=== PATIENT | male | born 1965 | race Caucasian/White ===

== ENCOUNTER 2017-08-09 20:06 | Inpatient (IN) | payer MEDICAID, OTHER ==
[~2017-08-09] VITALS: Ht 182.9 cm; Wt 69.3 kg
[2017-08-09 21:00] VITALS: Ht 182.9 cm; Wt 69.3 kg
[2017-08-09] MEDS ORDERED: DIPHTH/TET/ACEL PERTUSS (ADULT) 0.5 ML VIAL IM* ONE (22:30)
--- NOTE | 2017-08-09 22:31 | ERD ---
ER Documentation Chief Complaint Date/Time DATE: 08/09/17 TIME: 22:15 Chief Complaint BIB RA FROM CAR FOR ETOH, HPI 52-year-old male presents to the ED via ambulance for evaluation after he was found sleeping in his car. Patient admitted to 1 week EtOH binge and states he fell in his house yesterday but does not remember what happened after that. Patient reports mild right elbow pain and requesting analgesics. Initially denied medical history but subsequently admitted to diabetes and chronic pain for which he takes methadone. Mild headache but no neck or back pain. Denies chest pain, shortness of breath or palpitations. No abdominal pain, nausea, vomiting, diarrhea or constipation. No hematemesis, hematochezia or melanotic stools. No fevers or chills. ROS All systems reviewed and are negative except as per history of present illness. Medications Home Meds Active Scripts Aspirin (Aspirin) 81 Mg Chew, 81 MG PO DAILY for 30 Days, #30 TAB Prov:MOHIT CASTELLANOS MD 08/13/17 NPH, Human Insulin Isophane (Humulin N Kwikpen) 100 Unit/1 Ml Insuln.pen, 20 UNIT SQ QPM for 30 Days, #1 EA Prov:MOHIT CASTELLANOS MD 08/13/17 NPH, Human Insulin Isophane (Humulin N Kwikpen) 100 Unit/1 Ml Insuln.pen, 25 UNIT SQ QAM for 30 Days, #1 EA 2 Refills Prov:MOHIT CASTELLANOS MD 08/13/17 Reported Medications Trazodone Hcl* (Trazodone Hcl*) 50 Mg Tablet, 50 MG PO QHS, #30 TAB 08/10/17 Methadone Hcl* (Methadone*) 5 Mg Tab, 5 MG PO, TAB 08/10/17 Allergies Allergies: Coded Allergies: No Known Allergy (Unverified , 08/09/17) PMhx/Soc Reviewed in chart. As per HPI. History of Surgery: Yes (Cholecystectomy.) Anesthesia Reaction: No Hx Neurological Disorder: No Hx Respiratory Disorders: No Hx Cardiac Disorders: No Hx Psychiatric Problems: Yes (Depression) Hx Miscellaneous Medical Probl: Yes (Diabetes mellitus type 2. Chronic pain on methadone. Possible pancreatitis.) Hx Alcohol Use: Yes Hx Substance Use: Yes Hx Tobacco Use: No FmHx Denies family history of stroke, cancer sudden cardiac . Physical Exam Vitals Time: 21:00 Temp: 98.5 Pulse: 76 R:18 BP: 153/81. Pulse ox: 100% on room air Physical Exam Const: Sleepy but easily arousable. No acute distress Head: Atraumatic Eyes: Normal Conjunctiva. Pupils equal reactive to light. Extraocular movements are intact. No nystagmus. No periorbital ecchymosis or subconjunctival hemorrhage. ENT: Normal External Ears, Nose and Mouth. No hemotympanum or givens sign. Neck: Full range of motion. No midline bony tenderness or paraspinal muscle spasm. Resp: Breath sounds are equal and clear to auscultation bilaterally Cardio: Regular rate and rhythm, no murmurs Abd: Soft, non tender, non distended. Normal bowel sounds Skin: No petechiae or rashes Back: No midline or flank tenderness Ext: No cyanosis, or edema. Right upper extremity: Elbow: Multiple superficial abrasions and mild generalized tenderness. No ecchymosis or deformity. Normal range of motion including supination and pronation. No shoulder or wrist swelling or tenderness. Full range of motion. Distal neurovascular intact. Neur: Sleepy but easily arousable. GCS 15. Cranial nerves II through XII are grossly intact. Motor and sensory are equal bilaterally. No focal deficit observed. Psych: Cooperative. Mildly anxious but not depressed. Denies SI/HI. No hallucinations. Result Diagram: 08/13/17 1020 Results 24 hrs Laboratory Tests Test 08/09/17 20:40 08/10/17 00:22 08/10/17 01:15 08/10/17 02:00 White Blood Count 13.910^3/ul Red Blood Count 5.5710^6/ul Hemoglobin 17.7g/dl Hematocrit 50.8% Mean Corpuscular Volume 91.2fl Mean Corpuscular Hemoglobin 31.8pg Mean Corpuscular Hemoglobin Concent 34.8g/dl Red Cell Distribution Width 13.2% Platelet Count 66307^3/UL Mean Platelet Volume 11.2fl Neutrophils % 72.1% Lymphocytes % 20.6% Monocytes % 6.1% Eosinophils % 0.1% Basophils % 0.6% Nucleated Red Blood Cells % 0.0/100WBC Neutrophils # 10.010^3/ul Lymphocytes # 2.910^3/ul Monocytes # 0.910^3/ul Eosinophils # 0.010^3/ul Basophils # 0.110^3/ul Nucleated Red Blood Cells # 0.010^3/ul Sodium Level 143mmol/L Potassium Level 4.3mmol/L Chloride Level 102mmol/L Carbon Dioxide Level 17mmol/L Anion Gap 28 Blood Urea Nitrogen 22mg/dl Creatinine 1.07mg/dl Glucose Level 359mg/dl Calcium Level 8.4mg/dl Bedside Glucose 292mg/dL Blood Gas Specimen Source Blood venous Arterial Blood Date Drawn 08/10/2017 3:33:47 AM Arterial Blood Gas Puncture Site VENOUS LINE Jason Test N/A Venous Blood pH 7.363 Venous Blood pCO2 (Temp Corrected) 32.4mmHG Venous Blood pO2 (Temp Corrected) 45.7mmHG Venous Blood HCO3 18.0mmol/L Venous Blood Oxygen Saturation 81.0mmHG Venous Blood Base Excess -6.2mmol/L Venous Blood Total Hemoglobin 15.7g/dl Venous Blood Oxyhemoglobin 78.1% Venous Blood Methemoglobin 0.3% Carboxyhemoglobin 3.3% Blood Gas Temperature 37.0C Blood Gas Actual Respiration Rate 18 Blood Gas Modality ROOM AIR FiO2 21.0% Blood Gas Notified Whom [facility] Blood Gas Notified Time 08/10/2017 3:44:38 AM Urine Color YELLOW Urine Clarity CLEAR Urine pH 5.0 Urine Specific [place] 1.026 Urine Ketones 1+mg/dL Urine Nitrite NEGATIVEmg/dL Urine Bilirubin NEGATIVEmg/dL Urine Urobilinogen NEGATIVEmg/dL Urine Leukocyte Esterase NEGATIVELeu/ul Urine Microscopic RBC 28/HPF Urine Microscopic WBC 1/HPF Urine Hemoglobin 2+mg/dL Urine Random Creatinine 83mg/dL Urine Microalbumin 16.2mg/dL Urine Microalbumin/Creatinine Ratio 195 Urine Glucose 3+mg/dL Urine Total Protein 1+mg/dl Urine Opiates Screen Negative Urine Barbiturates Negative Urine Amphetamines Screen Negative Urine Benzodiazepines Screen Negative Urine Cocaine Screen Negative Urine Cannabinoids Negative Current Medications Medications (Trade) Dose Ordered Sig/Miguel Route PRN Reason Start Time Stop Time Status Last Admin Dose Admin Diphtheria/ Tetanus/Acell Pertussis (Adacel) 0.5 ml ONCE ONCE IM* 08/09/17 22:30 08/09/17 22:31 DC 08/09/17 23:09 Acetaminophen (Tylenol Tab) 650 mg ONCE ONCE PO 08/09/17 23:30 08/09/17 23:48 DC 08/09/17 23:49 Aspirin (Aspirin) 325 mg STK-MED ONCE .ROUTE 08/09/17 23:14 08/09/17 23:15 DC Acetaminophen 325 mg 325 mg STK-MED ONCE .ROUTE 08/09/17 23:22 08/09/17 23:23 DC Sodium Chloride 2,000 ml @ 1,000 mls/hr Q2H STAT IV 08/10/17 01:39 08/10/17 03:38 DC 08/10/17 02:04 Sodium Chloride 1,000 ml @ 200 mls/hr Q5H IV 08/10/17 02:51 08/10/17 09:47 DC 08/10/17 08:38 Sodium Chloride (NS) 1,000 ml @ 1,000 mls/hr Q1H IV 08/10/17 02:51 08/10/17 03:50 DC Ordering MD: JOSE A TIRADO MD Location: E/R Room/Bed: PROCEDURE: Noncontrast CT Head. CLINICAL INDICATION: Headache TECHNIQUE: Noncontrast CT of the head was obtained. The administered radiation dose was CTDI vol = 44.11 mGy, DLP = 720.23 mGy-cm. One or more of the following dose reduction techniques were used: Automated exposure control, Adjustment of the mA and/or kV according to patient size, or Use of iterative reconstruction technique. COMPARISON: There are no similar studies submitted for comparison. FINDINGS: There is no acute intracranial hemorrhage, midline shift, or mass effect. No extra-axial collection is seen. There is mild diffuse cerebral volume loss with compensatory mild diffuse cerebral sulcal and ventricular enlargement. A few rounded low attenuation lesions in the left frontal parietal centrum semiovale, measuring up to 1.1 cm, and arranged in a somewhat linear AP distribution are of uncertain etiology. Differential considerations include: chronic ischemic change/lacunar infarcts in a watershed distribution, inflammatory, infectious, or neoplastic etiologies. The cerebral attenuation is otherwise within normal limits. There is mild diffuse cerebellar volume loss. The basal cisterns are preserved. The there is intracranial calcific atherosclerotic disease involving the internal carotid arteries bilaterally. The partially imaged orbits are grossly unremarkable. The visualized paranasal sinuses and mastoid air cells are clear. No acute fracture or suspicious osseous lesion is identified. IMPRESSION: 1. No acute intracranial hemorrhage, midline shift, mass effect, or evidence of large vascular territory acute infarct. 2. A few small rounded low attenuation lesions in the left frontal parietal centrum semiovale a somewhat linear AP distribution, suggestive of possible chronic lacunar infarcts of watershed etiology. However, other etiologies including inflammatory, infectious, or even neoplastic conditions cannot be completely excluded. Recommend MRI brain with contrast for further evaluation. Given the unilaterality and watershed distribution of these lesions, consider MRA head/neck as well. 3. Intracranial calcific atherosclerotic disease. Call report was made to Dr. Tirado at 23:30 on 08/09/2017. RPTAT: HRC Physician Eddie Date Time Electronically viewed and signed by Physician Eddie on 08/09/2017 23: 34 RC/ Procedures/MDM DOCUMENTS REVIEWED: ED nurse, EMS. No prior records [employer]ISION [employer]KIN-year-old male, history of diabetes mellitus and chronic pain on methadone, presents to the ED via ambulance for evaluation after he was found sleeping in his car. Labs reveals hyperglycemia and a anion gap metabolic acidosis with hyperglycemia and pH is 7.36 on VBG with 1+ urine ketones consistent with mild diabetic ketoacidosis although an element of alcoholic ketoacidosis is also considered. Due to possible head injury CT scan of the brain was performed to rule out mass, bleed or infarct and revealed several low-attenuation lesions in the left frontal area. Etiology of the lesion is uncertain but differential includes infectious, ischemic, inflammatory or neoplastic process. Further evaluation with MRI will be necessary. No tremulousness, hallucinations or signs of alcohol withdrawal or delirium tremens. IV hydration with normal saline is instituted, patient placed on a insulin drip will be admitted to the intensive care unit for further evaluation and management. CRITICAL CARE TIME: Due to the high probability of sudden clinically significant hemodynamic, cardiovascular, neurologic and endocrine deterioration , this patient with diabetic ketoacidosis and an abnormal CT of the brain required multiple, frequent reevaluations of vital signs and response to therapy. Additional critical care time was spent in obtaining supplemental history from EMS and arranging for ongoing care and admission to the ICU with Dr. Thorne. TOTAL CRITICAL CARE TIME: 35 minutes not including other separately reportable procedures. Counseled patient regarding diagnosis, diagnostic results and plan for admission. CALLS/CONSULTS: Time 01:00, Dr. Thorne, Recommends admission to the ICU on insulin drip.. PATIENT CARE TRANSITIONED: Time: 01:00, Dr. Thorne. Departure Diagnosis: Primary Impression: Diabetic ketoacidosis Diabetes mellitus type: other specified (including KRISTOPHER) Diabetes mellitus complication detail: without coma Qualified Code: E13.10 - Diabetic ketoacidosis without coma associated with other specified diabetes mellitus Additional Impressions: Abnormal CT of brain Chronic pain disorder Methadone maintenance therapy patient Alcohol consumption binge drinking Condition: Critical (Admit to ICU.) JOSE A TIRADO MD Aug 09, 2017 22:31
[2017-08-09 22:51] LABS: BASOPHIL # 0.1 10^3/ul (0.0-0.1); BASOPHILS % 0.6 % (0.0-2.0); EOSINOPHILS % 0.1 % (0.0-7.0); HEMATOCRIT 50.8 % (42.0-52.0); HEMOGLOBIN 17.7 g/dl (14.0-18.0); LYMPHOCYTES # 2.9 10^3/ul (0.8-2.9); LYMPHOCYTES % 20.6 % (15.0-51.0); MEAN CORPUSCULAR HEMOGLOBIN 31.8 pg (29.0-33.0); MEAN CORPUSCULAR HGB CONC 34.8 g/dl (32.0-37.0); MEAN CORPUSCULAR VOLUME 91.2 fl (82.0-101.0); MEAN PLATELET VOLUME 11.2 fl (7.4-10.4); MONOCYTE # 0.9 10^3/ul (0.3-0.9); MONOCYTES % 6.1 % (0.0-11.0); NEUTROPHILS % 72.1 % (39.0-77.0); PLATELET COUNT 264 10^3/UL (140-415); RED BLOOD COUNT 5.57 10^6/ul (4.70-6.10); RED CELL DISTRIBUTION WIDTH 13.2 % (11.5-14.5); WHITE BLOOD COUNT 13.9 10^3/ul (4.8-10.8)
[2017-08-09 22:57] LABS: CALCIUM 8.4 mg/dl (8.4-10.2); CREATININE 1.07 mg/dl (0.61-1.24); POTASSIUM 4.3 mmol/L (3.5-5.1)
[2017-08-09] MEDS ORDERED: ASPIRIN 325 MG TAB ONE (23:14)
[2017-08-09] MEDS ORDERED: ACETAMINOPHEN 325 MG TAB ONE (23:22)
[2017-08-09] MEDS ORDERED: ACETAMINOPHEN 325 MG TAB PO ONE (23:30)
--- NOTE | 2017-08-09 23:34 | RADRPT ---
PROCEDURE: Noncontrast CT Head. CLINICAL INDICATION: Headache TECHNIQUE: Noncontrast CT of the head was obtained. The administered radiation dose was CTDI vol = 44.11 mGy, DLP = 720.23 mGy-cm. One or more of the following dose reduction techniques were used: Au tomated exposure control, Adjustment of the mA and/or kV according to patient size, or Use of iterat francis reconstruction technique. COMPARISON: There are no similar studies submitted for comparison. FINDINGS: There is no acute intracranial hemorrhage, midline shift, or mass effect. No extra-axial collection is seen. There is mild diffuse cerebral volume loss with compensatory mild diffuse cerebral sulcal a nd ventricular enlargement. A few rounded low attenuation lesions in the left frontal parietal centr um semiovale, measuring up to 1.1 cm, and arranged in a somewhat linear AP distribution are of uncer tain etiology. Differential considerations include: chronic ischemic change/lacunar infarcts in a wa tershed distribution, inflammatory, infectious, or neoplastic etiologies. The cerebral attenuation i s otherwise within normal limits. There is mild diffuse cerebellar volume loss. The basal cisterns a re preserved. The there is intracranial calcific atherosclerotic disease involving the internal jones tid arteries bilaterally. The partially imaged orbits are grossly unremarkable. The visualized paran benito sinuses and mastoid air cells are clear. No acute fracture or suspicious osseous lesion is identified. IMPRESSION: 1. No acute intracranial hemorrhage, midline shift, mass effect, or evidence of large vascular osmani tory acute infarct. 2. A few small rounded low attenuation lesions in the left frontal parietal centrum semiovale a some what linear AP distribution, suggestive of possible chronic lacunar infarcts of watershed etiology. However, other etiologies including inflammatory, infectious, or even neoplastic conditions cannot b e completely excluded. Recommend MRI brain with contrast for further evaluation. Given the unilatera lity and watershed distribution of these lesions, consider MRA head/neck as well. 3. Intracranial calcific atherosclerotic disease. Call report was made to Dr. Washburn at 23:30 on 08/09/2017. RPTAT: HRC Physician Eddie Date Time Electronically viewed and signed by Dane Swan Physician on 08/09/2017 23:34 RC/
[2017-08-10] MEDS ORDERED: SOD CHLORIDE 0.9% 2,000 ML IV STA (01:39)
[2017-08-10] MEDS ORDERED: TRAZ50TA18 PO (02:19)
[2017-08-10] MEDS ORDERED: METH-417 PO (02:19)
[2017-08-10 02:33] LABS: ADD UMIC YES; UR ASCORBIC ACID NEGATIVE (NEGATIVE); UR BILIRUBIN (Dip) NEGATIVE (NEGATIVE); UR BLOOD (Dip) 2+ mg/dL (NEGATIVE); UR CLARITY CLEAR (CLEAR); UR COLOR YELLOW (YELLOW); UR GLUCOSE (Dip) 3+ mg/dL (NEGATIVE); UR KETONES (Dip) 1+ mg/dL (NEGATIVE); UR LEUKOCYTE ESTERASE (Dip) NEGATIVE Leu/ul (NEGATIVE); UR NITRITE (Dip) NEGATIVE (NEGATIVE); UR RBC 28 /HPF (0-5); UR SPECIFIC GRAVITY (Dip) 1.026 (1.003-1.030); UR TOTAL PROTEIN (Dip) 1+ mg/dl (NEGATIVE); UR UROBILINOGEN (Dip) NEGATIVE (NEGATIVE)
[2017-08-10] MEDS ORDERED: SOD CHLORIDE 0.9% 1,000 ML IV SCH (02:51)
[2017-08-10] MEDS ORDERED: INSULIN HUMAN REGULAR 100 UNIT in SOD CHLORIDE 0.9% 99 ML IV SCH (03:00)
[2017-08-10] MEDS ORDERED: DEXTROSE 50% 50 ML SYRINGE IV PRN ×4 (03:00→10:30)
[2017-08-10] MEDS ORDERED: ONDANSETRON 4 MG INJ IV PRN (03:00)
[2017-08-10 03:18] LABS: BARBITURATES Negative (NEGATIVE); BENZODIAZEPINES Negative (NEGATIVE); CANNABINOIDS Negative (NEGATIVE); COCAINE Negative (NEGATIVE); OPIATES Negative (NEGATIVE)
[2017-08-10 03:44] LABS: MODE ROOM AIR; MetHgb Venous 0.3 %; Sample Type Blood venous; Venous COHb 3.3 %; Venous Fraction OxyHgb 78.1 %; Venous Total Hemglobin 15.7 g/dl
[2017-08-10] MEDS: ACCU-CHEK XX SCH ×9 (03:45→11:00)
[2017-08-10 03:50] LABS: CALCIUM 7.9 mg/dl (8.4-10.2); CREATININE 0.84 mg/dl (0.61-1.24); POTASSIUM 4.3 mmol/L (3.5-5.1)
[2017-08-10] MEDS ORDERED: LACTATED RINGER'S 1,000 ML IV SCH (03:51)
[2017-08-10 04:31] VITALS: TEMP 98.7
[2017-08-10] MEDS: SOD CHLORIDE 0.9% 1,000 ML IV SCH ×2 (05:50→08:38)
[2017-08-10] MEDS ORDERED: ONDANSETRON 4 MG INJ IV STA (05:55)
[2017-08-10] MEDS ORDERED: morphine 4 MG/ML VIAL IV STA (05:55)
[2017-08-10] MEDS: DEXTROSE 5%-0.45% NACL 1,000 ML IV SCH ×2 (05:59→13:34)
[2017-08-10] MEDS ORDERED: PANTOPRAZOLE 40 MG INJ IV SCH (06:00)
[2017-08-10 06:05] LABS: CALCIUM 7.9 mg/dl (8.4-10.2); CREATININE 0.77 mg/dl (0.61-1.24); POTASSIUM 3.5 mmol/L (3.5-5.1)
[2017-08-10 06:06] LABS: PHOSPHORUS 3.1 mg/dl (2.5-4.9)
[2017-08-10 08:58] LABS: CALCIUM 7.8 mg/dl (8.4-10.2); CREATININE 0.64 mg/dl (0.61-1.24); POTASSIUM 3.9 mmol/L (3.5-5.1)
[2017-08-10 09:00] VITALS: PULSE 57
--- NOTE | 2017-08-10 09:00 | HP ---
Date/Time of Note Date/Time of Note DATE: 08/10/17 TIME: 08:47 Assessment/Plan VTE Prophylaxis VTE Prophylaxis Intervention: SCD's Assessment/Plan Chief Complaint/Hosp Course This is a 52-year-old male being admitted to the ICU floor for: #1 DKA: Blood sugars above 250 and anion gap greater than 20. At the time we will treat the patient in the ICU with insulin drip protocol. Will check CMP every 3 hours. Will provide fluid hydration with normal saline and switch over to D5 and half once a sugars are below 200. Check a hemoglobin A1c level. Patient does not report taking any diabetes medications at home and there are none on his med rec. Consider endocrine consultation. #2 EtOH intoxication: We will provide fluid hydration. Will check ethanol level. Provide Ativan as needed. Consider Librium however the patient states he only drank yesterday after a long time. #3 fall: Patient does report hitting his head after getting drunk. He denies any loss of consciousness. CAT scan of the head showed:A few small rounded low attenuation lesions in the left frontal parietal centrum semiovale a somewhat linear AP distribution, suggestive of possible chronic lacunar infarcts of watershed etiology. However, other etiologies including inflammatory, infectious , or even neoplastic conditions cannot be completely excluded. MRI of the brain with and without contrast ordered along with MRA of the head and neck. Will consult neurology if indicated. #4 Leukocytosis: This likely is reactive in stress related. Will continue to follow this. There are no fevers at this time or signs of infection. #5 chronic back pain: Patient is currently on methadone. We will continue patient's home dose of methadone but will need to confirm his clinic and his dosage as well. #6 DVT GI prophylaxis: SCDs, acid beatriz Further treatment strategy will be implemented as per the clinical course` Problems: HPI/ROS Admit Date/Time Admit Date/Time Hx of Present Illness Chief complaint: Fall This is a 52-year-old male who presents to the ED status post fall. Patient states that he was drinking a lot last night and he fell and hit his head. He denies any loss of consciousness. He states that usually does not drink daily and as much as he did. He states that this is the first time he passed out. Patient has not been to [facility] for. He also states that he is on methadone for chronic pain for his back. Allergies: NKDA Medications: See JAN ROS Const: As per HPI Eyes : No pain discharge or redness or change in visual acuity ENT: No pain, sore throat, congestion, congestion, dysphagia or discharge Respiratory: No shortness of breath, cough, sputum, wheezing, or pleuritic pain Cardiovascular: No chest pain, palpitation, PND, or edema GI : no change in appetite, abdominal pain, nausea, vomiting, diarrhea, constipation, or change in the color his stool Genitourinary: No dysuria, hematuria, flank pain , discharge or CVA tenderness Musculoskeletal: As per HPI Skin: Bruising of the face, and right arm Neuro: No headache, dizziness, syncope, seizure, focal weakness Endocrine: Reports polyuria, polydipsia Psych: No hallucination, depression, anxiety or suicidal ideation PMH/Family/Social Past Medical History Diabetes mellitus, chronic back pain, pancreatitis? Past Surgical History This is a 52-year-old male cholecystectomy, abdominal hernia repair, pancreatic surgery Family History Significant Family History: no pertinent family hx Social History Alcohol Use: occasionally Smoking Status: Never smoker Drug Use: none Exam/Review of Systems Vital Signs Vitals Vital Signs Date Time Temp Pulse Resp B/P Pulse Ox O2 Delivery O2 Flow Rate FiO2 08/10/17 08:00 65 18 127/79 96 Room Air 08/10/17 04:31 98.7 Exam Exam General: Patient is well-developed male lying in bed in mild distress from pain , he is requesting his methadone HEENT: Atraumatic, normocephalic. The pupils are equal, round and reactive. Extraocular motor are intact Neck: Supple with full range of motion. No rigidity or meningismus Chest: Nontender Lungs: Clear to auscultation bilaterally no crackles rales or wheezing Heart: Normal S1-S2, Regular rhythm and rate. Abdomen: Soft , nontender, nondistended , bowel sounds are present. Surgical scar present of the abdomen Extremities: Normal to inspection, no edema no cyanosis Neurologic: Normal mental status, speech normal, cranial nerves II through XII are intact, motor and sensory are intact, no focal weakness skin: Surgical scar present of the abdomen, abrasions of the face and right elbow Additional Comments PROCEDURE: Noncontrast CT Head. CLINICAL INDICATION: Headache TECHNIQUE: Noncontrast CT of the head was obtained. The administered radiation dose was CTDI vol = 44.11 mGy, DLP = 720.23 mGy-cm. One or more of the following dose reduction techniques were used: Automated exposure control, Adjustment of the mA and/or kV according to patient size, or Use of iterative reconstruction technique. COMPARISON: There are no similar studies submitted for comparison. FINDINGS: There is no acute intracranial hemorrhage, midline shift, or mass effect. No extra-axial collection is seen. There is mild diffuse cerebral volume loss with compensatory mild diffuse cerebral sulcal and ventricular enlargement. A few rounded low attenuation lesions in the left frontal parietal centrum semiovale, measuring up to 1.1 cm, and arranged in a somewhat linear AP distribution are of uncertain etiology. Differential considerations include: chronic ischemic change/lacunar infarcts in a watershed distribution, inflammatory, infectious, or neoplastic etiologies. The cerebral attenuation is otherwise within normal limits. There is mild diffuse cerebellar volume loss. The basal cisterns are preserved. The there is intracranial calcific atherosclerotic disease involving the internal carotid arteries bilaterally. The partially imaged orbits are grossly unremarkable. The visualized paranasal sinuses and mastoid air cells are clear. No acute fracture or suspicious osseous lesion is identified. IMPRESSION: 1. No acute intracranial hemorrhage, midline shift, mass effect, or evidence of large vascular territory acute infarct. 2. A few small rounded low attenuation lesions in the left frontal parietal centrum semiovale a somewhat linear AP distribution, suggestive of possible chronic lacunar infarcts of watershed etiology. However, other etiologies including inflammatory, infectious, or even neoplastic conditions cannot be completely excluded. Recommend MRI brain with contrast for further evaluation. Given the unilaterality and watershed distribution of these lesions, consider MRA head/neck as well. 3. Intracranial calcific atherosclerotic disease. Call report was made to Dr. Tirado at 23:30 on 08/09/2017. RPTAT: HRC Physician Eddie Date Time Electronically viewed and signed by Physician Eddie on 08/09/2017 23: 34 RC/ CC: JOSE A TIRADO MD Labs Result Diagram: 08/09/17203908/10/17520 Medications Medications Current Medications Sodium Chloride (NS) 1,000 ml @ 200 mls/hr Q5H IV Last administered on 08:38; Admin Dose 200 MLS/HR; Start 08/10/17 at 02:51 Ondansetron HCl (Zofran Inj) 4 mg Q6H PRN IV NAUSEA AND/OR VOMITING; Start 08/10/17 at 03:00 Acetaminophen (Tylenol Tab) 650 mg Q6H PRN PO PAIN LEVEL 1-3 OR FEVER; Start 08/10/17 at 03:00 Pantoprazole (Protonix Iv) 40 mg DAILY@06 IV Last administered on 08/10/17 05: 59; Admin Dose 40 MG; Start 08/10/17 at 06:00 Dextrose (D50w Syringe) 50 ml Q15M PRN IV For BS 50 or less; Start 08/10/17 at 03:00 Dextrose (D50w Syringe) 25 ml Q15M PRN IV BS between 50-70 Last administered on 08/10/17 08:22; Admin Dose 25 ML; Start 08/10/17 at 03:00 Diagnostic Test (Pha) (Accu-Chek) 1 ea Q1H XX Last administered on 08/10/17 08 :03; Admin Dose 1 EA; Start 08/10/17 at 03:00 Lorazepam (Ativan) 1 mg Q4H PRN IV AGITATION/ANXIETY; Start 08/10/17 at 03:00 Methadone HCl (Methadone) 5 mg TID PO ; Start 08/10/17 at 09:00; Status UNV Trazodone HCl 50 mg 50 mg QHS PO ; Start 08/10/17 at 21:00; Status UNV Dextrose/Sodium Chloride (D5-1/2ns) 1,000 ml @ 150 mls/hr Q6H40M IV Last administered on 08/10/17 05:59; Admin Dose 100 MLS/HR; Start 08/10/17 at 06:00 MAX SCHAEFFER Aug 10, 2017 08:58
[2017-08-10] MEDS ORDERED: INSULIN GLARGINE [LANtus] 3 ML PEN SC STA (09:30)
[2017-08-10] MEDS: METHADONE 5 MG TAB PO SCH ×3 (09:32→20:40)
[2017-08-10] MEDS: LORAZEPAM 2 MG INJ IV PRN ×2 (09:35→16:41)
[2017-08-10] MEDS ORDERED: GLUCAGON 1 MG INJ IM PRN (10:30)
[2017-08-10] MEDS ORDERED: GLUCOSE GEL 15 GRAM TUBE BUCCAL PRN (10:30)
[2017-08-10] MEDS ORDERED: GLUCOSE GEL 15 GRAM TUBE PO PRN ×2 (10:30)
[2017-08-10 11:27] VITALS: BP 129/65; RESP 18
[2017-08-10] MEDS: INSULIN ASPART [NOVOLOG] 3 ML PEN SC SCH ×5 (12:05→20:44)
[2017-08-10 12:39] LABS: ALBUMIN 3.4 g/dl (3.3-4.9); ALBUMIN/GLOBULIN RATIO 1.13; BILIRUBIN,INDIRECT 0.6 mg/dl (0-1.1); BILIRUBIN,TOTAL 0.6 mg/dl (0.2-1.3); CALCIUM 7.9 mg/dl (8.4-10.2); CREATININE 0.83 mg/dl (0.61-1.24); POTASSIUM 4.4 mmol/L (3.5-5.1); TOTAL PROTEIN 6.4 g/dl (6.1-8.1)
--- NOTE | 2017-08-10 14:00 | PN ---
Date/Time of Note Date/Time of Note DATE: 08/10/17 TIME: 13:59 Assessment/Plan VTE Prophylaxis VTE Prophylaxis Intervention: LMWH Assessment/Plan Chief Complaint/Hosp Course 52 yo male with h/o DMII on insulin who presented with DKA DKA: - Resolved DMII; - Basal/bolus insulin Back pain: - Continue methadone 5 TID Discharge likely tomorrow Problems: Subjective 24 Hr Interval Summary Free Text/Dictation DKA resolved Admits to etoh use for past 1 week only No current w/d symptoms Only compliant is of chronic back pain for which he takes methadone 5 TID Exam/Review of Systems Vital Signs Vitals Vital Signs Date Time Temp Pulse Resp B/P Pulse Ox O2 Delivery O2 Flow Rate FiO2 08/10/17 11:27 98.5 54 18 129/65 98 08/10/17 09:00 Room Air Exam Constitutional: alert, oriented, well developed Psych: nl mood/affect, no complaints Head: atraumatic, normocephalic Eyes: EOMI, PERRL, nl conjunctiva, nl lids, nl sclera ENMT: nl external ears & nose, nl lips & teeth, nl nasal mucosa & septum Neck: non-tender, supple Respiratory: clear to auscultation, normal air movement Cardiovascular: nl pulses, regular rate and rhythm Gastrointestinal: nl liver, spleen, non-tender, soft Musculoskeletal: nl extremities to inspection, nl gait and stance Extremities: normal pulses Neurological: VENTILATION MECHANIC II-XII intact, nl mental status, nl speech, nl strength Skin: nl turgor, No rash or lesions Lymph: nl lymph nodes Results Result Diagram: 08/09/17203908/10/17 1202 Results 24 hrs Laboratory Tests Test 08/09/17 20:40 08/10/17 00:22 08/10/17 01:15 08/10/17 02:00 White Blood Count 13.9 H Red Blood Count 5.57 Hemoglobin 17.7 Hematocrit 50.8 Mean Corpuscular Volume 91.2 Mean Corpuscular Hemoglobin 31.8 Mean Corpuscular Hemoglobin Concent 34.8 Red Cell Distribution Width 13.2 Platelet Count 264 Mean Platelet Volume 11.2 H Neutrophils % 72.1 Lymphocytes % 20.6 Monocytes % 6.1 Eosinophils % 0.1 Basophils % 0.6 Nucleated Red Blood Cells % 0.0 Neutrophils # 10.0 H Lymphocytes # 2.9 Monocytes # 0.9 Eosinophils # 0.0 Basophils # 0.1 Nucleated Red Blood Cells # 0.0 Sodium Level 143 Potassium Level 4.3 Chloride Level 102 Carbon Dioxide Level 17 L Anion Gap 28 H Blood Urea Nitrogen 22 H Creatinine 1.07 Glucose Level 359 H Calcium Level 8.4 Bedside Glucose 292 H Blood Gas Specimen Source Blood venous Arterial Blood Date Drawn 08/10/2017 3:33:47 AM Arterial Blood Gas Puncture Site VENOUS LINE Jason Test N/A Venous Blood pH 7.363 Venous Blood pCO2 (Temp Corrected) 32.4 L Venous Blood pO2 (Temp Corrected) 45.7 H Venous Blood HCO3 18.0 L Venous Blood Oxygen Saturation 81.0 H Venous Blood Base Excess -6.2 L Venous Blood Total Hemoglobin 15.7 Venous Blood Oxyhemoglobin 78.1 Venous Blood Methemoglobin 0.3 Carboxyhemoglobin 3.3 Blood Gas Temperature 37.0 Blood Gas Actual Respiration Rate 18 Blood Gas Modality ROOM AIR FiO2 21.0 Blood Gas Notified Miranda MAYNARD RCP Blood Gas Notified Time 08/10/2017 3:44:38 AM Urine Color YELLOW Urine Clarity CLEAR Urine pH 5.0 Urine Specific [place] 1.026 Urine Ketones 1+ H Urine Nitrite NEGATIVE Urine Bilirubin NEGATIVE Urine Urobilinogen NEGATIVE Urine Leukocyte Esterase NEGATIVE Urine Microscopic RBC 28 H Urine Microscopic WBC 1 Urine Hemoglobin 2+ H Urine Glucose 3+ H Urine Total Protein 1+ H Urine Opiates Screen Negative Urine Barbiturates Negative Urine Amphetamines Screen Negative Urine Benzodiazepines Screen Negative Urine Cocaine Screen Negative Urine Cannabinoids Negative Test 08/10/17 03:00 08/10/17 03:42 08/10/17 05:21 08/10/17 05:22 Sodium Level 140 141 Potassium Level 4.3 3.5 Chloride Level 104 107 Carbon Dioxide Level 18 L 18 L Anion Gap 22 H 20 H Blood Urea Nitrogen 20 20 Creatinine 0.84 0.77 Glucose Level 274 H 169 # Calcium Level 7.9 L 7.9 L Bedside Glucose 257 H 175 Fasting Glucose 169 H Hemoglobin A1c 10.1 H Phosphorus Level 3.1 Test 08/10/17 06:03 08/10/17 06:59 08/10/17 07:58 08/10/17 08:17 Bedside Glucose 136 115 80 69 L Test 08/10/17 08:24 08/10/17 08:33 08/10/17 08:48 08/10/17 09:59 Sodium Level 136 Potassium Level 3.9 Chloride Level 106 Carbon Dioxide Level 24 Anion Gap 10 # Blood Urea Nitrogen 22 H Creatinine 0.64 Glucose Level 115 # Calcium Level 7.8 L Bedside Glucose 120 127 113 Test 08/10/17 12:00 08/10/17 12:02 Bedside Glucose 232 H Sodium Level 138 Potassium Level 4.4 Chloride Level 105 Carbon Dioxide Level 27 Anion Gap 10 Blood Urea Nitrogen 22 H Creatinine 0.83 Glucose Level 243 #H Calcium Level 7.9 L Total Bilirubin 0.6 Direct Bilirubin 0.00 Indirect Bilirubin 0.6 Aspartate Amino Transf (AST/SGOT) 31 Alanine Aminotransferase (ALT/SGPT) 49 Alkaline Phosphatase 104 Total Protein 6.4 Albumin 3.4 Globulin 3.00 Albumin/Globulin Ratio 1.13 Ethyl Alcohol Level < 10.0 Medications Medications Current Medications Ondansetron HCl (Zofran Inj) 4 mg Q6H PRN IV NAUSEA AND/OR VOMITING; Start 08/10/17 at 03:00 Acetaminophen (Tylenol Tab) 650 mg Q6H PRN PO PAIN LEVEL 1-3 OR FEVER; Start 08/10/17 at 03:00 Pantoprazole (Protonix Iv) 40 mg DAILY@06 IV Last administered on 08/10/17 05: 59; Admin Dose 40 MG; Start 08/10/17 at 06:00 Dextrose (D50w Syringe) 50 ml Q15M PRN IV For BS 50 or less; Start 08/10/17 at 03:00 Dextrose (D50w Syringe) 25 ml Q15M PRN IV BS between 50-70 Last administered on 08/10/17 08:22; Admin Dose 25 ML; Start 08/10/17 at 03:00 Diagnostic Test (Pha) (Accu-Chek) 1 ea Q1H XX Last administered on 08/10/17 10 :30; Admin Dose 1 EA; Start 08/10/17 at 03:00 Lorazepam (Ativan) 1 mg Q4H PRN IV AGITATION/ANXIETY Last administered on 09:35; Admin Dose 1 MG; Start 08/10/17 at 03:00 Methadone HCl (Methadone) 5 mg TID PO Last administered on 08/10/17 12:36; Admin Dose 5 MG; Start 08/10/17 at 09:00 Trazodone HCl (Desyrel) 50 mg QHS PO ; Start 08/10/17 at 21:00 Miscellaneous Information 1 ea NOTE XX ; Start 08/10/17 at 10:30 Glucose (Glutose) 15 gm Q15M PRN PO DECREASED GLUCOSE; Start 08/10/17 at 10:30 Glucose (Glutose) 22.5 gm Q15M PRN PO DECREASED GLUCOSE; Start 08/10/17 at 10: 30 Dextrose (D50w Syringe) 25 ml Q15M PRN IV DECREASED GLUCOSE; Start 08/10/17 at 10:30 Dextrose (D50w Syringe) 50 ml Q15M PRN IV DECREASED GLUCOSE; Start 08/10/17 at 10:30 Glucagon (Glucagen) 1 mg Q15M PRN IM DECREASED GLUCOSE; Start 08/10/17 at 10:30 Glucose (Glutose) 15 gm Q15M PRN BUCCAL DECREASED GLUCOSE; Start 08/10/17 at 10 :30 MOHIT CASTELLANOS MD Aug 10, 2017 14:00
[2017-08-10 14:39] VITALS: BP 132/72; RESP 18
[2017-08-10 16:36] LABS: ALBUMIN 3.3 g/dl (3.3-4.9); ALBUMIN/GLOBULIN RATIO 1.1; BILIRUBIN,INDIRECT 0.6 mg/dl (0-1.1); BILIRUBIN,TOTAL 0.6 mg/dl (0.2-1.3); CREATININE 0.7 mg/dl (0.61-1.24); TOTAL PROTEIN 6.3 g/dl (6.1-8.1)
--- NOTE | 2017-08-10 18:06 | RADRPT ---
AMENDMENT: 08/10/2017 6:22:46 PM John Harrell MD Examination is an MRI brain with and without contrast. Postcontrast axial, coronal, and sagittal images were obtained after administration of intravenous g adolinium. No abnormal enhancement is identified on postcontrast images. PROCEDURE: MR Brain without contrast. CLINICAL INDICATION: Fall, possible stroke TECHNIQUE: An MRI of the brain was performed utilizing the following sequences: Axial T1, axial T 2, axial FLAIR, coronal gradient echo, sagittal T1 FLAIR, diffusion weighted imaging, and ADC map. COMPARISON: CT and 08/09/2017 FINDINGS: The ventricles are symmetric and normal in size. There are several T2 / FLAIR hyperintense lesions in the bilateral cerebral hemisphere periventricul ar subcortical white matter, more prominent on the left side. There is a para annular configuration of several lesions. At least 6 lesions are seen in the left cerebral hemisphere. At least 3 lesions are seen in the right cerebral hemisphere. There is T1 hypointensity involving left-sided lesions. T here appears to be involvement in the left posterior limb internal capsule. No definite diffusion re stricting lesions are identified. There is no mass, mass effect, or midline shift. There is no abnormal intra-axial or extra-axial f luid collection. There is no intracranial hemorrhage. There is no evidence of acute infarct. The sella and suprasellar cistern appear within normal limits. The brainstem and posterior fossa ar e normal in configuration. The orbital soft tissue contents are unremarkable. There are retention cysts or polyps in the right maxillary sinus. IMPRESSION: 1. Several T2 / FLAIR hyperintense foci are seen in the bilateral cerebral hemispheres, left greater than right. There is a possible perivenular configuration of lesions, raising the possibility of mu ltiple sclerosis. Other inflammatory or demyelinating process including vasculitis or acute dissemin ated encephalomyelitis may be considered. Mild to moderate small vessel ischemic change. Contrast-en hanced sequences and sagittal T2 FLAIR sequence could be performed for additional evaluation. 2. No abnormal mass, acute infarct, or intracranial bleed. 3. Chronic sinus disease change. RPTAT: HBST .John Harrell MD, MD Date Time Electronically viewed and signed by .John Harrell MD, on 08/10/2017 18:22 .T/
--- NOTE | 2017-08-10 18:15 | RADRPT ---
PROCEDURE: MR Angiogram of the brain. CLINICAL INDICATION: Fall, abnormal CT, possible stroke TECHNIQUE: 3D [id number] MR angiogram was performed without contrast. Multiplanar and 3-D rec onstructions were performed. COMPARISON: No prior studies are available for comparison. FINDINGS: The right petrous internal carotid artery is normally patent. The right cavernous, and supraclinoid internal carotid artery segments demonstrate minimal appearing calcification.. The right anterior and middle cerebral arteries appear normal. The left petrous internal carotid artery is normally patent. The left cavernous, and supraclinoid i nternal carotid artery segments demonstrate mild appearing calcification with minimal vessel narrowi ng.. The left anterior and middle cerebral arteries appear normal. The anterior communicating artery is normally patent. Bilateral posterior communicating arteries ar e visualized and unremarkable. There are no anterior circulation aneurysms or vascular malformation s. The vertebral arteries appear normally patent. The left vertebral artery is dominant. There is a sma ll fenestration involving the proximal basilar artery. There is no basilar stenosis.. . The posteri or cerebral arteries appear normally patent. 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 The superior cerebellar arter ies are unremarkable. There are no posterior circulation aneurysms or vascular malformations. IMPRESSION: 1. Minimal appearing narrowing of the left cavernous internal carotid artery. Otherwise normal appea ring patency of the intracranial arterial vasculature. 2. Predominately origin of the right posterior cerebral artery, anatomic variant. RPTAT: HBST .John Harrell MD, Date Time Electronically viewed and signed by .John Harrell MD, MD on 08/10/2017 18:15 .T/
--- NOTE | 2017-08-10 18:21 | RADRPT ---
PROCEDURE: MRA of the neck without contrast CLINICAL INDICATION: Syncope. TECHNIQUE: 2-D and 3-D [id number] MRA of the neck was performed on a 3.0 Sarah MRI scanner. 3- D MIP reconstructions were generated. COMPARISON: None. FINDINGS: There is no hemodynamically significant stenosis along the cervical carotid and vertebral arteries. No aneurysmal dilatation of these vessels is seen. The left artery is dominant. IMPRESSION: 1. No hemodynamically significant stenosis along the cervical carotid and vertebral arteries. RPTAT: HTAR .Tariq Martin MD, MD Date Time Electronically viewed and signed by .Tariq Martin MD, on 08/10/2017 18:21 .R/
[2017-08-10 20:09] VITALS: BP 127/73; RESP 18
[2017-08-10] MEDS: traZODone 50 MG TAB PO SCH (20:40)
[2017-08-11 02:00] VITALS: BP 129/75; RESP 18
[2017-08-11] MEDS: ACETAMINOPHEN 325 MG TAB PO PRN ×2 (05:23→20:10)
[2017-08-11] MEDS: INSULIN GLARGINE [LANtus] 3 ML PEN SC SCH (07:56)
[2017-08-11] MEDS: LORAZEPAM 2 MG INJ IV PRN ×3 (07:57→20:08)
[2017-08-11 08:07] VITALS: BP 140/76; RESP 14
[2017-08-11] MEDS: INSULIN ASPART [NOVOLOG] 3 ML PEN SC SCH ×8 (08:20→20:15)
[2017-08-11 08:54] LABS: ALBUMIN/GLOBULIN RATIO 1.07; BILIRUBIN,INDIRECT 0.6 mg/dl (0-1.1); BILIRUBIN,TOTAL 0.6 mg/dl (0.2-1.3); CALCIUM 8.3 mg/dl (8.4-10.2); CREATININE 0.7 mg/dl (0.61-1.24); POTASSIUM 3.9 mmol/L (3.5-5.1); TOTAL PROTEIN 5.8 g/dl (6.1-8.1)
[2017-08-11] MEDS ORDERED: FAMOTIDINE 20 MG INJ IV SCH (09:00)
[2017-08-11] MEDS: METHADONE 5 MG TAB PO SCH ×3 (09:17→20:10)
--- NOTE | 2017-08-11 11:20 | CONS ---
Date/Time of Note Date/Time of Note DATE: 08/11/17 TIME: 11:11 Assessment/Plan Assessment/Plan Chief Complaint/Hosp Course 52 yo male with IDDM non-compliant w meds HBA1C> 10% admitted with ETOH intoxication and DKA reported weakness in extremities and chest pain. CTH shows hypoattention throughout bilateral cerebral hemispheres L>R , MRI also shows circular lesions on the FLAIR, no enhancement no restricted diffusion with chronic small vessel disease and periventricular changes. 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 WBC slightly elevated continue to trend, infectious work up. Being treated for DKA and may require Librium for ETOH withdrawal optimize risk factors for stroke HBA1C goal is less than 7%, initiate statin if LDL >100 mg, ASA 81 mg baseline ECHO PT/OT evaluation may reconsult as needed Problems: Consultation Date/Type/Reason Admit Date/Time 08/11/17 Date of Consultation: Aug 11, 2017 Type of Consultation: Neurology Reason for Consultation abnormal MRI Referring Provider: MOHIT CASTELLANOS MD Hx of Present Illness 52 yo male with history of IDDM admitted with DKA glucose 200, ETOH intoxication , reportedly admitted after hitting his head after getting drunk. CTH showed attenutation lesions in left frontal parietal centrum semiovale. Patient reports he has a hx of spine infection treated at [facility] he takes methadone for this. He also reports a hx of LLE weakness from a prior stroke. MRI Brain: several T2/FLAIR hyperintense lesions bilateral cerebral hemisphere periventricular WM more prominent on left several lesions left hemisphere, no restricted diffusion no enhancement with contrast no ICH appears to be chronic infarcts weakness LLE Psychological: nl mood/affect, no complaints Social History Alcohol Use: occasionally Smoking Status: Current every day smoker Drug Use: none Exam/Review of Systems Vital Signs Vitals Vital Signs Date Time Temp Pulse Resp B/P Pulse Ox O2 Delivery O2 Flow Rate FiO2 08/11/17 08:07 98.6 51 14 140/76 96 08/10/17 09:00 Room Air Intake and Output 08/10/17 08/10/17 08/11/17 15:00 23:00 07:00 Intake Total 1670 ml 840 ml Output Total 100 ml Balance 1670 ml 740 ml Exam awake and alert oriented to self hospital not to date says August 2017 no aphasia follows all commands tremulous in extremities CN: II-XII intact Motor: 5/5 UE and LE Tone wnl Coordination tremulous on FTN Reflexes 2+ throughout toes down Results Result Diagram: 08/09/17203908/11/17 0550 Results 24 hrs Laboratory Tests Test 08/10/17 12:00 08/10/17 12:02 08/10/17 16:00 08/10/17 18:04 Bedside Glucose 232 H 48 *L Sodium Level 138 136 Potassium Level 4.4 4.0 Chloride Level 105 104 Carbon Dioxide Level 27 27 Anion Gap 10 9 Blood Urea Nitrogen 22 H 22 H Creatinine 0.83 0.70 Glucose Level 243 #H 90 # Calcium Level 7.9 L 8.0 L Total Bilirubin 0.6 0.6 Direct Bilirubin 0.00 0.00 Indirect Bilirubin 0.6 0.6 Aspartate Amino Transf (AST/SGOT) 31 28 Alanine Aminotransferase (ALT/SGPT) 49 47 Alkaline Phosphatase 104 102 Total Protein 6.4 6.3 Albumin 3.4 3.3 Globulin 3.00 3.00 Albumin/Globulin Ratio 1.13 1.10 Vitamin B12 Level 518 Folate > 20.0 H Ethyl Alcohol Level < 10.0 Test 08/10/17 18:27 08/10/17 18:55 08/10/17 20:41 08/10/17 23:39 Bedside Glucose 118 194 192 227 H Test 08/11/17 05:37 08/11/17 05:50 08/11/17 07:39 Phosphorus Level 3.4 Sodium Level 135 Potassium Level 3.9 Chloride Level 104 Carbon Dioxide Level 26 Anion Gap 9 Blood Urea Nitrogen 17 Creatinine 0.70 Glucose Level 187 Calcium Level 8.3 L Total Bilirubin 0.6 Direct Bilirubin 0.00 Indirect Bilirubin 0.6 Aspartate Amino Transf (AST/SGOT) 30 Alanine Aminotransferase (ALT/SGPT) 46 Alkaline Phosphatase 99 Total Protein 5.8 L Albumin 3.0 L Globulin 2.80 Albumin/Globulin Ratio 1.07 Bedside Glucose 172 Medications Medications Current Medications Ondansetron HCl (Zofran Inj) 4 mg Q6H PRN IV NAUSEA AND/OR VOMITING; Start 08/10/17 at 03:00 Acetaminophen (Tylenol Tab) 650 mg Q6H PRN PO PAIN LEVEL 1-3 OR FEVER Last administered on 08/11/17t 05:23; Admin Dose 650 MG; Start 08/10/17 at 03:00 Lorazepam (Ativan) 1 mg Q4H PRN IV AGITATION/ANXIETY Last administered on 07:57; Admin Dose 1 MG; Start 08/10/17 at 03:00 Methadone HCl (Methadone) 5 mg TID PO Last administered on 08/11/17 09:17; Admin Dose 5 MG; Start 08/10/17 at 09:00 Trazodone HCl (Desyrel) 50 mg QHS PO Last administered on 08/10/17 20:40; Admin Dose 50 MG; Start 08/10/17 at 21:00 Miscellaneous Information 1 ea NOTE XX ; Start 08/10/17 at 10:30 Glucose (Glutose) 15 gm Q15M PRN PO DECREASED GLUCOSE; Start 08/10/17 at 10:30 Glucose (Glutose) 22.5 gm Q15M PRN PO DECREASED GLUCOSE; Start 08/10/17 at 10: 30 Dextrose (D50w Syringe) 25 ml Q15M PRN IV DECREASED GLUCOSE; Start 08/10/17 at 10:30 Dextrose (D50w Syringe) 50 ml Q15M PRN IV DECREASED GLUCOSE; Start 08/10/17 at 10:30 Glucagon (Glucagen) 1 mg Q15M PRN IM DECREASED GLUCOSE; Start 08/10/17 at 10:30 Glucose (Glutose) 15 gm Q15M PRN BUCCAL DECREASED GLUCOSE; Start 08/10/17 at 10 :30 Insulin Glargine (Lantus) 25 unit DAILY@08 SC Last administered on 08/11/17 07 :56; Admin Dose 25 UNIT; Start 08/11/17 at 08:00 Famotidine (Pepcid Iv) 20 mg Q12 IV Last administered on 08/11/17 09:23; Admin Dose 20 MG; Start 08/11/17 at 09:00 KEVON QUARLES MD Aug 11, 2017 11:20
[2017-08-11 14:00] VITALS: BP 133/74; RESP 16
[2017-08-11 14:03] LABS: MICROALBUMIN 16.2 mg/dL
--- NOTE | 2017-08-11 14:48 | PN ---
Date/Time of Note Date/Time of Note DATE: 08/11/17 TIME: 14:47 Assessment/Plan VTE Prophylaxis VTE Prophylaxis Intervention: LMWH Lines/Catheters IV [facility] [place] [facility] Urinary Cath still in place: No Assessment/Plan Chief Complaint/Hosp Course 52 yo male with h/o DMII on insulin who presented with DKA DKA: - Resolved DMII; - Basal/bolus insulin Back pain: - Continue methadone 5 TID H/o strokes on MRI: - TTE PT/OT Discharge likely tomorrow Problems: Subjective 24 Hr Interval Summary Free Text/Dictation Improvinng Unsteady on his feet Exam/Review of Systems Vital Signs Vitals Vital Signs Date Time Temp Pulse Resp B/P Pulse Ox O2 Delivery O2 Flow Rate FiO2 08/11/17 08:07 98.6 51 14 140/76 96 08/10/17 09:00 Room Air Intake and Output 08/10/17 08/10/17 08/11/17 15:00 23:00 07:00 Intake Total 1670 ml 840 ml Output Total 100 ml Balance 1670 ml 740 ml Exam Constitutional: alert, oriented, well developed Psych: nl mood/affect, no complaints Head: atraumatic, normocephalic Eyes: EOMI, PERRL, nl conjunctiva, nl lids, nl sclera ENMT: nl external ears & nose, nl lips & teeth, nl nasal mucosa & septum Neck: non-tender, supple Respiratory: clear to auscultation, normal air movement Cardiovascular: nl pulses, regular rate and rhythm Gastrointestinal: nl liver, spleen, non-tender, soft Musculoskeletal: nl extremities to inspection, nl gait and stance Extremities: normal pulses 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, nl mental status, nl speech, nl strength Skin: nl turgor, No rash or lesions Lymph: nl lymph nodes Results Result Diagram: 08/09/17203908/11/17 0550 Results 24 hrs Laboratory Tests Test 08/10/17 16:00 08/10/17 18:04 08/10/17 18:27 08/10/17 18:55 Sodium Level 136 Potassium Level 4.0 Chloride Level 104 Carbon Dioxide Level 27 Anion Gap 9 Blood Urea Nitrogen 22 H Creatinine 0.70 Glucose Level 90 # Calcium Level 8.0 L Total Bilirubin 0.6 Direct Bilirubin 0.00 Indirect Bilirubin 0.6 Aspartate Amino Transf (AST/SGOT) 28 Alanine Aminotransferase (ALT/SGPT) 47 Alkaline Phosphatase 102 Total Protein 6.3 Albumin 3.3 Globulin 3.00 Albumin/Globulin Ratio 1.10 Bedside Glucose 48 *L 118 194 Test 08/10/17 20:41 08/10/17 23:39 08/11/17 05:37 08/11/17 05:50 Bedside Glucose 192 227 H Phosphorus Level 3.4 Sodium Level 135 Potassium Level 3.9 Chloride Level 104 Carbon Dioxide Level 26 Anion Gap 9 Blood Urea Nitrogen 17 Creatinine 0.70 Glucose Level 187 Calcium Level 8.3 L Total Bilirubin 0.6 Direct Bilirubin 0.00 Indirect Bilirubin 0.6 Aspartate Amino Transf (AST/SGOT) 30 Alanine Aminotransferase (ALT/SGPT) 46 Alkaline Phosphatase 99 Total Protein 5.8 L Albumin 3.0 L Globulin 2.80 Albumin/Globulin Ratio 1.07 Test 08/11/17 07:39 08/11/17 11:56 Bedside Glucose 172 94 Medications Medications Current Medications Ondansetron HCl (Zofran Inj) 4 mg Q6H PRN IV NAUSEA AND/OR VOMITING; Start 08/10/17 at 03:00 Acetaminophen (Tylenol Tab) 650 mg Q6H PRN PO PAIN LEVEL 1-3 OR FEVER Last administered on 08/11/17 05:23; Admin Dose 650 MG; Start 08/10/17 at 03:00 Lorazepam (Ativan) 1 mg Q4H PRN IV AGITATION/ANXIETY Last administered on 07:57; Admin Dose 1 MG; Start 08/10/17 at 03:00 Methadone HCl (Methadone) 5 mg TID PO Last administered on 08/11/17 12:01; Admin Dose 5 MG; Start 08/10/17 at 09:00 Trazodone HCl (Desyrel) 50 mg QHS PO Last administered on 08/10/17 20:40; Admin Dose 50 MG; Start 08/10/17 at 21:00 Miscellaneous Information 1 ea NOTE XX ; Start 08/10/17 at 10:30 Glucose (Glutose) 15 gm Q15M PRN PO DECREASED GLUCOSE; Start 08/10/17 at 10:30 Glucose (Glutose) 22.5 gm Q15M PRN PO DECREASED GLUCOSE; Start 08/10/17 at 10: 30 Dextrose (D50w Syringe) 25 ml Q15M PRN IV DECREASED GLUCOSE; Start 08/10/17 at 10:30 Dextrose (D50w Syringe) 50 ml Q15M PRN IV DECREASED GLUCOSE; Start 08/10/17 at 10:30 Glucagon (Glucagen) 1 mg Q15M PRN IM DECREASED GLUCOSE; Start 08/10/17 at 10:30 Glucose (Glutose) 15 gm Q15M PRN BUCCAL DECREASED GLUCOSE; Start 08/10/17 at 10 :30 Insulin Glargine (Lantus) 25 unit DAILY@08 SC Last administered on 08/11/17 07 :56; Admin Dose 25 UNIT; Start 08/11/17 at 08:00 Famotidine (Pepcid Iv) 20 mg Q12 IV Last administered on 08/11/17 09:23; Admin Dose 20 MG; Start 08/11/17 at 09:00 MOHIT CASTELLANOS MD Aug 11, 2017 14:48
--- NOTE | 2017-08-11 16:47 | RADRPT ---
Echocardiogram Report Patient Name: ALBERTO RAJAN Gender: Male Date: 1965 Study Date: 11-Aug-2017 Superintendent Circus: [facility] Renee [facility] Location: 629 Ref. Physician: MOHIT CASTELLANOS Quality: Adequate Procedures: Transthoracic echocardiogram with complete 2D, M-Mode, and doppler examination. Indications: Stroke. 2D/M Mode Doppler Measurement Value Normal Ranges Measurement Value Normal Ranges LVIDd 2D 4.7 3.5 - 5.6 cm AV Peak Omar 1.5 m/sec LVIDs 2D 2.3 2.1 - 4.1 cm AV Peak PG 9.0 mmHg FS 2D 50.3 % LVOT Peak Omar 1.1 m/sec LVPWd 2D 1.0 0.6 - 1.1 cm LVOT Peak PG 5.0 mmHg IVSd 2D 1.0 0.6 - 1.1 cm MV E Peak Omar 0.8 m/sec IVS/LVPW 2D 1.1 MV A Peak Omar 1.2 m/sec AoR Diam 2D 3.1 2.0 - 3.7 cm MV E/A 0.7 LA/Ao 2D 1 0 - 1 MV Decel Time 282 msec EDV 2D 101.0 cm3 MV E/A 0.7 ESV 2D 12.3 cm3 LA Dimen 2D 3.3 2.3 - 4.0 cm Findings Left Ventricle: Normal left ventricular systolic function. Normal left ventricular cavity size. Normal left ventricular wall thickness. Ejection fraction is visually estimated at 60 %. Tissue Doppler/Mitral Doppler indices are within normal limits. Right Ventricle: Normal right ventricular size. Normal right ventricular systolic function. Left Atrium: The left atrium is normal in size. Right Atrium: The right atrium is normal in size. Mitral Valve: Normal appearance and function of the mitral valve with trace physiologic regurgitation. Trace mitral regurgitation. Aortic Valve: Normal appearance of the aortic valve. No significant aortic stenosis or insufficiency. Tricuspid Valve: Normal appearance of the tricuspid valve. Unable to obtain RVSP due to minimal presence of tricuspid regurgitation. Pulmonic Valve: Normal pulmonic valve appearance. Pericardium: Normal pericardium with no significant pericardial effusion. Aorta: Normal aortic root. IVC: Normal size and normal respiratory collapse consistent with normal right atrial pressure. Conclusions Normal left ventricular systolic function. Normal left ventricular cavity size. Normal left ventricular wall thickness. Ejection fraction is visually estimated at 60 %. Tissue Doppler/Mitral Doppler indices are within normal limits. No significant valvular stenosis or regurgitation seen. Unable to obtain RVSP due to minimal presence of tricuspid regurgitation. RA pressure estimated to be 3 mmHg. Electronically Signed By: Tyler Griffith 11-Aug-2017 16:47:23 -0700 Patient Name: ALBERTO RAJAN Study Date: 11-Aug-2017 [id number]
[2017-08-11] MEDS: CREON (12k-38k-60k) 1 CAP PO SCH (18:51)
[2017-08-11 19:54] VITALS: BP 129/72; RESP 18
[2017-08-11] MEDS: FAMOTIDINE 20 MG TAB PO SCH (20:09)
[2017-08-11] MEDS: traZODone 50 MG TAB PO SCH (20:09)
[2017-08-12 01:47] VITALS: BP 147/71; RESP 19
[2017-08-12] MEDS: ZOLPIDEM 5 MG TAB PO PRN ×2 (02:01→22:45)
[2017-08-12] MEDS: ACETAMINOPHEN 325 MG TAB PO PRN (02:01)
[2017-08-12] MEDS: LORAZEPAM 2 MG INJ IV PRN ×3 (05:26→20:01)
[2017-08-12 07:59] VITALS: BP 128/81; RESP 16
[2017-08-12] MEDS: CREON (12k-38k-60k) 1 CAP PO SCH ×3 (08:14→17:35)
[2017-08-12] MEDS: METHADONE 5 MG TAB PO SCH ×3 (08:14→20:18)
[2017-08-12] MEDS: FAMOTIDINE 20 MG TAB PO SCH ×2 (08:14→20:03)
[2017-08-12] MEDS: INSULIN ASPART [NOVOLOG] 3 ML PEN SC SCH ×7 (08:28→20:17)
[2017-08-12] MEDS: INSULIN GLARGINE [LANtus] 3 ML PEN SC SCH (08:29)
[2017-08-12 12:11] LABS: ALBUMIN/GLOBULIN RATIO 0.93; BILIRUBIN,INDIRECT 0.3 mg/dl (0-1.1); BILIRUBIN,TOTAL 0.3 mg/dl (0.2-1.3); CALCIUM 8.4 mg/dl (8.4-10.2); CREATININE 0.83 mg/dl (0.61-1.24); POTASSIUM 4.3 mmol/L (3.5-5.1); TOTAL PROTEIN 6.2 g/dl (6.1-8.1)
--- NOTE | 2017-08-12 13:08 | PN ---
Date/Time of Note Date/Time of Note DATE: 08/12/17 TIME: 13:07 Assessment/Plan VTE Prophylaxis VTE Prophylaxis Intervention: heparin Lines/Catheters IV Catheter Type (from Nrs): Saline Lock Urinary Cath still in place: No Assessment/Plan Chief Complaint/Hosp Course 52 yo male with h/o DMII on insulin who presented with DKA DKA: - Resolved DMII; - Basal/bolus insulin - Encouraged to maintain adherence as an outpatient Back pain: - Continue methadone 5 TID H/o strokes on MRI: - TTE wnl - No evidence of arrythmia - Aspirin daily PT/OT Discharge tomorrow Problems: Subjective 24 Hr Interval Summary Free Text/Dictation TTE wnl DKA resolved Discussed insulin at length. He pays out of pocket for NPH but often misses it Plans to continue with his PMD, doesn't want to change insulin regimen Offered discharge today, prefers to leave tomorrow Exam/Review of Systems Vital Signs Vitals Vital Signs Date Time Temp Pulse Resp B/P Pulse Ox O2 Delivery O2 Flow Rate FiO2 08/12/17 07:59 97.8 53 16 128/81 96 08/10/17 09:00 Room Air Intake and Output 08/11/17 08/11/17 08/12/17 15:00 23:00 07:00 Intake Total 3380 ml 820 ml Output Total 200 ml Balance 3180 ml 820 ml Exam Constitutional: alert, oriented, well developed Psych: nl mood/affect, no complaints Head: atraumatic, normocephalic Eyes: EOMI, PERRL, nl conjunctiva, nl lids, nl sclera ENMT: nl external ears & nose, nl lips & teeth, nl nasal mucosa & septum Neck: non-tender, supple Respiratory: clear to auscultation, normal air movement Cardiovascular: nl pulses, regular rate and rhythm Gastrointestinal: nl liver, spleen, non-tender, soft Musculoskeletal: nl extremities to inspection, nl gait and stance Extremities: normal pulses Neurological: LINE WALKER II-XII intact, nl mental status, nl speech, nl strength Skin: nl turgor, No rash or lesions Lymph: nl lymph nodes Results Result Diagram: 08/09/17203908/12/17 1118 Results 24 hrs Laboratory Tests Test 08/11/17 17:09 08/11/17 17:40 08/11/17 18:44 08/11/17 20:12 Bedside Glucose 49 *L 127 275 H 320 H Test 08/12/17 01:58 08/12/17 08:17 08/12/17 11:18 08/12/17 12:24 Bedside Glucose 87 147 262 H Sodium Level 133 L Potassium Level 4.3 Chloride Level 101 Carbon Dioxide Level 28 Anion Gap 8 Blood Urea Nitrogen 14 Creatinine 0.83 Glucose Level 268 H Calcium Level 8.4 Total Bilirubin 0.3 Direct Bilirubin 0.00 Indirect Bilirubin 0.3 Aspartate Amino Transf (AST/SGOT) 69 #H Alanine Aminotransferase (ALT/SGPT) 72 H Alkaline Phosphatase 88 Total Protein 6.2 Albumin 3.0 L Globulin 3.20 Albumin/Globulin Ratio 0.93 Medications Medications Current Medications Ondansetron HCl (Zofran Inj) 4 mg Q6H PRN IV NAUSEA AND/OR VOMITING; Start 08/10/17 at 03:00 Acetaminophen (Tylenol Tab) 650 mg Q6H PRN PO PAIN LEVEL 1-3 OR FEVER Last administered on 08/12/17 02:01; Admin Dose 650 MG; Start 08/10/17 at 03:00 Lorazepam (Ativan) 1 mg Q4H PRN IV AGITATION/ANXIETY Last administered on 11:13; Admin Dose 1 MG; Start 08/10/17 at 03:00 Methadone HCl (Methadone) 5 mg TID PO Last administered on 08/12/17 12:25; Admin Dose 5 MG; Start 08/10/17 at 09:00 Trazodone HCl (Desyrel) 50 mg QHS PO Last administered on 08/11/17 20:09; Admin Dose 50 MG; Start 08/10/17 at 21:00 Miscellaneous Information 1 ea NOTE XX ; Start 08/10/17 at 10:30 Glucose (Glutose) 15 gm Q15M PRN PO DECREASED GLUCOSE; Start 08/10/17 at 10:30 Glucose (Glutose) 22.5 gm Q15M PRN PO DECREASED GLUCOSE Last administered on 17:15; Admin Dose 22.5 GM; Start 08/10/17 at 10:30 Dextrose (D50w Syringe) 25 ml Q15M PRN IV DECREASED GLUCOSE; Start 08/10/17 at 10:30 Dextrose (D50w Syringe) 50 ml Q15M PRN IV DECREASED GLUCOSE; Start 08/10/17 at 10:30 Glucagon (Glucagen) 1 mg Q15M PRN IM DECREASED GLUCOSE; Start 08/10/17 at 10:30 Glucose (Glutose) 15 gm Q15M PRN BUCCAL DECREASED GLUCOSE; Start 08/10/17 at 10 :30 Insulin Glargine (Lantus) 25 unit DAILY@08 SC Last administered on 08/12/17 08 :29; Admin Dose 25 UNIT; Start 08/11/17 at 08:00 Famotidine (Pepcid) 20 mg BID PO Last administered on 08/12/17 08:14; Admin Dose 20 MG; Start 08/11/17 at 21:00 Zolpidem Tartrate (Ambien) 5 mg HS PRN PO INSOMNIA Last administered on 02:01; Admin Dose 5 MG; Start 08/11/17 at 20:00 MOHIT CASTELLANOS MD Aug 12, 2017 13:08
[2017-08-12 14:01] VITALS: BP 124/74; RESP 18
[2017-08-12 19:15] VITALS: BP 130/74; RESP 19
[2017-08-12] MEDS: traZODone 50 MG TAB PO SCH (20:03)
[2017-08-13 02:00] VITALS: BP 116/71; RESP 19
[2017-08-13] MEDS: LORAZEPAM 2 MG INJ IV PRN ×2 (04:27→12:09)
[2017-08-13] MEDS: ACETAMINOPHEN 325 MG TAB PO PRN (04:28)
[2017-08-13 07:29] VITALS: BP 126/71; RESP 18
[2017-08-13] MEDS: CREON (12k-38k-60k) 1 CAP PO SCH ×2 (08:16→12:08)
[2017-08-13] MEDS: FAMOTIDINE 20 MG TAB PO SCH (08:17)
[2017-08-13] MEDS: INSULIN GLARGINE [LANtus] 3 ML PEN SC SCH (08:18)
[2017-08-13] MEDS: INSULIN ASPART [NOVOLOG] 3 ML PEN SC SCH ×4 (08:19→12:16)
[2017-08-13] MEDS: METHADONE 5 MG TAB PO SCH ×2 (08:21→12:09)
[2017-08-13] MEDS ORDERED: ASPIRIN 81 MG TAB PO SCH (09:00)
[2017-08-13] MEDS ORDERED: NPH,100I5 SQ ×2 (09:48→09:49)
[2017-08-13] MEDS ORDERED: ASPI81TA3 PO (09:50)
--- NOTE | 2017-08-13 09:52 | PDOCDIS ---
Discharge Instructions DIAGNOSIS Discharge Diagnosis DKA CONDITION Patient Condition: Fair HOME CARE INSTRUCTIONS: Diet Instructions: Reduced CalorieSpecial Diet: Carbohydrate Controlled FOLLOW UP/APPOINTMENTS Follow-up Plan It is extremely important that you continue to take insulin every single day for the rest of your life. This is a lifelong condition that requires daily medication Go to [facility] immediately to get insulin. We are not adjusting your insulin dosage from what you were prescribed previously by your doctor, but you should see your doctor in the next week or two to discuss your dosing You have been found to have evidence of old strokes on your MRI of your brain. To prevent strokes, you should take a baby aspirin 81 mg everyday. You should also talk to your doctor about taking a medication called a statin to prevent strokes and heart attacks Return to the hospital if you have any concerning symptoms MOHIT CASTELLANOS MD Aug 13, 2017 09:52
[2017-08-13 11:08] LABS: ALBUMIN 2.8 g/dl (3.3-4.9); ALBUMIN/GLOBULIN RATIO 0.87; BILIRUBIN,INDIRECT 0.3 mg/dl (0-1.1); BILIRUBIN,TOTAL 0.3 mg/dl (0.2-1.3); CALCIUM 8.5 mg/dl (8.4-10.2); CREATININE 0.8 mg/dl (0.61-1.24); POTASSIUM 3.8 mmol/L (3.5-5.1)
--- NOTE | 2017-08-13 15:26 | DS ---
Date/Time of Note Date/Time of Note DATE: 08/13/17 TIME: 15:24 Discharge Summary Admission/Discharge Info Admit Date/Time Aug 10, 2017 at 02:58 Discharge Date/Time Discharge Diagnosis DKA Patient Condition: Fair Hx of Present Illness Chief complaint: Fall This is a 52-year-old male who presents to the ED status post fall. Patient states that he was drinking a lot last night and he fell and hit his head. He denies any loss of consciousness. He states that usually does not drink daily and as much as he did. He states that this is the first time he passed out. Patient has not been to [facility] for. He also states that he is on methadone for chronic pain for his back. Allergies: NKDA Medications: See JAN Hospital Course 52 yo male with h/o DMII on insulin who presented with DKA He was treated with an insulin drip and DKA quickly resolved He underwent head CT and MRI which were suggestive of remote infarcts, but nothign acute. TTE was normal. There was no evidence of arryhtmia His DKA was a result of medication nonadherence, as he had not been taking insulin as prescribed prior to admission. He was encouraged to continue takign his insulin as prescribe.d I offered to prescribed him lantus/humolog, however he declined this as he has to pay out of pocket. He preferred to continue with NPH insulin as prescribed by his PMD. He was also encouraged to take a daily baby aspirin and discuss a statin with his primary care doctor Home Meds Active Scripts Aspirin (Aspirin) 81 Mg Chew, 81 MG PO DAILY for 30 Days, #30 TAB Prov:MOHIT CASTELLANOS MD 08/13/17 NPH, Human Insulin Isophane (Humulin N Kwikpen) 100 Unit/1 Ml Insuln.pen, 20 UNIT SQ QPM for 30 Days, #1 EA Prov:MOHIT CASTELLANOS MD 08/13/17 NPH, Human Insulin Isophane (Humulin N Kwikpen) 100 Unit/1 Ml Insuln.pen, 25 UNIT SQ QAM for 30 Days, #1 EA 2 Refills Prov:MOHIT CASTELLANOS MD 08/13/17 Reported Medications Trazodone Hcl* (Trazodone Hcl*) 50 Mg Tablet, 50 MG PO QHS, #30 TAB 08/10/17 Methadone Hcl* (Methadone*) 5 Mg Tab, 5 MG PO, TAB 08/10/17 Follow-up Plan It is extremely important that you continue to take insulin every single day for the rest of your life. This is a lifelong condition that requires daily medication Go to [facility] immediately to get insulin. We are not adjusting your insulin dosage from what you were prescribed previously by your doctor, but you should see your doctor in the next week or two to discuss your dosing You have been found to have evidence of old strokes on your MRI of your brain. To prevent strokes, you should take a baby aspirin 81 mg everyday. You should also talk to your doctor about taking a medication called a statin to prevent strokes and heart attacks Return to the hospital if you have any concerning symptoms Primary Care Provider Care Physician No Primary Pending Labs Laboratory Tests Test 08/12/17 17:33 08/12/17 18:31 08/12/17 20:12 08/13/17 07:58 Bedside Glucose 52mg/dL (70-220) 142mg/dL (70-220) 109mg/dL (70-220) 201mg/dL (70-220) Test 08/13/17 10:20 08/13/17 12:00 Sodium Level 135mmol/L (135-144) Potassium Level 3.8mmol/L (3.5-5.1) Chloride Level 103mmol/L (97-110) Carbon Dioxide Level 29mmol/L (21-31) Anion Gap 7 (8-16) Blood Urea Nitrogen 14mg/dl (7-20) Creatinine 0.80mg/dl (0.61-1.24) Glucose Level 155mg/dl (70-220) Calcium Level 8.5mg/dl (8.4-10.2) Total Bilirubin 0.3mg/dl (0.2-1.3) Direct Bilirubin 0.00mg/dl (0.00-0.20) Indirect Bilirubin 0.3mg/dl (0-1.1) Aspartate Amino Transf (AST/SGOT) 70IU/L (15-46) Alanine Aminotransferase (ALT/SGPT) 85IU/L (13-69) Alkaline Phosphatase 75IU/L (42-121) Total Protein 6.0g/dl (6.1-8.1) Albumin 2.8g/dl (3.3-4.9) Globulin 3.20g/dl (1.3-3.2) Albumin/Globulin Ratio 0.87 Bedside Glucose 115mg/dL (70-220) MOHIT CASTELLANOS MD Aug 13, 2017 15:26
== END 2017-08-13 15:07 | disposition home or self-care (01) | DRG 639 ==
LOC: E/R 20:06 → MS2 08-10 02:58
PROVIDERS: ADMIT Family Medicine; ATTEND Family Medicine
DX: E11.10 Type 2 diabetes mellitus with ketoacidosis without coma (principal); S09.90XA Unspecified injury of head, initial encounter; F10.129 Alcohol abuse with intoxication, unspecified; G89.29 Other chronic pain; Y90.0 Blood alcohol level of less than 20 mg/100 ml; M54.9 Dorsalgia, unspecified; Z86.73 Personal history of transient ischemic attack (TIA), and cerebral infarction without residual deficits; Z79.82 Long term (current) use of aspirin; W18.30XA Fall on same level, unspecified, initial encounter; Y92.009 Unspecified place in unspecified non-institutional (private) residence as the place of occurrence of the external cause; Z79.4 Long term (current) use of insulin
CPT/HCPCS: 36415; 70450; 70544; 70549; 70553; 80048; 80053; 80306; 80307; 81001; 82043; 82607; 82746; 82803; 82947; 82962; 83036; 84100; 84425; 85025; 90471; 90715; 93306; 96365; 96366; 96372; 96375; 97163; C9113; J1815; J2060; J2270; J2405; J7030; J7042; J7120

== ENCOUNTER 2017-08-15 15:07 | Inpatient (IN) | payer OTHER ==
[~2017-08-15] VITALS: Ht 182.9 cm; Wt 72.0 kg
[~2017-08-15 15:07] MED LIST: ASPI81TA3 PO; METH-417 PO; NPH,100I5 SQ; TRAZ50TA18 PO
--- NOTE | 2017-08-15 15:50 | ERA ---
ER Documentation Chief Complaint Date/Time DATE: 08/15/17 TIME: 15:50 Chief Complaint Altered level consciousness HPI . The patient is a 52-year-old male, presenting to the ER because of altered level consciousness. He was found with a bottle of vodka inside the car He is very somnolent but arousable. The history is limited due to his clinical condition. The history is obtained from the double corner cutter in medical record Past medical history: Diabetes mellitus, chronic pain syndrome Past surgical history/social history/review of system: Unable to obtain due to his condition ROS All systems reviewed and are negative except as per history of present illness. Medications Home Meds Active Scripts Aspirin (Aspirin) 81 Mg Chew, 81 MG PO DAILY for 30 Days, #30 TAB Prov:MOIHT CASTELLANOS MD 08/13/17 NPH, Human Insulin Isophane (Humulin N Kwikpen) 100 Unit/1 Ml Insuln.pen, 20 UNIT SQ QPM for 30 Days, #1 EA Prov:MOHIT CASTELLANOS MD 08/13/17 NPH, Human Insulin Isophane (Humulin N Kwikpen) 100 Unit/1 Ml Insuln.pen, 25 UNIT SQ QAM for 30 Days, #1 EA 2 Refills Prov:MOHIT CASTELLANOS MD 08/13/17 Reported Medications Trazodone Hcl* (Trazodone Hcl*) 50 Mg Tablet, 50 MG PO QHS, #30 TAB 08/10/17 Methadone Hcl* (Methadone*) 5 Mg Tab, 5 MG PO, TAB 08/10/17 Allergies Allergies: Coded Allergies: No Known Allergy (Unverified , 08/15/17) PMhx/Soc History of Surgery: Yes (Cholecystectomy.) Anesthesia Reaction: No Hx Neurological Disorder: No Hx Respiratory Disorders: No Hx Cardiac Disorders: No Hx Psychiatric Problems: Yes (Depression) Hx Miscellaneous Medical Probl: Yes Hx Alcohol Use: Yes Hx Substance Use: Yes Hx Tobacco Use: No Physical Exam Vitals Vital Signs Date Time Temp Pulse Resp B/P Pulse Ox O2 Delivery O2 Flow Rate FiO2 08/15/17 15:45 98.1 67 18 125/67 100 Physical Exam Const: No acute distress. Head: Atraumatic. Eyes: Normal Conjunctiva. ENT: Normal External Ears, Nose and Mouth. Neck: Full range of motion. No meningismus. Resp: Clear to auscultation bilaterally. Cardio: Regular rate and rhythm. Abd: Soft, non distended, normal bowel sounds, non tender. Skin: No petechiae or rashes. Back: No midline or flank tenderness. Ext: No cyanosis, or edema. Neur: Limited due to his condition Psych: Unable to perform due to his condition Result Diagram: 08/15/17 1610 08/15/17 1610 Results 24 hrs Laboratory Tests Test 08/15/17 16:07 08/15/17 16:08 08/15/17 16:10 08/15/17 17:17 Blood Gas Specimen Source Blood arterial Arterial Blood Date Drawn 08/15/2017 4:18:50 PM Arterial Blood pH (Temp corrected) 7.310 Arterial Blood pCO2 (Temp correct) 42.5mmhg Arterial Blood pO2 (Temp corrected) 76.0mmHG Arterial Blood HCO3 20.9mmol/L Arterial Blood Base Excess -5.1mmol/L Arterial Blood Oxygen Saturation 92.8mmHG Jason Test ACCEPTAB Arterial Blood Gas Puncture Site Right Radial Arterial Blood Carboxyhemoglobin 3.9% Arterial Blood Methemoglobin 0.3% Blood Gas A-a O2 Differential 22.8mmHg Oxyhemoglobin Percent 88.9% Total Hemoglobin 14.7g/dl Blood Gas Temperature 37.0C Blood Gas Modality ROOM AIR FiO2 21.0% Blood Gas Notified Whom MDA Blood Gas Notified Time 08/15/2017 4:22:12 PM Bedside Glucose 329mg/dL White Blood Count 5.910^3/ul Red Blood Count 4.5610^6/ul Hemoglobin 14.1g/dl Hematocrit 42.4% Mean Corpuscular Volume 93.0fl Mean Corpuscular Hemoglobin 30.9pg Mean Corpuscular Hemoglobin Concent 33.3g/dl Red Cell Distribution Width 13.2% Platelet Count 22228^3/UL Mean Platelet Volume 10.5fl Neutrophils % 47.4% Lymphocytes % 44.3% Monocytes % 4.2% Eosinophils % 1.7% Basophils % 1.7% Nucleated Red Blood Cells % 0.0/100WBC Neutrophils # 2.810^3/ul Lymphocytes # 2.610^3/ul Monocytes # 0.310^3/ul Eosinophils # 0.110^3/ul Basophils # 0.110^3/ul Nucleated Red Blood Cells # 0.010^3/ul Prothrombin Time 13.5Sec Prothrombin Time Ratio 1.1 INR International Normalized Ratio 1.03 Activated Partial Thromboplast Time 25.9Sec Sodium Level 146mmol/L Potassium Level 3.9mmol/L Chloride Level 107mmol/L Carbon Dioxide Level 20mmol/L Anion Gap 23 Blood Urea Nitrogen 14mg/dl Creatinine 0.87mg/dl Glucose Level 307mg/dl Lactic Acid Level 3.6mmol/L Calcium Level 8.3mg/dl Total Bilirubin 0.1mg/dl Direct Bilirubin 0.00mg/dl Indirect Bilirubin 0.1mg/dl Aspartate Amino Transf (AST/SGOT) 50IU/L Alanine Aminotransferase (ALT/SGPT) 84IU/L Alkaline Phosphatase 143IU/L Ammonia 27umol/l Troponin I < 0.012ng/ml Total Protein 7.8g/dl Albumin 4.2g/dl Globulin 3.60g/dl Albumin/Globulin Ratio 1.16 Thyroid Stimulating Hormone (TSH) 0.373MIU/L Salicylates Level < 1.0mg/dl Acetaminophen Level < 10.0ug/ml Ethyl Alcohol Level mg/dl Urine Color YELLOW Urine Clarity CLEAR Urine pH 6.0 Urine Specific [place] 1.015 Urine Ketones 1+mg/dL Urine Nitrite NEGATIVEmg/dL Urine Bilirubin NEGATIVEmg/dL Urine Urobilinogen NEGATIVEmg/dL Urine Leukocyte Esterase NEGATIVELeu/ul Urine Microscopic RBC 0/HPF Urine Microscopic WBC 1/HPF Urine Hemoglobin 1+mg/dL Urine Glucose 3+mg/dL Urine Total Protein NEGATIVEmg/dl Urine Opiates Screen Negative Urine Barbiturates Negative Urine Amphetamines Screen Negative Urine Benzodiazepines Screen Negative Urine Cocaine Screen Negative Urine Cannabinoids Negative Current Medications Medications (Trade) Dose Ordered Sig/Miguel Route PRN Reason Start Time Stop Time Status Last Admin Dose Admin Sodium Chloride 1,690 ml @ 1,690 mls/hr BOLUS X1 ONCE IV 08/15/17 16:30 08/15/17 17:29 DC 08/15/17 17:01 Vancomycin HCl 250 ml @ 125 mls/hr ONCE IVPB 08/15/17 17:30 08/15/17 19:29 Piperacillin Sod/ Tazobactam Sod (Zosyn 3.375gm/ 100 ml (Pmx)) 100 ml @ 200 mls/hr ONCE ONCE IVPB 08/15/17 17:30 08/15/17 17:59 DC 08/15/17 17:49 Aspirin (Aspirin) 81 mg DAILY PO 08/16/17 09:00 Methadone HCl (Methadone) 5 mg TID PRN PO pain 08/15/17 18:30 08/15/17 18:53 DC Trazodone HCl 50 mg 50 mg QHS PO 08/15/17 21:00 Multivitamins 10 ml/Thiamine HCl 100 mg/Folic Acid 1 mg/Sodium Chloride 1,011.2 ml @ 125 mls/ hr DAILY@09 IVPB 08/16/17 09:00 Sodium Chloride (NS) 1,000 ml @ 125 mls/hr Q8H IV 08/15/17 18:30 Miscellaneous Information (* Miscellaneous Pharmacy Order) Discontinue current oral sulfonylur... ONCE ONCE XX 08/15/17 19:00 08/15/17 19:17 DC Diagnostic Test (Pha) (Accu-Chek) 1 ea 02 XX 08/16/17 02:00 Insulin Glargine (Lantus) 25 unit QHS SC 08/15/17 21:00 Miscellaneous Information (* Miscellaneous Pharmacy Order) HYPOGLYCEMIA PROTOCOL w... ONCE ONCE XX 08/15/17 19:00 08/15/17 19:17 DC Insulin Aspart (Novolog Insulin Pen) NOVOLOG *MODERATE* ALGORITHM Q6 SC 08/15/17 19:00 Miscellaneous Information (* Miscellaneous Pharmacy Order) Discontinue all previ... ONCE ONCE XX 08/15/17 19:00 08/15/17 19:17 DC Lorazepam (Ativan) 1 mg Q4 PRN IV agitation/anxiety 08/15/17 19:00 Diazepam (Valium) 5 mg TID PO 08/15/17 21:00 IV Flush (NS 3 ml) 3 ml PER PROTOCOL IV 08/15/17 19:00 Ondansetron HCl (Zofran Inj) 4 mg Q6H PRN IV NAUSEA AND/OR VOMITING 08/15/17 19:00 Bisacodyl (Dulcolax) 5 mg DAILY PRN PO CONSTIPATION 08/15/17 19:00 Heparin Sodium (Porcine) (Heparin (5000 Units/0.5 ml)) 5,000 unit Q8 SC 08/15/17 22:00 Nicotine 1 patch 1 patch DAILY TRANSDERM 08/16/17 09:00 Sodium Chloride (NS) 1,000 ml @ 1,000 mls/hr Q1H ONCE IV 08/15/17 19:00 08/15/17 19:59 Oxycodone HCl (Roxicodone) 5 mg Q8H PRN PO PAIN 08/15/17 19:00 Miscellaneous Information 1 ea NOTE XX 08/15/17 19:30 Glucose (Glutose) 15 gm Q15M PRN PO DECREASED GLUCOSE 08/15/17 19:30 Glucose (Glutose) 22.5 gm Q15M PRN PO DECREASED GLUCOSE 08/15/17 19:30 Dextrose (D50w Syringe) 25 ml Q15M PRN IV DECREASED GLUCOSE 08/15/17 19:30 Dextrose (D50w Syringe) 50 ml Q15M PRN IV DECREASED GLUCOSE 08/15/17 19:30 Glucagon (Glucagen) 1 mg Q15M PRN IM DECREASED GLUCOSE 08/15/17 19:30 Glucose (Glutose) 15 gm Q15M PRN BUCCAL DECREASED GLUCOSE 08/15/17 19:30 Procedures/[place] [id number] Radiology Main Line: [phone] DIAGNOSTIC IMAGING REPORT Patient: ALBERTO RAJAN : 1965 Age: 52 Sex: M MR #: [id number] DOS: 08/15/17 1607 Ordering MD: CARLOS LEWIS MD Location: E/R Room/Bed: PROCEDURE: XR Chest. CLINICAL INDICATION: chest pain TECHNIQUE: Single frontal view of the chest was obtained COMPARISON: None FINDINGS: The heart is normal in size. There is a slightly ectatic and possibly dilated thoracic aorta. There is a right paratracheal density which may represent a mass or be vascular in nature. There is no focal consolidation. There is an old moderately displaced left clavicular fracture. There is a healed right distal clavicular fracture appear There is no pleural effusion or pneumothorax. RPTAT: AA IMPRESSION: Ectatic and possibly dilated thoracic aorta. Right paratracheal density may be secondary to vascular structures, however a mass is not excluded and further evaluation with CT chest with contrast is recommended. .Gilberto Camp MD, MD Date Time Electronically viewed and signed by .Gilberto Camp MD, MD on 08/15/2017 17: 23 .S/ CC: CARLOS LEWIS MD [place] [id number] Radiology Main Line: [phone] DIAGNOSTIC IMAGING REPORT Patient: ALBERTO RAJAN : 1965 Age: 52 Sex: M MR #: [id number] DOS: 08/15/17 1610 Ordering MD: CARLOS LEWIS MD Location: E/R Room/Bed: PROCEDURE: Noncontrast CT Head. CLINICAL INDICATION: Altered level of consciousness. TECHNIQUE: Noncontrast CT of the head was obtained. The administered radiation dose was CTDI vol = 44.77 mGy, DLP = 720.23 mGy-cm. One or more of the following dose reduction techniques were used: Automated exposure control, Adjustment of the mA and/or kV according to patient size, or Use of iterative reconstruction technique. COMPARISON: Noncontrast CT of the head from August 09, 2017 and noncontrast MRI of the brain from August 10, 2017. FINDINGS: There is minimal generalized cerebral volume loss. There are a few nonspecific left greater than right ovoid subcortical hypodensities which are unchanged. There is no loss of edge-white differentiation to suggest acute territorial infarction. There is no acute intracranial hemorrhage. There is no mass effect. No midline shift is identified. The orbits are within normal limits. The paranasal sinuses are well aerated. No destructive osseous lesion is identified. IMPRESSION: No significant change. 1. No acute intracranial hemorrhage. 2. Minimal cerebral volume loss. 3. Nonspecific left greater than right subcortical hypodensities as noted on the prior MRI of the brain. Further findings as detailed above. RPTAT: PP .Ellis Loyola MD, MD Date Time Electronically viewed and signed by .Ellis Loyola MD, MD on 08/15/2017 17:43 .F/ CC: CARLOS LEWIS MD EKG: Read by emergency physician Rate/Rhythm: Normal Sinus Rhythm 73 beats/min QRS, ST, T-waves: No ST elevation, no T inversion, Inferior Q waves Impression: Abnormal MEDICAL MAKING DECISION: The patient is a 52-year-old male, presenting with acute mild DKA, acute severe sepsis, acute ankle intoxication, acute new onset hyperthyroidism. He was treated with normosaline 30 mL/kg IV, vancomycin IV, Zosyn IV. The differential diagnoses considered include but are not limited to UTI, pneumonia, pyelonephritis, electrolyte imbalance Admit MDM: Patient's infectious symptoms have not stabilized and the patient is at risk of rapid decompensation. The patient will be admitted for careful hydration, antibiotic therapy, and infectious source control. Severe Sepsis criteria: Infectious source: Unknown End organ damage indicated by: Lactate > 2.0 mmol/L Sepsis Management: Time of recognition of severe sepsis/septic shock:5 pm Within 3 hours of recognition: Blood cultures x 2 before broad-spectrum antibiotics: Yes 30 ml/kg NS bolus completed Initial lactate 3.6 Repeat lactate pending Critical Care: Critical care time 35 minutes excluding billable procedure Emergent fluid management while maintaining close respiratory support. Provision of immediate and broad-spectrum antibiotic therapy. Simultaneous assessment for possible sources in order to direct targeted therapy. Consideration for invasive and chemical support to prevent cardiopulmonary collapse. Septic Shock Assessment: Any lactic acid > 4.0 no Persistent hypotension (SBP < 90 or 40 mmHg drop, MAP < 65) despite 30 mL/kg IV fluid bolusno Departure Diagnosis: Primary Impression: DKA (diabetic ketoacidoses) Additional Impressions: Severe sepsis Alcohol abuse Hyperthyroidism LFTs abnormal Condition: Stable Comments I discussed the findings with the patient. I discussed the patient with the on- call hospitalist Dr. Nam at [address] P. who was made aware of the lab, the treatment , the patient condition. The patient is admitted to telemetry CARLOS LEWIS MD Aug 15, 2017 15:50
[2017-08-15 16:22] LABS: AADO2 Arterial 22.8 mmHg (7.0-24.0); Allen Test ACCEPTAB; Arterial Base Excess -5.1 mmol/L (-3.0-3); Arterial COHb 3.9 % (0.0-3.0); Arterial Fraction of Oxyhgb 88.9 % (93.0-99.0); Arterial HCO3 20.9 mmol/L (22.0-26.0); Arterial MetHb 0.3 % (0.0-1.5); Arterial Total Hemglobin 14.7 g/dl (12.0-18.0); MODE ROOM AIR
[2017-08-15] MEDS ORDERED: SOD CHLORIDE 0.9% 1,690 ML IV ONE (16:30)
[2017-08-15 16:45] LABS: BASOPHIL # 0.1 10^3/ul (0.0-0.1); BASOPHILS % 1.7 % (0.0-2.0); EOSINOPHILS # 0.1 10^3/ul (0.0-0.5); EOSINOPHILS % 1.7 % (0.0-7.0); HEMATOCRIT 42.4 % (42.0-52.0); HEMOGLOBIN 14.1 g/dl (14.0-18.0); LYMPHOCYTES # 2.6 10^3/ul (0.8-2.9); LYMPHOCYTES % 44.3 % (15.0-51.0); MEAN CORPUSCULAR HEMOGLOBIN 30.9 pg (29.0-33.0); MEAN CORPUSCULAR HGB CONC 33.3 g/dl (32.0-37.0); MEAN PLATELET VOLUME 10.5 fl (7.4-10.4); MONOCYTE # 0.3 10^3/ul (0.3-0.9); MONOCYTES % 4.2 % (0.0-11.0); NEUTROPHIL # 2.8 10^3/ul (1.6-7.5); NEUTROPHILS % 47.4 % (39.0-77.0); PLATELET COUNT 243 10^3/UL (140-415); RED BLOOD COUNT 4.56 10^6/ul (4.70-6.10); RED CELL DISTRIBUTION WIDTH 13.2 % (11.5-14.5); WHITE BLOOD COUNT 5.9 10^3/ul (4.8-10.8)
[2017-08-15 17:02] LABS: INR 1.03; PROTIME 13.5 Sec (12.2-14.2); PT RATIO 1.1
[2017-08-15 17:03] LABS: PARTIAL THROMBOPLASTIN TIME 25.9 Sec (25.0-35.0)
[2017-08-15 17:06] LABS: ACETAMINOPHEN < 10.0 ug/ml (10.0-30.0); ALANINE AMINOTRANSFERASE 84 IU/L (13-69); ALBUMIN 4.2 g/dl (3.3-4.9); ALBUMIN/GLOBULIN RATIO 1.16; ALKALINE PHOSPHATASE 143 IU/L (42-121); ANION GAP 23 (8-16); ASPARTATE AMINO TRANSFERASE 50 IU/L (15-46); BILIRUBIN,INDIRECT 0.1 mg/dl (0-1.1); BILIRUBIN,TOTAL 0.1 mg/dl (0.2-1.3); BLOOD UREA NITROGEN 14 mg/dl (7-20); CALCIUM 8.3 mg/dl (8.4-10.2); CARBON DIOXIDE 20 mmol/L (21-31); CHLORIDE 107 mmol/L (97-110); CREATININE 0.87 mg/dl (0.61-1.24); GLUCOSE 307 mg/dl (70-220); LACTIC ACID 3.6 mmol/L (0.5-2.0); POTASSIUM 3.9 mmol/L (3.5-5.1); SALICYLATE < 1.0 mg/dl (5.0-30.0); SODIUM 146 mmol/L (135-144); TOTAL PROTEIN 7.8 g/dl (6.1-8.1)
[2017-08-15 17:19] LABS: TROPONIN-I < 0.012 ng/ml (0.00-0.12)
--- NOTE | 2017-08-15 17:23 | RADRPT ---
PROCEDURE: XR Chest. CLINICAL INDICATION: chest pain TECHNIQUE: Single frontal view of the chest was obtained COMPARISON: None FINDINGS: The heart is normal in size. There is a slightly ectatic and possibly dilated thoracic aorta. There is a right paratracheal density which may represent a mass or be vascular in nature. There is no focal consolidation. There is an old moderately displaced left clavicular fracture. There is a healed right distal clavicular fracture appear There is no pleural effusion or pneumothorax. RPTAT: AA IMPRESSION: Ectatic and possibly dilated thoracic aorta. Right paratracheal density may be secondary to vascular structures, however a mass is not excluded a nd further evaluation with CT chest with contrast is recommended. .Gilberto Camp MD, MD Date Time Electronically viewed and signed by .Gilberto Camp MD, MD on 08/15/2017 17:23 .S/
[2017-08-15] MEDS ORDERED: PIPER-TAZO 3.375 GM IV (PMX) 100 ML IVPB ONE (17:30)
[2017-08-15] MEDS ORDERED: VANCOMYCIN 1 GM (PMX) 250 ML IVPB SCH (17:30)
--- NOTE | 2017-08-15 17:44 | RADRPT ---
PROCEDURE: Noncontrast CT Head. CLINICAL INDICATION: Altered level of consciousness. TECHNIQUE: Noncontrast CT of the head was obtained. The administered radiation dose was CTDI vol = 44.77 mGy, DLP = 720.23 mGy-cm. One or more of the following dose reduction techniques were used: Au tomated exposure control, Adjustment of the mA and/or kV according to patient size, or Use of iterat francis reconstruction technique. COMPARISON: Noncontrast CT of the head from August 09, 2017 and noncontrast MRI of the brain from 2016. FINDINGS: There is minimal generalized cerebral volume loss. There are a few nonspecific left greater than right ovoid subcortical hypodensities which are unchan ged. There is no loss of edge-white differentiation to suggest acute territorial infarction. There is no acute intracranial hemorrhage. There is no mass effect. No midline shift is identified. The orbits are within normal limits. The paranasal sinuses are well aerated. No destructive osseous lesion is identified. IMPRESSION: No significant change. 1. No acute intracranial hemorrhage. 2. Minimal cerebral volume loss. 3. Nonspecific left greater than right subcortical hypodensities as noted on the prior MRI of the br ain. Further findings as detailed above. RPTAT: PP .Ellis Loyola MD, Date Time Electronically viewed and signed by .Ellis Loyola MD, on 08/15/2017 17:43 .F/
[2017-08-15 17:45] LABS: ADD UMIC YES; UR ASCORBIC ACID NEGATIVE (NEGATIVE); UR BILIRUBIN (Dip) NEGATIVE (NEGATIVE); UR BLOOD (Dip) 1+ mg/dL (NEGATIVE); UR CLARITY CLEAR (CLEAR); UR COLOR YELLOW (YELLOW); UR GLUCOSE (Dip) 3+ mg/dL (NEGATIVE); UR KETONES (Dip) 1+ mg/dL (NEGATIVE); UR LEUKOCYTE ESTERASE (Dip) NEGATIVE Leu/ul (NEGATIVE); UR NITRITE (Dip) NEGATIVE (NEGATIVE); UR RBC 0 /HPF (0-5); UR SPECIFIC GRAVITY (Dip) 1.015 (1.003-1.030); UR TOTAL PROTEIN (Dip) NEGATIVE (NEGATIVE); UR UROBILINOGEN (Dip) NEGATIVE (NEGATIVE)
[2017-08-15 17:55] LABS: THYROID STIMULATING HORMONE 0.373 MIU/L (0.465-4.680)
[2017-08-15 18:07] LABS: BARBITURATES Negative (NEGATIVE); BENZODIAZEPINES Negative (NEGATIVE); CANNABINOIDS Negative (NEGATIVE); COCAINE Negative (NEGATIVE)
[2017-08-15 18:08] LABS: OPIATES Negative (NEGATIVE)
[2017-08-15] MEDS ORDERED: METHADONE 5 MG TAB PO PRN (18:30)
[2017-08-15] MEDS ORDERED: BISACODYL (EC) 5 MG TAB PO PRN (19:00)
[2017-08-15] MEDS ORDERED: SOD CHLORIDE 0.9% 1,000 ML IV ONE (19:00)
[2017-08-15] MEDS ORDERED: ONDANSETRON 4 MG INJ IV PRN (19:00)
--- NOTE | 2017-08-15 19:06 | HP ---
Date/Time of Note Date/Time of Note DATE: 08/15/17 TIME: 18:59 Assessment/Plan VTE Prophylaxis VTE Prophylaxis Intervention: SCD's Assessment/Plan Chief Complaint/Hosp Course Patient is a 52-year-old alcoholic and medically noncompliant diabetic who presents to [facility] and is admitted for hyperglycemia and elevated lactic acid Assessment and plan Altered mental status, likely secondary to alcohol as it was found upon pickup from EMS with a half bottle of vodka Anion gap metabolic acidosis, moderate, not full DKA, secondary to medical noncompliance Lactic acidosis Hypernatremia, likely secondary to volume depletion given alcohol extent Hyperglycemia Elevated AST and ALT Low TSH, no T4 reading yet -Patient is noncompliant diabetic and alcoholic, will start Lantus and insulin sliding scale, regular diet, bicarb still above 18, pH borderline, anion gap present -2 L bolus then IV fluids after -Pain control as needed -Seizure precautions as patient drinks every day, as needed Ativan, scheduled Valium -repeat labs tomorrow a.m., suspect most labs will return to baseline given likely cause of alcoholic ketoacidosis and near diabetic ketoacidosis -Although it is reported patient takes methadone, patient is opiate negative on arrival, given patient's likely noncompliant nature, very unlikely patient received methadone in the outpatient setting currently, will use as needed oxycodone for now Problems: HPI/ROS Admit Date/Time Admit Date/Time Hx of Present Illness Patient is a 52-year-old male with a past medical history significant for excessive alcoholism with repeated admissions for DKA and hyperglycemia who presents to [facility] after being found drunk and passed out by bystanders, in the ED patient is lethargic and sleepy but easily arousable and oriented. Patient appears intoxicated at this time but is able to answer simple questions. Patient states that he did not follow-up with a primary care provider after he was discharged 2 days ago. Patient acknowledges medical noncompliance. Patient states that he has no new pain from baseline and goes right back to sleep. Patient was admitted for hyperglycemia and elevated lactic acid likely secondary to uncontrolled diabetes and alcoholism PMH: Medical noncompliance, diabetes mellitus, alcoholism, chronic back pain PSH: Cholecystectomy Social: Everyday drinker, smoker, unknown drugs Meds: NPH insulin, aspirin, pain medication although opiate level is negative on admission PMH/Family/Social Social History Smoking Status: Current every day smoker Exam/Review of Systems Vital Signs Vitals Vital Signs Date Time Temp Pulse Resp B/P Pulse Ox O2 Delivery O2 Flow Rate FiO2 08/15/17 15:45 98.1 67 18 125/67 100 Exam Exam Physical exam General: Patient is laying in bed and answers questions appropriately but sleeping, Mentation: Patient is alert and oriented 4, but goes to sleep immediately Head: Normocephalic atraumatic Eyes: EOMI, pupils reactive to light Neck: Supple, nontender, midline Respiratory: Clear to auscultation bilaterally Cardiovascular: regular rate, no obvious murmurs Gastrointestinal: non-tender to palpation, bowel sounds heard. Neurological: Moves all extremities spontaneously Skin: No new skin lesions Labs Result Diagram: 08/15/17 1610 08/15/17 1610 Medications Medications Current Medications Vancomycin HCl (Vancocin) 250 ml @ 125 mls/hr ONCE IVPB ; Start 08/15/17 at 17 :30; Stop 08/15/17 at 19:29 Aspirin (Aspirin) 81 mg DAILY PO ; Start 08/16/17 at 09:00; Status UNV Trazodone HCl 50 mg 50 mg QHS PO ; Start 08/15/17 at 21:00; Status UNV Multivitamins 10 ml/Thiamine HCl 100 mg/Folic Acid 1 mg/Sodium Chloride 1,011.2 ml @ 125 mls/ hr DAILY@09 IVPB ; Start 08/16/17 at 09:00; Status UNV Sodium Chloride (NS) 1,000 ml @ 125 mls/hr Q8H IV ; Start 08/15/17 at 18:30; Status UNV Miscellaneous Information (* Miscellaneous Pharmacy Order) Discontinue current oral sulfonylur... ONCE ONCE XX ; Start 08/15/17 at 19:00; Stop 08/15/17 at 19:01; Status UNV Diagnostic Test (Pha) (Accu-Chek) 1 XX ; Start 08/16/17 at 02:00; Status UNV Insulin Glargine (Lantus) 25 unit QHS SC ; Start 08/15/17 at 21:00; Status UNV Miscellaneous Information (* Miscellaneous Pharmacy Order) HYPOGLYCEMIA PROTOCOL w... ONCE ONCE XX ; Start 08/15/17 at 19:00; Stop 08/15/17 at 19:01 ; Status UNV Insulin Aspart (Novolog Insulin Pen) NOVOLOG *MODERATE* ALGORITHM Q6 SC ; Start 08/15/17 at 19:00; Status UNV Miscellaneous Information (* Miscellaneous Pharmacy Order) Discontinue all previ... ONCE ONCE XX ; Start 08/15/17 at 19:00; Stop 08/15/17 at 19:01; Status UNV Lorazepam (Ativan) 1 mg Q4 PRN IV agitation/anxiety; Start 08/15/17 at 19:00; Status UNV Diazepam (Valium) 5 mg TID PO ; Start 08/15/17 at 21:00; Status UNV Ondansetron HCl (Zofran Inj) 4 mg Q6H PRN IV NAUSEA AND/OR VOMITING; Start 08/22 at 19:00; Status UNV Bisacodyl (Dulcolax) 5 mg DAILY PRN PO CONSTIPATION; Start 08/15/17 at 19:00; Status UNV Heparin Sodium (Porcine) (Heparin (5000 Units/0.5 ml)) 5,000 unit Q8 SC ; Start 08/15/17 at 22:00; Status UNV Nicotine 1 patch 1 patch DAILY TRANSDERM ; Start 08/16/17 at 09:00; Status UNV Sodium Chloride (NS) 1,000 ml @ 1,000 mls/hr Q1H ONCE IV ; Start 08/15/17 at 19:00; Stop 08/15/17 at 19:59; Status UNV Oxycodone HCl (Roxicodone) 5 mg Q8 PRN PO PAIN; Start 08/15/17 at 19:00; Status UNV SELINA HDZ Aug 15, 2017 19:06
[2017-08-15] MEDS ORDERED: GLUCOSE GEL 15 GRAM TUBE PO PRN ×2 (19:30)
[2017-08-15] MEDS ORDERED: GLUCOSE GEL 15 GRAM TUBE BUCCAL PRN (19:30)
[2017-08-15] MEDS ORDERED: DEXTROSE 50% 50 ML SYRINGE IV PRN ×2 (19:30)
[2017-08-15] MEDS ORDERED: GLUCAGON 1 MG INJ IM PRN (19:30)
[2017-08-15] MEDS: INSULIN ASPART [NOVOLOG] 3 ML PEN SC SCH ×2 (19:53→22:12)
[2017-08-15] MEDS: LORAZEPAM 2 MG INJ IV PRN (20:13)
[2017-08-15] MEDS: SOD CHLORIDE 0.9% 1,000 ML IV SCH (20:49)
[2017-08-15] MEDS: traZODone 50 MG TAB PO SCH (21:57)
[2017-08-15] MEDS: DIAZEPAM 5 MG TAB PO SCH (21:57)
[2017-08-15] MEDS: INSULIN GLARGINE [LANtus] 3 ML PEN SC SCH (22:00)
[2017-08-15] MEDS: HEPARIN 5,000 UNIT/0.5 ML VIAL SC SCH (22:50)
[2017-08-16] VITALS (8 sets, daily range): BP systolic 126–135; BP diastolic 63–79; PULSE 52–64; RESP 16–19; TEMP 99; Ht 182.9 cm; Wt 72.0 kg
[2017-08-16] MEDS: ACCU-CHEK XX SCH (03:10)
[2017-08-16] MEDS: morphine 4 MG/ML VIAL IV PRN ×5 (05:33→23:31)
[2017-08-16 05:59] LABS: BASOPHIL # 0.1 10^3/ul (0.0-0.1); BASOPHILS % 0.5 % (0.0-2.0); EOSINOPHILS # 0.2 10^3/ul (0.0-0.5); EOSINOPHILS % 2.4 % (0.0-7.0); HEMATOCRIT 34.9 % (42.0-52.0); HEMOGLOBIN 12.1 g/dl (14.0-18.0); LYMPHOCYTES # 2.6 10^3/ul (0.8-2.9); LYMPHOCYTES % 28.6 % (15.0-51.0); MEAN CORPUSCULAR HEMOGLOBIN 31.7 pg (29.0-33.0); MEAN CORPUSCULAR HGB CONC 34.7 g/dl (32.0-37.0); MEAN CORPUSCULAR VOLUME 91.4 fl (82.0-101.0); MEAN PLATELET VOLUME 10.6 fl (7.4-10.4); MONOCYTES % 10.6 % (0.0-11.0); NEUTROPHIL # 5.3 10^3/ul (1.6-7.5); NEUTROPHILS % 57.5 % (39.0-77.0); PLATELET COUNT 210 10^3/UL (140-415); RED BLOOD COUNT 3.82 10^6/ul (4.70-6.10); RED CELL DISTRIBUTION WIDTH 12.8 % (11.5-14.5); WHITE BLOOD COUNT 9.2 10^3/ul (4.8-10.8)
[2017-08-16 06:24] LABS: ALBUMIN 2.9 g/dl (3.3-4.9); ALBUMIN/GLOBULIN RATIO 0.9; BILIRUBIN,INDIRECT 0.2 mg/dl (0-1.1); BILIRUBIN,TOTAL 0.2 mg/dl (0.2-1.3); CREATININE 0.88 mg/dl (0.61-1.24); TOTAL PROTEIN 6.1 g/dl (6.1-8.1)
[2017-08-16] MEDS: HEPARIN 5,000 UNIT/0.5 ML VIAL SC SCH ×3 (07:02→21:09)
[2017-08-16] MEDS: INSULIN ASPART [NOVOLOG] 3 ML PEN SC SCH ×4 (07:04→21:10)
[2017-08-16] MEDS: SOD CHLORIDE 0.9% 1,000 ML IV SCH ×2 (07:05→10:30)
[2017-08-16] MEDS: ASPIRIN 81 MG TAB PO SCH (09:06)
[2017-08-16] MEDS: DIAZEPAM 5 MG TAB PO SCH ×3 (09:06→21:12)
[2017-08-16] MEDS: oxyCODONE 5 MG TAB PO PRN (09:07)
[2017-08-16] MEDS: MULTIVITAMINS 10 ML, THIAMINE 100 MG, FOLIC ACID 1 MG in SOD CHLORIDE 0.9% 1,000 ML IVPB SCH (09:36)
[2017-08-16] MEDS: NICOTINE (14 MG/24 HR) PATCH TRANSDERM SCH (13:42)
--- NOTE | 2017-08-16 14:18 | PSY ---
Date/Time of Note Date/Time of Note DATE: 08/16/17 TIME: 13:47 Psychiatric Subjective Eval Subjective Evaluation Chief Complaint: BIB RA PATIENT FOUND IN CAR PASSED OUT WITH HALF LITER OF VODKA BOTTLE Reason for consult: Recurrent presentsations of alcohol abuse and DKA, and suicidal ideation. History of present illness Patient is a 52-year-old male with a past medical history significant for excessive alcoholism with repeated admissions for DKA and hyperglycemia who presents to [facility] after being found drunk and passed out by bystanders, in the ED patient is lethargic and sleepy but easily arousable and oriented. Patient appears intoxicated at this time but is able to answer simple questions. Patient states that he did not follow-up with a primary care provider after he was discharged 2 days ago. Patient acknowledges medical noncompliance. Patient was admitted for hyperglycemia and elevated lactic acid likely secondary to uncontrolled diabetes and alcoholism. A psychiatric consult was requested in light of his statement that he is homeless and does not wish to live any more and his recent use of alcohol and lack of diabetic care. During the interview, the patient was guarded. He admitted that he harbored thoughts that life is not worth living, and did not see the need to be adherent to his diabetic care. He also recently relapsed and has been consuming a large amount of liquor. He said that he has not been able to work, and consequently has become homeless. He is single, and has no family or friends to provide support. Past psychiatric history He denied any prior psychiatric care. He did admit having a prior history of alcohol dependence. Family History His father from alcohol dependence. Medical history Problems Medical Problems: (1) Alcohol abuse Status: Acute (2) Alcoholic intoxication Status: Acute (3) DKA (diabetic ketoacidoses) Status: Acute (4) Hyperthyroidism Status: Acute (5) LFTs abnormal Status: Acute (6) Severe sepsis Status: Acute Allergies: Coded Allergies: No Known Allergy (Unverified , 08/15/17) Substance Abuse Substance abuse history: Yes Prior substance abuse treatmen: No Social History Marital status: single DPA/Conservatorship: No Psychiatric Objective Eval Review of Systems: Review of Systems: Applicable Constitutional: Abnormal Eyes: Normal ENT: Normal Neck: Normal Respiratory: Normal Chest/Breast: Normal Physical Examination: Physical Examination: Applicable Sleep: Insomnia Appetite: Adequate, Weight Loss Energy: Decreased Interest: Decreased Mental Status Examination: Appearance: Poor Hygiene Eye Contact: Poor Psychomotor Activity: Normal Behavior: Guarded Speech: Clear AFFECT: Depressed Mood: Depressed Though Process: Linear Thought Content: Normal Suicidal: Yes Homicidal: No Orientation: x4 Cognition: Alert Insight: Intact Laboratory Results Laboratory Tests Test 08/15/17 16:07 08/15/17 16:08 08/15/17 16:10 08/15/17 17:17 Blood Gas Specimen Source Blood arterial Arterial Blood Date Drawn 08/15/2017 4:18:50 PM Arterial Blood pH (Temp corrected) 7.310 Arterial Blood pCO2 (Temp correct) 42.5mmhg Arterial Blood pO2 (Temp corrected) 76.0mmHG Arterial Blood HCO3 20.9mmol/L Arterial Blood Base Excess -5.1mmol/L Arterial Blood Oxygen Saturation 92.8mmHG Jason Test ACCEPTAB Arterial Blood Gas Puncture Site Right Radial Arterial Blood Carboxyhemoglobin 3.9% Arterial Blood Methemoglobin 0.3% Blood Gas A-a O2 Differential 22.8mmHg Oxyhemoglobin Percent 88.9% Total Hemoglobin 14.7g/dl Blood Gas Temperature 37.0C Blood Gas Modality ROOM AIR FiO2 21.0% Blood Gas Notified Whom MDA Blood Gas Notified Time 08/15/2017 4:22:12 PM Bedside Glucose 329mg/dL White Blood Count 5.910^3/ul Red Blood Count 4.5610^6/ul Hemoglobin 14.1g/dl Hematocrit 42.4% Mean Corpuscular Volume 93.0fl Mean Corpuscular Hemoglobin 30.9pg Mean Corpuscular Hemoglobin Concent 33.3g/dl Red Cell Distribution Width 13.2% Platelet Count 49763^3/UL Mean Platelet Volume 10.5fl Neutrophils % 47.4% Lymphocytes % 44.3% Monocytes % 4.2% Eosinophils % 1.7% Basophils % 1.7% Nucleated Red Blood Cells % 0.0/100WBC Neutrophils # 2.810^3/ul Lymphocytes # 2.610^3/ul Monocytes # 0.310^3/ul Eosinophils # 0.110^3/ul Basophils # 0.110^3/ul Nucleated Red Blood Cells # 0.010^3/ul Prothrombin Time 13.5Sec Prothrombin Time Ratio 1.1 INR International Normalized Ratio 1.03 Activated Partial Thromboplast Time 25.9Sec Sodium Level 146mmol/L Potassium Level 3.9mmol/L Chloride Level 107mmol/L Carbon Dioxide Level 20mmol/L Anion Gap 23 Blood Urea Nitrogen 14mg/dl Creatinine 0.87mg/dl Glucose Level 307mg/dl Lactic Acid Level 3.6mmol/L Calcium Level 8.3mg/dl Total Bilirubin 0.1mg/dl Direct Bilirubin 0.00mg/dl Indirect Bilirubin 0.1mg/dl Aspartate Amino Transf (AST/SGOT) 50IU/L Alanine Aminotransferase (ALT/SGPT) 84IU/L Alkaline Phosphatase 143IU/L Ammonia 27umol/l Troponin I < 0.012ng/ml Total Protein 7.8g/dl Albumin 4.2g/dl Globulin 3.60g/dl Albumin/Globulin Ratio 1.16 Thyroid Stimulating Hormone (TSH) 0.373MIU/L Salicylates Level < 1.0mg/dl Acetaminophen Level < 10.0ug/ml Ethyl Alcohol Level mg/dl Urine Color YELLOW Urine Clarity CLEAR Urine pH 6.0 Urine Specific [place] 1.015 Urine Ketones 1+mg/dL Urine Nitrite NEGATIVEmg/dL Urine Bilirubin NEGATIVEmg/dL Urine Urobilinogen NEGATIVEmg/dL Urine Leukocyte Esterase NEGATIVELeu/ul Urine Microscopic RBC 0/HPF Urine Microscopic WBC 1/HPF Urine Hemoglobin 1+mg/dL Urine Glucose 3+mg/dL Urine Total Protein NEGATIVEmg/dl Urine Opiates Screen Negative Urine Barbiturates Negative Urine Amphetamines Screen Negative Urine Benzodiazepines Screen Negative Urine Cocaine Screen Negative Urine Cannabinoids Negative Test 08/15/17 19:50 08/15/17 19:51 08/15/17 21:33 08/15/17 21:56 Lactic Acid Level 3.0mmol/L 4.1mmol/L Bedside Glucose 249mg/dL 309mg/dL Test 08/15/17 23:03 08/16/17 00:18 08/16/17 03:09 08/16/17 05:30 Bedside Glucose 324mg/dL 345mg/dL 248mg/dL White Blood Count 9.210^3/ul Red Blood Count 3.8210^6/ul Hemoglobin 12.1g/dl Hematocrit 34.9% Mean Corpuscular Volume 91.4fl Mean Corpuscular Hemoglobin 31.7pg Mean Corpuscular Hemoglobin Concent 34.7g/dl Red Cell Distribution Width 12.8% Platelet Count 94676^3/UL Mean Platelet Volume 10.6fl Neutrophils % 57.5% Lymphocytes % 28.6% Monocytes % 10.6% Eosinophils % 2.4% Basophils % 0.5% Nucleated Red Blood Cells % 0.0/100WBC Neutrophils # 5.310^3/ul Lymphocytes # 2.610^3/ul Monocytes # 1.010^3/ul Eosinophils # 0.210^3/ul Basophils # 0.110^3/ul Nucleated Red Blood Cells # 0.010^3/ul Sodium Level 135mmol/L Potassium Level 4.0mmol/L Chloride Level 105mmol/L Carbon Dioxide Level 27mmol/L Anion Gap 7 Blood Urea Nitrogen 16mg/dl Creatinine 0.88mg/dl Glucose Level 327mg/dl Calcium Level 8.0mg/dl Total Bilirubin 0.2mg/dl Direct Bilirubin 0.00mg/dl Indirect Bilirubin 0.2mg/dl Aspartate Amino Transf (AST/SGOT) 29IU/L Alanine Aminotransferase (ALT/SGPT) 64IU/L Alkaline Phosphatase 94IU/L Total Protein 6.1g/dl Albumin 2.9g/dl Globulin 3.20g/dl Albumin/Globulin Ratio 0.90 Test 08/16/17 06:59 08/16/17 08:41 08/16/17 10:27 08/16/17 12:09 Bedside Glucose 271mg/dL 151mg/dL 159mg/dL Lactic Acid Level 1.8mmol/L Assessment and Plan Assessment/Diagnosis [place] I: F39 Mood disorder NOS F10.20 Alcohol Use disorder. [place] II: no diagnosis on [place] II [place] III: Problems Medical Problems: (1) Alcohol abuse Status: Acute (2) Alcoholic intoxication Status: Acute (3) DKA (diabetic ketoacidoses) Status: Acute (4) Hyperthyroidism Status: Acute (5) LFTs abnormal Status: Acute (6) Severe sepsis Status: Acute [place] IV: Problems with housing, problems with income, problems with social support. [place] V: 40 Recommendation/Plan Medication Management I do not recommend any medications at this time, as many of the presenting symptoms of depression, helplessness and hopelessness are situational. He would benefit from social service referral, as well as short term convalescent care. He currently meets criteria for grave disability as well as danger to himself. I do not believe that the patient is medically cleared at this time. Suggest social service referral to provide information of what social insurance specialist may be available. Since the patient has been cooperative, I do not see the need for a sitter if medically admitted. If admitted medically the issue of 5150 is not necessary as he is receiving medical care, and the issue of grave disability is being addressed. The issue of danger to self is that the situation of access to alcohol is limited, and hence risk is reduced. 5150 Recommendation: If medically cleared then the patient should be on a hold as a danger to self and others. If not, then the hold is not necessary. ERICK LUCERO MD Aug 16, 2017 14:02
--- NOTE | 2017-08-16 14:38 | PN ---
Date/Time of Note Date/Time of Note DATE: 08/16/17 TIME: 14:34 Assessment/Plan VTE Prophylaxis VTE Prophylaxis Intervention: heparin Lines/Catheters IV [facility]from [facility] Peripheral IV Urinary Cath still in place: No Assessment/Plan Chief Complaint/Hosp Course Patient is a 52-year-old alcoholic and medically noncompliant diabetic who presents to [facility] and is admitted for hyperglycemia and elevated lactic acid Assessment and plan Altered mental status, likely secondary to alcohol as it was found upon pickup from EMS with a half bottle of vodka Anion gap metabolic acidosis, moderate, not full DKA, secondary to medical noncompliance suicidal ideation Lactic acidosis Hypernatremia, likely secondary to volume depletion given alcohol extent Hyperglycemia Elevated AST and ALT Low TSH, no T4 reading yet -Continue Lantus and insulin sliding scale, anion gap metabolic acidosis has resolved -Stop fluids, lactic acid has resolved, patient tolerating p.o. intake -She is precautions with scheduled Valium and as needed Ativan -psych consult done, spoke with psychiatrist, recommends 5150 after medically clear given current status of not wanting to take insulin -will attempt to get CM to find placement for psych if possible. Problems: Subjective 24 Hr Interval Summary Free Text/Dictation states doesn't care about taking insulin Exam/Review of Systems Vital Signs Vitals Vital Signs Date Time Temp Pulse Resp B/P Pulse Ox O2 Delivery O2 Flow Rate FiO2 08/16/17 12:35 52 08/16/17 11:24 98.1 19 131/77 97 08/16/17 08:45 Room Air Intake and Output 08/15/17 08/15/17 08/16/17 15:00 23:00 07:00 Intake Total 1790 ml Output Total 675 ml Balance 1115 ml Exam Physical exam General: Patient is laying in bed and answers questions appropriately Mentation: Patient is alert and oriented 4, states feels depressed and suicidal Head: Normocephalic atraumatic Eyes: EOMI, pupils reactive to light Neck: Supple, nontender, midline Respiratory: Clear to auscultation bilaterally Cardiovascular: regular rate, no obvious murmurs Gastrointestinal: non-tender to palpation, bowel sounds heard. Neurological: Moves all extremities spontaneously Skin: No new skin lesions Results Result Diagram: 08/16/1730 08/16/17 0530 Results 24 hrs Laboratory Tests Test 08/15/17 16:07 08/15/17 16:08 08/15/17 16:10 08/15/17 17:17 Blood Gas Specimen Source Blood arterial Arterial Blood Date Drawn 08/15/2017 4:18:50 PM Arterial Blood pH (Temp corrected) 7.310 L Arterial Blood pCO2 (Temp correct) 42.5 Arterial Blood pO2 (Temp corrected) 76.0 L Arterial Blood HCO3 20.9 L Arterial Blood Base Excess -5.1 L Arterial Blood Oxygen Saturation 92.8 L Jason Test ACCEPTAB Arterial Blood Gas Puncture Site Right Radial Arterial Blood Carboxyhemoglobin 3.9 H Arterial Blood Methemoglobin 0.3 Blood Gas A-a O2 Differential 22.8 Oxyhemoglobin Percent 88.9 L Total Hemoglobin 14.7 Blood Gas Temperature 37.0 Blood Gas Modality ROOM AIR FiO2 21.0 Blood Gas Notified Whom MDA Blood Gas Notified Time 08/15/2017 4:22:12 PM Bedside Glucose 329 H White Blood Count 5.9 # Red Blood Count 4.56 L Hemoglobin 14.1 # Hematocrit 42.4 Mean Corpuscular Volume 93.0 Mean Corpuscular Hemoglobin 30.9 Mean Corpuscular Hemoglobin Concent 33.3 Red Cell Distribution Width 13.2 Platelet Count 243 Mean Platelet Volume 10.5 H Neutrophils % 47.4 Lymphocytes % 44.3 Monocytes % 4.2 Eosinophils % 1.7 Basophils % 1.7 Nucleated Red Blood Cells % 0.0 Neutrophils # 2.8 Lymphocytes # 2.6 Monocytes # 0.3 Eosinophils # 0.1 Basophils # 0.1 Nucleated Red Blood Cells # 0.0 Prothrombin Time 13.5 Prothrombin Time Ratio 1.1 INR International Normalized Ratio 1.03 Activated Partial Thromboplast Time 25.9 Sodium Level 146 H Potassium Level 3.9 Chloride Level 107 Carbon Dioxide Level 20 L Anion Gap 23 H Blood Urea Nitrogen 14 Creatinine 0.87 Glucose Level 307 H Lactic Acid Level 3.6 *H Calcium Level 8.3 L Total Bilirubin 0.1 L Direct Bilirubin 0.00 Indirect Bilirubin 0.1 Aspartate Amino Transf (AST/SGOT) 50 H Alanine Aminotransferase (ALT/SGPT) 84 H Alkaline Phosphatase 143 H Ammonia 27 Troponin I < 0.012 Total Protein 7.8 Albumin 4.2 Globulin 3.60 H Albumin/Globulin Ratio 1.16 Thyroid Stimulating Hormone (TSH) 0.373 L Salicylates Level < 1.0 L Acetaminophen Level < 10.0 L Ethyl Alcohol Level Urine Color YELLOW Urine Clarity CLEAR Urine pH 6.0 Urine Specific [place] 1.015 Urine Ketones 1+ H Urine Nitrite NEGATIVE Urine Bilirubin NEGATIVE Urine Urobilinogen NEGATIVE Urine Leukocyte Esterase NEGATIVE Urine Microscopic RBC 0 Urine Microscopic WBC 1 Urine Hemoglobin 1+ H Urine Glucose 3+ H Urine Total Protein NEGATIVE Urine Opiates Screen Negative Urine Barbiturates Negative Urine Amphetamines Screen Negative Urine Benzodiazepines Screen Negative Urine Cocaine Screen Negative Urine Cannabinoids Negative Test 08/15/17 19:50 08/15/17 19:51 08/15/17 21:33 08/15/17 21:56 Lactic Acid Level 3.0 *H 4.1 *H Bedside Glucose 249 H 309 H Test 08/15/17 23:03 08/16/17 00:18 08/16/17 03:09 08/16/17 05:30 Bedside Glucose 324 H 345 H 248 H White Blood Count 9.2 # Red Blood Count 3.82 L Hemoglobin 12.1 L Hematocrit 34.9 L Mean Corpuscular Volume 91.4 Mean Corpuscular Hemoglobin 31.7 Mean Corpuscular Hemoglobin Concent 34.7 Red Cell Distribution Width 12.8 Platelet Count 210 Mean Platelet Volume 10.6 H Neutrophils % 57.5 Lymphocytes % 28.6 Monocytes % 10.6 Eosinophils % 2.4 Basophils % 0.5 Nucleated Red Blood Cells % 0.0 Neutrophils # 5.3 Lymphocytes # 2.6 Monocytes # 1.0 H Eosinophils # 0.2 Basophils # 0.1 Nucleated Red Blood Cells # 0.0 Sodium Level 135 Potassium Level 4.0 Chloride Level 105 Carbon Dioxide Level 27 Anion Gap 7 #L Blood Urea Nitrogen 16 Creatinine 0.88 Glucose Level 327 H Calcium Level 8.0 L Total Bilirubin 0.2 Direct Bilirubin 0.00 Indirect Bilirubin 0.2 Aspartate Amino Transf (AST/SGOT) 29 Alanine Aminotransferase (ALT/SGPT) 64 Alkaline Phosphatase 94 Total Protein 6.1 # Albumin 2.9 #L Globulin 3.20 Albumin/Globulin Ratio 0.90 Test 08/16/17 06:59 08/16/17 08:41 08/16/17 10:27 08/16/17 12:09 Bedside Glucose 271 H 151 159 Lactic Acid Level 1.8 Medications Medications Current Medications Aspirin (Aspirin) 81 mg DAILY PO Last administered on 08/16/17 09:06; Admin Dose 81 MG; Start 08/16/17 at 09:00 Trazodone HCl 50 mg 50 mg QHS PO Last administered on 08/15/17 21:57; Admin Dose 50 MG; Start 08/15/17 at 21:00 Multivitamins 10 ml/Thiamine HCl 100 mg/Folic Acid 1 mg/Sodium Chloride 1,011.2 ml @ 125 mls/ hr DAILY@09 IVPB Last administered on 08/16/17 09:36; Admin Dose 125 MLS/HR; Start 08/16/17 at 09:00 Sodium Chloride (NS) 1,000 ml @ 125 mls/hr Q8H IV Last administered on 07:05; Admin Dose 125 MLS/HR; Start 08/15/17 at 18:30 Diagnostic Test (Pha) (Accu-Chek) 1 ea 02 XX Last administered on 08/16/17 03 :10; Admin Dose 1 EA; Start 08/16/17 at 02:00 Insulin Glargine (Lantus) 25 unit QHS SC Last administered on 08/15/17 22:00 ; Admin Dose 25 UNIT; Start 08/15/17 at 21:00 Lorazepam (Ativan) 1 mg Q4 PRN IV agitation/anxiety Last administered on 20:13; Admin Dose 1 MG; Start 08/15/17 at 19:00 Diazepam (Valium) 5 mg TID PO Last administered on 08/16/17 13:43; Admin Dose 5 MG; Start 08/15/17 at 21:00 Ondansetron HCl (Zofran Inj) 4 mg Q6H PRN IV NAUSEA AND/OR VOMITING; Start 08/22 at 19:00 Bisacodyl (Dulcolax) 5 mg DAILY PRN PO CONSTIPATION; Start 08/15/17 at 19:00 Heparin Sodium (Porcine) (Heparin (5000 Units/0.5 ml)) 5,000 unit Q8 SC Last administered on 08/16/17 14:25; Admin Dose 5,000 UNIT; Start 08/15/17 at 22: 00 Nicotine (Nicoderm 14 Mg/ 24hr) 1 patch DAILY TRANSDERM Last administered on 13:42; Admin Dose 1 PATCH; Start 08/16/17 at 09:00 Oxycodone HCl (Roxicodone) 5 mg Q8H PRN PO PAIN Last administered on 09:07; Admin Dose 5 MG; Start 08/15/17 at 19:00 Miscellaneous Information 1 ea NOTE XX ; Start 08/15/17 at 19:30 Glucose (Glutose) 15 gm Q15M PRN PO DECREASED GLUCOSE; Start 08/15/17 at 19:30 Glucose (Glutose) 22.5 gm Q15M PRN PO DECREASED GLUCOSE; Start 08/15/17 at 19: 30 Dextrose (D50w Syringe) 25 ml Q15M PRN IV DECREASED GLUCOSE; Start 08/15/17 at 19:30 Dextrose (D50w Syringe) 50 ml Q15M PRN IV DECREASED GLUCOSE; Start 08/15/17 at 19:30 Glucagon (Glucagen) 1 mg Q15M PRN IM DECREASED GLUCOSE; Start 08/15/17 at 19: 30 Glucose (Glutose) 15 gm Q15M PRN BUCCAL DECREASED GLUCOSE; Start 08/15/17 at 19:30 Morphine Sulfate (morphine) 3 mg Q4H PRN IV pain Last administered on 11:08; Admin Dose 3 MG; Start 08/16/17 at 05:30 SELINA HDZ Aug 16, 2017 14:38
[2017-08-16] MEDS: LORAZEPAM 2 MG INJ IV PRN (18:01)
[2017-08-16] MEDS: traZODone 50 MG TAB PO SCH (21:06)
[2017-08-16] MEDS: INSULIN GLARGINE [LANtus] 3 ML PEN SC SCH (21:08)
[2017-08-17] VITALS (12 sets, daily range): BP systolic 123–140; BP diastolic 67–84; PULSE 47–55; RESP 16–19
[2017-08-17] MEDS: ACCU-CHEK XX SCH (02:38)
[2017-08-17] MEDS: LORAZEPAM 2 MG INJ IV PRN (02:39)
[2017-08-17] MEDS: morphine 4 MG/ML VIAL IV PRN ×5 (05:21→22:08)
[2017-08-17] MEDS: HEPARIN 5,000 UNIT/0.5 ML VIAL SC SCH ×3 (05:23→22:06)
[2017-08-17 08:11] LABS: BASOPHIL # 0.1 10^3/ul (0.0-0.1); BASOPHILS % 0.9 % (0.0-2.0); EOSINOPHILS # 0.2 10^3/ul (0.0-0.5); EOSINOPHILS % 4.5 % (0.0-7.0); HEMATOCRIT 35.8 % (42.0-52.0); LYMPHOCYTES % 56.5 % (15.0-51.0); MEAN CORPUSCULAR HEMOGLOBIN 30.9 pg (29.0-33.0); MEAN CORPUSCULAR HGB CONC 33.5 g/dl (32.0-37.0); MEAN CORPUSCULAR VOLUME 92.3 fl (82.0-101.0); MONOCYTE # 0.5 10^3/ul (0.3-0.9); MONOCYTES % 8.5 % (0.0-11.0); NEUTROPHIL # 1.6 10^3/ul (1.6-7.5); NEUTROPHILS % 29.4 % (39.0-77.0); PLATELET COUNT 176 10^3/UL (140-415); RED BLOOD COUNT 3.88 10^6/ul (4.70-6.10); RED CELL DISTRIBUTION WIDTH 12.8 % (11.5-14.5); WHITE BLOOD COUNT 5.3 10^3/ul (4.8-10.8)
[2017-08-17] MEDS: DIAZEPAM 5 MG TAB PO SCH ×3 (08:20→21:00)
[2017-08-17] MEDS: ASPIRIN 81 MG TAB PO SCH (08:20)
[2017-08-17] MEDS: NICOTINE (14 MG/24 HR) PATCH TRANSDERM SCH (08:21)
[2017-08-17] MEDS: INSULIN ASPART [NOVOLOG] 3 ML PEN SC SCH ×4 (08:29→22:04)
[2017-08-17 08:46] LABS: CALCIUM 8.3 mg/dl (8.4-10.2); CREATININE 0.7 mg/dl (0.61-1.24); MAGNESIUM 1.7 mg/dl (1.7-2.5); PHOSPHORUS 3.6 mg/dl (2.5-4.9); POTASSIUM 3.3 mmol/L (3.5-5.1)
[2017-08-17] MEDS: MULTIVITAMINS 10 ML, THIAMINE 100 MG, FOLIC ACID 1 MG in SOD CHLORIDE 0.9% 1,000 ML IVPB SCH (10:23)
[2017-08-17] MEDS ORDERED: POTASSIUM CHLORIDE 20 MEQ POWDER FOR ORAL SOLN PO ONE (10:30)
[2017-08-17] MEDS: oxyCODONE 5 MG TAB PO PRN ×2 (12:07→14:21)
--- NOTE | 2017-08-17 14:52 | PN ---
Date/Time of Note Date/Time of Note DATE: 08/17/17 TIME: 14:49 Assessment/Plan VTE Prophylaxis VTE Prophylaxis Intervention: ambulation Lines/Catheters IV Catheter Type (from Nrs): Peripheral IV Urinary Cath still in place: No Assessment/Plan Chief Complaint/Hosp Course Patient is a 52-year-old alcoholic and medically noncompliant diabetic who presents to [facility] and is admitted for hyperglycemia and elevated lactic acid Assessment and plan Altered mental status, likely secondary to alcohol as it was found upon pickup from EMS with a half bottle of vodka Anion gap metabolic acidosis, moderate, not full DKA, secondary to medical noncompliance suicidal ideation Lactic acidosis Hypernatremia, likely secondary to volume depletion given alcohol extent Hyperglycemia Elevated AST and ALT Low TSH, no T4 reading yet -Continue Lantus and insulin sliding scale, anion gap metabolic acidosis has resolved -Stop fluids, lactic acid has resolved, patient tolerating p.o. intake -Seizure precautions with scheduled Valium and as needed Ativan -psych consult done, spoke with psychiatrist, recommends 5150 after medically clear given current status of not wanting to take insulin -will attempt to get CM to find placement for psych if possible. Problems: Subjective 24 Hr Interval Summary Free Text/Dictation no new complaints, still depressed Exam/Review of Systems Vital Signs Vitals Vital Signs Date Time Temp Pulse Resp B/P Pulse Ox O2 Delivery O2 Flow Rate FiO2 08/17/17 12:00 55 08/17/17 11:51 97.5 16 123/78 97 08/16/17 08:45 Room Air Intake and Output 08/16/17 08/16/17 08/17/17 15:00 23:00 07:00 Intake Total 1400 ml 500 ml Output Total 800 ml Balance 1400 ml -300 ml Exam Physical exam General: Patient is laying in bed and answers questions appropriately Mentation: Patient is alert and oriented 4, states feels depressed and suicidal Head: Normocephalic atraumatic Eyes: EOMI, pupils reactive to light Neck: Supple, nontender, midline Respiratory: Clear to auscultation bilaterally Cardiovascular: regular rate, no obvious murmurs Gastrointestinal: non-tender to palpation, bowel sounds heard. Neurological: Moves all extremities spontaneously Skin: No new skin lesions Results Result Diagram: 08/17/1748 08/17/17 0648 Results 24 hrs Laboratory Tests Test 08/16/17 17:16 08/16/17 20:43 08/17/17 02:26 08/17/17 06:48 Bedside Glucose 237 H 337 H 219 White Blood Count 5.3 # Red Blood Count 3.88 L Hemoglobin 12.0 L Hematocrit 35.8 L Mean Corpuscular Volume 92.3 Mean Corpuscular Hemoglobin 30.9 Mean Corpuscular Hemoglobin Concent 33.5 Red Cell Distribution Width 12.8 Platelet Count 176 Mean Platelet Volume 11.0 H Neutrophils % 29.4 L Lymphocytes % 56.5 H Monocytes % 8.5 Eosinophils % 4.5 Basophils % 0.9 Nucleated Red Blood Cells % 0.0 Neutrophils # 1.6 Lymphocytes # 3.0 H Monocytes # 0.5 Eosinophils # 0.2 Basophils # 0.1 Nucleated Red Blood Cells # 0.0 Sodium Level 133 L Potassium Level 3.3 L Chloride Level 105 Carbon Dioxide Level 27 Anion Gap 4 L Blood Urea Nitrogen 19 Creatinine 0.70 Glucose Level 131 # Calcium Level 8.3 L Phosphorus Level 3.6 Magnesium Level 1.7 Test 08/17/17 08:27 08/17/17 12:10 08/17/17 12:23 08/17/17 12:38 Bedside Glucose 92 48 *L 90 126 Medications Medications Current Medications Aspirin (Aspirin) 81 mg DAILY PO Last administered on 08/17/17 08:20; Admin Dose 81 MG; Start 08/16/17 at 09:00 Trazodone HCl 50 mg 50 mg QHS PO Last administered on 08/16/17 21:06; Admin Dose 50 MG; Start 08/15/17 at 21:00 Multivitamins/ Thiamine HCl/ Folic Acid/Sodium Chloride (Mvi Adult/ Vitamin B1/ Folic Acid/NS) 1,011.2 ml @ 125 mls/ hr DAILY@09 IVPB Last administered on 10:23; Admin Dose 125 MLS/HR; Start 08/16/17 at 09:00 Diagnostic Test (Pha) (Accu-Chek) 1 ea 02 XX Last administered on 08/17/17 02 :38; Admin Dose 1 EA; Start 08/16/17 at 02:00 Insulin Glargine (Lantus) 25 unit QHS SC Last administered on 08/16/17 21:08 ; Admin Dose 25 UNIT; Start 08/15/17 at 21:00 Lorazepam (Ativan) 1 mg Q4 PRN IV agitation/anxiety Last administered on 02:39; Admin Dose 1 MG; Start 08/15/17 at 19:00 Diazepam (Valium) 5 mg TID PO Last administered on 08/17/17 08:20; Admin Dose 5 MG; Start 08/15/17 at 21:00 Ondansetron HCl (Zofran Inj) 4 mg Q6H PRN IV NAUSEA AND/OR VOMITING; Start 08/22 at 19:00 Bisacodyl (Dulcolax) 5 mg DAILY PRN PO CONSTIPATION; Start 08/15/17 at 19:00 Heparin Sodium (Porcine) (Heparin (5000 Units/0.5 ml)) 5,000 unit Q8 SC Last administered on 08/17/17 05:23; Admin Dose 5,000 UNIT; Start 08/15/17 at 22: 00 Nicotine (Nicoderm 14 Mg/ 24hr) 1 patch DAILY TRANSDERM Last administered on 08:21; Admin Dose 1 PATCH; Start 08/16/17 at 09:00 Oxycodone HCl (Roxicodone) 5 mg Q8H PRN PO PAIN Last administered on 12:07; Admin Dose 5 MG; Start 08/15/17 at 19:00 Miscellaneous Information 1 ea NOTE XX ; Start 08/15/17 at 19:30 Glucose (Glutose) 15 gm Q15M PRN PO DECREASED GLUCOSE; Start 08/15/17 at 19:30 Glucose (Glutose) 22.5 gm Q15M PRN PO DECREASED GLUCOSE; Start 08/15/17 at 19: 30 Dextrose (D50w Syringe) 25 ml Q15M PRN IV DECREASED GLUCOSE; Start 08/15/17 at 19:30 Dextrose (D50w Syringe) 50 ml Q15M PRN IV DECREASED GLUCOSE; Start 08/15/17 at 19:30 Glucagon (Glucagen) 1 mg Q15M PRN IM DECREASED GLUCOSE; Start 08/15/17 at 19: 30 Glucose (Glutose) 15 gm Q15M PRN BUCCAL DECREASED GLUCOSE; Start 08/15/17 at 19:30 Morphine Sulfate (morphine) 3 mg Q4H PRN IV pain Last administered on 09:43; Admin Dose 3 MG; Start 08/16/17 at 05:30 SELINA HDZ Aug 17, 2017 14:52
--- NOTE | 2017-08-17 15:18 | DS ---
Date/Time of Note Date/Time of Note DATE: 08/17/17 TIME: 15:16 Discharge Summary Admission/Discharge Info Admit Date/Time Aug 15, 2017 at 19:21 Discharge Date/Time Patient Condition: Stable Hx of Present Illness Patient is a 52-year-old male with a past medical history significant for excessive alcoholism with repeated admissions for DKA and hyperglycemia who presents to [facility] after being found drunk and passed out by bystanders, in the ED patient is lethargic and sleepy but easily arousable and oriented. Patient appears intoxicated at this time but is able to answer simple questions. Patient states that he did not follow-up with a primary care provider after he was discharged 2 days ago. Patient acknowledges medical noncompliance. Patient states that he has no new pain from baseline and goes right back to sleep. Patient was admitted for hyperglycemia and elevated lactic acid likely secondary to uncontrolled diabetes and alcoholism PMH: Medical noncompliance, diabetes mellitus, alcoholism, chronic back pain PSH: Cholecystectomy Social: Everyday drinker, smoker, unknown drugs Meds: NPH insulin, aspirin, pain medication although opiate level is negative on admission Hospital Course Patient is a 52-year-old male with a past medical history significant for excessive alcoholism and repeated admissions for DKA who presents to [facility] in diabetic acidosis, intoxicated with alcohol, and later found to be depressed and near suicidal. Patient has no active intent of suicide however states he does not care about administering insulin which is near equivalent of suicide. Patient was evaluated by tele-psych, which stated patient is appropriate for 5150, however no medication at this time. Patient with benefit from inpatient psych facility for the time being as his homeless situation gets worked on. Patient's near diabetic ketoacidosis and altered mental status quickly resolved with fluids and insulin administration and patient has been stable since admission. Patient has been counseled extensively on the importance of insulin administration, however is depressed and does not care. Patient will be attempt to be placed in psych inpatient. Patient was not restarted on his home dose of methadone at this time as patient has no proof of current methadone treatment, will be continued on aspirin for CVA prophylaxis. Discharge diagnoses Altered mental status, likely secondary to alcohol Anion gap metabolic acidosis, moderate Medical noncompliance Lactic acidosis Hypernatremia Hyperglycemia Elevated AST and ALT Home Meds Active Scripts Aspirin (Aspirin) 81 Mg Chew, 81 MG PO DAILY for 30 Days, #30 TAB Prov:MOHIT CASTELLANOS MD 08/13/17 NPH, Human Insulin Isophane (Humulin N Kwikpen) 100 Unit/1 Ml Insuln.pen, 20 UNIT SQ QPM for 30 Days, #1 EA Prov:MOHIT CASTELLANOS MD 08/13/17 NPH, Human Insulin Isophane (Humulin N Kwikpen) 100 Unit/1 Ml Insuln.pen, 25 UNIT SQ QAM for 30 Days, #1 EA 2 Refills Prov:MOHIT CASTELLANOS MD 08/13/17 Reported Medications Trazodone Hcl* (Trazodone Hcl*) 50 Mg Tablet, 50 MG PO QHS, #30 TAB 08/10/17 Methadone Hcl* (Methadone*) 5 Mg Tab, 5 MG PO, TAB 08/10/17 Primary Care Provider [facility] Time spent on discharge: > 30 minutes Pending Labs Laboratory Tests Test 08/16/17 17:16 08/16/17 20:43 08/17/17 02:26 08/17/17 06:48 Bedside Glucose 237mg/dL (70-220) 337mg/dL (70-220) 219mg/dL (70-220) White Blood Count 5.310^3/ul (4.8-10.8) Red Blood Count 3.8810^6/ul (4.70-6.10) Hemoglobin 12.0g/dl (14.0-18.0) Hematocrit 35.8% (42.0-52.0) Mean Corpuscular Volume 92.3fl (82.0-101.0) Mean Corpuscular Hemoglobin 30.9pg (29.0-33.0) Mean Corpuscular Hemoglobin Concent 33.5g/dl (32.0-37.0) Red Cell Distribution Width 12.8% (11.5-14.5) Platelet Count 09195^3/UL (140-415) Mean Platelet Volume 11.0fl (7.4-10.4) Neutrophils % 29.4% (39.0-77.0) Lymphocytes % 56.5% (15.0-51.0) Monocytes % 8.5% (0.0-11.0) Eosinophils % 4.5% (0.0-7.0) Basophils % 0.9% (0.0-2.0) Nucleated Red Blood Cells % 0.0/100WBC (0.0-0.0) Neutrophils # 1.610^3/ul (1.6-7.5) Lymphocytes # 3.010^3/ul (0.8-2.9) Monocytes # 0.510^3/ul (0.3-0.9) Eosinophils # 0.210^3/ul (0.0-0.5) Basophils # 0.110^3/ul (0.0-0.1) Nucleated Red Blood Cells # 0.010^3/ul (0.0-0.0) Sodium Level 133mmol/L (135-144) Potassium Level 3.3mmol/L (3.5-5.1) Chloride Level 105mmol/L (97-110) Carbon Dioxide Level 27mmol/L (21-31) Anion Gap 4 (8-16) Blood Urea Nitrogen 19mg/dl (7-20) Creatinine 0.70mg/dl (0.61-1.24) Glucose Level 131mg/dl (70-220) Calcium Level 8.3mg/dl (8.4-10.2) Phosphorus Level 3.6mg/dl (2.5-4.9) Magnesium Level 1.7mg/dl (1.7-2.5) Test 08/17/17 08:27 08/17/17 12:10 08/17/17 12:23 08/17/17 12:38 Bedside Glucose 92mg/dL (70-220) 48mg/dL (70-220) 90mg/dL (70-220) 126mg/dL (70-220) SELINA HDZ Aug 17, 2017 15:18
--- NOTE | 2017-08-17 15:20 | PDOCDIS ---
Discharge Instructions CONDITION Patient Condition: Stable HOME CARE INSTRUCTIONS: Special Diet: CARB CONTROLLED FOLLOW UP/APPOINTMENTS Follow-up Plan 1. Please follow up with psychiatry and primary care provider 2. Take all medications as directed SELINA HDZ Aug 17, 2017 15:20
[2017-08-17] MEDS: traZODone 50 MG TAB PO SCH (22:01)
[2017-08-17] MEDS: INSULIN GLARGINE [LANtus] 3 ML PEN SC SCH (22:05)
[2017-08-18] VITALS (13 sets, daily range): BP systolic 99–134; BP diastolic 55–99; PULSE 44–54; RESP 16–19
[2017-08-18] MEDS: ACCU-CHEK XX SCH ×2 (02:35)
[2017-08-18] MEDS: morphine 4 MG/ML VIAL IV PRN ×2 (03:01→08:42)
[2017-08-18] MEDS: HEPARIN 5,000 UNIT/0.5 ML VIAL SC SCH ×3 (06:35→21:27)
[2017-08-18] MEDS: INSULIN ASPART [NOVOLOG] 3 ML PEN SC SCH ×6 (08:16→21:00)
[2017-08-18] MEDS: ASPIRIN 81 MG TAB PO SCH (08:40)
[2017-08-18] MEDS: NICOTINE (14 MG/24 HR) PATCH TRANSDERM SCH (08:41)
[2017-08-18] MEDS: MULTIVITAMINS 10 ML, THIAMINE 100 MG, FOLIC ACID 1 MG in SOD CHLORIDE 0.9% 1,000 ML IVPB SCH (08:54)
[2017-08-18] MEDS: DIAZEPAM 5 MG TAB PO SCH ×3 (09:00→21:03)
--- NOTE | 2017-08-18 14:41 | PN ---
Date/Time of Note Date/Time of Note DATE: 08/18/17 TIME: 14:38 Assessment/Plan VTE Prophylaxis VTE Prophylaxis Intervention: SCD's Lines/Catheters IV Catheter Type (from Nrs): Peripheral IV Urinary Cath still in place: No Assessment/Plan Chief Complaint/Hosp Course Patient is a 52-year-old alcoholic and medically noncompliant diabetic who presents to [facility] and is admitted for hyperglycemia and elevated lactic acid Assessment and plan Altered mental status, likely secondary to alcohol as it was found upon pickup from EMS with a half bottle of vodka Anion gap metabolic acidosis, moderate, not full DKA, secondary to medical noncompliance suicidal ideation Lactic acidosis Hypernatremia, likely secondary to volume depletion given alcohol extent Hyperglycemia Elevated AST and ALT, resolved chronic back pain -Will need to transfer to psych facility that can not give pain medication, DC' ing narcotic pain medication, prn tylenol. -Continue Lantus and insulin sliding scale, anion gap metabolic acidosis has resolved, adding insulin with meals -Stop fluids, lactic acid has resolved, patient tolerating p.o. intake -Seizure precautions with scheduled Valium and as needed Ativan -psych consult done, spoke with psychiatrist, recommends 5150 after medically clear given current status of not wanting to take insulin -will attempt to get CM to find placement for psych if possible. DISPO: patient medically clear and discharged from medical standpoint, awaiting placement. Problems: Subjective 24 Hr Interval Summary Free Text/Dictation no acute change Exam/Review of Systems Vital Signs Vitals Vital Signs Date Time Temp Pulse Resp B/P Pulse Ox O2 Delivery O2 Flow Rate FiO2 08/18/17 12:11 44 08/18/17 11:41 97.7 16 134/75 98 08/16/17 08:45 Room Air Intake and Output 08/17/17 08/17/17 08/18/17 15:00 23:00 07:00 Intake Total 1240 ml 600 ml Output Total 1600 ml 600 ml Balance -360 ml 0 ml Exam Physical exam General: Patient is laying in bed and answers questions appropriately Mentation: Patient is alert and oriented 4, states feels depressed and suicidal Head: Normocephalic atraumatic Eyes: EOMI, pupils reactive to light Neck: Supple, nontender, midline Respiratory: Clear to auscultation bilaterally Cardiovascular: regular rate, no obvious murmurs Gastrointestinal: non-tender to palpation, bowel sounds heard. Neurological: Moves all extremities spontaneously Skin: No new skin lesions Results Result Diagram: 08/17/17 0648 08/17/17 0648 Results 24 hrs Laboratory Tests Test 08/17/17 17:31 08/17/17 21:23 08/18/17 02:11 08/18/17 08:03 Bedside Glucose 249 H 266 H 321 H 247 H Test 08/18/17 12:03 Bedside Glucose 239 H Medications Medications Current Medications Aspirin (Aspirin) 81 mg DAILY PO Last administered on 08/18/17 08:40; Admin Dose 81 MG; Start 08/16/17 at 09:00 Trazodone HCl 50 mg 50 mg QHS PO Last administered on 08/17/17 22:01; Admin Dose 50 MG; Start 08/15/17 at 21:00 Multivitamins/ Thiamine HCl/ Folic Acid/Sodium Chloride (Mvi Adult/ Vitamin B1/ Folic Acid/NS) 1,011.2 ml @ 125 mls/ hr DAILY@09 IVPB Last administered on 08:54; Admin Dose 125 MLS/HR; Start 08/16/17 at 09:00 Diagnostic Test (Pha) (Accu-Chek) 1 ea 02 XX Last administered on 08/18/17 02 :35; Admin Dose 1 EA; Start 08/16/17 at 02:00 Insulin Glargine (Lantus) 25 unit QHS SC Last administered on 08/17/17 22:05 ; Admin Dose 25 UNIT; Start 08/15/17 at 21:00 Lorazepam (Ativan) 1 mg Q4 PRN IV agitation/anxiety Last administered on 02:39; Admin Dose 1 MG; Start 08/15/17 at 19:00 Diazepam (Valium) 5 mg TID PO Last administered on 08/17/17 21:00; Admin Dose 5 MG; Start 08/15/17 at 21:00 Ondansetron HCl (Zofran Inj) 4 mg Q6H PRN IV NAUSEA AND/OR VOMITING; Start 08/22 at 19:00 Bisacodyl (Dulcolax) 5 mg DAILY PRN PO CONSTIPATION; Start 08/15/17 at 19:00 Heparin Sodium (Porcine) (Heparin (5000 Units/0.5 ml)) 5,000 unit Q8 SC Last administered on 08/18/17 06:35; Admin Dose 5,000 UNIT; Start 08/15/17 at 22: 00 Nicotine (Nicoderm 14 Mg/ 24hr) 1 patch DAILY TRANSDERM Last administered on 08:41; Admin Dose 1 PATCH; Start 08/16/17 at 09:00 Miscellaneous Information 1 ea NOTE XX ; Start 08/15/17 at 19:30 Glucose (Glutose) 15 gm Q15M PRN PO DECREASED GLUCOSE; Start 08/15/17 at 19:30 Glucose (Glutose) 22.5 gm Q15M PRN PO DECREASED GLUCOSE; Start 08/15/17 at 19: 30 Dextrose (D50w Syringe) 25 ml Q15M PRN IV DECREASED GLUCOSE; Start 08/15/17 at 19:30 Dextrose (D50w Syringe) 50 ml Q15M PRN IV DECREASED GLUCOSE; Start 08/15/17 at 19:30 Glucagon (Glucagen) 1 mg Q15M PRN IM DECREASED GLUCOSE; Start 08/15/17 at 19: 30 Glucose (Glutose) 15 gm Q15M PRN BUCCAL DECREASED GLUCOSE; Start 08/15/17 at 19:30 Diagnostic Test (Pha) (Accu-Chek) 1 ea 02 XX Last administered on 08/18/17 02 :35; Admin Dose 1 EA; Start 08/18/17 at 02:00 SELINA HDZ Aug 18, 2017 14:41
[2017-08-18] MEDS ORDERED: KETOROLAC 15 MG INJ IV PRN (15:00)
[2017-08-18] MEDS: ACETAMINOPHEN 325 MG TAB PO PRN (15:01)
[2017-08-18] MEDS: KETOROLAC 15 MG INJ IM PRN (21:03)
[2017-08-18] MEDS: traZODone 50 MG TAB PO SCH (21:03)
[2017-08-18] MEDS: INSULIN GLARGINE [LANtus] 3 ML PEN SC SCH (21:27)
[2017-08-19] VITALS (12 sets, daily range): BP systolic 116–144; BP diastolic 58–78; PULSE 49–61; RESP 18–19
[2017-08-19] MEDS: ACCU-CHEK XX SCH ×2 (02:00)
[2017-08-19] MEDS: ACETAMINOPHEN 325 MG TAB PO PRN ×3 (02:20→15:09)
[2017-08-19] MEDS: HEPARIN 5,000 UNIT/0.5 ML VIAL SC SCH ×3 (06:00→22:05)
[2017-08-19] MEDS: KETOROLAC 15 MG INJ IM PRN ×2 (06:40→11:13)
[2017-08-19 06:55] LABS: CREATININE 0.88 mg/dl (0.61-1.24); MAGNESIUM 1.7 mg/dl (1.7-2.5); PHOSPHORUS 4.9 mg/dl (2.5-4.9); POTASSIUM 4.1 mmol/L (3.5-5.1)
[2017-08-19] MEDS: INSULIN ASPART [NOVOLOG] 3 ML PEN SC SCH ×7 (07:55→20:21)
[2017-08-19] MEDS: DIAZEPAM 5 MG TAB PO SCH ×3 (08:52→20:23)
[2017-08-19] MEDS: NICOTINE (14 MG/24 HR) PATCH TRANSDERM SCH (08:52)
[2017-08-19] MEDS: ASPIRIN 81 MG TAB PO SCH (08:52)
[2017-08-19] MEDS: MULTIVITAMINS 10 ML, THIAMINE 100 MG, FOLIC ACID 1 MG in SOD CHLORIDE 0.9% 1,000 ML IVPB SCH (09:00)
--- NOTE | 2017-08-19 15:27 | PN ---
Date/Time of Note Date/Time of Note DATE: 08/19/17 TIME: 15:25 Assessment/Plan VTE Prophylaxis VTE Prophylaxis Intervention: SCD's Lines/Catheters IV Catheter Type (from Nrs): Peripheral IV Urinary Cath still in place: No Assessment/Plan Chief Complaint/Hosp Course Patient is a 52-year-old alcoholic and medically noncompliant diabetic who presents to [facility] and is admitted for hyperglycemia and elevated lactic acid Assessment and plan Altered mental status, likely secondary to alcohol as it was found upon pickup from EMS with a half bottle of vodka Anion gap metabolic acidosis, moderate, not full DKA, secondary to medical noncompliance suicidal ideation Lactic acidosis Hypernatremia, likely secondary to volume depletion given alcohol extent Hyperglycemia Elevated AST and ALT, resolved chronic back pain -Will need to transfer to psych facility that can not give pain medication, however, will give pain meds while inpatient. -Continue Lantus and insulin sliding scale, anion gap metabolic acidosis has resolved, adding insulin with meals as patient's blood glucose is very labile, today's high blood glucose level may be due to held insulin during breakfast/ lunch. -Stop fluids, lactic acid has resolved, patient tolerating p.o. intake -Seizure precautions with scheduled Valium and as needed Ativan -psych consult done, spoke with psychiatrist, recommends 5150. If patient wants to leave, we can not forcefully hold patient, however will have to let [employer] know per warehouse delivery manager. -will attempt to get CM to find placement for psych if possible. DISPO: patient medically clear and discharged from medical standpoint, awaiting placement, awaiting glucose management under 200. Problems: Subjective 24 Hr Interval Summary Free Text/Dictation wants pain medication Exam/Review of Systems Vital Signs Vitals Vital Signs Date Time Temp Pulse Resp B/P Pulse Ox O2 Delivery O2 Flow Rate FiO2 08/19/17 12:39 61 08/19/17 11:45 98.0 18 135/70 98 08/16/17 08:45 Room Air Intake and Output 08/18/17 08/18/17 08/19/17 15:00 23:00 07:00 Intake Total 1620 ml 400 ml Balance 1620 ml 400 ml Exam Physical exam General: Patient is laying in bed and answers questions appropriately Mentation: Patient is alert and oriented 4, states feels depressed Head: Normocephalic atraumatic Eyes: EOMI, pupils reactive to light Neck: Supple, nontender, midline Respiratory: Clear to auscultation bilaterally Cardiovascular: regular rate, no obvious murmurs Gastrointestinal: non-tender to palpation, bowel sounds heard. Neurological: Moves all extremities spontaneously Skin: No new skin lesions Results Result Diagram: 08/17/17 0648 08/19/17 0540 Results 24 hrs Laboratory Tests Test 08/18/17 17:24 08/18/17 20:55 08/19/17 05:40 08/19/17 08:28 Bedside Glucose 147 140 56 L Sodium Level 137 Potassium Level 4.1 Chloride Level 104 Carbon Dioxide Level 27 Anion Gap 10 # Blood Urea Nitrogen 19 Creatinine 0.88 Glucose Level 107 Calcium Level 8.0 L Phosphorus Level 4.9 Magnesium Level 1.7 Test 08/19/17 08:47 08/19/17 11:30 Bedside Glucose 119 293 H Medications Medications Current Medications Aspirin (Aspirin) 81 mg DAILY PO Last administered on 08/19/17 08:52; Admin Dose 81 MG; Start 08/16/17 at 09:00 Trazodone HCl 50 mg 50 mg QHS PO Last administered on 08/18/17 21:03; Admin Dose 50 MG; Start 08/15/17 at 21:00 Multivitamins/ Thiamine HCl/ Folic Acid/Sodium Chloride (Mvi Adult/ Vitamin B1/ Folic Acid/NS) 1,011.2 ml @ 125 mls/ hr DAILY@09 IVPB Last administered on 08:54; Admin Dose 125 MLS/HR; Start 08/16/17 at 09:00 Diagnostic Test (Pha) (Accu-Chek) 1 ea 02 XX Last administered on 08/18/17 02 :35; Admin Dose 1 EA; Start 08/16/17 at 02:00 Insulin Glargine (Lantus) 25 unit QHS SC Last administered on 08/18/17 21:27 ; Admin Dose 25 UNIT; Start 08/15/17 at 21:00 Lorazepam (Ativan) 1 mg Q4 PRN IV agitation/anxiety Last administered on 02:39; Admin Dose 1 MG; Start 08/15/17 at 19:00 Diazepam (Valium) 5 mg TID PO Last administered on 08/19/17 13:18; Admin Dose 5 MG; Start 08/15/17 at 21:00 Ondansetron HCl (Zofran Inj) 4 mg Q6H PRN IV NAUSEA AND/OR VOMITING; Start 08/22 at 19:00 Bisacodyl (Dulcolax) 5 mg DAILY PRN PO CONSTIPATION; Start 08/15/17 at 19:00 Heparin Sodium (Porcine) (Heparin (5000 Units/0.5 ml)) 5,000 unit Q8 SC Last administered on 08/19/17 15:03; Admin Dose 5,000 UNIT; Start 08/15/17 at 22: 00 Nicotine (Nicoderm 14 Mg/ 24hr) 1 patch DAILY TRANSDERM Last administered on 08:52; Admin Dose 1 PATCH; Start 08/16/17 at 09:00 Miscellaneous Information 1 ea NOTE XX ; Start 08/15/17 at 19:30 Glucose (Glutose) 15 gm Q15M PRN PO DECREASED GLUCOSE; Start 08/15/17 at 19:30 Glucose (Glutose) 22.5 gm Q15M PRN PO DECREASED GLUCOSE; Start 08/15/17 at 19: 30 Dextrose (D50w Syringe) 25 ml Q15M PRN IV DECREASED GLUCOSE; Start 08/15/17 at 19:30 Dextrose (D50w Syringe) 50 ml Q15M PRN IV DECREASED GLUCOSE; Start 08/15/17 at 19:30 Glucagon (Glucagen) 1 mg Q15M PRN IM DECREASED GLUCOSE; Start 08/15/17 at 19: 30 Glucose (Glutose) 15 gm Q15M PRN BUCCAL DECREASED GLUCOSE; Start 08/15/17 at 19:30 Diagnostic Test (Pha) (Accu-Chek) 1 ea 02 XX Last administered on 08/18/17 02 :35; Admin Dose 1 EA; Start 08/18/17 at 02:00 Acetaminophen (Tylenol Tab) 650 mg Q6H PRN PO PAIN AND OR ELEVATED TEMP Last administered on 08/19/17 15:09; Admin Dose 650 MG; Start 08/18/17 at 15:00 Ketorolac Tromethamine (Toradol) 15 mg Q4 PRN IM PAIN Last administered on 11:13; Admin Dose 15 MG; Start 08/18/17 at 15:00; Stop 08/21/17 at 14: 59 SELINA HDZ Aug 19, 2017 15:27
[2017-08-19] MEDS: oxyCODONE 5 MG TAB PO PRN ×2 (15:50→23:39)
[2017-08-19] MEDS: INSULIN GLARGINE [LANtus] 3 ML PEN SC SCH (20:22)
[2017-08-19] MEDS: traZODone 50 MG TAB PO SCH (20:23)
[2017-08-20] VITALS (12 sets, daily range): BP systolic 112–161; BP diastolic 58–85; PULSE 47–70; RESP 18
[2017-08-20] MEDS: ACCU-CHEK XX SCH ×2 (01:58)
[2017-08-20] MEDS: KETOROLAC 15 MG INJ IM PRN ×3 (04:50→22:27)
[2017-08-20] MEDS: HEPARIN 5,000 UNIT/0.5 ML VIAL SC SCH ×3 (05:41→21:54)
[2017-08-20 06:37] LABS: BASOPHILS % 0.7 % (0.0-2.0); EOSINOPHILS # 0.1 10^3/ul (0.0-0.5); EOSINOPHILS % 1.9 % (0.0-7.0); HEMATOCRIT 36.7 % (42.0-52.0); HEMOGLOBIN 12.4 g/dl (14.0-18.0); LYMPHOCYTES # 1.7 10^3/ul (0.8-2.9); LYMPHOCYTES % 32.2 % (15.0-51.0); MEAN CORPUSCULAR HEMOGLOBIN 31.8 pg (29.0-33.0); MEAN CORPUSCULAR HGB CONC 33.8 g/dl (32.0-37.0); MEAN CORPUSCULAR VOLUME 94.1 fl (82.0-101.0); MEAN PLATELET VOLUME 11.1 fl (7.4-10.4); MONOCYTE # 0.4 10^3/ul (0.3-0.9); MONOCYTES % 8.2 % (0.0-11.0); NEUTROPHILS % 56.6 % (39.0-77.0); PLATELET COUNT 165 10^3/UL (140-415); RED CELL DISTRIBUTION WIDTH 12.8 % (11.5-14.5); WHITE BLOOD COUNT 5.3 10^3/ul (4.8-10.8)
[2017-08-20 07:42] LABS: ALBUMIN 3.1 g/dl (3.3-4.9); ALBUMIN/GLOBULIN RATIO 1.06; BILIRUBIN,INDIRECT 0.1 mg/dl (0-1.1); BILIRUBIN,TOTAL 0.1 mg/dl (0.2-1.3); CREATININE 0.92 mg/dl (0.61-1.24); POTASSIUM 4.5 mmol/L (3.5-5.1)
[2017-08-20] MEDS: ASPIRIN 81 MG TAB PO SCH (08:34)
[2017-08-20] MEDS: DIAZEPAM 5 MG TAB PO SCH ×3 (08:34→21:13)
[2017-08-20] MEDS: MULTIVITAMINS 10 ML, THIAMINE 100 MG, FOLIC ACID 1 MG in SOD CHLORIDE 0.9% 1,000 ML IVPB SCH (08:36)
[2017-08-20] MEDS: NICOTINE (14 MG/24 HR) PATCH TRANSDERM SCH (08:38)
[2017-08-20] MEDS: INSULIN ASPART [NOVOLOG] 3 ML PEN SC SCH ×7 (08:40→21:00)
[2017-08-20] MEDS: oxyCODONE 5 MG TAB PO PRN ×2 (09:48→18:19)
[2017-08-20] MEDS: LORAZEPAM 2 MG INJ IV PRN ×3 (10:53→22:37)
[2017-08-20] MEDS ORDERED: INSULIN ASPART [NOVOLOG] 3 ML PEN SC SCH (11:50)
--- NOTE | 2017-08-20 13:18 | PN ---
Date/Time of Note Date/Time of Note DATE: 08/20/17 TIME: 13:14 Assessment/Plan VTE Prophylaxis VTE Prophylaxis Intervention: ambulation Lines/Catheters IV C[facility]ter [facility]from [facility] Saline Lock Urinary Cath still in place: No Assessment/Plan Chief Complaint/Hosp Course Patient is a 52-year-old alcoholic and medically noncompliant diabetic who presents to [facility] and is admitted for hyperglycemia and elevated lactic acid Assessment and plan Altered mental status, likely secondary to alcohol as it was found upon pickup from EMS with a half bottle of vodka Anion gap metabolic acidosis, moderate, not full DKA, secondary to medical noncompliance suicidal ideation Lactic acidosis Hypernatremia, likely secondary to volume depletion given alcohol extent Hyperglycemia Elevated AST and ALT, resolved chronic back pain -Will need to transfer to psych facility which can not give pain medication, however, will give pain meds while inpatient.(confirmed okay with psych facility as long as patient knows he will not be getting the medication in the facility). -Continue Lantus and insulin sliding scale, anion gap metabolic acidosis has resolved, added insulin with meals as patient's blood glucose is very labile. still has lots of ups/downs in glucose trends, likely 2/2 patient eating sandwiches between meals, will try to get sandwiches given with meals (patient states he is very hungry and the amount of food is not enough during meals.) This may possibly resolve labile glucose readings, continue current dose insulin. -Stop fluids, lactic acid has resolved, patient tolerating p.o. intake -Seizure precautions with scheduled Valium and as needed Ativan -psych consult done, spoke with psychiatrist, recommends 5150. 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 -will attempt to get CM to find placement for psych if possible. DISPO: patient medically clear and discharged from medical standpoint, awaiting placement, awaiting glucose management under 200. Problems: Subjective 24 Hr Interval Summary Free Text/Dictation no acute issues, patient states he has been eating sandwiches between meals. Exam/Review of Systems Vital Signs Vitals Vital Signs Date Time Temp Pulse Resp B/P Pulse Ox O2 Delivery O2 Flow Rate FiO2 08/20/17 12:53 98.0 73 18 148/77 98 08/16/17 08:45 Room Air Intake and Output 08/19/17 08/19/17 08/20/17 15:00 23:00 07:00 Intake Total 800 ml 400 ml Output Total 1000 ml Balance -200 ml 400 ml Exam Physical exam General: Patient is laying in bed and answers questions appropriately Mentation: Patient is alert and oriented 4, states feels depressed Head: Normocephalic atraumatic Eyes: EOMI, pupils reactive to light Neck: Supple, nontender, midline Respiratory: Clear to auscultation bilaterally Cardiovascular: regular rate, no obvious murmurs Gastrointestinal: non-tender to palpation, bowel sounds heard. Neurological: Moves all extremities spontaneously Skin: No new skin lesions Results Result Diagram: 08/20/17 0535 08/20/17 0535 Results 24 hrs Laboratory Tests Test 08/19/17 17:40 08/19/17 20:20 08/20/17 01:54 08/20/17 05:35 Bedside Glucose 345 H 103 155 White Blood Count 5.3 Red Blood Count 3.90 L Hemoglobin 12.4 L Hematocrit 36.7 L Mean Corpuscular Volume 94.1 Mean Corpuscular Hemoglobin 31.8 Mean Corpuscular Hemoglobin Concent 33.8 Red Cell Distribution Width 12.8 Platelet Count 165 Mean Platelet Volume 11.1 H Neutrophils % 56.6 Lymphocytes % 32.2 Monocytes % 8.2 Eosinophils % 1.9 Basophils % 0.7 Nucleated Red Blood Cells % 0.0 Neutrophils # 3.0 Lymphocytes # 1.7 Monocytes # 0.4 Eosinophils # 0.1 Basophils # 0.0 Nucleated Red Blood Cells # 0.0 Sodium Level 134 L Potassium Level 4.5 Chloride Level 101 Carbon Dioxide Level 28 Anion Gap 10 Blood Urea Nitrogen 23 H Creatinine 0.92 Glucose Level 277 #H Calcium Level 8.0 L Total Bilirubin 0.1 L Direct Bilirubin 0.00 Indirect Bilirubin 0.1 Aspartate Amino Transf (AST/SGOT) 20 Alanine Aminotransferase (ALT/SGPT) 50 Alkaline Phosphatase 99 Total Protein 6.0 L Albumin 3.1 L Globulin 2.90 Albumin/Globulin Ratio 1.06 Test 08/20/17 08:36 08/20/17 12:12 Bedside Glucose 283 H 322 H Medications Medications Current Medications Aspirin (Aspirin) 81 mg DAILY PO Last administered on 08/20/17t 08:34; Admin Dose 81 MG; Start 08/16/17 at 09:00 Trazodone HCl 50 mg 50 mg QHS PO Last administered on 08/19/17 20:23; Admin Dose 50 MG; Start 08/15/17 at 21:00 Multivitamins/ Thiamine HCl/ Folic Acid/Sodium Chloride (Mvi Adult/ Vitamin B1/ Folic Acid/NS) 1,011.2 ml @ 125 mls/ hr DAILY@09 IVPB Last administered on 08:54; Admin Dose 125 MLS/HR; Start 08/16/17 at 09:00 Diagnostic Test (Pha) (Accu-Chek) 1 ea 02 XX Last administered on 08/20/17 01 :58; Admin Dose 1 EA; Start 08/16/17 at 02:00 Lorazepam (Ativan) 1 mg Q4 PRN IV agitation/anxiety Last administered on 10:53; Admin Dose 1 MG; Start 08/15/17 at 19:00 Diazepam (Valium) 5 mg TID PO Last administered on 08/20/17 08:34; Admin Dose 5 MG; Start 08/15/17 at 21:00 Ondansetron HCl (Zofran Inj) 4 mg Q6H PRN IV NAUSEA AND/OR VOMITING; Start 08/22 at 19:00 Bisacodyl (Dulcolax) 5 mg DAILY PRN PO CONSTIPATION; Start 08/15/17 at 19:00 Heparin Sodium (Porcine) (Heparin (5000 Units/0.5 ml)) 5,000 unit Q8 SC Last administered on 08/20/17 05:41; Admin Dose 5,000 UNIT; Start 08/15/17 at 22: 00 Nicotine (Nicoderm 14 Mg/ 24hr) 1 patch DAILY TRANSDERM Last administered on 08:38; Admin Dose 1 PATCH; Start 08/16/17 at 09:00 Miscellaneous Information 1 ea NOTE XX ; Start 08/15/17 at 19:30 Glucose (Glutose) 15 gm Q15M PRN PO DECREASED GLUCOSE; Start 08/15/17 at 19:30 Glucose (Glutose) 22.5 gm Q15M PRN PO DECREASED GLUCOSE; Start 08/15/17 at 19: 30 Dextrose (D50w Syringe) 25 ml Q15M PRN IV DECREASED GLUCOSE; Start 10/10/17 at 19:30 Dextrose (D50w Syringe) 50 ml Q15M PRN IV DECREASED GLUCOSE; Start 08/15/17 at 19:30 Glucagon (Glucagen) 1 mg Q15M PRN IM DECREASED GLUCOSE; Start 08/15/17 at 19: 30 Glucose (Glutose) 15 gm Q15M PRN BUCCAL DECREASED GLUCOSE; Start 08/15/17 at 19:30 Diagnostic Test (Pha) (Accu-Chek) 1 ea 02 XX Last administered on 08/20/17 01 :58; Admin Dose 1 EA; Start 08/18/17 at 02:00 Acetaminophen (Tylenol Tab) 650 mg Q6H PRN PO PAIN AND OR ELEVATED TEMP Last administered on 08/19/17 15:09; Admin Dose 650 MG; Start 08/18/17 at 15:00 Ketorolac Tromethamine (Toradol) 15 mg Q4 PRN IM PAIN Last administered on 04:50; Admin Dose 15 MG; Start 08/18/17 at 15:00; Stop 08/21/17 at 14: 59 Oxycodone HCl (Roxicodone) 5 mg Q6H PRN PO PAIN Last administered on 09:48; Admin Dose 5 MG; Start 08/19/17 at 15:30 Insulin Glargine (Lantus) 25 unit QHS SC ; Start 08/20/17 at 21:00 SELINA HDZ Aug 20, 2017 13:17
[2017-08-20] MEDS ORDERED: INSULIN GLARGINE [LANtus] 3 ML PEN SC SCH ×2 (21:00)
[2017-08-20] MEDS: traZODone 50 MG TAB PO SCH (21:13)
[2017-08-21] VITALS (11 sets, daily range): BP systolic 141–148; BP diastolic 55–75; PULSE 47–67; RESP 18–20
[2017-08-21] MEDS: ACCU-CHEK XX SCH ×2 (02:00)
[2017-08-21] MEDS: oxyCODONE 5 MG TAB PO PRN ×2 (02:58→18:34)
[2017-08-21] MEDS: LORAZEPAM 2 MG INJ IV PRN ×5 (03:35→22:14)
[2017-08-21] MEDS: HEPARIN 5,000 UNIT/0.5 ML VIAL SC SCH ×3 (06:00→22:33)
[2017-08-21] MEDS: KETOROLAC 15 MG INJ IM PRN ×2 (06:22→11:14)
[2017-08-21] MEDS: NICOTINE (14 MG/24 HR) PATCH TRANSDERM SCH (08:39)
[2017-08-21] MEDS: ASPIRIN 81 MG TAB PO SCH (08:39)
[2017-08-21] MEDS: MULTIVITAMINS 10 ML, THIAMINE 100 MG, FOLIC ACID 1 MG in SOD CHLORIDE 0.9% 1,000 ML IVPB SCH (08:39)
[2017-08-21] MEDS: DIAZEPAM 5 MG TAB PO SCH ×4 (08:39→20:34)
[2017-08-21] MEDS: INSULIN ASPART [NOVOLOG] 3 ML PEN SC SCH ×7 (08:42→20:41)
--- NOTE | 2017-08-21 10:28 | PN ---
Date/Time of Note Date/Time of Note DATE: 08/21/17 TIME: 10:28 Assessment/Plan VTE Prophylaxis VTE Prophylaxis Intervention: SCD's Lines/Catheters IV Catheter Type (from Nrs): Saline Lock Urinary Cath still in place: No Assessment/Plan Assessment/Plan 1. Altered mental status, likely secondary to alcohol abuse - Patient is mentating well and reevaluation by tele psych cleared patient - no witnessed seizures and continuing seizure precautions and PRN ativan - Given information for support for alcohol abuse 2. Diabetes Mellitus, uncontrolled - A1c ordered - Has had fluctuating sugars and admits to snacking often, especially in the middle of the night - Diabetic counselor recommendations appreciated - Adjustments made to Lantus and Novolog - Will continue monitoring - If remains elevated, will consider Endocrine consult 3. Anion gap metabolic acidosis, moderate, not full DKA, secondary to medical noncompliance - resolved 4. suicidal ideation - No longer experiencing SI and cleared by tele-psych 5. Lactic acidosis - resolved 6. Hypernatremia, likely secondary to volume depletion given alcohol extent- resolved 7. Elevated AST and ALT, resolved 8. chronic back pain - pain control 9. Disposition - will need better control of sugars prior to d/c Subjective 24 Hr Interval Summary Free Text/Dictation Patient had multiple complaints and concerns this am that stemmed around pain. Patient states he had osteomyelitis in spine in December and has residual pain in spine and neuropathy in lower legs. Patient states he feels generalized weakness and believes would do well with a walker. Does admit to loose BMs with meals and feeling constantly hungry. Denies any SI/HI, nausea, vomiting, constipation, or abdominal pain. Exam/Review of Systems Vital Signs Vitals Vital Signs Date Time Temp Pulse Resp B/P Pulse Ox O2 Delivery O2 Flow Rate FiO2 08/21/17 08:29 48 08/21/17 07:50 98.0 20 148/75 95 Intake and Output 08/20/17 08/20/17 08/21/17 15:00 23:00 07:00 Intake Total 900 ml 400 ml Output Total 1200 ml 1500 ml Balance -300 ml -1100 ml Exam General: Patient is laying in bed and answers questions appropriately Head: Normocephalic atraumatic Eyes: EOMI, pupils reactive to light Neck: Supple, nontender, midline Respiratory: Clear to auscultation bilaterally. no wheezes or crackles Cardiovascular: regular rate, no obvious murmurs Gastrointestinal: non-tender to palpation, bowel sounds heard. Neurological: Moves all extremities spontaneously Skin: No new skin lesions Results Result Diagram: 08/20/17 0535 08/20/17 0535 Results 24 hrs Laboratory Tests Test 08/20/17 12:12 08/20/17 17:28 08/20/17 21:18 08/20/17 21:46 Bedside Glucose 322 H 141 54 L 81 Test 08/21/17 08:30 Bedside Glucose 304 H Medications Medications Current Medications Aspirin (Aspirin) 81 mg DAILY PO Last administered on 08/21/17 08:39; Admin Dose 81 MG; Start 08/16/17 at 09:00 Trazodone HCl 50 mg 50 mg QHS PO Last administered on 08/20/17 21:13; Admin Dose 50 MG; Start 08/15/17 at 21:00 Multivitamins/ Thiamine HCl/ Folic Acid/Sodium Chloride (Mvi Adult/ Vitamin B1/ Folic Acid/NS) 1,011.2 ml @ 125 mls/ hr DAILY@09 IVPB Last administered on 08:54; Admin Dose 125 MLS/HR; Start 08/16/17 at 09:00 Diagnostic Test (Pha) (Accu-Chek) 1 ea 02 XX Last administered on 08/20/17 01 :58; Admin Dose 1 EA; Start 08/16/17 at 02:00 Lorazepam (Ativan) 1 mg Q4 PRN IV agitation/anxiety Last administered on 08:47; Admin Dose 1 MG; Start 08/15/17 at 19:00 Diazepam (Valium) 5 mg TID PO Last administered on 08/20/17 21:13; Admin Dose 5 MG; Start 08/15/17 at 21:00 Ondansetron HCl (Zofran Inj) 4 mg Q6H PRN IV NAUSEA AND/OR VOMITING; Start 08/22 at 19:00 Bisacodyl (Dulcolax) 5 mg DAILY PRN PO CONSTIPATION; Start 08/15/17 at 19:00 Heparin Sodium (Porcine) (Heparin (5000 Units/0.5 ml)) 5,000 unit Q8 SC Last administered on 08/20/17 21:54; Admin Dose 5,000 UNIT; Start 08/15/17 at 22: 00 Nicotine (Nicoderm 14 Mg/ 24hr) 1 patch DAILY TRANSDERM Last administered on 08:39; Admin Dose 1 PATCH; Start 08/16/17 at 09:00 Miscellaneous Information 1 ea NOTE XX ; Start 08/15/17 at 19:30 Glucose (Glutose) 15 gm Q15M PRN PO DECREASED GLUCOSE; Start 08/15/17 at 19:30 Glucose (Glutose) 22.5 gm Q15M PRN PO DECREASED GLUCOSE; Start 08/15/17 at 19: 30 Dextrose (D50w Syringe) 25 ml Q15M PRN IV DECREASED GLUCOSE; Start 08/15/17 at 19:30 Dextrose (D50w Syringe) 50 ml Q15M PRN IV DECREASED GLUCOSE; Start 08/15/17 at 19:30 Glucagon (Glucagen) 1 mg Q15M PRN IM DECREASED GLUCOSE; Start 08/15/17 at 19: 30 Glucose (Glutose) 15 gm Q15M PRN BUCCAL DECREASED GLUCOSE; Start 08/15/17 at 19:30 Diagnostic Test (Pha) (Accu-Chek) 1 ea 02 XX Last administered on 08/20/17 01 :58; Admin Dose 1 EA; Start 08/18/17 at 02:00 Acetaminophen (Tylenol Tab) 650 mg Q6H PRN PO PAIN AND OR ELEVATED TEMP Last administered on 08/19/17 15:09; Admin Dose 650 MG; Start 08/18/17 at 15:00 Ketorolac Tromethamine (Toradol) 15 mg Q4 PRN IM PAIN Last administered on 06:22; Admin Dose 15 MG; Start 08/18/17 at 15:00; Stop 08/21/17 at 14: 59 Oxycodone HCl (Roxicodone) 5 mg Q6H PRN PO PAIN Last administered on 02:58; Admin Dose 5 MG; Start 08/19/17 at 15:30 Insulin Glargine (Lantus) 28 unit QHS SC ; Start 08/21/17 at 21:00 Lactobacillus Acidophilus/ Rhamnosus (Culturelle) 1 cap BID PO ; Start at 11:30 SALUD GARIBAY MD Aug 21, 2017 10:28
[2017-08-21] MEDS: LACTOBACILLUS RHAMNOSUS CAP PO SCH ×2 (12:06→20:34)
--- NOTE | 2017-08-21 12:36 | PSY ---
Date/Time of Note Date/Time of Note DATE: 08/21/17 TIME: 12:30 Psychiatric Subjective Eval Consent Pt consented to telemedicine: Yes Subjective Evaluation Patient location: inpatient Chief Complaint: BIB RA PATIENT FOUND IN CAR PASSED OUT WITH HALF LITER OF VODKA BOTTLE Reason for consult: Recurrent presentsations of alcohol abuse and DKA, and suicidal ideation. History of present illness Pt is 52 yo disabled male with hx DM admitted due to intoxication, uncontrolled DM and lactic acidosis. Apparently, upon admission pt made a suicidal statement. Pt improved from the medical standpoint, per Dr Max. Pt is calm, pleasant, cooperative; he says he has a lot of stress in his life but denies overt depression. He says he is in therapy, he takes "medication with starts with "s"" and he denies any SI. He says he feels safe from hismelf. He minimizes his drinking saying he has "a few beers sometimes". He is in therapy weekly and has an outpt psychiatrist. Pt denies AH or Vh. [place] IS or HI. Denies feeling hopeless or helpless; he says he plans to stay sober, go to the gym and eat healthy to get stronger. 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 Psychiatric Objective Eval Review of Systems: Review of Systems: Not Applicable Physical Examination: Physical Examination: Not Applicable Sleep: Adequate Appetite: Adequate Energy: Adequate Interest: Adequate Mental Status Examination: Appearance: Groomed, Disheveled Eye Contact: Good Psychomotor Activity: Normal Behavior: Cooperative Speech: Clear AFFECT: Appropriate Mood: Appropriate/Full Though Process: Linear Thought Content: Normal Suicidal: No Homicidal: No On 72 hour hold: No Orientation: x4 Cognition: Alert Insight: Impared Judgement: Impared Laboratory Results Laboratory Tests Test 10/14/17 17:40 08/19/17 20:20 08/20/17 01:54 08/20/17 05:35 Bedside Glucose 345mg/dL 103mg/dL 155mg/dL White Blood Count 5.310^3/ul Red Blood Count 3.9010^6/ul Hemoglobin 12.4g/dl Hematocrit 36.7% Mean Corpuscular Volume 94.1fl Mean Corpuscular Hemoglobin 31.8pg Mean Corpuscular Hemoglobin Concent 33.8g/dl Red Cell Distribution Width 12.8% Platelet Count 79553^3/UL Mean Platelet Volume 11.1fl Neutrophils % 56.6% Lymphocytes % 32.2% Monocytes % 8.2% Eosinophils % 1.9% Basophils % 0.7% Nucleated Red Blood Cells % 0.0/100WBC Neutrophils # 3.010^3/ul Lymphocytes # 1.710^3/ul Monocytes # 0.410^3/ul Eosinophils # 0.110^3/ul Basophils # 0.010^3/ul Nucleated Red Blood Cells # 0.010^3/ul Sodium Level 134mmol/L Potassium Level 4.5mmol/L Chloride Level 101mmol/L Carbon Dioxide Level 28mmol/L Anion Gap 10 Blood Urea Nitrogen 23mg/dl Creatinine 0.92mg/dl Glucose Level 277mg/dl Calcium Level 8.0mg/dl Total Bilirubin 0.1mg/dl Direct Bilirubin 0.00mg/dl Indirect Bilirubin 0.1mg/dl Aspartate Amino Transf (AST/SGOT) 20IU/L Alanine Aminotransferase (ALT/SGPT) 50IU/L Alkaline Phosphatase 99IU/L Total Protein 6.0g/dl Albumin 3.1g/dl Globulin 2.90g/dl Albumin/Globulin Ratio 1.06 Test 08/20/17 08:36 08/20/17 12:12 08/20/17 17:28 08/20/17 21:18 Bedside Glucose 283mg/dL 322mg/dL 141mg/dL 54mg/dL Test 08/20/17 21:46 08/21/17 08:30 08/21/17 12:16 Bedside Glucose 81mg/dL 304mg/dL 382mg/dL Assessment and Plan Assessment/Diagnosis [place] I: ALCOHOL USE DISORDER. ALCOHOL WITHDRAWALS, RESOLVED. UNSPECIFIED MOOD DISORDER. [place] II: DEFERED [place] III: PER RECORD [place] IV: MODERATE [place] V: GAF 40 Recommendation/Plan Medication Management PLEASE VERIFY PT'S HOME MEDS, CONTINUE WHILE IN THE HOSPITAL. PER PT, HE IS ON SERTRALINE (?) - NEEDS TO BE VERIFIED VIA HIS PHARMACY. Psychotherapy REFER TO AA Pt. Caregiver/Family Education NA Follow-up/Disposition PT DOES NOT MEET INPT PSYCHIATRIC CARE CRITERIA - NO DTS, DTO,GD; PLEASE RFER TO ALCOHOL REHAB. [id number] Recommendation: CRIS AVILES MD Aug 21, 2017 12:36
[2017-08-21] MEDS: traZODone 50 MG TAB PO SCH (20:34)
[2017-08-21] MEDS ORDERED: INSULIN GLARGINE [LANtus] 3 ML PEN SC SCH (21:00)
[2017-08-22] VITALS (11 sets, daily range): BP systolic 116–152; BP diastolic 63–80; PULSE 49–56; RESP 17–21
[2017-08-22] MEDS: ACCU-CHEK XX SCH ×2 (02:00)
[2017-08-22] MEDS: LORAZEPAM 2 MG INJ IV PRN ×4 (02:54→17:28)
[2017-08-22] MEDS: oxyCODONE 5 MG TAB PO PRN ×2 (04:57→10:41)
[2017-08-22] MEDS: HEPARIN 5,000 UNIT/0.5 ML VIAL SC SCH ×3 (06:08→20:45)
[2017-08-22 06:36] LABS: BASOPHIL # 0.1 10^3/ul (0.0-0.1); BASOPHILS % 0.9 % (0.0-2.0); EOSINOPHILS # 0.1 10^3/ul (0.0-0.5); EOSINOPHILS % 1.7 % (0.0-7.0); HEMATOCRIT 36.9 % (42.0-52.0); HEMOGLOBIN 12.6 g/dl (14.0-18.0); LYMPHOCYTES # 2.1 10^3/ul (0.8-2.9); LYMPHOCYTES % 30.6 % (15.0-51.0); MEAN CORPUSCULAR HEMOGLOBIN 32.3 pg (29.0-33.0); MEAN CORPUSCULAR HGB CONC 34.1 g/dl (32.0-37.0); MEAN CORPUSCULAR VOLUME 94.6 fl (82.0-101.0); MEAN PLATELET VOLUME 11.3 fl (7.4-10.4); MONOCYTE # 0.5 10^3/ul (0.3-0.9); MONOCYTES % 7.8 % (0.0-11.0); NEUTROPHIL # 4.1 10^3/ul (1.6-7.5); NEUTROPHILS % 58.6 % (39.0-77.0); PLATELET COUNT 184 10^3/UL (140-415); RED CELL DISTRIBUTION WIDTH 13.3 % (11.5-14.5)
[2017-08-22 07:10] LABS: ALBUMIN 3.3 g/dl (3.3-4.9); CALCIUM 8.8 mg/dl (8.4-10.2); CREATININE 1.06 mg/dl (0.61-1.24); MAGNESIUM 1.7 mg/dl (1.7-2.5); PHOSPHORUS 5.3 mg/dl (2.5-4.9); POTASSIUM 4.3 mmol/L (3.5-5.1)
[2017-08-22] MEDS: INSULIN ASPART [NOVOLOG] 3 ML PEN SC SCH ×7 (07:55→21:37)
[2017-08-22] MEDS: MULTIVITAMINS 10 ML, THIAMINE 100 MG, FOLIC ACID 1 MG in SOD CHLORIDE 0.9% 1,000 ML IVPB SCH (08:33)
[2017-08-22] MEDS: LACTOBACILLUS RHAMNOSUS CAP PO SCH ×2 (08:34→20:36)
[2017-08-22] MEDS: NICOTINE (14 MG/24 HR) PATCH TRANSDERM SCH (08:35)
[2017-08-22] MEDS: ASPIRIN 81 MG TAB PO SCH (08:47)
[2017-08-22] MEDS: INSULIN GLARGINE [LANtus] 3 ML PEN SC SCH (08:56)
[2017-08-22] MEDS: DIAZEPAM 5 MG TAB PO SCH ×2 (09:00→13:00)
--- NOTE | 2017-08-22 12:04 | PN ---
Date/Time of Note Date/Time of Note DATE: 08/22/17 TIME: 12:04 Assessment/Plan VTE Prophylaxis VTE Prophylaxis Intervention: heparin Lines/Catheters IV Catheter Type (from Nrs): Saline Lock Urinary Cath still in place: No Assessment/Plan Assessment/Plan 1. Altered mental status, likely secondary to alcohol abuse- resolved - Patient is mentating well and reevaluation by tele psych cleared patient - no witnessed seizures and continuing seizure precautions and PRN ativan - Given information for support for alcohol abuse 2. Diabetes Mellitus, uncontrolled - A1c 9.5 - Sugars have been better controlled and if remain stable will d/c on current regime - Diabetic counselor recommendations appreciated - Will continue monitoring 3. Anion gap metabolic acidosis, moderate, not full DKA, secondary to medical noncompliance - resolved 4. suicidal ideation - No longer experiencing SI and cleared by tele-psych 5. Lactic acidosis - resolved 6. Hypernatremia, likely secondary to volume depletion given alcohol extent- resolved 7. Elevated AST and ALT, resolved 8. chronic back pain - pain control - Requested pain management to evaluate patient 9. Disposition - Sugars have been better controlled and will d/c in am Subjective 24 Hr Interval Summary Free Text/Dictation Patient still c/o lower back pain and generalized weakness. Walking with no issues in the resendez with FWW and states when he eats more, he feels stronger. Explained that his sugars have been hard to control and limiting his snacking is important. Requesting to be restarted on Creon that he was taking prior to admission. Also requesting "steroids like sports people take" but instructed not the best option. Exam/Review of Systems Vital Signs Vitals Vital Signs Date Time Temp Pulse Resp B/P Pulse Ox O2 Delivery O2 Flow Rate FiO2 08/22/17 11:26 98.2 52 17 138/80 99 Intake and Output 08/21/17 08/21/17 08/22/17 15:00 23:00 07:00 Intake Total 2000 ml Balance 2000 ml Exam General: Patient is laying in bed and answers questions appropriately. seen ambulating as well with FWW with no difficulty Head: Normocephalic atraumatic Eyes: EOMI, pupils reactive to light Neck: Supple, nontender, midline Respiratory: Clear to auscultation bilaterally. no wheezes or crackles Cardiovascular: regular rate, no obvious murmurs Gastrointestinal: non-tender to palpation, bowel sounds heard. Neurological: Moves all extremities spontaneously Skin: No new skin lesions Results Result Diagram: 08/22/17 0608 08/22/17 0608 Results 24 hrs Laboratory Tests Test 08/21/17 12:16 08/21/17 17:08 08/21/17 19:39 08/21/17 20:33 Bedside Glucose 382 H 106 77 Hemoglobin A1c 9.4 H Test 08/22/17 06:08 08/22/17 08:23 White Blood Count 7.0 # Red Blood Count 3.90 L Hemoglobin 12.6 L Hematocrit 36.9 L Mean Corpuscular Volume 94.6 Mean Corpuscular Hemoglobin 32.3 Mean Corpuscular Hemoglobin Concent 34.1 Red Cell Distribution Width 13.3 Platelet Count 184 Mean Platelet Volume 11.3 H Neutrophils % 58.6 Lymphocytes % 30.6 Monocytes % 7.8 Eosinophils % 1.7 Basophils % 0.9 Nucleated Red Blood Cells % 0.0 Neutrophils # 4.1 Lymphocytes # 2.1 Monocytes # 0.5 Eosinophils # 0.1 Basophils # 0.1 Nucleated Red Blood Cells # 0.0 Sodium Level 138 Potassium Level 4.3 Chloride Level 105 Carbon Dioxide Level 26 Anion Gap 11 Blood Urea Nitrogen 27 H Creatinine 1.06 Glucose Level 114 Calcium Level 8.8 Phosphorus Level 5.3 H Magnesium Level 1.7 Albumin 3.3 Bedside Glucose 99 Medications Medications Current Medications Aspirin (Aspirin) 81 mg DAILY PO Last administered on 08/22/17 08:47; Admin Dose 81 MG; Start 08/16/17 at 09:00 Trazodone HCl 50 mg 50 mg QHS PO Last administered on 08/21/17 20:34; Admin Dose 50 MG; Start 08/15/17 at 21:00 Multivitamins/ Thiamine HCl/ Folic Acid/Sodium Chloride (Mvi Adult/ Vitamin B1/ Folic Acid/NS) 1,011.2 ml @ 125 mls/ hr DAILY@09 IVPB Last administered on 08:54; Admin Dose 125 MLS/HR; Start 08/16/17 at 09:00 Diagnostic Test (Pha) (Accu-Chek) 1 ea 02 XX Last administered on 08/20/17 01 :58; Admin Dose 1 EA; Start 08/16/17 at 02:00 Lorazepam (Ativan) 1 mg Q4 PRN IV agitation/anxiety Last administered on 08:35; Admin Dose 1 MG; Start 08/15/17 at 19:00 Diazepam (Valium) 5 mg TID PO Last administered on 08/21/17 20:34; Admin Dose 5 MG; Start 08/15/17 at 21:00 Ondansetron HCl (Zofran Inj) 4 mg Q6H PRN IV NAUSEA AND/OR VOMITING; Start 08/22 at 19:00 Bisacodyl (Dulcolax) 5 mg DAILY PRN PO CONSTIPATION; Start 08/15/17 at 19:00 Heparin Sodium (Porcine) (Heparin (5000 Units/0.5 ml)) 5,000 unit Q8 SC Last administered on 08/22/17 06:08; Admin Dose 5,000 UNIT; Start 08/15/17 at 22: 00 Nicotine (Nicoderm 14 Mg/ 24hr) 1 patch DAILY TRANSDERM Last administered on 08:35; Admin Dose 1 PATCH; Start 08/16/17 at 09:00 Miscellaneous Information 1 ea NOTE XX ; Start 08/15/17 at 19:30 Glucose (Glutose) 15 gm Q15M PRN PO DECREASED GLUCOSE; Start 08/15/17 at 19:30 Glucose (Glutose) 22.5 gm Q15M PRN PO DECREASED GLUCOSE; Start 08/15/17 at 19: 30 Dextrose (D50w Syringe) 25 ml Q15M PRN IV DECREASED GLUCOSE; Start 08/15/17 at 19:30 Dextrose (D50w Syringe) 50 ml Q15M PRN IV DECREASED GLUCOSE; Start 08/15/17 at 19:30 Glucagon (Glucagen) 1 mg Q15M PRN IM DECREASED GLUCOSE; Start 08/15/17 at 19: 30 Glucose (Glutose) 15 gm Q15M PRN BUCCAL DECREASED GLUCOSE; Start 08/15/17 at 19:30 Diagnostic Test (Pha) (Accu-Chek) 1 ea 02 XX Last administered on 08/20/17 01 :58; Admin Dose 1 EA; Start 08/18/17 at 02:00 Acetaminophen (Tylenol Tab) 650 mg Q6H PRN PO PAIN AND OR ELEVATED TEMP Last administered on 08/19/17 15:09; Admin Dose 650 MG; Start 08/18/17 at 15:00 Oxycodone HCl (Roxicodone) 5 mg Q6H PRN PO PAIN Last administered on 10:41; Admin Dose 5 MG; Start 08/19/17 at 15:30 Lactobacillus Acidophilus/ Rhamnosus (Culturelle) 1 cap BID PO Last administered on 08/22/17 08:34; Admin Dose 1 CAP; Start 08/21/17 at 11:30 Insulin Glargine (Lantus) 28 unit DAILY@08 SC Last administered on 08/22/17 08:56; Admin Dose 28 UNIT; Start 08/22/17 at 08:00 SALUD GARIBAY MD Aug 22, 2017 12:04
[2017-08-22 17:00] LABS: IRON 121 ug/dl (35-150)
[2017-08-22 17:09] LABS: TOTAL IRON BINDING CAPACITY 333 ug/dl (241-421)
--- NOTE | 2017-08-22 17:21 | CONS ---
Date/Time of Note Date/Time of Note DATE: 08/22/17 TIME: 17:11 Assessment/Plan Assessment/Plan Additional Assessment/Plan Back pain with the somewhat unclear etiology not documented in patient's current medical records According medical records patient consumes excessive amounts of alcohol he denies that with my questions Smoking history Negative physical findings consistent with radiculopathy of lower extremities I suggest continuing his methadone while in-house at 5 mg 3 times a day discontinue all other opioid. I strongly suggest not re-prescribing methadone at the time is discharged I have told patient to call and [facility] on the day of discharge. Patient high risk of overdosing on opioids. Consultation Date/Type/Reason Admit Date/Time Hx of Present Illness There is a 52-year-old gentleman I am asked to see in pain management consultation. 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 I can find no documentation of that in patient's medical record. States that he had been treated with antibiotics but his pain persisted. As an outpatient he was tried on a combination of MS Contin and Dilaudid but had side effects associated with it and states that he was concerned with become addicted to the drugs. He subsequently was changed to methadone 5 mg 3 times daily and he states that he has done very well with that without having to use as needed breakthrough pain medications. He states that he has pain which is always located in his thoracic spine does not radiate although on further questioning states that he has burning of his left lower extremity and loss of strength. It is unclear the discrepancy between medical records and patient's history that he is getting to me at this time. The story that I reviewed with him is clearly different than the admitting diagnosis the patient being altered and history of excessive alcohol consumption. He denies his history with my questioning. Insofar as his pain he graded as a 10/10 but it is controlled now with methadone to over 10 pain interfered with his physical function mood sleeping patterns overall functioning. Denies nausea vomiting itching mental cloudiness drowsiness. The history I received said he has not been involved with a motor vehicle accident or attended alcohol treatment programs. He denies oversedation with methadone but states that he ran out of his medications. He receives his prescriptions for methadone at [facility]. Social History Smoking Status: Current every day smoker Exam/Review of Systems Vital Signs Vitals Vital Signs Date Time Temp Pulse Resp B/P Pulse Ox O2 Delivery O2 Flow Rate FiO2 08/22/17 16:40 56 08/22/17 15:44 97.9 17 116/67 98 Intake and Output 08/21/17 08/21/17 08/22/17 15:00 23:00 07:00 Intake Total 2000 ml Balance 2000 ml Exam Neurological: other (Range of motion bilateral lower extremity in both ankles intact flexion extension internal/external rotation negative bilateral straight leg sign. Sensory within normal limits 5/5 bilateral lower extremities range of motion both knees both hips full flexion extension internal/external rotation right hip full internal and external rotation flexion and extension is negative physical findings for clonus bilateral lower extremities) Results Result Diagram: 08/22/17 0608 08/22/17 0608 Results 24 hrs Laboratory Tests Test 08/21/17 19:39 08/21/17 20:33 08/22/17 06:08 08/22/17 08:23 Hemoglobin A1c 9.4 H Bedside Glucose 77 99 White Blood Count 7.0 # Red Blood Count 3.90 L Hemoglobin 12.6 L Hematocrit 36.9 L Mean Corpuscular Volume 94.6 Mean Corpuscular Hemoglobin 32.3 Mean Corpuscular Hemoglobin Concent 34.1 Red Cell Distribution Width 13.3 Platelet Count 184 Mean Platelet Volume 11.3 H Neutrophils % 58.6 Lymphocytes % 30.6 Monocytes % 7.8 Eosinophils % 1.7 Basophils % 0.9 Nucleated Red Blood Cells % 0.0 Neutrophils # 4.1 Lymphocytes # 2.1 Monocytes # 0.5 Eosinophils # 0.1 Basophils # 0.1 Nucleated Red Blood Cells # 0.0 Sodium Level 138 Potassium Level 4.3 Chloride Level 105 Carbon Dioxide Level 26 Anion Gap 11 Blood Urea Nitrogen 27 H Creatinine 1.06 Glucose Level 114 Calcium Level 8.8 Phosphorus Level 5.3 H Magnesium Level 1.7 Albumin 3.3 Test 08/22/17 12:36 08/22/17 16:33 Bedside Glucose 94 Iron Level 121 Total Iron Binding Capacity Pending Percent Iron Saturation Pending Medications Medications Current Medications Aspirin (Aspirin) 81 mg DAILY PO Last administered on 08/22/17 08:47; Admin Dose 81 MG; Start 08/16/17 at 09:00 Trazodone HCl 50 mg 50 mg QHS PO Last administered on 08/21/17 20:34; Admin Dose 50 MG; Start 08/15/17 at 21:00 Multivitamins/ Thiamine HCl/ Folic Acid/Sodium Chloride (Mvi Adult/ Vitamin B1/ Folic Acid/NS) 1,011.2 ml @ 125 mls/ hr DAILY@09 IVPB Last administered on 08:54; Admin Dose 125 MLS/HR; Start 08/16/17 at 09:00 Diazepam (Valium) 5 mg TID PO Last administered on 08/21/17 20:34; Admin Dose 5 MG; Start 08/15/17 at 21:00 Ondansetron HCl (Zofran Inj) 4 mg Q6H PRN IV NAUSEA AND/OR VOMITING; Start 08/22 at 19:00 Bisacodyl (Dulcolax) 5 mg DAILY PRN PO CONSTIPATION; Start 08/15/17 at 19:00 Heparin Sodium (Porcine) (Heparin (5000 Units/0.5 ml)) 5,000 unit Q8 SC Last administered on 08/22/17 06:08; Admin Dose 5,000 UNIT; Start 08/15/17 at 22: 00 Nicotine (Nicoderm 14 Mg/ 24hr) 1 patch DAILY TRANSDERM Last administered on 08:35; Admin Dose 1 PATCH; Start 08/16/17 at 09:00 Miscellaneous Information 1 ea NOTE XX ; Start 08/15/17 at 19:30 Glucose (Glutose) 15 gm Q15M PRN PO DECREASED GLUCOSE; Start 08/15/17 at 19:30 Glucose (Glutose) 22.5 gm Q15M PRN PO DECREASED GLUCOSE; Start 08/15/17 at 19: 30 Dextrose (D50w Syringe) 25 ml Q15M PRN IV DECREASED GLUCOSE; Start 08/15/17 at 19:30 Dextrose (D50w Syringe) 50 ml Q15M PRN IV DECREASED GLUCOSE; Start 08/15/17 at 19:30 Glucagon (Glucagen) 1 mg Q15M PRN IM DECREASED GLUCOSE; Start 08/15/17 at 19: 30 Glucose (Glutose) 15 gm Q15M PRN BUCCAL DECREASED GLUCOSE; Start 08/15/17 at 19:30 Diagnostic Test (Pha) (Accu-Chek) 1 ea 02 XX Last administered on 08/20/17 01 :58; Admin Dose 1 EA; Start 08/18/17 at 02:00 Acetaminophen (Tylenol Tab) 650 mg Q6H PRN PO PAIN AND OR ELEVATED TEMP Last administered on 08/19/17 15:09; Admin Dose 650 MG; Start 08/18/17 at 15:00 Oxycodone HCl (Roxicodone) 5 mg Q6H PRN PO PAIN Last administered on 10:41; Admin Dose 5 MG; Start 08/19/17 at 15:30 Lactobacillus Acidophilus/ Rhamnosus (Culturelle) 1 cap BID PO Last administered on 08/22/17 08:34; Admin Dose 1 CAP; Start 08/21/17 at 11:30 Insulin Glargine (Lantus) 28 unit DAILY@08 SC Last administered on 08/22/17 08:56; Admin Dose 28 UNIT; Start 08/22/17 at 08:00 Lorazepam (Ativan) 1 mg Q8 PRN IV agitation/anxiety; Start 08/22/17 at 22:00 DORIS SELBY Aug 22, 2017 17:21
[2017-08-22] MEDS: CREON (12k-38k-60k) 1 CAP PO SCH (17:26)
[2017-08-22] MEDS: METHADONE 5 MG TAB PO PRN (18:44)
[2017-08-23] MEDS: LORAZEPAM 2 MG INJ IV PRN ×2 (01:30→09:51)
[2017-08-23] MEDS: ACCU-CHEK XX SCH (01:35)
[2017-08-23 02:04] VITALS: BP 128/62; RESP 20
[2017-08-23] MEDS: METHADONE 5 MG TAB PO PRN ×3 (04:40→19:29)
[2017-08-23] MEDS: HEPARIN 5,000 UNIT/0.5 ML VIAL SC SCH ×3 (06:12→23:19)
[2017-08-23 06:21] LABS: BASOPHIL # 0.1 10^3/ul (0.0-0.1); EOSINOPHILS # 0.2 10^3/ul (0.0-0.5); EOSINOPHILS % 2.6 % (0.0-7.0); HEMATOCRIT 33.1 % (42.0-52.0); HEMOGLOBIN 10.8 g/dl (14.0-18.0); LYMPHOCYTES # 1.9 10^3/ul (0.8-2.9); LYMPHOCYTES % 30.4 % (15.0-51.0); MEAN CORPUSCULAR HEMOGLOBIN 30.9 pg (29.0-33.0); MEAN CORPUSCULAR HGB CONC 32.6 g/dl (32.0-37.0); MEAN CORPUSCULAR VOLUME 94.8 fl (82.0-101.0); MEAN PLATELET VOLUME 11.3 fl (7.4-10.4); MONOCYTE # 0.6 10^3/ul (0.3-0.9); NEUTROPHIL # 3.5 10^3/ul (1.6-7.5); NEUTROPHILS % 56.8 % (39.0-77.0); PLATELET COUNT 164 10^3/UL (140-415); RED BLOOD COUNT 3.49 10^6/ul (4.70-6.10); RED CELL DISTRIBUTION WIDTH 13.9 % (11.5-14.5); WHITE BLOOD COUNT 6.2 10^3/ul (4.8-10.8)
[2017-08-23 07:01] LABS: ALBUMIN 3.1 g/dl (3.3-4.9); CALCIUM 8.3 mg/dl (8.4-10.2); CREATININE 1.08 mg/dl (0.61-1.24); MAGNESIUM 1.7 mg/dl (1.7-2.5); PHOSPHORUS 4.7 mg/dl (2.5-4.9); POTASSIUM 4.5 mmol/L (3.5-5.1)
[2017-08-23 07:45] VITALS: BP 130/66; RESP 18
[2017-08-23] MEDS: NICOTINE (14 MG/24 HR) PATCH TRANSDERM SCH (08:16)
[2017-08-23] MEDS: CREON (12k-38k-60k) 1 CAP PO SCH ×3 (08:17→17:28)
[2017-08-23] MEDS: LACTOBACILLUS RHAMNOSUS CAP PO SCH ×2 (08:17→20:30)
[2017-08-23] MEDS: ASPIRIN 81 MG TAB PO SCH (08:17)
[2017-08-23] MEDS: MULTIVITAMINS 10 ML, THIAMINE 100 MG, FOLIC ACID 1 MG in SOD CHLORIDE 0.9% 1,000 ML IVPB SCH (09:00)
[2017-08-23] MEDS: INSULIN ASPART [NOVOLOG] 3 ML PEN SC SCH ×7 (09:55→20:20)
[2017-08-23] MEDS: INSULIN GLARGINE [LANtus] 3 ML PEN SC SCH (12:39)
[2017-08-23] MEDS: clonAZEPAM 0.5 MG TAB PO SCH ×2 (12:46→20:30)
[2017-08-23 14:09] VITALS: BP 128/58; RESP 16
--- NOTE | 2017-08-23 18:20 | CONS ---
Date/Time of Note Date/Time of Note DATE: 08/23/17 TIME: 18:13 Assessment/Plan Assessment/Plan Problems: (1) Diabetes mellitus out of control Status: Chronic Comment: He is a bit of a crossover and certainly has some degree of insulin resistance syndrome but he also has pancreatic beta cell insufficiency due to reduction of the pancreatic mass. He has been on outpatient treatment using NPH and Regular Insulin. Trying to send him out on Lantus and Humalog therefore is not likely to be successful. He is cared for at [facility]. We should coordinate with them using his basic outpatient regimen which does render him adequate control when he is using it. Qualifiers: Qualified Code: E08.9 - Diabetes mellitus due to underlying condition, uncontrolled, without complication, with long-term current use of insulin (2) Abnormal thyroid function test Status: Acute Comment: This is probably is spuriously result and I will recheck it (3) History of partial pancreatectomy Status: Chronic Comment: Radiology CT scan to evaluate this further. (4) Abnormal chest x-ray Status: Acute Comment: As per radiology recommendation on the chest x-ray will check CT (5) Alcohol abuse Status: Acute Comment: Counseled extensively Consultation Date/Type/Reason Admit Date/Time August 15, 2017 Date of Consultation: Aug 23, 2017 Type of Consultation: Endocrinology Reason for Consultation Pancreatic insufficiency endocrine and exocrine; abnormal thyroid function tests ; abnormal chest x-ray Referring Provider: SALUD GARIBAY MD Hx of Present Illness 52-year-old male with a reported history of diabetes over the last 7 years. He presented to [facility] several years ago with gallstone pancreatitis and significant pancreatic abnormalities. He reports he underwent [place] [facility] [place] of the pancreas which rendered him diabetic at that time. He reports that he has been on insulin since then although he has missed insulin and has not gone into DKA despite having missed it for more than 48 hours. 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; 2) major depressive disorder; 3) pancreatic exocrine insufficiency; 4) alcoholism; 5) chronic pain syndrome Past Surgical History 1) status post cholecystectomy with partial pancreatectomy Family History Significant Family History: no pertinent family hx Social History Alcohol Use: heavy Smoking Status: Current every day smoker Drug Use: other (On prescription opiate therapy long-term for chronic pain syndrome) Exam/Review of Systems Vital Signs Vitals Vital Signs Date Time Temp Pulse Resp B/P Pulse Ox O2 Delivery O2 Flow Rate FiO2 08/23/17 14:09 98.2 67 16 128/58 98 Intake and Output 08/22/17 08/22/17 08/23/17 15:00 23:00 07:00 Intake Total 1200 ml 480 ml Output Total 900 ml 1500 ml Balance 300 ml -1020 ml Exam Constitutional: alert, oriented Neck: non-tender, supple Respiratory: clear to auscultation, normal air movement Cardiovascular: nl pulses, regular rate and rhythm Results Result Diagram: 08/23/1742 08/23/1742 Results 24 hrs Laboratory Tests Test 08/22/17 18:15 08/22/17 20:35 08/23/17 01:34 08/23/17 05:42 Bedside Glucose 110 191 221 H White Blood Count 6.2 Red Blood Count 3.49 L Hemoglobin 10.8 L Hematocrit 33.1 L Mean Corpuscular Volume 94.8 Mean Corpuscular Hemoglobin 30.9 Mean Corpuscular Hemoglobin Concent 32.6 Red Cell Distribution Width 13.9 Platelet Count 164 Mean Platelet Volume 11.3 H Neutrophils % 56.8 Lymphocytes % 30.4 Monocytes % 9.0 Eosinophils % 2.6 Basophils % 1.0 Nucleated Red Blood Cells % 0.0 Neutrophils # 3.5 Lymphocytes # 1.9 Monocytes # 0.6 Eosinophils # 0.2 Basophils # 0.1 Nucleated Red Blood Cells # 0.0 Sodium Level 136 Potassium Level 4.5 Chloride Level 105 Carbon Dioxide Level 26 Anion Gap 10 Blood Urea Nitrogen 24 H Creatinine 1.08 Glucose Level 166 Calcium Level 8.3 L Phosphorus Level 4.7 Magnesium Level 1.7 Albumin 3.1 L Test 08/23/17 07:54 08/23/17 09:50 08/23/17 12:20 08/23/17 17:22 Bedside Glucose 233 H 321 H 257 H 133 Medications Medications Current Medications Aspirin 81 mg 81 mg DAILY PO Last administered on 08/23/17t 08:17; Admin Dose 81 MG; Start 08/16/17 at 09:00 Multivitamins/ Thiamine HCl/ Folic Acid/Sodium Chloride (Mvi Adult/ Vitamin B1/ Folic Acid/NS) 1,011.2 ml @ 125 mls/ hr DAILY@09 IVPB Last administered on 08:54; Admin Dose 125 MLS/HR; Start 08/16/17 at 09:00 Ondansetron HCl (Zofran Inj) 4 mg Q6H PRN IV NAUSEA AND/OR VOMITING; Start 08/22 at 19:00 Bisacodyl (Dulcolax) 5 mg DAILY PRN PO CONSTIPATION; Start 08/15/17 at 19:00 Heparin Sodium (Porcine) (Heparin (5000 Units/0.5 ml)) 5,000 unit Q8 SC Last administered on 08/23/17 14:41; Admin Dose 5,000 UNIT; Start 08/15/17 at 22: 00 Nicotine (Nicoderm 14 Mg/ 24hr) 1 patch DAILY TRANSDERM Last administered on 08:16; Admin Dose 1 PATCH; Start 08/16/17 at 09:00 Miscellaneous Information 1 ea NOTE XX ; Start 08/15/17 at 19:30 Glucose (Glutose) 15 gm Q15M PRN PO DECREASED GLUCOSE; Start 08/15/17 at 19:30 Glucose (Glutose) 22.5 gm Q15M PRN PO DECREASED GLUCOSE; Start 08/15/17 at 19: 30 Dextrose (D50w Syringe) 25 ml Q15M PRN IV DECREASED GLUCOSE; Start 08/15/17 at 19:30 Dextrose (D50w Syringe) 50 ml Q15M PRN IV DECREASED GLUCOSE; Start 08/15/17 at 19:30 Glucagon (Glucagen) 1 mg Q15M PRN IM DECREASED GLUCOSE; Start 08/15/17 at 19: 30 Glucose (Glutose) 15 gm Q15M PRN BUCCAL DECREASED GLUCOSE; Start 08/15/17 at 19:30 Diagnostic Test (Pha) (Accu-Chek) 1 ea 02 XX Last administered on 08/23/17 01 :35; Admin Dose 1 EA; Start 08/18/17 at 02:00 Acetaminophen (Tylenol Tab) 650 mg Q6H PRN PO PAIN AND OR ELEVATED TEMP Last administered on 08/19/17 15:09; Admin Dose 650 MG; Start 08/18/17 at 15:00 Lactobacillus Acidophilus/ Rhamnosus (Culturelle) 1 cap BID PO Last administered on 08/23/17 08:17; Admin Dose 1 CAP; Start 08/21/17 at 11:30 Insulin Glargine (Lantus) 28 unit DAILY@08 SC Last administered on 08/23/17 12:39; Admin Dose 28 UNIT; Start 08/22/17 at 08:00 Methadone HCl (Methadone) 5 mg Q8H PRN PO PAIN Last administered on 08/23/17 11:18; Admin Dose 5 MG; Start 08/22/17 at 17:30 Clonazepam (Klonopin) 0.5 mg BID PO Last administered on 08/23/17 12:46; Admin Dose 0.5 MG; Start 08/23/17 at 12:30 MASON HANEY MD Aug 23, 2017 18:20
--- NOTE | 2017-08-23 18:22 | PN ---
Date/Time of Note Date/Time of Note DATE: 08/23/17 TIME: 18:17 Assessment/Plan VTE Prophylaxis VTE Prophylaxis Intervention: ambulation, SCD's Lines/Catheters IV Catheter Type (from Nrs): Saline Lock Urinary Cath still in place: No Assessment/Plan Assessment/Plan 1. Altered mental status, likely secondary to alcohol abuse- resolved - Patient is mentating well and reevaluation by tele psych cleared patient - no witnessed seizures and continuing seizure precautions. - Requesting Ativan too often for anxiety and changed to Klonopin BID - Given information for support for alcohol abuse 2. Diabetes Mellitus, uncontrolled - A1c 9.5 - Sugars have still been fluctuating and Endocrinology consult placed for further recommendations - Diabetic counselor recommendations appreciated - Will continue monitoring 3. Anion gap metabolic acidosis, moderate, not full DKA, secondary to medical noncompliance - resolved 4. suicidal ideation - No longer experiencing SI and cleared by tele-psych 5. Lactic acidosis - resolved 6. Hypernatremia, likely secondary to volume depletion given alcohol extent- resolved 7. Elevated AST and ALT, resolved 8. chronic back pain - pain control - Requested pain management to evaluate patient. Started on Methadone but explained to patient will not discharge on this medication 9. Disposition - Will need better sugar control prior to discharge Subjective 24 Hr Interval Summary Free Text/Dictation Patient still complaining of generalized weakness and explained its most likely secondary to uncontrolled sugars. Reinforced importance of not snacking between meals. Also complaining of anxiety and requesting to have ativan prescribed more often. Explained the risks/dangers of taking the medications often. Exam/Review of Systems Vital Signs Vitals Vital Signs Date Time Temp Pulse Resp B/P Pulse Ox O2 Delivery O2 Flow Rate FiO2 08/23/17 14:09 98.2 67 16 128/58 98 Intake and Output 08/22/17 08/22/17 08/23/17 15:00 23:00 07:00 Intake Total 1200 ml 480 ml Output Total 900 ml 1500 ml Balance 300 ml -1020 ml Exam General: Patient is laying in bed and answers questions appropriately Head: Normocephalic atraumatic Eyes: EOMI, pupils reactive to light Neck: Supple, nontender, midline Respiratory: Clear to auscultation bilaterally. no wheezes or crackles Cardiovascular: regular rate, no obvious murmurs Gastrointestinal: non-tender to palpation, bowel sounds heard. Neurological: Moves all extremities spontaneously Skin: No new skin lesions Results Result Diagram: 08/23/17 0542 08/23/17 0542 Results 24 hrs Laboratory Tests Test 08/22/17 20:35 08/23/17 01:34 08/23/17 05:42 08/23/17 07:54 Bedside Glucose 191 221 H 233 H White Blood Count 6.2 Red Blood Count 3.49 L Hemoglobin 10.8 L Hematocrit 33.1 L Mean Corpuscular Volume 94.8 Mean Corpuscular Hemoglobin 30.9 Mean Corpuscular Hemoglobin Concent 32.6 Red Cell Distribution Width 13.9 Platelet Count 164 Mean Platelet Volume 11.3 H Neutrophils % 56.8 Lymphocytes % 30.4 Monocytes % 9.0 Eosinophils % 2.6 Basophils % 1.0 Nucleated Red Blood Cells % 0.0 Neutrophils # 3.5 Lymphocytes # 1.9 Monocytes # 0.6 Eosinophils # 0.2 Basophils # 0.1 Nucleated Red Blood Cells # 0.0 Sodium Level 136 Potassium Level 4.5 Chloride Level 105 Carbon Dioxide Level 26 Anion Gap 10 Blood Urea Nitrogen 24 H Creatinine 1.08 Glucose Level 166 Calcium Level 8.3 L Phosphorus Level 4.7 Magnesium Level 1.7 Albumin 3.1 L Test 08/23/17 09:50 08/23/17 12:20 08/23/17 17:22 Bedside Glucose 321 H 257 H 133 Medications Medications Current Medications Aspirin 81 mg 81 mg DAILY PO Last administered on 08/23/17 08:17; Admin Dose 81 MG; Start 08/16/17 at 09:00 Multivitamins/ Thiamine HCl/ Folic Acid/Sodium Chloride (Mvi Adult/ Vitamin B1/ Folic Acid/NS) 1,011.2 ml @ 125 mls/ hr DAILY@09 IVPB Last administered on 08:54; Admin Dose 125 MLS/HR; Start 08/16/17 at 09:00 Ondansetron HCl (Zofran Inj) 4 mg Q6H PRN IV NAUSEA AND/OR VOMITING; Start 08/22 at 19:00 Bisacodyl (Dulcolax) 5 mg DAILY PRN PO CONSTIPATION; Start 08/15/17 at 19:00 Heparin Sodium (Porcine) (Heparin (5000 Units/0.5 ml)) 5,000 unit Q8 SC Last administered on 10/18/17at 14:41; Admin Dose 5,000 UNIT; Start 08/15/17 at 22: 00 Nicotine (Nicoderm 14 Mg/ 24hr) 1 patch DAILY TRANSDERM Last administered on 08:16; Admin Dose 1 PATCH; Start 08/16/17 at 09:00 Miscellaneous Information 1 ea NOTE XX ; Start 08/15/17 at 19:30 Glucose (Glutose) 15 gm Q15M PRN PO DECREASED GLUCOSE; Start 08/15/17 at 19:30 Glucose (Glutose) 22.5 gm Q15M PRN PO DECREASED GLUCOSE; Start 08/15/17 at 19: 30 Dextrose (D50w Syringe) 25 ml Q15M PRN IV DECREASED GLUCOSE; Start 08/15/17 at 19:30 Dextrose (D50w Syringe) 50 ml Q15M PRN IV DECREASED GLUCOSE; Start 08/15/17 at 19:30 Glucagon (Glucagen) 1 mg Q15M PRN IM DECREASED GLUCOSE; Start 08/15/17 at 19: 30 Glucose (Glutose) 15 gm Q15M PRN BUCCAL DECREASED GLUCOSE; Start 08/15/17 at 19:30 Diagnostic Test (Pha) (Accu-Chek) 1 ea 02 XX Last administered on 08/23/17 01 :35; Admin Dose 1 EA; Start 08/18/17 at 02:00 Acetaminophen (Tylenol Tab) 650 mg Q6H PRN PO PAIN AND OR ELEVATED TEMP Last administered on 08/19/17 15:09; Admin Dose 650 MG; Start 08/18/17 at 15:00 Lactobacillus Acidophilus/ Rhamnosus (Culturelle) 1 cap BID PO Last administered on 08/23/17 08:17; Admin Dose 1 CAP; Start 08/21/17 at 11:30 Insulin Glargine (Lantus) 28 unit DAILY@08 SC Last administered on 08/23/17 12:39; Admin Dose 28 UNIT; Start 08/22/17 at 08:00 Methadone HCl (Methadone) 5 mg Q8H PRN PO PAIN Last administered on 08/23/17 11:18; Admin Dose 5 MG; Start 08/22/17 at 17:30 Clonazepam (Klonopin) 0.5 mg BID PO Last administered on 08/23/17 12:46; Admin Dose 0.5 MG; Start 08/23/17 at 12:30 SALUD GARIBAY MD Aug 23, 2017 18:22
[2017-08-23] MEDS: ACETAMINOPHEN 325 MG TAB PO PRN (18:24)
[2017-08-23] MEDS ORDERED: BARIUM SULF 2% 450 ML BTL (BERRY SMOOTHIE) PO ONE (18:30)
[2017-08-23 19:36] VITALS: BP 102/59; RESP 20
[2017-08-23] MEDS: NACL 0.9% 3 ML SYG IV SCH (20:15)
[2017-08-24] MEDS: ACCU-CHEK XX SCH (02:00)
[2017-08-24 02:05] VITALS: BP 98/50; RESP 20
[2017-08-24 05:46] LABS: BASOPHIL # 0.1 10^3/ul (0.0-0.1); BASOPHILS % 1.5 % (0.0-2.0); EOSINOPHILS # 0.2 10^3/ul (0.0-0.5); EOSINOPHILS % 4.1 % (0.0-7.0); HEMATOCRIT 32.9 % (42.0-52.0); HEMOGLOBIN 10.7 g/dl (14.0-18.0); LYMPHOCYTES # 2.4 10^3/ul (0.8-2.9); MEAN CORPUSCULAR HEMOGLOBIN 30.9 pg (29.0-33.0); MEAN CORPUSCULAR HGB CONC 32.5 g/dl (32.0-37.0); MEAN CORPUSCULAR VOLUME 95.1 fl (82.0-101.0); MEAN PLATELET VOLUME 11.2 fl (7.4-10.4); MONOCYTE # 0.5 10^3/ul (0.3-0.9); MONOCYTES % 10.3 % (0.0-11.0); NEUTROPHILS % 37.9 % (39.0-77.0); PLATELET COUNT 162 10^3/UL (140-415); RED BLOOD COUNT 3.46 10^6/ul (4.70-6.10); WHITE BLOOD COUNT 5.2 10^3/ul (4.8-10.8)
[2017-08-24 06:13] LABS: ALBUMIN 2.9 g/dl (3.3-4.9); CALCIUM 8.9 mg/dl (8.4-10.2); CREATININE 1.07 mg/dl (0.61-1.24); MAGNESIUM 1.7 mg/dl (1.7-2.5); PHOSPHORUS 5.2 mg/dl (2.5-4.9); POTASSIUM 4.5 mmol/L (3.5-5.1)
[2017-08-24] MEDS: HEPARIN 5,000 UNIT/0.5 ML VIAL SC SCH ×3 (06:21→22:12)
[2017-08-24] MEDS: METHADONE 5 MG TAB PO PRN ×3 (06:23→22:14)
[2017-08-24 07:28] VITALS: BP 128/68; RESP 16
[2017-08-24] MEDS: INSULIN ASPART [NOVOLOG] 3 ML PEN SC SCH ×7 (08:05→20:20)
[2017-08-24] MEDS: CREON (12k-38k-60k) 1 CAP PO SCH ×3 (08:11→17:20)
[2017-08-24] MEDS: NICOTINE (14 MG/24 HR) PATCH TRANSDERM SCH (08:11)
[2017-08-24] MEDS: clonAZEPAM 0.5 MG TAB PO SCH (08:11)
[2017-08-24] MEDS: LACTOBACILLUS RHAMNOSUS CAP PO SCH ×2 (08:11→20:21)
[2017-08-24] MEDS: ASPIRIN 81 MG TAB PO SCH (08:12)
[2017-08-24] MEDS: INSULIN GLARGINE [LANtus] 3 ML PEN SC SCH (08:18)
--- NOTE | 2017-08-24 08:29 | RADRPT ---
PROCEDURE: CT Chest and Abdomen without intravenous contrast CLINICAL INDICATION: Chest and abdominal pain. TECHNIQUE: CT of the chest and abdomen was performed on a multidetector scanner without IV contras t. Coronal and sagittal images were reformatted from the axial data set. One or more of the follow ing dose reduction techniques were used: automated exposure control, adjustment of the mA and/or kV according to patient size, use of iterative reconstruction technique. CTDI = 13.08 mGy. DLP = 715.26 mGy-cm. COMPARISON: CT, 09/02/2016 ([facility]) FINDINGS: CT chest: There is minimal bibasilar atelectasis. Benign calcified granulomas are seen in the right lower lobe , likely chronic sequela of prior granulomatous infectious process. No acute infiltrate, pleural eff usion, pulmonary edema or pneumothorax is identified. The central tracheobronchial tree is clear. No pulmonary nodule or mass is identified. The heart size is normal without pericardial effusion. Coronary arterial and aortic atherosclerotic calcifications are present. There is no thoracic aortic aneurysm. No mediastinal, hilar, axillary or supraclavicular lymphadenopathy is identified. There is fragmentation and severe compression deformity of the T7 vertebral body. There is moderate anterior wedging of the T8 vertebral body as well. Extensive endplate destructive changes are seen T 7-T8, and to a lesser extent and T6-T7 as well. Adjacent paravertebral soft tissues are mildly thick ened and edematous. No gross evidence of significant canal stenosis is seen. Old, healed left clavic le fracture is noted. CT abdomen: 7.0 x 2.5 x 4.6 cm low density perihepatic/subdiaphragmatic low density collection is identified (60 1-44). Gallbladder is surgically absent. No gross evidence of intrinsic hepatic mass is identified. No biliary dilatation is identified. Calcifications are noted within pancreatic head and uncinate pr ocess, possibly sequela of chronic pancreatitis. No evidence of acute peripancreatic inflammation/ed devora is seen. Spleen, adrenal glands and kidneys are unremarkable. No urolithiasis or obstructive uro ronald is identified. The stomach is mildly distended and debris filled, but otherwise grossly unrema rkable. The aorta is of normal caliber. Aortic vascular calcifications are present. There is no retroperit brown lymphadenopathy. The luis f hepatis region is clear. Moderate retained fecal material is sugg estive of constipation. No bowel obstruction, free intraperitoneal air or abscess is identified. The surrounding osseous structures are remarkable for degenerative enthesopathy of the spine. No os teolytic or osteoblastic lesion is detected. IMPRESSION: 1. There is fragmentation and severe compression deformity of the T7 vertebral body. Extensive endp late destructive changes are seen at T7-T8, and to a lesser extent at T6-T7. Adjacent paravertebral soft tissue thickening and edema is noted. Findings appear new when compared to prior CT from 2016, and are concerning for diskitis/osteomyelitis. MRI is recommended for further evaluation. 2. Indeterminate low density perihepatic/subdiaphragmatic collection is noted, as described above, completely stable in size and appearance when compared to the prior CT from 09/02/2016. 3. Coronary arterial and aortoiliac atherosclerotic calcifications are present. 4. Gallbladder is surgically absent. 5. Pancreatic calcifications are again noted, likely sequela of chronic pancreatitis. No evidence o f acute pancreatitis is seen. 6. Moderate retained fecal material is suggestive of constipation. RPTAT: AAOO .Dmitriy Hilton MD, MD Date Time Electronically viewed and signed by .Dmitriy Hilton MD, on 08/24/2017 08:28 .R/
[2017-08-24] MEDS: MULTIVITAMINS 10 ML, THIAMINE 100 MG, FOLIC ACID 1 MG in SOD CHLORIDE 0.9% 1,000 ML IVPB SCH (09:00)
--- NOTE | 2017-08-24 12:12 | CONS ---
Date/Time of Note Date/Time of Note DATE: 08/24/17 TIME: 12:11 Assessment/Plan Assessment/Plan Chief Complaint/Hosp Course 52-year-old male with a reported history of diabetes over the last 7 years. He presented to [facility] several years ago with gallstone pancreatitis and significant pancreatic abnormalities. He reports he underwent surgery at the [facility] with partial resection of the pancreas which rendered him diabetic at that time. He reports that he has been on insulin since then although he has missed insulin and has not gone into DKA despite having missed it for more than 48 hours. Problems: (1) Diabetes mellitus out of control Status: Chronic Comment: His sugars have stabilized nicely and are actually modestly overcontrolled. I will adjust the basal insulin. Please note he will not be going home on this regimen due to the reasons outlined in my first note. Qualifiers: Diabetes mellitus type: due to underlying condition Diabetes mellitus complication status: without complication Diabetes mellitus application security engineer insulin use: with application security engineer use Qualified Code: E08.9 - Diabetes mellitus due to underlying condition, uncontrolled, without complication, with long-term current use of insulin (2) Abnormal thyroid function test Status: Acute Comment: Recheck free T4 free T3 and TSH (3) Abnormal chest x-ray Status: Acute Comment: Scanning is pending Consultation Date/Type/Reason Admit Date/Time Aug 15, 2017 at 19:21 Initial Consult Date 08/23/17 Type of Consultation: Endocrinology Reason for Consultation 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 Referring Provider: SALUD GARIBAY MD 24 HR Interval Summary Free Text/Dictation Patient's sugars have stabilized nicely with adjustments in the regimen. Exam/Review of Systems Vital Signs Vitals Vital Signs Date Time Temp Pulse Resp B/P Pulse Ox O2 Delivery O2 Flow Rate FiO2 08/24/17 07:28 98.5 49 16 128/68 100 Intake and Output 08/23/17 08/23/17 08/24/17 15:00 23:00 07:00 Intake Total 1100 ml 360 ml Output Total 2000 ml 700 ml Balance -900 ml -340 ml Results No changes Result Diagram: 08/24/17 0515 08/24/17 0516 Results 24 hrs Laboratory Tests Test 08/23/17 12:20 08/23/17 17:22 08/23/17 20:15 08/24/17 05:15 Bedside Glucose 257 H 133 115 White Blood Count 5.2 Red Blood Count 3.46 L Hemoglobin 10.7 L Hematocrit 32.9 L Mean Corpuscular Volume 95.1 Mean Corpuscular Hemoglobin 30.9 Mean Corpuscular Hemoglobin Concent 32.5 Red Cell Distribution Width 14.0 Platelet Count 162 Mean Platelet Volume 11.2 H Neutrophils % 37.9 L Lymphocytes % 46.0 Monocytes % 10.3 Eosinophils % 4.1 Basophils % 1.5 Nucleated Red Blood Cells % 0.0 Neutrophils # 2.0 Lymphocytes # 2.4 Monocytes # 0.5 Eosinophils # 0.2 Basophils # 0.1 Nucleated Red Blood Cells # 0.0 Test 08/24/17 05:16 08/24/17 08:03 08/24/17 10:35 08/24/17 12:03 Sodium Level 140 Potassium Level 4.5 Chloride Level 109 Carbon Dioxide Level 29 Anion Gap 7 L Blood Urea Nitrogen 27 H Creatinine 1.07 Glucose Level 79 # Calcium Level 8.9 Phosphorus Level 5.2 H Magnesium Level 1.7 Albumin 2.9 L Bedside Glucose 93 84 80 Medications Medications Current Medications Aspirin 81 mg 81 mg DAILY PO Last administered on 08/24/17 08:12; Admin Dose 81 MG; Start 08/16/17 at 09:00 Multivitamins/ Thiamine HCl/ Folic Acid/Sodium Chloride (Mvi Adult/ Vitamin B1/ Folic Acid/NS) 1,011.2 ml @ 125 mls/ hr DAILY@09 IVPB Last administered on 08:54; Admin Dose 125 MLS/HR; Start 08/16/17 at 09:00 Ondansetron HCl (Zofran Inj) 4 mg Q6H PRN IV NAUSEA AND/OR VOMITING; Start 08/22 at 19:00 Bisacodyl (Dulcolax) 5 mg DAILY PRN PO CONSTIPATION; Start 08/15/17 at 19:00 Heparin Sodium (Porcine) (Heparin (5000 Units/0.5 ml)) 5,000 unit Q8 SC Last administered on 08/24/17 06:21; Admin Dose 5,000 UNIT; Start 08/15/17 at 22: 00 Nicotine (Nicoderm 14 Mg/ 24hr) 1 patch DAILY TRANSDERM Last administered on 08:11; Admin Dose 1 PATCH; Start 08/16/17 at 09:00 Miscellaneous Information 1 ea NOTE XX ; Start 08/15/17 at 19:30 Glucose (Glutose) 15 gm Q15M PRN PO DECREASED GLUCOSE; Start 08/15/17 at 19:30 Glucose (Glutose) 22.5 gm Q15M PRN PO DECREASED GLUCOSE; Start 08/15/17 at 19: 30 Dextrose (D50w Syringe) 25 ml Q15M PRN IV DECREASED GLUCOSE; Start 08/15/17 at 19:30 Dextrose (D50w Syringe) 50 ml Q15M PRN IV DECREASED GLUCOSE; Start 08/15/17 at 19:30 Glucagon (Glucagen) 1 mg Q15M PRN IM DECREASED GLUCOSE; Start 08/15/17 at 19: 30 Glucose (Glutose) 15 gm Q15M PRN BUCCAL DECREASED GLUCOSE; Start 08/15/17 at 19:30 Diagnostic Test (Pha) (Accu-Chek) 1 ea 02 XX Last administered on 08/23/17 01 :35; Admin Dose 1 EA; Start 08/18/17 at 02:00 Acetaminophen (Tylenol Tab) 650 mg Q6H PRN PO PAIN AND OR ELEVATED TEMP Last administered on 08/23/17 18:24; Admin Dose 650 MG; Start 08/18/17 at 15:00 Lactobacillus Acidophilus/ Rhamnosus (Culturelle) 1 cap BID PO Last administered on 08/24/17 08:11; Admin Dose 1 CAP; Start 08/21/17 at 11:30 Methadone HCl (Methadone) 5 mg Q8H PRN PO PAIN Last administered on 08/24/17 06:23; Admin Dose 5 MG; Start 08/22/17 at 17:30 Clonazepam (Klonopin) 0.5 mg BID PO Last administered on 08/24/17 08:11; Admin Dose 0.5 MG; Start 08/23/17 at 12:30 Insulin Glargine (Lantus) 26 unit DAILY@08 SC ; Start 08/25/17 at 08:00; Status MASON FANG MD Aug 24, 2017 12:12
[2017-08-24] MEDS: ACETAMINOPHEN 325 MG TAB PO PRN (13:12)
--- NOTE | 2017-08-24 13:18 | CONS ---
Date/Time of Note Date/Time of Note DATE: 08/24/17 TIME: 13:15 Assessment/Plan Assessment/Plan Chief Complaint/Hosp Course There is a 52-year-old gentleman I am asked to see in pain management consultation. 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 I can find no documentation of that in patient's medical record. States that he had been treated with antibiotics but his pain persisted. As an outpatient he was tried on a combination of MS Contin and Dilaudid but had side effects associated with it and states that he was concerned with become addicted to the drugs. He subsequently was changed to methadone 5 mg 3 times daily and he states that he has done very well with that without having to use as needed breakthrough pain medications. He states that he has pain which is always located in his thoracic spine does not radiate although on further questioning states that he has burning of his left lower extremity and loss of strength. It is unclear the discrepancy between medical records and patient's history that he is getting to me at this time. The story that I reviewed with him is clearly different than the admitting diagnosis the patient being altered and history of excessive alcohol consumption. He denies his history with my questioning. Insofar as his pain he graded as a 10/10 but it is controlled now with methadone to over 10 pain interfered with his physical function mood sleeping patterns overall functioning. Denies nausea vomiting itching mental cloudiness drowsiness. The history I received said he has not been involved with a motor vehicle accident or attended alcohol treatment programs. He denies oversedation with methadone but states that he ran out of his medications. He receives his prescriptions for methadone at [facility]. Problems: Additional Assessment/Plan Chronic pain management syndrome with low back pain Excessive alcohol consumption Poorly controlled diabetes Metabolic acidosis Emphasized to patient again to call [facility] and schedule an appointment to fill his methadone. I explained to him that we will not be able to send him home on methadone, I believe patient high risk for overdose and I do not believe he needs to be maintained on opioids when discharged Consultation Date/Type/Reason Admit Date/Time Aug 15, 2017 at 19:21 Constitutional: no complaints Eyes: no complaints ENT: no complaints Respiratory: no complaints Cardiovascular: no complaints Gastrointestinal: pain Genitourinary: no complaints Musculoskeletal: back pain Skin: no complaints Neurologic: no complaints Endocrine: polydypsia Psychological: depression Social History Alcohol Use: heavy Smoking Status: Current every day smoker Drug Use: other (On prescription opiate therapy long-term for chronic pain syndrome) Exam/Review of Systems Vital Signs Vitals Vital Signs Date Time Temp Pulse Resp B/P Pulse Ox O2 Delivery O2 Flow Rate FiO2 08/24/17 07:28 98.5 49 16 128/68 100 Intake and Output 08/23/17 08/23/17 08/24/17 15:00 23:00 07:00 Intake Total 1100 ml 360 ml Output Total 2000 ml 700 ml Balance -900 ml -340 ml Exam Neurological: RN TEAM LEADER II-XII intact, nl mental status, nl speech, nl strength, No DTR's symmetric, No confused, No focal weakness, No lethargic, No numbness , No other, No reflexes, No unresponsive Results Result Diagram: 08/24/1715 08/24/17 0516 Results 24 hrs Laboratory Tests Test 08/23/17 17:22 08/23/17 20:15 08/24/17 05:15 08/24/17 05:16 Bedside Glucose 133 115 White Blood Count 5.2 Red Blood Count 3.46 L Hemoglobin 10.7 L Hematocrit 32.9 L Mean Corpuscular Volume 95.1 Mean Corpuscular Hemoglobin 30.9 Mean Corpuscular Hemoglobin Concent 32.5 Red Cell Distribution Width 14.0 Platelet Count 162 Mean Platelet Volume 11.2 H Neutrophils % 37.9 L Lymphocytes % 46.0 Monocytes % 10.3 Eosinophils % 4.1 Basophils % 1.5 Nucleated Red Blood Cells % 0.0 Neutrophils # 2.0 Lymphocytes # 2.4 Monocytes # 0.5 Eosinophils # 0.2 Basophils # 0.1 Nucleated Red Blood Cells # 0.0 Sodium Level 140 Potassium Level 4.5 Chloride Level 109 Carbon Dioxide Level 29 Anion Gap 7 L Blood Urea Nitrogen 27 H Creatinine 1.07 Glucose Level 79 # Calcium Level 8.9 Phosphorus Level 5.2 H Magnesium Level 1.7 Albumin 2.9 L Test 08/24/17 08:03 08/24/17 10:35 08/24/17 12:03 Bedside Glucose 93 84 80 Medications Medications Current Medications Aspirin 81 mg 81 mg DAILY PO Last administered on 08/24/17t 08:12; Admin Dose 81 MG; Start 08/16/17 at 09:00 Multivitamins/ Thiamine HCl/ Folic Acid/Sodium Chloride (Mvi Adult/ Vitamin B1/ Folic Acid/NS) 1,011.2 ml @ 125 mls/ hr DAILY@09 IVPB Last administered on 08:54; Admin Dose 125 MLS/HR; Start 08/16/17 at 09:00 Ondansetron HCl (Zofran Inj) 4 mg Q6H PRN IV NAUSEA AND/OR VOMITING; Start 08/22 at 19:00 Bisacodyl (Dulcolax) 5 mg DAILY PRN PO CONSTIPATION; Start 08/15/17 at 19:00 Heparin Sodium (Porcine) (Heparin (5000 Units/0.5 ml)) 5,000 unit Q8 SC Last administered on 08/24/17 06:21; Admin Dose 5,000 UNIT; Start 08/15/17 at 22: 00 Nicotine (Nicoderm 14 Mg/ 24hr) 1 patch DAILY TRANSDERM Last administered on 08:11; Admin Dose 1 PATCH; Start 08/16/17 at 09:00 Miscellaneous Information 1 ea NOTE XX ; Start 08/15/17 at 19:30 Glucose (Glutose) 15 gm Q15M PRN PO DECREASED GLUCOSE; Start 08/15/17 at 19:30 Glucose (Glutose) 22.5 gm Q15M PRN PO DECREASED GLUCOSE; Start 08/15/17 at 19: 30 Dextrose (D50w Syringe) 25 ml Q15M PRN IV DECREASED GLUCOSE; Start 08/15/17 at 19:30 Dextrose (D50w Syringe) 50 ml Q15M PRN IV DECREASED GLUCOSE; Start 08/15/17 at 19:30 Glucagon (Glucagen) 1 mg Q15M PRN IM DECREASED GLUCOSE; Start 08/15/17 at 19: 30 Glucose (Glutose) 15 gm Q15M PRN BUCCAL DECREASED GLUCOSE; Start 08/15/17 at 19:30 Diagnostic Test (Pha) (Accu-Chek) 1 ea 02 XX Last administered on 08/23/17 01 :35; Admin Dose 1 EA; Start 08/18/17 at 02:00 Acetaminophen (Tylenol Tab) 650 mg Q6H PRN PO PAIN AND OR ELEVATED TEMP Last administered on 08/23/17 18:24; Admin Dose 650 MG; Start 08/18/17 at 15:00 Lactobacillus Acidophilus/ Rhamnosus (Culturelle) 1 cap BID PO Last administered on 08/24/17 08:11; Admin Dose 1 CAP; Start 08/21/17 at 11:30 Methadone HCl (Methadone) 5 mg Q8H PRN PO PAIN Last administered on 08/24/17 06:23; Admin Dose 5 MG; Start 08/22/17 at 17:30 Clonazepam (Klonopin) 0.5 mg BID PO Last administered on 08/24/17 08:11; Admin Dose 0.5 MG; Start 08/23/17 at 12:30 Insulin Glargine (Lantus) 26 unit DAILY@08 SC ; Start 08/25/17 at 08:00 DORIS SELBY Aug 24, 2017 13:18 Glucose (Glutose) 22.5 gm Q15M PRN PO DECREASED GLUCOSE; Start 08/15/17 at 19: 30 Dextrose (D50w Syringe) 25 ml Q15M PRN IV DECREASED GLUCOSE; Start 08/15/17 at 19:30 Dextrose (D50w Syringe) 50 ml Q15M PRN IV DECREASED GLUCOSE; Start 08/15/17 at 19:30 Glucagon (Glucagen) 1 mg Q15M PRN IM DECREASED GLUCOSE; Start 08/15/17 at 19: 30 Glucose (Glutose) 15 gm Q15M PRN BUCCAL DECREASED GLUCOSE; Start 08/15/17 at 19:30 Diagnostic Test (Pha) (Accu-Chek) 1 ea 02 XX Last administered on 08/23/17 01 :35; Admin Dose 1 EA; Start 08/18/17 at 02:00 Acetaminophen (Tylenol Tab) 650 mg Q6H PRN PO PAIN AND OR ELEVATED TEMP Last administered on 08/23/17 18:24; Admin Dose 650 MG; Start 08/18/17 at 15:00 Lactobacillus Acidophilus/ Rhamnosus (Culturelle) 1 cap BID PO Last administered on 08/24/17 08:11; Admin Dose 1 CAP; Start 08/21/17 at 11:30 Methadone HCl (Methadone) 5 mg Q8H PRN PO PAIN Last administered on 08/24/17 06:23; Admin Dose 5 MG; Start 08/22/17 at 17:30 Clonazepam (Klonopin) 0.5 mg BID PO Last administered on 08/24/17t 08:11; Admin Dose 0.5 MG; Start 08/23/17 at 12:30 Insulin Glargine (Lantus) 26 unit DAILY@08 SC ; Start 08/25/17 at 08:00 DORIS SELBY Aug 24, 2017 13:18
[2017-08-24 13:52] VITALS: BP 115/61; RESP 18
[2017-08-24 14:17] LABS: FREE T3 3.38 pg/ml (2.77-5.27)
[2017-08-24 14:31] LABS: THYROID STIMULATING HORMONE 3.79 MIU/L (0.465-4.680)
--- NOTE | 2017-08-24 15:40 | PN ---
Date/Time of Note Date/Time of Note DATE: 08/24/17 TIME: 15:36 Assessment/Plan VTE Prophylaxis VTE Prophylaxis Intervention: SCD's Lines/Catheters IV Catheter Type (from Nrs): Saline Lock Urinary Cath still in place: No Assessment/Plan Assessment/Plan 1. Diabetes Mellitus, uncontrolled - A1c 9.5 - Secondary to partial pancreatectomy. Increased Creon to 2 tabs with meals - Endocrinology consultation appreciated and will continue home medications upon discharge but adjust medications while in house - Diabetic counselor recommendations appreciated - Will continue monitoring 2. Altered mental status, likely secondary to alcohol abuse- resolved - Patient is mentating well and reevaluation by tele psych cleared patient - no witnessed seizures and continuing seizure precautions. - Requesting Ativan too often and agreed to TID. Offered termite treater helper medications for mood control as well but refusing - Given information for support for alcohol abuse 3. Anion gap metabolic acidosis, moderate, not full DKA, secondary to medical noncompliance - resolved 4. suicidal ideation - No longer experiencing SI and cleared by tele-psych 5. Lactic acidosis - resolved 6. Hypernatremia, likely secondary to volume depletion given alcohol extent- resolved 7. Elevated AST and ALT, resolved 8. chronic back pain - pain control - Requested pain management to evaluate patient. Started on Methadone but explained to patient will not discharge on this medication 9. Mood Disorder - patient states he's lonely and scared. Offered alternative medications rather than Ativan but refusing. Will readdress at a later time when more cooperative - Denies any SI Subjective 24 Hr Interval Summary Free Text/Dictation Patient states he has been feeling weak but able to ambulate in the halls with FWW. Patient states hes anxious, nervous, and lonely but denies any suicidal ideations. States if able to have ativan three times a day will feel better. Discussed started on termite treater helper medications but at this time would prefer ativan even though told not a intermediate treatment plan. No acute overnight events. Exam/Review of Systems Vital Signs Vitals Vital Signs Date Time Temp Pulse Resp B/P Pulse Ox O2 Delivery O2 Flow Rate FiO2 08/24/17 13:52 97.5 57 18 115/61 100 Intake and Output 08/23/17 08/23/17 08/24/17 15:00 23:00 07:00 Intake Total 1100 ml 360 ml Output Total 2000 ml 700 ml Balance -900 ml -340 ml Exam General: Patient is laying in bed and answers questions appropriately Head: Normocephalic atraumatic Eyes: EOMI, pupils reactive to light Neck: Supple, nontender, midline Respiratory: Clear to auscultation bilaterally. no wheezes or crackles Cardiovascular: regular rate, no obvious murmurs Gastrointestinal: non-tender to palpation, bowel sounds heard. Neurological: Moves all extremities spontaneously Skin: No new skin lesions Results Result Diagram: 08/24/1715 08/24/17 0516 Results 24 hrs Laboratory Tests Test 08/23/17 17:22 08/23/17 20:15 08/24/17 05:14 08/24/17 05:15 Bedside Glucose 133 115 Thyroid Stimulating Hormone (TSH) 3.790 Free Thyroxine 1.05 Free Triiodothyronine (T3) pg/mL 3.38 White Blood Count 5.2 Red Blood Count 3.46 L Hemoglobin 10.7 L Hematocrit 32.9 L Mean Corpuscular Volume 95.1 Mean Corpuscular Hemoglobin 30.9 Mean Corpuscular Hemoglobin Concent 32.5 Red Cell Distribution Width 14.0 Platelet Count 162 Mean Platelet Volume 11.2 H Neutrophils % 37.9 L Lymphocytes % 46.0 Monocytes % 10.3 Eosinophils % 4.1 Basophils % 1.5 Nucleated Red Blood Cells % 0.0 Neutrophils # 2.0 Lymphocytes # 2.4 Monocytes # 0.5 Eosinophils # 0.2 Basophils # 0.1 Nucleated Red Blood Cells # 0.0 Test 08/24/17 05:16 08/24/17 08:03 08/24/17 10:35 08/24/17 12:03 Sodium Level 140 Potassium Level 4.5 Chloride Level 109 Carbon Dioxide Level 29 Anion Gap 7 L Blood Urea Nitrogen 27 H Creatinine 1.07 Glucose Level 79 # Calcium Level 8.9 Phosphorus Level 5.2 H Magnesium Level 1.7 Albumin 2.9 L Bedside Glucose 93 84 80 Medications Medications Current Medications Aspirin 81 mg 81 mg DAILY PO Last administered on 08/24/17 08:12; Admin Dose 81 MG; Start 08/16/17 at 09:00 Multivitamins/ Thiamine HCl/ Folic Acid/Sodium Chloride (Mvi Adult/ Vitamin B1/ Folic Acid/NS) 1,011.2 ml @ 125 mls/ hr DAILY@09 IVPB Last administered on 08:54; Admin Dose 125 MLS/HR; Start 08/16/17 at 09:00 Ondansetron HCl (Zofran Inj) 4 mg Q6H PRN IV NAUSEA AND/OR VOMITING; Start 08/22 at 19:00 Bisacodyl (Dulcolax) 5 mg DAILY PRN PO CONSTIPATION; Start 08/15/17 at 19:00 Heparin Sodium (Porcine) (Heparin (5000 Units/0.5 ml)) 5,000 unit Q8 SC Last administered on 08/24/17 15:13; Admin Dose 5,000 UNIT; Start 08/15/17 at 22: 00 Nicotine (Nicoderm 14 Mg/ 24hr) 1 patch DAILY TRANSDERM Last administered on 08:11; Admin Dose 1 PATCH; Start 08/16/17 at 09:00 Miscellaneous Information 1 ea NOTE XX ; Start 08/15/17 at 19:30 Glucose (Glutose) 15 gm Q15M PRN PO DECREASED GLUCOSE; Start 08/15/17 at 19:30 Glucose (Glutose) 22.5 gm Q15M PRN PO DECREASED GLUCOSE; Start 08/15/17 at 19: 30 Dextrose (D50w Syringe) 25 ml Q15M PRN IV DECREASED GLUCOSE; Start 08/15/17 at 19:30 Dextrose (D50w Syringe) 50 ml Q15M PRN IV DECREASED GLUCOSE; Start 08/15/17 at 19:30 Glucagon (Glucagen) 1 mg Q15M PRN IM DECREASED GLUCOSE; Start 08/15/17 at 19: 30 Glucose (Glutose) 15 gm Q15M PRN BUCCAL DECREASED GLUCOSE; Start 08/15/17 at 19:30 Diagnostic Test (Pha) (Accu-Chek) 1 ea 02 XX Last administered on 08/23/17 01 :35; Admin Dose 1 EA; Start 08/18/17 at 02:00 Acetaminophen (Tylenol Tab) 650 mg Q6H PRN PO PAIN AND OR ELEVATED TEMP Last administered on 08/24/17 13:12; Admin Dose 650 MG; Start 08/18/17 at 15:00 Lactobacillus Acidophilus/ Rhamnosus (Culturelle) 1 cap BID PO Last administered on 08/24/17 08:11; Admin Dose 1 CAP; Start 08/21/17 at 11:30 Methadone HCl (Methadone) 5 mg Q8H PRN PO PAIN Last administered on 08/24/17 14:28; Admin Dose 5 MG; Start 08/22/17 at 17:30 Clonazepam (Klonopin) 0.5 mg BID PO Last administered on 08/24/17 08:11; Admin Dose 0.5 MG; Start 08/23/17 at 12:30 Insulin Glargine (Lantus) 26 unit DAILY@08 SC ; Start 08/25/17 at 08:00 SALUD GARIBAY MD Aug 24, 2017 15:40
[2017-08-24] MEDS: LORAZEPAM 0.5 MG TAB PO PRN (17:20)
[2017-08-24] MEDS ORDERED: INSULIN ASPART [NOVOLOG] 3 ML PEN SC ONE (18:00)
[2017-08-24] MEDS: NACL 0.9% 3 ML SYG IV SCH (20:00)
[2017-08-24 20:20] VITALS: BP 111/62; PULSE 56; RESP 18
[2017-08-24] MEDS: ZOLPIDEM 5 MG TAB PO PRN (22:12)
--- NOTE | 2017-08-24 23:27 | RADRPT ---
PROCEDURE: XR Lumbar Spine. CLINICAL INDICATION: Back pain. TECHNIQUE: Three views. AP, lateral and cone-down lateral view of the lumbar spine were obtained. COMPARISON: No prior studies are available for comparison. FINDINGS: There is normal stature and alignment of the vertebrae. There is no fracture. There is no lytic or blastic lesion. There are degenerative changes with small osteophytes at L3-4, L4-5, and L5-S1. There is disc space narrowing at L4-5. Vascular calcifications are present consistent with atherosclerosis. IMPRESSION: 1. Degenerative changes. 2. Atherosclerosis. 3. Otherwise unremarkable images of the lumbar spine. RPTAT: QQ .Brennan Machuca MD, MD Date Time Electronically viewed and signed by .Brennan Machuca MD, on 08/24/2017 23:27 .R/
--- NOTE | 2017-08-24 23:35 | RADRPT ---
PROCEDURE: XR Sacrum and Coccyx. CLINICAL INDICATION: Sacrum and coccyx pain. TECHNIQUE: 3 views. AP, AP oblique, and lateral views of the sacrum and coccyx were performed. COMPARISON: No prior studies are available for comparison. FINDINGS: There is normal sacral and coccygeal mineralization and alignment. No fracture or subluxation is see n. The sacroiliac joints appear normal. There are degenerative changes at L4-5 and L5-S1 with disc s pace narrowing and osteophytes. The soft tissues are unremarkable. IMPRESSION: 1. Degenerative changes at L4-5 and L5-S1. 2. Otherwise unremarkable images of the sacrum and coccyx. RPTAT: QQ .Brennan Machuca MD, MD Date Time Electronically viewed and signed by .Brennan Machuca MD, on 08/24/2017 23:35 .R/
[2017-08-25] MEDS: ACCU-CHEK XX SCH ×2 (01:30→01:50)
[2017-08-25 01:50] VITALS: BP 136/62; PULSE 53; RESP 20
[2017-08-25] MEDS: LORAZEPAM 0.5 MG TAB PO PRN ×3 (01:52→17:38)
[2017-08-25 07:52] VITALS: BP 137/67; RESP 16
[2017-08-25] MEDS ORDERED: INSULIN GLARGINE [LANtus] 3 ML PEN SC SCH (08:00)
[2017-08-25] MEDS: CREON (12k-38k-60k) 1 CAP PO SCH ×3 (08:07→17:35)
[2017-08-25] MEDS: INSULIN ASPART [NOVOLOG] 3 ML PEN SC SCH ×7 (08:15→20:03)
[2017-08-25] MEDS ORDERED: HEPARIN 5,000 UNIT/0.5 ML VIAL SC SCH (09:00)
[2017-08-25] MEDS: MULTIVITAMINS 10 ML, THIAMINE 100 MG, FOLIC ACID 1 MG in SOD CHLORIDE 0.9% 1,000 ML IVPB SCH (09:00)
[2017-08-25] MEDS: METHADONE 5 MG TAB PO PRN ×2 (09:10→17:37)
[2017-08-25] MEDS: LACTOBACILLUS RHAMNOSUS CAP PO SCH ×2 (09:11→20:01)
[2017-08-25] MEDS: ASPIRIN 81 MG TAB PO SCH (09:11)
[2017-08-25] MEDS: NICOTINE (14 MG/24 HR) PATCH TRANSDERM SCH (09:11)
--- NOTE | 2017-08-25 09:39 | PN ---
Date/Time of Note Date/Time of Note DATE: 08/25/17 TIME: 09:35 Assessment/Plan VTE Prophylaxis VTE Prophylaxis Intervention: ambulation Lines/Catheters IV Catheter Type (from Nrs): Saline Lock Urinary Cath still in place: No Assessment/Plan Assessment/Plan 1. Diabetes Mellitus, uncontrolled - A1c 9.5. Experiencing fluctuations in sugars throughout the day - Secondary to partial pancreatectomy. Increased Creon to 2 tabs with meals - Endocrinology consultation appreciated and will continue home medications upon discharge but adjust medications while in house - Diabetic counselor recommendations appreciated - Will continue monitoring 2. Altered mental status, likely secondary to alcohol abuse- resolved - Patient is mentating well and reevaluation by tele psych cleared patient - no witnessed seizures and continuing seizure precautions. - Requesting Ativan too often and agreed to TID. Offered jail medications for mood control as well but refusing - Given information for support for alcohol abuse 3. Anion gap metabolic acidosis, moderate, not full DKA, secondary to medical noncompliance - resolved 4. suicidal ideation - No longer experiencing SI and cleared by tele-psych 5. Lactic acidosis - resolved 6. Hypernatremia, likely secondary to volume depletion given alcohol extent- resolved 7. Elevated AST and ALT, resolved 8. chronic back pain - pain control - Requested pain management to evaluate patient. Started on Methadone but explained to patient will not discharge on this medication 9. Mood Disorder - Improving with Ativan. States feels as if he will be ready to go home tomorrow. - Denies any SI 10. Disposition - If remains stable, d/c in am Subjective 24 Hr Interval Summary Free Text/Dictation Patient states pain being controlled while on Methadone and nerves more stable after Ativan. Explained to patient risks of being dependent on these medications. Patient experienced multiple hypoglycemic episodes over the past 24 hours. Has been ambulating around the floor with FWW well with no issues. Still c/o generalized weakness Exam/Review of Systems Vital Signs Vitals Vital Signs Date Time Temp Pulse Resp B/P Pulse Ox O2 Delivery O2 Flow Rate FiO2 08/25/17 07:52 97.8 52 16 137/67 99 08/25/17 01:50 Room Air Intake and Output 08/24/17 08/24/17 08/25/17 15:00 23:00 07:00 Intake Total 880 ml 1680 ml Output Total 600 ml 1700 ml Balance 280 ml -20 ml Exam General: Patient is laying in bed and answers questions appropriately. Flat affect Head: Normocephalic atraumatic Eyes: EOMI, pupils reactive to light Neck: Supple, nontender, midline Respiratory: Clear to auscultation bilaterally. no wheezes or crackles Cardiovascular: regular rate, no obvious murmurs Gastrointestinal: non-tender to palpation, bowel sounds heard. Neurological: Moves all extremities spontaneously Psych: Flat affect, anxious. no SI/HI Skin: No new skin lesions Results Result Diagram: 08/24/17 0515 08/24/17 0516 Results 24 hrs Laboratory Tests Test 08/24/17 10:35 08/24/17 12:03 08/24/17 17:17 08/24/17 17:57 Bedside Glucose 84 80 61 L 79 Test 08/24/17 18:58 08/24/17 19:22 08/24/17 20:19 08/25/17 01:51 Bedside Glucose 66 L 66 L 79 240 H Test 08/25/17 07:59 Bedside Glucose 141 Medications Medications Current Medications Aspirin 81 mg 81 mg DAILY PO Last administered on 08/25/17 09:11; Admin Dose 81 MG; Start 08/16/17 at 09:00 Multivitamins/ Thiamine HCl/ Folic Acid/Sodium Chloride (Mvi Adult/ Vitamin B1/ Folic Acid/NS) 1,011.2 ml @ 125 mls/ hr DAILY@09 IVPB Last administered on 08:54; Admin Dose 125 MLS/HR; Start 08/16/17 at 09:00 Ondansetron HCl (Zofran Inj) 4 mg Q6H PRN IV NAUSEA AND/OR VOMITING; Start 08/22 at 19:00 Bisacodyl (Dulcolax) 5 mg DAILY PRN PO CONSTIPATION; Start 08/15/17 at 19:00 Nicotine (Nicoderm 14 Mg/ 24hr) 1 patch DAILY TRANSDERM Last administered on 09:11; Admin Dose 1 PATCH; Start 08/16/17 at 09:00 Miscellaneous Information 1 ea NOTE XX ; Start 08/15/17 at 19:30 Glucose (Glutose) 15 gm Q15M PRN PO DECREASED GLUCOSE; Start 08/15/17 at 19:30 Glucose (Glutose) 22.5 gm Q15M PRN PO DECREASED GLUCOSE; Start 08/15/17 at 19: 30 Dextrose (D50w Syringe) 25 ml Q15M PRN IV DECREASED GLUCOSE; Start 08/15/17 at 19:30 Dextrose (D50w Syringe) 50 ml Q15M PRN IV DECREASED GLUCOSE; Start 08/15/17 at 19:30 Glucagon (Glucagen) 1 mg Q15M PRN IM DECREASED GLUCOSE; Start 08/15/17 at 19: 30 Glucose (Glutose) 15 gm Q15M PRN BUCCAL DECREASED GLUCOSE; Start 08/15/17 at 19:30 Diagnostic Test (Pha) (Accu-Chek) 1 ea 02 XX Last administered on 08/25/17 01 :50; Admin Dose 1 EA; Start 08/18/17 at 02:00 Acetaminophen (Tylenol Tab) 650 mg Q6H PRN PO PAIN AND OR ELEVATED TEMP Last administered on 08/24/17 13:12; Admin Dose 650 MG; Start 08/18/17 at 15:00 Lactobacillus Acidophilus/ Rhamnosus (Culturelle) 1 cap BID PO Last administered on 08/25/17 09:11; Admin Dose 1 CAP; Start 08/21/17 at 11:30 Methadone HCl (Methadone) 5 mg Q8H PRN PO PAIN Last administered on 08/25/17 09:10; Admin Dose 5 MG; Start 08/22/17 at 17:30 Insulin Glargine (Lantus) 26 unit DAILY@08 SC Last administered on 08/25/17 08:14; Admin Dose 26 UNIT; Start 08/25/17 at 08:00 Lorazepam (Ativan) 0.5 mg Q8H PRN PO ANXIETY Last administered on 08/25/17 01 :52; Admin Dose 0.5 MG; Start 08/24/17 at 16:00 Zolpidem Tartrate (Ambien) 5 mg HS PRN PO INSOMNIA Last administered on 22:12; Admin Dose 5 MG; Start 08/24/17 at 21:30 Heparin Sodium (Porcine) (Heparin (5000 Units/0.5 ml)) 5,000 unit BID SC ; Start 08/25/17 at 09:00 SALUD GARIBAY MD Aug 25, 2017 09:39
--- NOTE | 2017-08-25 13:32 | CONS ---
Date/Time of Note Date/Time of Note DATE: 08/25/17 TIME: 13:27 Assessment/Plan Assessment/Plan Chief Complaint/Hosp Course 52-year-old male with a reported history of diabetes over the last 7 years. He presented to [facility] several years ago with gallstone pancreatitis and significant pancreatic abnormalities. He reports he underwent surgery at the [facility] with partial resection of the pancreas which rendered him diabetic at that time. He reports that he has been on insulin since then although he has missed insulin and has not gone into DKA despite having missed it for more than 48 hours. Problems: (1) Exocrine pancreatic insufficiency Status: Chronic Comment: CT scan confirms part of what we have expected. However this appears to be more chronic pancreatitis on the basis of other she is most likely alcohol abuse. He is on pancreatic enzyme replacement and the dosage was adjusted which I entirely agree with (2) Chronic pain syndrome Status: Chronic Comment: He is having adequate relief of his pain with methadone. Please noted from the standpoint of this he is likely able to be discharged (3) Diabetes mellitus out of control Status: Chronic Comment: Adequate control will actually downgrade his insulin slightly. Qualifiers: Diabetes mellitus type: due to underlying condition Diabetes mellitus complication status: without complication Diabetes mellitus fdc insulin use: with fdc use Qualified Code: E08.9 - Diabetes mellitus due to underlying condition, uncontrolled, without complication, with long-term current use of insulin (4) Alcohol abuse Status: Chronic Comment: He is again counseled. Please note he is not at risk of going into DTs or withdrawal at this point (5) Abnormal thyroid function test Status: Resolved Comment: This was a red franks or falsely based on his illness when he came in i.e. euthyroid sick Consultation Date/Type/Reason Admit Date/Time Aug 15, 2017 at 19:21 Initial Consult Date 08/23/17 Type of Consultation: Endocrinology Reason for Consultation Diabetes mellitus out of control with partial pancreatic beta cell insufficiency Referring Provider: SALUD GARIBAY MD 24 HR Interval Summary Free Text/Dictation Patient reports that he is under adequate control for pain on the methadone. Constitutional: no complaints Exam/Review of Systems Vital Signs Vitals Vital Signs Date Time Temp Pulse Resp B/P Pulse Ox O2 Delivery O2 Flow Rate FiO2 08/25/17 07:52 97.8 52 16 137/67 99 08/25/17 01:50 Room Air Intake and Output 08/24/17 08/24/17 08/25/17 15:00 23:00 07:00 Intake Total 880 ml 1680 ml Output Total 600 ml 1700 ml Balance 280 ml -20 ml Results No changes in exam. Result Diagram: 08/24/17 0515 08/24/17 0516 Results 24 hrs Laboratory Tests Test 08/24/17 17:17 08/24/17 17:57 08/24/17 18:58 08/24/17 19:22 Bedside Glucose 61 L 79 66 L 66 L Test 08/24/17 20:19 08/25/17 01:51 08/25/17 07:59 08/25/17 12:06 Bedside Glucose 79 240 H 141 76 Medications Medications Current Medications Aspirin 81 mg 81 mg DAILY PO Last administered on 08/25/17 09:11; Admin Dose 81 MG; Start 08/16/17 at 09:00 Multivitamins/ Thiamine HCl/ Folic Acid/Sodium Chloride (Mvi Adult/ Vitamin B1/ Folic Acid/NS) 1,011.2 ml @ 125 mls/ hr DAILY@09 IVPB Last administered on 08:54; Admin Dose 125 MLS/HR; Start 08/16/17 at 09:00 Ondansetron HCl (Zofran Inj) 4 mg Q6H PRN IV NAUSEA AND/OR VOMITING; Start 08/22 at 19:00 Bisacodyl (Dulcolax) 5 mg DAILY PRN PO CONSTIPATION; Start 08/15/17 at 19:00 Nicotine (Nicoderm 14 Mg/ 24hr) 1 patch DAILY TRANSDERM Last administered on 09:11; Admin Dose 1 PATCH; Start 08/16/17 at 09:00 Miscellaneous Information 1 ea NOTE XX ; Start 08/15/17 at 19:30 Glucose (Glutose) 15 gm Q15M PRN PO DECREASED GLUCOSE; Start 08/15/17 at 19:30 Glucose (Glutose) 22.5 gm Q15M PRN PO DECREASED GLUCOSE; Start 08/15/17 at 19: 30 Dextrose (D50w Syringe) 25 ml Q15M PRN IV DECREASED GLUCOSE; Start 08/15/17 at 19:30 Dextrose (D50w Syringe) 50 ml Q15M PRN IV DECREASED GLUCOSE; Start 08/15/17 at 19:30 Glucagon (Glucagen) 1 mg Q15M PRN IM DECREASED GLUCOSE; Start 08/15/17 at 19: 30 Glucose (Glutose) 15 gm Q15M PRN BUCCAL DECREASED GLUCOSE; Start 08/15/17 at 19:30 Diagnostic Test (Pha) (Accu-Chek) 1 ea 02 XX Last administered on 08/25/17 01 :50; Admin Dose 1 EA; Start 08/18/17 at 02:00 Acetaminophen (Tylenol Tab) 650 mg Q6H PRN PO PAIN AND OR ELEVATED TEMP Last administered on 08/24/17 13:12; Admin Dose 650 MG; Start 08/18/17 at 15:00 Lactobacillus Acidophilus/ Rhamnosus (Culturelle) 1 cap BID PO Last administered on 08/25/17 09:11; Admin Dose 1 CAP; Start 08/21/17 at 11:30 Methadone HCl (Methadone) 5 mg Q8H PRN PO PAIN Last administered on 08/25/17 09:10; Admin Dose 5 MG; Start 08/22/17 at 17:30 Insulin Glargine (Lantus) 26 unit DAILY@08 SC Last administered on 08/25/17 08:14; Admin Dose 26 UNIT; Start 08/25/17 at 08:00 Lorazepam (Ativan) 0.5 mg Q8H PRN PO ANXIETY Last administered on 08/25/17 10 :02; Admin Dose 0.5 MG; Start 08/24/17 at 16:00 Zolpidem Tartrate (Ambien) 5 mg HS PRN PO INSOMNIA Last administered on 22:12; Admin Dose 5 MG; Start 08/24/17 at 21:30 MASON HANEY MD Aug 25, 2017 13:32
[2017-08-25 14:45] VITALS: BP 109/59; RESP 18
[2017-08-25 19:45] VITALS: BP 116/59; PULSE 57; RESP 18
[2017-08-25] MEDS: ZOLPIDEM 5 MG TAB PO PRN (22:01)
[2017-08-26 01:35] VITALS: BP 113/58; PULSE 50; RESP 18
[2017-08-26] MEDS: METHADONE 5 MG TAB PO PRN ×3 (01:38→17:37)
[2017-08-26] MEDS: LORAZEPAM 0.5 MG TAB PO PRN ×3 (01:38→17:37)
[2017-08-26 06:33] LABS: BASOPHIL # 0.1 10^3/ul (0.0-0.1); BASOPHILS % 1.2 % (0.0-2.0); EOSINOPHILS # 0.2 10^3/ul (0.0-0.5); HEMATOCRIT 32.3 % (42.0-52.0); HEMOGLOBIN 10.8 g/dl (14.0-18.0); LYMPHOCYTES # 2.5 10^3/ul (0.8-2.9); LYMPHOCYTES % 49.1 % (15.0-51.0); MEAN CORPUSCULAR HEMOGLOBIN 32.5 pg (29.0-33.0); MEAN CORPUSCULAR HGB CONC 33.4 g/dl (32.0-37.0); MEAN CORPUSCULAR VOLUME 97.3 fl (82.0-101.0); MEAN PLATELET VOLUME 11.1 fl (7.4-10.4); MONOCYTE # 0.6 10^3/ul (0.3-0.9); MONOCYTES % 12.6 % (0.0-11.0); NEUTROPHIL # 1.7 10^3/ul (1.6-7.5); NEUTROPHILS % 33.9 % (39.0-77.0); PLATELET COUNT 162 10^3/UL (140-415); RED BLOOD COUNT 3.32 10^6/ul (4.70-6.10); RED CELL DISTRIBUTION WIDTH 14.5 % (11.5-14.5); WHITE BLOOD COUNT 5.1 10^3/ul (4.8-10.8)
[2017-08-26 07:09] LABS: ALBUMIN 3.2 g/dl (3.3-4.9); CALCIUM 8.9 mg/dl (8.4-10.2); CREATININE 0.99 mg/dl (0.61-1.24); MAGNESIUM 1.8 mg/dl (1.7-2.5); PHOSPHORUS 4.8 mg/dl (2.5-4.9); POTASSIUM 4.2 mmol/L (3.5-5.1)
[2017-08-26 07:38] VITALS: BP 118/65; RESP 18
[2017-08-26] MEDS ORDERED: INSULIN GLARGINE [LANtus] 3 ML PEN SC SCH (08:00)
[2017-08-26] MEDS: INSULIN ASPART [NOVOLOG] 3 ML PEN SC SCH ×5 (08:10→22:18)
[2017-08-26] MEDS: ASPIRIN 81 MG TAB PO SCH (08:19)
[2017-08-26] MEDS: CREON (12k-38k-60k) 1 CAP PO SCH ×3 (08:19→17:37)
[2017-08-26] MEDS: NICOTINE (14 MG/24 HR) PATCH TRANSDERM SCH (08:20)
[2017-08-26] MEDS: LACTOBACILLUS RHAMNOSUS CAP PO SCH ×2 (08:34→22:18)
--- NOTE | 2017-08-26 09:11 | CONS ---
Date/Time of Note Date/Time of Note DATE: 08/26/17 TIME: 09:07 Assessment/Plan Assessment/Plan Problems: (1) Diabetes mellitus out of control Status: Chronic Comment: Hyperglycemic overnight due to excessive at bedtime snack given by nursing. However this is resolved. Patient with recurrent hypoglycemia likely due to excess of basal insulin. Will reduce Lantus from 24-14 units and starting tomorrow increase NovoLog from 4 units to 7 units before meals. This should continue to maintain control with less hypoglycemic risk. Although I would like to see these changes, glucose management is not a reason to keep the patient in the hospital. If he is well he may be discharged today but my recommendation is for him to go out on the doses I am recommending he be on as of tomorrow. 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 Qualified Code: E08.9 - Diabetes mellitus due to underlying condition, uncontrolled, without complication, with long-term current use of insulin Consultation Date/Type/Reason Admit Date/Time Aug 15, 2017 at 19:21 Initial Consult Date 08/23/17 Type of Consultation: Endocrinology Reason for Consultation Diabetes out of control Referring Provider: SALUD GARIBAY MD 24 HR Interval Summary Constitutional: no complaints Detailed Summary Respiratory: no complaints Cardiovascular: no complaints Gastrointestinal: no complaints Genitourinary: no complaints Musculoskeletal: no complaints Neurologic: no complaints Exam/Review of Systems Vital Signs Vitals VS - Last 72 Hours, by Label Date Time Temp Pulse Resp B/P Pulse Ox O2 Delivery O2 Flow Rate FiO2 08/26/17 07:38 97.8 51 18 118/65 100 08/26/17 01:35 98.8 50 18 113/58 99 Room Air 08/25/17 19:45 98.0 57 18 116/59 99 Room Air 08/25/17 14:45 98.5 62 18 109/59 98 08/25/17 07:52 97.8 52 16 137/67 99 08/25/17 01:50 97.9 53 20 136/62 96 Room Air 08/24/17 20:20 98.0 56 18 111/62 99 Room Air 08/24/17 13:52 97.5 57 18 115/61 100 08/24/17 07:28 98.5 49 16 128/68 100 08/24/17 02:05 97.7 51 20 98/50 97 08/23/17 19:36 98.1 62 20 102/59 99 08/23/17 14:09 98.2 67 16 128/58 98 Vital Signs Date Time Temp Pulse Resp B/P Pulse Ox O2 Delivery O2 Flow Rate FiO2 08/26/17 07:38 97.8 51 18 118/65 100 08/26/17 01:35 Room Air Intake and Output 08/25/17 08/25/17 08/26/17 15:00 23:00 07:00 Intake Total 2160 ml 1460 ml Output Total 300 ml Balance 1860 ml 1460 ml Exam Constitutional: alert, oriented, well developed Psych: nl mood/affect, no complaints Respiratory: clear to auscultation, normal air movement Cardiovascular: nl pulses, regular rate and rhythm, No edema, No murmurs/extra sounds, No rub Gastrointestinal: bowel sounds, nl liver, spleen, soft, tender (Over scar area and epigastrium), No mass, No non-tender, No rebound or guarding Musculoskeletal: nl extremities to inspection Extremities: normal pulses, No clubbing, No cyanosis, No edema Neurological: CLOTH OPENER HAND II-XII intact, nl mental status, nl speech, nl strength Additional Comments Bedside Glucose - 72 Hours Test 08/23/17 09:50 08/23/17 12:20 08/23/17 17:22 08/23/17 20:15 Bedside Glucose 321mg/dL (70-220) H 257mg/dL (70-220) H 133mg/dL (70-220) 115mg/dL (70-220) Test 08/24/17 08:03 08/24/17 10:35 08/24/17 12:03 08/24/17 17:17 Bedside Glucose 93mg/dL (70-220) 84mg/dL (70-220) 80mg/dL (70-220) 61mg/dL (70-220) L Test 08/24/17 17:57 08/24/17 18:58 08/24/17 19:22 08/24/17 20:19 Bedside Glucose 79mg/dL (70-220) 66mg/dL (70-220) L 66mg/dL (70-220) L 79mg/dL (70-220) Test 08/25/17 01:51 08/25/17 07:59 08/25/17 12:06 08/25/17 17:27 Bedside Glucose 240mg/dL (70-220) H 141mg/dL (70-220) 76mg/dL (70-220) 146mg/dL (70-220) Test 08/25/17 20:02 08/26/17 08:09 Bedside Glucose 81mg/dL (70-220) 85mg/dL (70-220) Results Result Diagram: 08/26/1718 08/26/1718 Results 24 hrs Laboratory Tests Test 08/25/17 12:06 08/25/17 17:27 08/25/17 20:02 08/26/17 05:18 Bedside Glucose 76 146 81 White Blood Count 5.1 Red Blood Count 3.32 L Hemoglobin 10.8 L Hematocrit 32.3 L Mean Corpuscular Volume 97.3 Mean Corpuscular Hemoglobin 32.5 Mean Corpuscular Hemoglobin Concent 33.4 Red Cell Distribution Width 14.5 Platelet Count 162 Mean Platelet Volume 11.1 H Neutrophils % 33.9 L Lymphocytes % 49.1 Monocytes % 12.6 H Eosinophils % 3.0 Basophils % 1.2 Nucleated Red Blood Cells % 0.0 Neutrophils # 1.7 Lymphocytes # 2.5 Monocytes # 0.6 Eosinophils # 0.2 Basophils # 0.1 Nucleated Red Blood Cells # 0.0 Sodium Level 141 Potassium Level 4.2 Chloride Level 106 Carbon Dioxide Level 31 Anion Gap 8 Blood Urea Nitrogen 29 H Creatinine 0.99 Glucose Level 65 L Calcium Level 8.9 Phosphorus Level 4.8 Magnesium Level 1.8 Albumin 3.2 L Test 08/26/17 08:09 Bedside Glucose 85 Medications Medications Current Medications Aspirin 81 mg 81 mg DAILY PO Last administered on 08/26/17 08:19; Admin Dose 81 MG; Start 08/16/17 at 09:00 Multivitamins/ Thiamine HCl/ Folic Acid/Sodium Chloride (Mvi Adult/ Vitamin B1/ Folic Acid/NS) 1,011.2 ml @ 125 mls/ hr DAILY@09 IVPB Last administered on 08:54; Admin Dose 125 MLS/HR; Start 08/16/17 at 09:00 Ondansetron HCl (Zofran Inj) 4 mg Q6H PRN IV NAUSEA AND/OR VOMITING; Start 08/22 at 19:00 Bisacodyl (Dulcolax) 5 mg DAILY PRN PO CONSTIPATION; Start 08/15/17 at 19:00 Nicotine (Nicoderm 14 Mg/ 24hr) 1 patch DAILY TRANSDERM Last administered on 08:20; Admin Dose 1 PATCH; Start 08/16/17 at 09:00 Miscellaneous Information 1 ea NOTE XX ; Start 08/15/17 at 19:30 Glucose (Glutose) 15 gm Q15M PRN PO DECREASED GLUCOSE; Start 08/15/17 at 19:30 Glucose (Glutose) 22.5 gm Q15M PRN PO DECREASED GLUCOSE; Start 08/15/17 at 19: 30 Dextrose (D50w Syringe) 25 ml Q15M PRN IV DECREASED GLUCOSE; Start 08/15/17 at 19:30 Dextrose (D50w Syringe) 50 ml Q15M PRN IV DECREASED GLUCOSE; Start 08/15/17 at 19:30 Glucagon (Glucagen) 1 mg Q15M PRN IM DECREASED GLUCOSE; Start 08/15/17 at 19: 30 Glucose (Glutose) 15 gm Q15M PRN BUCCAL DECREASED GLUCOSE; Start 08/15/17 at 19:30 Diagnostic Test (Pha) (Accu-Chek) 1 ea 02 XX Last administered on 08/25/17 01 :50; Admin Dose 1 EA; Start 08/18/17 at 02:00 Acetaminophen (Tylenol Tab) 650 mg Q6H PRN PO PAIN AND OR ELEVATED TEMP Last administered on 08/24/17 13:12; Admin Dose 650 MG; Start 08/18/17 at 15:00 Lactobacillus Acidophilus/ Rhamnosus (Culturelle) 1 cap BID PO Last administered on 08/26/17 08:34; Admin Dose 1 CAP; Start 08/21/17 at 11:30 Methadone HCl (Methadone) 5 mg Q8H PRN PO PAIN Last administered on 08/26/17 01:38; Admin Dose 5 MG; Start 08/22/17 at 17:30 Lorazepam (Ativan) 0.5 mg Q8H PRN PO ANXIETY Last administered on 08/26/17 01 :38; Admin Dose 0.5 MG; Start 08/24/17 at 16:00 Zolpidem Tartrate (Ambien) 5 mg HS PRN PO INSOMNIA Last administered on t 22:01; Admin Dose 5 MG; Start 08/24/17 at 21:30 Insulin Glargine (Lantus) 14 unit DAILY@08 SC ; Start 08/27/17 at 08:00; Status UNV CARLOS MARIANO MD Aug 26, 2017 09:11
[2017-08-26] MEDS ORDERED: INSULIN ASPART [NOVOLOG] 3 ML PEN SC SCH (12:15)
[2017-08-26 14:37] VITALS: BP 116/61; RESP 18
--- NOTE | 2017-08-26 14:41 | PN ---
Date/Time of Note Date/Time of Note DATE: 08/26/17 TIME: 14:36 Assessment/Plan VTE Prophylaxis VTE Prophylaxis Intervention: heparin Lines/Catheters IV Catheter Type (from Nrs): Saline Lock Urinary Cath still in place: No Assessment/Plan Assessment/Plan 1. Diabetes Mellitus, uncontrolled - A1c 9.5. Experiencing fluctuations in sugars throughout the day and medications adjusted - Secondary to partial pancreatectomy. Increased Creon to 2 tabs with meals - Endocrinology consultation appreciated and adjustments made to his regime this am - Diabetic counselor recommendations appreciated - Will continue monitoring 2. Altered mental status, likely secondary to alcohol abuse- resolved - Patient is mentating well and reevaluation by tele psych cleared patient - no witnessed seizures and continuing seizure precautions. - Ativan TID which has been helping his mood. Offered fpc medications for mood control as well but refusing and states he feels lonely and depressed and anxious when on other medications - Given information for support for alcohol abuse 3. Anion gap metabolic acidosis, moderate, not full DKA, secondary to medical noncompliance - resolved 4. suicidal ideation - No longer experiencing SI and cleared by tele-psych 5. Lactic acidosis - resolved 6. Hypernatremia, likely secondary to volume depletion given alcohol extent- resolved 7. Elevated AST and ALT, resolved 8. chronic back pain - pain control - Requested pain management to evaluate patient. Started on Methadone but explained to patient will not discharge on this medication 9. Mood Disorder - Improving with Ativan. States does not feel ready to go home yet - Denies any SI 10. Disposition - patient still c/o generalized weakness. Insulin regime adjusted. Will keep monitoring Subjective 24 Hr Interval Summary Free Text/Dictation Patient states he's feeling slightly better but still experiencing generalized weakness. Mood has improved. patient still experiencing hypo and hyperglycemic episodes and insulin regime adjusted. No acute overnight events. Exam/Review of Systems Vital Signs Vitals Vital Signs Date Time Temp Pulse Resp B/P Pulse Ox O2 Delivery O2 Flow Rate FiO2 08/26/17 07:38 97.8 51 18 118/65 100 08/26/17 01:35 Room Air Intake and Output 08/25/17 08/25/17 08/26/17 15:00 23:00 07:00 Intake Total 2160 ml 1460 ml Output Total 300 ml Balance 1860 ml 1460 ml Exam General: Patient is laying in bed and answers questions appropriately. Flat affect Head: Normocephalic atraumatic Eyes: EOMI, pupils reactive to light Neck: Supple, nontender, midline Respiratory: Clear to auscultation bilaterally. no wheezes or crackles Cardiovascular: regular rate, no obvious murmurs Gastrointestinal: non-tender to palpation, bowel sounds heard. Neurological: Moves all extremities spontaneously Psych: Flat affect. no SI/HI Skin: No new skin lesions Results Result Diagram: 08/26/1751708/26/17517 Results 24 hrs Laboratory Tests Test 08/25/17 17:27 08/25/17 20:02 08/26/17 05:18 08/26/17 08:09 Bedside Glucose 146 81 85 White Blood Count 5.1 Red Blood Count 3.32 L Hemoglobin 10.8 L Hematocrit 32.3 L Mean Corpuscular Volume 97.3 Mean Corpuscular Hemoglobin 32.5 Mean Corpuscular Hemoglobin Concent 33.4 Red Cell Distribution Width 14.5 Platelet Count 162 Mean Platelet Volume 11.1 H Neutrophils % 33.9 L Lymphocytes % 49.1 Monocytes % 12.6 H Eosinophils % 3.0 Basophils % 1.2 Nucleated Red Blood Cells % 0.0 Neutrophils # 1.7 Lymphocytes # 2.5 Monocytes # 0.6 Eosinophils # 0.2 Basophils # 0.1 Nucleated Red Blood Cells # 0.0 Sodium Level 141 Potassium Level 4.2 Chloride Level 106 Carbon Dioxide Level 31 Anion Gap 8 Blood Urea Nitrogen 29 H Creatinine 0.99 Glucose Level 65 L Calcium Level 8.9 Phosphorus Level 4.8 Magnesium Level 1.8 Albumin 3.2 L Test 08/26/17 11:57 Bedside Glucose 101 Medications Medications Current Medications Aspirin 81 mg 81 mg DAILY PO Last administered on 08/26/17 08:19; Admin Dose 81 MG; Start 08/16/17 at 09:00 Multivitamins/ Thiamine HCl/ Folic Acid/Sodium Chloride (Mvi Adult/ Vitamin B1/ Folic Acid/NS) 1,011.2 ml @ 125 mls/ hr DAILY@09 IVPB Last administered on 08:54; Admin Dose 125 MLS/HR; Start 08/16/17 at 09:00 Ondansetron HCl (Zofran Inj) 4 mg Q6H PRN IV NAUSEA AND/OR VOMITING; Start 08/22 at 19:00 Bisacodyl (Dulcolax) 5 mg DAILY PRN PO CONSTIPATION; Start 08/15/17 at 19:00 Nicotine (Nicoderm 14 Mg/ 24hr) 1 patch DAILY TRANSDERM Last administered on 08:20; Admin Dose 1 PATCH; Start 08/16/17 at 09:00 Miscellaneous Information 1 ea NOTE XX ; Start 08/15/17 at 19:30 Glucose (Glutose) 15 gm Q15M PRN PO DECREASED GLUCOSE; Start 08/15/17 at 19:30 Glucose (Glutose) 22.5 gm Q15M PRN PO DECREASED GLUCOSE; Start 08/15/17 at 19: 30 Dextrose (D50w Syringe) 25 ml Q15M PRN IV DECREASED GLUCOSE; Start 08/15/17 at 19:30 Dextrose (D50w Syringe) 50 ml Q15M PRN IV DECREASED GLUCOSE; Start 08/15/17 at 19:30 Glucagon (Glucagen) 1 mg Q15M PRN IM DECREASED GLUCOSE; Start 08/15/17 at 19: 30 Glucose (Glutose) 15 gm Q15M PRN BUCCAL DECREASED GLUCOSE; Start 08/15/17 at 19:30 Diagnostic Test (Pha) (Accu-Chek) 1 ea 02 XX Last administered on 08/25/17 01 :50; Admin Dose 1 EA; Start 08/18/17 at 02:00 Acetaminophen (Tylenol Tab) 650 mg Q6H PRN PO PAIN AND OR ELEVATED TEMP Last administered on 08/24/17 13:12; Admin Dose 650 MG; Start 08/18/17 at 15:00 Lactobacillus Acidophilus/ Rhamnosus (Culturelle) 1 cap BID PO Last administered on 08/26/17 08:34; Admin Dose 1 CAP; Start 08/21/17 at 11:30 Methadone HCl (Methadone) 5 mg Q8H PRN PO PAIN Last administered on 08/26/17 09:28; Admin Dose 5 MG; Start 08/22/17 at 17:30 Lorazepam (Ativan) 0.5 mg Q8H PRN PO ANXIETY Last administered on 08/26/17 09 :28; Admin Dose 0.5 MG; Start 08/24/17 at 16:00 Zolpidem Tartrate (Ambien) 5 mg HS PRN PO INSOMNIA Last administered on 10/20/ 17at 22:01; Admin Dose 5 MG; Start 08/24/17 at 21:30 Insulin Glargine (Lantus) 14 unit DAILY@08 SC ; Start 08/27/17 at 08:00 SALUD GARIBAY MD Aug 26, 2017 14:41
[2017-08-26 20:00] VITALS: BP 120/67; RESP 20
[2017-08-26] MEDS: MULTIVITAMINS 10 ML, THIAMINE 100 MG, FOLIC ACID 1 MG in SOD CHLORIDE 0.9% 1,000 ML IVPB SCH (20:05)
[2017-08-26] MEDS: ZOLPIDEM 5 MG TAB PO PRN (22:18)
[2017-08-26] MEDS: ACETAMINOPHEN 325 MG TAB PO PRN (22:18)
[2017-08-26] MEDS: ACCU-CHEK XX SCH (22:19)
[2017-08-27] MEDS: LORAZEPAM 0.5 MG TAB PO PRN ×3 (01:29→17:51)
[2017-08-27] MEDS: METHADONE 5 MG TAB PO PRN ×3 (01:31→17:51)
[2017-08-27 02:00] VITALS: BP 122/58; RESP 20
[2017-08-27 06:26] LABS: BASOPHIL # 0.1 10^3/ul (0.0-0.1); BASOPHILS % 1.6 % (0.0-2.0); EOSINOPHILS # 0.2 10^3/ul (0.0-0.5); EOSINOPHILS % 3.5 % (0.0-7.0); HEMATOCRIT 34.7 % (42.0-52.0); HEMOGLOBIN 11.2 g/dl (14.0-18.0); LYMPHOCYTES # 2.5 10^3/ul (0.8-2.9); LYMPHOCYTES % 48.6 % (15.0-51.0); MEAN CORPUSCULAR HEMOGLOBIN 31.3 pg (29.0-33.0); MEAN CORPUSCULAR HGB CONC 32.3 g/dl (32.0-37.0); MEAN CORPUSCULAR VOLUME 96.9 fl (82.0-101.0); MEAN PLATELET VOLUME 11.4 fl (7.4-10.4); MONOCYTE # 0.5 10^3/ul (0.3-0.9); MONOCYTES % 10.5 % (0.0-11.0); NEUTROPHIL # 1.8 10^3/ul (1.6-7.5); NEUTROPHILS % 35.6 % (39.0-77.0); PLATELET COUNT 168 10^3/UL (140-415); RED BLOOD COUNT 3.58 10^6/ul (4.70-6.10); RED CELL DISTRIBUTION WIDTH 14.5 % (11.5-14.5); WHITE BLOOD COUNT 5.1 10^3/ul (4.8-10.8)
[2017-08-27 06:57] LABS: ALBUMIN 3.5 g/dl (3.3-4.9); CALCIUM 8.8 mg/dl (8.4-10.2); MAGNESIUM 1.8 mg/dl (1.7-2.5); PHOSPHORUS 4.5 mg/dl (2.5-4.9); POTASSIUM 4.4 mmol/L (3.5-5.1)
[2017-08-27 07:07] LABS: CREATININE 0.94 mg/dl (0.61-1.24)
[2017-08-27] MEDS: ACETAMINOPHEN 325 MG TAB PO PRN ×2 (07:39→20:39)
[2017-08-27 07:52] VITALS: BP 103/61; RESP 14
[2017-08-27] MEDS: INSULIN GLARGINE [LANtus] 3 ML PEN SC SCH (08:06)
[2017-08-27] MEDS: INSULIN ASPART [NOVOLOG] 3 ML PEN SC SCH ×7 (08:06→20:38)
[2017-08-27] MEDS: LACTOBACILLUS RHAMNOSUS CAP PO SCH ×2 (08:27→20:39)
[2017-08-27] MEDS: ASPIRIN 81 MG TAB PO SCH (08:27)
[2017-08-27] MEDS: NICOTINE (14 MG/24 HR) PATCH TRANSDERM SCH (08:27)
[2017-08-27] MEDS: CREON (12k-38k-60k) 1 CAP PO SCH ×3 (08:31→17:21)
[2017-08-27] MEDS: MULTIVITAMINS 10 ML, THIAMINE 100 MG, FOLIC ACID 1 MG in SOD CHLORIDE 0.9% 1,000 ML IVPB SCH (08:32)
--- NOTE | 2017-08-27 11:41 | PN ---
Date/Time of Note Date/Time of Note DATE: 08/27/17 TIME: 11:33 Assessment/Plan VTE Prophylaxis VTE Prophylaxis Intervention: heparin Lines/Catheters IV Catheter Type (from Nrs): Saline Lock Urinary Cath still in place: No Assessment/Plan Assessment/Plan 1. Diabetes Mellitus, uncontrolled - Appears to be better controlled on new regime. - A1c 9.5. - Secondary to partial pancreatectomy on Creon - Endocrinology consultation appreciated and adjustments made to his regime this am - Diabetic counselor recommendations appreciated - Will continue monitoring 2. Back pain secondary to diskitis vs osteomyelitis - CT scan performed which showed OM vs diskitis. Patient has history of OM in December and most likely chronic. WBC has remained normal and afebrile - Will check MRI of T spine and give Ativan prior to imaging study 3. Altered mental status, likely secondary to alcohol abuse- resolved - Patient is mentating well and reevaluation by tele psych cleared patient - no witnessed seizures and continuing seizure precautions. - Ativan TID which has been helping his mood. Offered halfway medications for mood control as well but refusing and states he feels lonely and depressed and anxious when on other medications - Given information for support for alcohol abuse 4. Anion gap metabolic acidosis, moderate, not full DKA, secondary to medical noncompliance- resolved 5. suicidal ideation - No longer experiencing SI and cleared by tele-psych 6. Lactic acidosis - resolved 7. Hypernatremia, likely secondary to volume depletion given alcohol extent- resolved 8. Elevated AST and ALT, resolved 9. Mood Disorder - Improving with Ativan - Denies any SI 10. Disposition - MRI tspine ordered for further evaluation Subjective 24 Hr Interval Summary Free Text/Dictation Patient resting comfortably and no new complaints. No acute overnight events. Explained need to have MRI performed and states he gets scared and requesting Ativan before hand. Exam/Review of Systems Vital Signs Vitals Vital Signs Date Time Temp Pulse Resp B/P Pulse Ox O2 Delivery O2 Flow Rate FiO2 08/27/17 07:52 97.8 50 14 103/61 97 08/26/17 01:35 Room Air Intake and Output 08/26/17 08/26/17 08/27/17 15:00 23:00 07:00 Intake Total 2240 ml Balance 2240 ml Exam General: Patient is laying in bed and answers questions appropriately Head: Normocephalic atraumatic Eyes: EOMI, pupils reactive to light Neck: Supple, nontender, midline Respiratory: Clear to auscultation bilaterally. no wheezes or crackles Cardiovascular: regular rate, no obvious murmurs Gastrointestinal: non-tender to palpation, bowel sounds heard. Extremities: No tenderness to palpation spine, moving all extremities Neurological: Moves all extremities spontaneously Psych: Flat affect. no SI/HI Skin: No new skin lesions Results Result Diagram: 08/27/17 0508/27/17 0520 Results 24 hrs Laboratory Tests Test 08/26/17 11:57 08/26/17 17:14 08/26/17 17:40 08/26/17 22:17 Bedside Glucose 101 59 L 94 151 Test 08/27/17 05:20 08/27/17 05:21 08/27/17 07:53 Sodium Level 137 Potassium Level 4.4 Chloride Level 101 Carbon Dioxide Level 28 Anion Gap 12 Blood Urea Nitrogen 32 H Creatinine 0.94 Glucose Level 241 #H Calcium Level 8.8 Phosphorus Level 4.5 Magnesium Level 1.8 Albumin 3.5 White Blood Count 5.1 Red Blood Count 3.58 L Hemoglobin 11.2 L Hematocrit 34.7 L Mean Corpuscular Volume 96.9 Mean Corpuscular Hemoglobin 31.3 Mean Corpuscular Hemoglobin Concent 32.3 Red Cell Distribution Width 14.5 Platelet Count 168 Mean Platelet Volume 11.4 H Neutrophils % 35.6 L Lymphocytes % 48.6 Monocytes % 10.5 Eosinophils % 3.5 Basophils % 1.6 Nucleated Red Blood Cells % 0.0 Neutrophils # 1.8 Lymphocytes # 2.5 Monocytes # 0.5 Eosinophils # 0.2 Basophils # 0.1 Nucleated Red Blood Cells # 0.0 Bedside Glucose 191 Medications Medications Current Medications Aspirin 81 mg 81 mg DAILY PO Last administered on 08/27/17 08:27; Admin Dose 81 MG; Start 08/16/17 at 09:00 Multivitamins/ Thiamine HCl/ Folic Acid/Sodium Chloride (Mvi Adult/ Vitamin B1/ Folic Acid/NS) 1,011.2 ml @ 125 mls/ hr DAILY@09 IVPB Last administered on 08:54; Admin Dose 125 MLS/HR; Start 08/16/17 at 09:00 Ondansetron HCl (Zofran Inj) 4 mg Q6H PRN IV NAUSEA AND/OR VOMITING; Start 08/22 at 19:00 Bisacodyl (Dulcolax) 5 mg DAILY PRN PO CONSTIPATION; Start 08/15/17 at 19:00 Nicotine (Nicoderm 14 Mg/ 24hr) 1 patch DAILY TRANSDERM Last administered on 08:27; Admin Dose 1 PATCH; Start 08/16/17 at 09:00 Miscellaneous Information 1 ea NOTE XX ; Start 08/15/17 at 19:30 Glucose (Glutose) 15 gm Q15M PRN PO DECREASED GLUCOSE; Start 08/15/17 at 19:30 Glucose (Glutose) 22.5 gm Q15M PRN PO DECREASED GLUCOSE; Start 08/15/17 at 19: 30 Dextrose (D50w Syringe) 25 ml Q15M PRN IV DECREASED GLUCOSE; Start 08/15/17 at 19:30 Dextrose (D50w Syringe) 50 ml Q15M PRN IV DECREASED GLUCOSE; Start 08/15/17 at 19:30 Glucagon (Glucagen) 1 mg Q15M PRN IM DECREASED GLUCOSE; Start 08/15/17 at 19: 30 Glucose (Glutose) 15 gm Q15M PRN BUCCAL DECREASED GLUCOSE Last administered on 08/26/17 17:18; Admin Dose 15 GM; Start 08/15/17 at 19:30 Diagnostic Test (Pha) (Accu-Chek) 1 ea 02 XX Last administered on 08/25/17 01 :50; Admin Dose 1 EA; Start 08/18/17 at 02:00 Acetaminophen (Tylenol Tab) 650 mg Q6H PRN PO PAIN AND OR ELEVATED TEMP Last administered on 08/27/17 07:39; Admin Dose 650 MG; Start 08/18/17 at 15:00 Lactobacillus Acidophilus/ Rhamnosus (Culturelle) 1 cap BID PO Last administered on 08/27/17 08:27; Admin Dose 1 CAP; Start 08/21/17 at 11:30 Methadone HCl (Methadone) 5 mg Q8H PRN PO PAIN Last administered on 08/27/17 09:33; Admin Dose 5 MG; Start 08/22/17 at 17:30 Lorazepam (Ativan) 0.5 mg Q8H PRN PO ANXIETY Last administered on 08/27/17 09 :32; Admin Dose 0.5 MG; Start 08/24/17 at 16:00 Zolpidem Tartrate (Ambien) 5 mg HS PRN PO INSOMNIA Last administered on 22:18; Admin Dose 5 MG; Start 08/24/17 at 21:30 Insulin Glargine (Lantus) 14 unit DAILY@08 SC Last administered on 08/27/17 08:06; Admin Dose 14 UNIT; Start 08/27/17 at 08:00 SALUD GARIBAY MD Aug 27, 2017 11:41
--- NOTE | 2017-08-27 11:52 | CONS ---
Date/Time of Note Date/Time of Note DATE: 08/27/17 TIME: 11:46 Assessment/Plan Assessment/Plan Problems: (1) Diabetes mellitus out of control Status: Chronic Comment: Predictably again hypoglycemic yesterday afternoon and novolog held for dinner. AGAIN hyperglycemic overnight and in the am due to hs snack given by RN. Today lantus dosage lowered from 24 to 14 units (1 unit/hr to 0.583 units/hr) and Novolog increased back up to 7 units qac. Expect this will provide adequate control w/ less risk of hypoglycemia. Ok for d/c from endo standpoint at any time. Defer to primary team. 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 use Qualified Code: E08.9 - Diabetes mellitus due to underlying condition, uncontrolled, without complication, with long-term current use of insulin Consultation Date/Type/Reason Admit Date/Time Aug 15, 2017 at 19:21 Initial Consult Date 08/23/17 Type of Consultation: Endocrinology Reason for Consultation Diabetes out of control Referring Provider: SALUD GARIBAY MD 24 HR Interval Summary Constitutional: other (generalized weakness) Detailed Summary Respiratory: no complaints Cardiovascular: no complaints Gastrointestinal: no complaints Genitourinary: no complaints Musculoskeletal: no complaints Neurologic: no complaints Exam/Review of Systems Vital Signs Vitals VS - Last 72 Hours, by Label Date Time Temp Pulse Resp B/P Pulse Ox O2 Delivery O2 Flow Rate FiO2 08/27/17 07:52 97.8 50 14 103/61 97 08/27/17 02:00 97.5 58 20 122/58 98 08/26/17 20:00 98.0 54 20 120/67 99 08/26/17 14:37 98.5 61 18 116/61 100 08/26/17 07:38 97.8 51 18 118/65 100 08/26/17 01:35 98.8 50 18 113/58 99 Room Air 08/25/17 19:45 98.0 57 18 116/59 99 Room Air 08/25/17 14:45 98.5 62 18 109/59 98 08/25/17 07:52 97.8 52 16 137/67 99 08/25/17 01:50 97.9 53 20 136/62 96 Room Air 08/24/17 20:20 98.0 56 18 111/62 99 Room Air 08/24/17 13:52 97.5 57 18 115/61 100 Vital Signs Date Time Temp Pulse Resp B/P Pulse Ox O2 Delivery O2 Flow Rate FiO2 08/27/17 07:52 97.8 50 14 103/61 97 08/26/17 01:35 Room Air Intake and Output 08/26/17 08/26/17 08/27/17 14:59 22:59 06:59 Intake Total 2240 ml Balance 2240 ml Exam Constitutional: alert, oriented, well developed Psych: nl mood/affect, no complaints Respiratory: clear to auscultation, normal air movement Cardiovascular: nl pulses, regular rate and rhythm, No edema, No murmurs/extra sounds, No rub Gastrointestinal: bowel sounds, nl liver, spleen, non-tender, soft, No mass, No rebound or guarding Musculoskeletal: nl extremities to inspection Extremities: normal pulses, No clubbing, No cyanosis, No edema 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, nl mental status, nl speech, nl strength Additional Comments Bedside Glucose - 72 Hours Test 08/24/17 12:03 08/24/17 17:17 08/24/17 17:57 08/24/17 18:58 Bedside Glucose 80mg/dL (70-220) 61mg/dL (70-220) L 79mg/dL (70-220) 66mg/dL (70-220) L Test 08/24/17 19:22 08/24/17 20:19 08/25/17 01:51 08/25/17 07:59 Bedside Glucose 66mg/dL (70-220) L 79mg/dL (70-220) 240mg/dL (70-220) H 141mg/dL (70-220) Test 08/25/17 12:06 08/25/17 17:27 08/25/17 20:02 08/26/17 08:09 Bedside Glucose 76mg/dL (70-220) 146mg/dL (70-220) 81mg/dL (70-220) 85mg/dL (70-220) Test 08/26/17 11:57 08/26/17 17:14 08/26/17 17:40 08/26/17 22:17 Bedside Glucose 101mg/dL (70-220) 59mg/dL (70-220) L 94mg/dL (70-220) 151mg/dL (70-220) Test 08/27/17 07:53 Bedside Glucose 191mg/dL (70-220) Results Result Diagram: 08/27/17 0508/27/17 0520 Results 24 hrs Laboratory Tests Test 08/26/17 11:57 08/26/17 17:14 08/26/17 17:40 08/26/17 22:17 Bedside Glucose 101 59 L 94 151 Test 08/27/17 05:20 08/27/17 05:21 08/27/17 07:53 Sodium Level 137 Potassium Level 4.4 Chloride Level 101 Carbon Dioxide Level 28 Anion Gap 12 Blood Urea Nitrogen 32 H Creatinine 0.94 Glucose Level 241 #H Calcium Level 8.8 Phosphorus Level 4.5 Magnesium Level 1.8 Albumin 3.5 White Blood Count 5.1 Red Blood Count 3.58 L Hemoglobin 11.2 L Hematocrit 34.7 L Mean Corpuscular Volume 96.9 Mean Corpuscular Hemoglobin 31.3 Mean Corpuscular Hemoglobin Concent 32.3 Red Cell Distribution Width 14.5 Platelet Count 168 Mean Platelet Volume 11.4 H Neutrophils % 35.6 L Lymphocytes % 48.6 Monocytes % 10.5 Eosinophils % 3.5 Basophils % 1.6 Nucleated Red Blood Cells % 0.0 Neutrophils # 1.8 Lymphocytes # 2.5 Monocytes # 0.5 Eosinophils # 0.2 Basophils # 0.1 Nucleated Red Blood Cells # 0.0 Bedside Glucose 191 Medications Medications Current Medications Aspirin 81 mg 81 mg DAILY PO Last administered on 08/27/17 08:27; Admin Dose 81 MG; Start 08/16/17 at 09:00 Multivitamins/ Thiamine HCl/ Folic Acid/Sodium Chloride (Mvi Adult/ Vitamin B1/ Folic Acid/NS) 1,011.2 ml @ 125 mls/ hr DAILY@09 IVPB Last administered on 08:54; Admin Dose 125 MLS/HR; Start 08/16/17 at 09:00 Ondansetron HCl (Zofran Inj) 4 mg Q6H PRN IV NAUSEA AND/OR VOMITING; Start 08/22 at 19:00 Bisacodyl (Dulcolax) 5 mg DAILY PRN PO CONSTIPATION; Start 08/15/17 at 19:00 Nicotine (Nicoderm 14 Mg/ 24hr) 1 patch DAILY TRANSDERM Last administered on 08:27; Admin Dose 1 PATCH; Start 08/16/17 at 09:00 Miscellaneous Information 1 ea NOTE XX ; Start 08/15/17 at 19:30 Glucose (Glutose) 15 gm Q15M PRN PO DECREASED GLUCOSE; Start 08/15/17 at 19:30 Glucose (Glutose) 22.5 gm Q15M PRN PO DECREASED GLUCOSE; Start 08/15/17 at 19: 30 Dextrose (D50w Syringe) 25 ml Q15M PRN IV DECREASED GLUCOSE; Start 08/15/17 at 19:30 Dextrose (D50w Syringe) 50 ml Q15M PRN IV DECREASED GLUCOSE; Start 08/15/17 at 19:30 Glucagon (Glucagen) 1 mg Q15M PRN IM DECREASED GLUCOSE; Start 08/15/17 at 19: 30 Glucose (Glutose) 15 gm Q15M PRN BUCCAL DECREASED GLUCOSE Last administered on 08/26/17 17:18; Admin Dose 15 GM; Start 08/15/17 at 19:30 Diagnostic Test (Pha) (Accu-Chek) 1 ea 02 XX Last administered on 08/25/17 01 :50; Admin Dose 1 EA; Start 08/18/17 at 02:00 Acetaminophen (Tylenol Tab) 650 mg Q6H PRN PO PAIN AND OR ELEVATED TEMP Last administered on 08/27/17 07:39; Admin Dose 650 MG; Start 08/18/17 at 15:00 Lactobacillus Acidophilus/ Rhamnosus (Culturelle) 1 cap BID PO Last administered on 08/27/17 08:27; Admin Dose 1 CAP; Start 08/21/17 at 11:30 Methadone HCl (Methadone) 5 mg Q8H PRN PO PAIN Last administered on 08/27/17 09:33; Admin Dose 5 MG; Start 08/22/17 at 17:30 Lorazepam (Ativan) 0.5 mg Q8H PRN PO ANXIETY Last administered on 08/27/17 09 :32; Admin Dose 0.5 MG; Start 08/24/17 at 16:00 Zolpidem Tartrate (Ambien) 5 mg HS PRN PO INSOMNIA Last administered on 22:18; Admin Dose 5 MG; Start 08/24/17 at 21:30 Insulin Glargine (Lantus) 14 unit DAILY@08 SC Last administered on 08/27/17t 08:06; Admin Dose 14 UNIT; Start 08/27/17 at 08:00 Lorazepam (Ativan) 1 mg ONCE ONCE IV ; Start 08/27/17 at 12:00; Stop at 12:01 CARLOS MARIANO MD Aug 27, 2017 11:52
[2017-08-27] MEDS ORDERED: LORAZEPAM 2 MG INJ IV ONE (12:00)
--- NOTE | 2017-08-27 15:38 | RADRPT ---
PROCEDURE: MR Thoracic Spine with and without contrast. CLINICAL INDICATION: 52-year-old male with thoracic spine pain, abnormal CT. Evaluate for possible diskitis. TECHNIQUE: An MRI of the thoracic spine was performed with and without contrast utilizing multiple sequences in the sagittal and axial planes. 10 cc of Magnevist was visualized without complication . Images reviewed on a high-resolution PACS system.. COMPARISON: CT thoracic spine pain. 08/23/2017. FINDINGS: There is redemonstration of exaggeration of thoracic kyphosis centered at T7, with markedly severe l oss of anterior vertebral body height at T7. There is a 30% anterior compression deformity of T8. Th e T7 vertebral body appears extensively heterogeneous, with mild enhancement of the anterior vertebr al body in the region of the visualized comminuted fracture. There is also subtle enhancement involv ing the inferior T6 and superior T8 end plates. There is no significant paraspinal soft tissue swell ing. There is no evidence of paraspinal phlegmon or epidural enhancement. There is severe narrowing of the T7-8 disc-space, with mild narrowing of the T6-7 disc-space. No there is a subtle, trace amou nt of fluid in the disc-spaces at these levels, the end plates appear intact without evidence of dis kitis/osteomyelitis. There is no paraspinal phlegmon. The remaining vertebral body heights are maintained. The remaining intervertebral discs are normal i n appearance. There is no significant listhesis. The thoracic spinal cord is normal in signal and ca liber. No evidence of myelopathic changes at this time. The paraspinal soft tissues are unremarkable . Visualized intrathoracic contents are unremarkable. IMPRESSION: 1. Severely comminuted anterior compression deformity of the C7 vertebral body with suggestion of " Moth-eaten" appearance on CT scan and mild enhancement involving the anterior aspect of the vertebra l body. This is concerning for possible pathologic fracture. There is no significant prevertebral so ft tissue swelling to suggest acute fracture at this time. 2. 30% anterior compression deformity at T8 with prominent subchondral sclerosis and subtle enhance ment involving the superior endplate, likely related to subacute fracture. No definite focal area of abnormal enhancement is seen to suggest metastatic disease at this time.. 3. Mild enhancement in the inferior T6 endplate, without definite evidence of T6 fracture. 4. Trace amount of fluid in the disc-space at T6-7, with intact adjacent endplates. The fellow ther e is a subtle amount of fluid, these findings are felt to be related to the pathologic fracture at T 7, without definite evidence of diskitis/osteomyelitis at this time. 5. The thoracic spinal cord is normal in signal and caliber. 6. The remaining thoracic spine is normal in appearance. No additional areas of abnormal signal or enhancement is seen. RPTAT: HGAS .Vernon Klein MD, MD Date Time Electronically viewed and signed by .Vernon Klein MD, on 08/27/2017 15:38 .S/
[2017-08-27 16:11] VITALS: BP 106/58; RESP 16
[2017-08-27 19:53] VITALS: BP 117/63; RESP 18
[2017-08-27] MEDS: ACCU-CHEK XX SCH (20:39)
[2017-08-27] MEDS: ZOLPIDEM 5 MG TAB PO PRN (20:39)
[2017-08-28] VITALS (8 sets, daily range): BP systolic 108–154; BP diastolic 59–83; PULSE 50–61; RESP 14–20
[2017-08-28] MEDS: METHADONE 5 MG TAB PO PRN ×3 (01:51→17:40)
[2017-08-28] MEDS: LORAZEPAM 0.5 MG TAB PO PRN ×3 (01:51→17:40)
[2017-08-28 06:06] LABS: BASOPHIL # 0.1 10^3/ul (0.0-0.1); BASOPHILS % 2.1 % (0.0-2.0); EOSINOPHILS # 0.2 10^3/ul (0.0-0.5); EOSINOPHILS % 3.2 % (0.0-7.0); HEMATOCRIT 39.8 % (42.0-52.0); HEMOGLOBIN 12.8 g/dl (14.0-18.0); LYMPHOCYTES # 2.9 10^3/ul (0.8-2.9); LYMPHOCYTES % 47.1 % (15.0-51.0); MEAN CORPUSCULAR HEMOGLOBIN 31.4 pg (29.0-33.0); MEAN CORPUSCULAR HGB CONC 32.2 g/dl (32.0-37.0); MEAN CORPUSCULAR VOLUME 97.5 fl (82.0-101.0); MEAN PLATELET VOLUME 11.1 fl (7.4-10.4); MONOCYTE # 0.6 10^3/ul (0.3-0.9); MONOCYTES % 10.3 % (0.0-11.0); NEUTROPHIL # 2.3 10^3/ul (1.6-7.5); NEUTROPHILS % 37.1 % (39.0-77.0); PLATELET COUNT 210 10^3/UL (140-415); RED BLOOD COUNT 4.08 10^6/ul (4.70-6.10); RED CELL DISTRIBUTION WIDTH 14.6 % (11.5-14.5); WHITE BLOOD COUNT 6.2 10^3/ul (4.8-10.8)
[2017-08-28 06:46] LABS: ALBUMIN 4.3 g/dl (3.3-4.9); CALCIUM 9.3 mg/dl (8.4-10.2); CREATININE 1.03 mg/dl (0.61-1.24); MAGNESIUM 1.9 mg/dl (1.7-2.5); PHOSPHORUS 4.8 mg/dl (2.5-4.9); POTASSIUM 4.6 mmol/L (3.5-5.1)
[2017-08-28] MEDS: INSULIN ASPART [NOVOLOG] 3 ML PEN SC SCH ×7 (08:05→21:00)
[2017-08-28] MEDS: INSULIN GLARGINE [LANtus] 3 ML PEN SC SCH (08:06)
[2017-08-28] MEDS: MULTIVITAMINS 10 ML, THIAMINE 100 MG, FOLIC ACID 1 MG in SOD CHLORIDE 0.9% 1,000 ML IVPB SCH (08:15)
[2017-08-28] MEDS: NICOTINE (14 MG/24 HR) PATCH TRANSDERM SCH (09:30)
[2017-08-28] MEDS: LACTOBACILLUS RHAMNOSUS CAP PO SCH ×2 (09:30→21:01)
[2017-08-28] MEDS: ASPIRIN 81 MG TAB PO SCH (09:30)
[2017-08-28] MEDS: CREON (12k-38k-60k) 1 CAP PO SCH ×3 (09:34→17:17)
--- NOTE | 2017-08-28 17:37 | CONS ---
Date/Time of Note Date/Time of Note DATE: 08/28/17 TIME: 17:36 Assessment/Plan Assessment/Plan Chief Complaint/Hosp Course 52-year-old male with a reported history of diabetes over the last 7 years. He presented to [facility] several years ago with gallstone pancreatitis and significant pancreatic abnormalities. He reports he underwent surgery at the [facility] with partial resection of the pancreas which rendered him diabetic at that time. He reports that he has been on insulin since then although he has missed insulin and has not gone into DKA despite having missed it for more than 48 hours. Problems: (1) Diabetes mellitus out of control Status: Chronic Comment: Sugars luis daniel with the decrease in the Lantus dosing as might be expected. Will adjust partially back and follow him along. He is still able to be discharged from an endocrine standpoint is remaining in the hospital is as per the primary care team. 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 Referring Provider: SALUD GARIBAY MD 24 HR Interval Summary Free Text/Dictation Patient reports still with back pain Exam/Review of Systems Vital Signs Vitals Vital Signs Date Time Temp Pulse Resp B/P Pulse Ox O2 Delivery O2 Flow Rate FiO2 08/28/17 14:35 98.5 61 14 123/67 96 Room Air Intake and Output 08/27/17 08/27/17 08/28/17 15:00 23:00 07:00 Intake Total 1640 ml 500 ml Output Total 800 ml Balance 1640 ml -300 ml Results No changes Result Diagram: 08/28/17 0525 08/28/17 0525 Results 24 hrs Laboratory Tests Test 08/27/17 20:32 08/28/17 05:25 08/28/17 07:58 08/28/17 12:27 Bedside Glucose 85 167 239 H White Blood Count 6.2 # Red Blood Count 4.08 L Hemoglobin 12.8 L Hematocrit 39.8 L Mean Corpuscular Volume 97.5 Mean Corpuscular Hemoglobin 31.4 Mean Corpuscular Hemoglobin Concent 32.2 Red Cell Distribution Width 14.6 H Platelet Count 210 # Mean Platelet Volume 11.1 H Neutrophils % 37.1 L Lymphocytes % 47.1 Monocytes % 10.3 Eosinophils % 3.2 Basophils % 2.1 H Nucleated Red Blood Cells % 0.0 Neutrophils # 2.3 Lymphocytes # 2.9 Monocytes # 0.6 Eosinophils # 0.2 Basophils # 0.1 Nucleated Red Blood Cells # 0.0 Sodium Level 140 Potassium Level 4.6 Chloride Level 100 Carbon Dioxide Level 30 Anion Gap 15 Blood Urea Nitrogen 33 H Creatinine 1.03 Glucose Level 139 # Calcium Level 9.3 Phosphorus Level 4.8 Magnesium Level 1.9 Albumin 4.3 Test 08/28/17 17:18 Bedside Glucose 370 H Medications Medications Current Medications Aspirin 81 mg 81 mg DAILY PO Last administered on 08/28/17 09:30; Admin Dose 81 MG; Start 08/16/17 at 09:00 Multivitamins/ Thiamine HCl/ Folic Acid/Sodium Chloride (Mvi Adult/ Vitamin B1/ Folic Acid/NS) 1,011.2 ml @ 125 mls/ hr DAILY@09 IVPB Last administered on 08:54; Admin Dose 125 MLS/HR; Start 08/16/17 at 09:00 Ondansetron HCl (Zofran Inj) 4 mg Q6H PRN IV NAUSEA AND/OR VOMITING; Start 08/22 at 19:00 Bisacodyl (Dulcolax) 5 mg DAILY PRN PO CONSTIPATION; Start 08/15/17 at 19:00 Nicotine (Nicoderm 14 Mg/ 24hr) 1 patch DAILY TRANSDERM Last administered on 09:30; Admin Dose 1 PATCH; Start 08/16/17 at 09:00 Miscellaneous Information 1 ea NOTE XX ; Start 08/15/17 at 19:30 Glucose (Glutose) 15 gm Q15M PRN PO DECREASED GLUCOSE; Start 08/15/17 at 19:30 Glucose (Glutose) 22.5 gm Q15M PRN PO DECREASED GLUCOSE; Start 08/15/17 at 19: 30 Dextrose (D50w Syringe) 25 ml Q15M PRN IV DECREASED GLUCOSE; Start 08/15/17 at 19:30 Dextrose (D50w Syringe) 50 ml Q15M PRN IV DECREASED GLUCOSE; Start 08/15/17 at 19:30 Glucagon (Glucagen) 1 mg Q15M PRN IM DECREASED GLUCOSE; Start 08/15/17 at 19: 30 Glucose (Glutose) 15 gm Q15M PRN BUCCAL DECREASED GLUCOSE Last administered on 08/26/17 17:18; Admin Dose 15 GM; Start 08/15/17 at 19:30 Diagnostic Test (Pha) (Accu-Chek) 1 ea 02 XX Last administered on 08/25/17 01 :50; Admin Dose 1 EA; Start 08/18/17 at 02:00 Acetaminophen (Tylenol Tab) 650 mg Q6H PRN PO PAIN AND OR ELEVATED TEMP Last administered on 08/27/17 20:39; Admin Dose 650 MG; Start 08/18/17 at 15:00 Lactobacillus Acidophilus/ Rhamnosus (Culturelle) 1 cap BID PO Last administered on 08/28/17 09:30; Admin Dose 1 CAP; Start 08/21/17 at 11:30 Methadone HCl (Methadone) 5 mg Q8H PRN PO PAIN Last administered on 08/28/17 09:47; Admin Dose 5 MG; Start 08/22/17 at 17:30 Lorazepam (Ativan) 0.5 mg Q8H PRN PO ANXIETY Last administered on 08/28/17 09 :47; Admin Dose 0.5 MG; Start 08/24/17 at 16:00 Zolpidem Tartrate (Ambien) 5 mg HS PRN PO INSOMNIA Last administered on 20:39; Admin Dose 5 MG; Start 08/24/17 at 21:30 Insulin Glargine (Lantus) 14 unit DAILY@08 SC Last administered on 08/28/17 08:06; Admin Dose 14 UNIT; Start 08/27/17 at 08:00 MASON HANEY MD Aug 28, 2017 17:37
--- NOTE | 2017-08-28 17:37 | PN ---
Date/Time of Note Date/Time of Note DATE: 08/28/17 TIME: 17:34 Assessment/Plan VTE Prophylaxis VTE Prophylaxis Intervention: ambulation Lines/Catheters IV Catheter Type (from [facility]): Saline Lock Urinary Cath still in place: No Assessment/Plan Chief Complaint/Hosp Course Patient is a 52-year-old alcoholic and medically noncompliant diabetic who presents to [facility] and is admitted for hyperglycemia and elevated lactic acid Assessment/Plan 1. Diabetes Mellitus, uncontrolled - Appears to be better controlled on new regime. - A1c 9.5. - Secondary to partial pancreatectomy on Creon - Endocrinology consultation appreciated and adjustments made to his regime this am - Diabetic counselor recommendations appreciated - Will continue monitoring 2. 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 Hutchinson, neurosurgery consulted for 2nd opinion 3. Altered mental status, likely secondary to alcohol abuse- resolved - Patient is mentating well and reevaluation by tele psych cleared patient - no witnessed seizures and continuing seizure precautions. - Ativan TID which has been helping his mood. Offered assistant terminal manager medications for mood control as well but refusing and states he feels lonely and depressed and anxious when on other medications - Given information for support for alcohol abuse 4. Anion gap metabolic acidosis, moderate, not full DKA, secondary to medical noncompliance- resolved 5. suicidal ideation - No longer experiencing SI and cleared by tele-psych 6. Lactic acidosis - resolved 7. Hypernatremia, likely secondary to volume depletion given alcohol extent- resolved 8. Elevated AST and ALT, resolved 9. Mood Disorder - Improving with Ativan - Denies any SI 10. Disposition - once cleared by neurosurgery, will DC Problems: Subjective 24 Hr Interval Summary Free Text/Dictation no acute complaints, stated his back problems were assessed a few months ago. found to have OM with unknown cause. Exam/Review of Systems Vital Signs Vitals Vital Signs Date Time Temp Pulse Resp B/P Pulse Ox O2 Delivery O2 Flow Rate FiO2 08/28/17 14:35 98.5 61 14 123/67 96 Room Air Intake and Output 08/27/17 08/27/17 08/28/17 15:00 23:00 07:00 Intake Total 1640 ml 500 ml Output Total 800 ml Balance 1640 ml -300 ml Exam General: Patient is laying in bed and answers questions appropriately Head: Normocephalic atraumatic Eyes: EOMI, pupils reactive to light Neck: Supple, nontender, midline Respiratory: Clear to auscultation bilaterally. no wheezes or crackles Cardiovascular: regular rate, no obvious murmurs Gastrointestinal: non-tender to palpation, bowel sounds heard. Extremities: No tenderness to palpation spine, moving all extremities Neurological: Moves all extremities spontaneously Psych: Flat affect. no SI/HI Skin: No new skin lesions Results Result Diagram: 08/28/1752408/28/17524 Results 24 hrs Laboratory Tests Test 08/27/17 20:32 08/28/17 05:25 08/28/17 07:58 08/28/17 12:27 Bedside Glucose 85 167 239 H White Blood Count 6.2 # Red Blood Count 4.08 L Hemoglobin 12.8 L Hematocrit 39.8 L Mean Corpuscular Volume 97.5 Mean Corpuscular Hemoglobin 31.4 Mean Corpuscular Hemoglobin Concent 32.2 Red Cell Distribution Width 14.6 H Platelet Count 210 # Mean Platelet Volume 11.1 H Neutrophils % 37.1 L Lymphocytes % 47.1 Monocytes % 10.3 Eosinophils % 3.2 Basophils % 2.1 H Nucleated Red Blood Cells % 0.0 Neutrophils # 2.3 Lymphocytes # 2.9 Monocytes # 0.6 Eosinophils # 0.2 Basophils # 0.1 Nucleated Red Blood Cells # 0.0 Sodium Level 140 Potassium Level 4.6 Chloride Level 100 Carbon Dioxide Level 30 Anion Gap 15 Blood Urea Nitrogen 33 H Creatinine 1.03 Glucose Level 139 # Calcium Level 9.3 Phosphorus Level 4.8 Magnesium Level 1.9 Albumin 4.3 Test 08/28/17 17:18 Bedside Glucose 370 H Medications Medications Current Medications Aspirin 81 mg 81 mg DAILY PO Last administered on 08/28/17 09:30; Admin Dose 81 MG; Start 08/16/17 at 09:00 Multivitamins/ Thiamine HCl/ Folic Acid/Sodium Chloride (Mvi Adult/ Vitamin B1/ Folic Acid/NS) 1,011.2 ml @ 125 mls/ hr DAILY@09 IVPB Last administered on 08:54; Admin Dose 125 MLS/HR; Start 08/16/17 at 09:00 Ondansetron HCl (Zofran Inj) 4 mg Q6H PRN IV NAUSEA AND/OR VOMITING; Start 08/22 at 19:00 Bisacodyl (Dulcolax) 5 mg DAILY PRN PO CONSTIPATION; Start 08/15/17 at 19:00 Nicotine (Nicoderm 14 Mg/ 24hr) 1 patch DAILY TRANSDERM Last administered on 09:30; Admin Dose 1 PATCH; Start 08/16/17 at 09:00 Miscellaneous Information 1 ea NOTE XX ; Start 08/15/17 at 19:30 Glucose (Glutose) 15 gm Q15M PRN PO DECREASED GLUCOSE; Start 08/15/17 at 19:30 Glucose (Glutose) 22.5 gm Q15M PRN PO DECREASED GLUCOSE; Start 08/15/17 at 19: 30 Dextrose (D50w Syringe) 25 ml Q15M PRN IV DECREASED GLUCOSE; Start 08/15/17 at 19:30 Dextrose (D50w Syringe) 50 ml Q15M PRN IV DECREASED GLUCOSE; Start 08/15/17 at 19:30 Glucagon (Glucagen) 1 mg Q15M PRN IM DECREASED GLUCOSE; Start 08/15/17 at 19: 30 Glucose (Glutose) 15 gm Q15M PRN BUCCAL DECREASED GLUCOSE Last administered on 08/26/17 17:18; Admin Dose 15 GM; Start 08/15/17 at 19:30 Diagnostic Test (Pha) (Accu-Chek) 1 ea 02 XX Last administered on 08/25/17 01 :50; Admin Dose 1 EA; Start 08/18/17 at 02:00 Acetaminophen (Tylenol Tab) 650 mg Q6H PRN PO PAIN AND OR ELEVATED TEMP Last administered on 08/27/17 20:39; Admin Dose 650 MG; Start 08/18/17 at 15:00 Lactobacillus Acidophilus/ Rhamnosus (Culturelle) 1 cap BID PO Last administered on 08/28/17 09:30; Admin Dose 1 CAP; Start 08/21/17 at 11:30 Methadone HCl (Methadone) 5 mg Q8H PRN PO PAIN Last administered on 08/28/17 09:47; Admin Dose 5 MG; Start 08/22/17 at 17:30 Lorazepam (Ativan) 0.5 mg Q8H PRN PO ANXIETY Last administered on 08/28/17 09 :47; Admin Dose 0.5 MG; Start 10/19/17 at 16:00 Zolpidem Tartrate (Ambien) 5 mg HS PRN PO INSOMNIA Last administered on 20:39; Admin Dose 5 MG; Start 08/24/17 at 21:30 Insulin Glargine (Lantus) 14 unit DAILY@08 SC Last administered on 08/28/17 08:06; Admin Dose 14 UNIT; Start 08/27/17 at 08:00 SELINA HDZ Aug 28, 2017 17:37
[2017-08-28] MEDS: ACETAMINOPHEN 325 MG TAB PO PRN (21:01)
[2017-08-28] MEDS: ZOLPIDEM 5 MG TAB PO PRN (21:06)
[2017-08-29] MEDS: LORAZEPAM 0.5 MG TAB PO PRN ×3 (01:32→17:51)
[2017-08-29] MEDS: METHADONE 5 MG TAB PO PRN ×3 (01:32→17:51)
[2017-08-29 01:54] VITALS: BP 115/66; RESP 20
[2017-08-29] MEDS: ACCU-CHEK XX SCH (02:00)
[2017-08-29] MEDS: ACETAMINOPHEN 325 MG TAB PO PRN ×3 (06:08→21:03)
[2017-08-29 06:20] LABS: BASOPHIL # 0.1 10^3/ul (0.0-0.1); BASOPHILS % 1.8 % (0.0-2.0); EOSINOPHILS # 0.2 10^3/ul (0.0-0.5); HEMOGLOBIN 11.9 g/dl (14.0-18.0); LYMPHOCYTES # 2.7 10^3/ul (0.8-2.9); LYMPHOCYTES % 47.2 % (15.0-51.0); MEAN CORPUSCULAR HEMOGLOBIN 32.9 pg (29.0-33.0); MEAN CORPUSCULAR VOLUME 96.7 fl (82.0-101.0); MEAN PLATELET VOLUME 11.1 fl (7.4-10.4); MONOCYTE # 0.7 10^3/ul (0.3-0.9); NEUTROPHILS % 34.8 % (39.0-77.0); PLATELET COUNT 193 10^3/UL (140-415); RED BLOOD COUNT 3.62 10^6/ul (4.70-6.10); RED CELL DISTRIBUTION WIDTH 13.9 % (11.5-14.5); WHITE BLOOD COUNT 5.7 10^3/ul (4.8-10.8)
[2017-08-29 06:50] LABS: ALBUMIN 3.9 g/dl (3.3-4.9); CREATININE 0.86 mg/dl (0.61-1.24); MAGNESIUM 1.8 mg/dl (1.7-2.5); PHOSPHORUS 4.3 mg/dl (2.5-4.9); POTASSIUM 4.3 mmol/L (3.5-5.1)
[2017-08-29] MEDS: MULTIVITAMINS 10 ML, THIAMINE 100 MG, FOLIC ACID 1 MG in SOD CHLORIDE 0.9% 1,000 ML IVPB SCH (07:34)
[2017-08-29 07:49] VITALS: BP 112/57; RESP 18
[2017-08-29] MEDS: CREON (12k-38k-60k) 1 CAP PO SCH ×3 (07:51→17:10)
[2017-08-29] MEDS: ASPIRIN 81 MG TAB PO SCH (07:51)
[2017-08-29] MEDS: LACTOBACILLUS RHAMNOSUS CAP PO SCH ×2 (07:51→21:03)
[2017-08-29] MEDS: NICOTINE (14 MG/24 HR) PATCH TRANSDERM SCH (07:52)
[2017-08-29] MEDS: INSULIN ASPART [NOVOLOG] 3 ML PEN SC SCH ×7 (08:11→21:00)
[2017-08-29] MEDS: INSULIN GLARGINE [LANtus] 3 ML PEN SC SCH (08:11)
--- NOTE | 2017-08-29 13:50 | CONS ---
Date/Time of Note Date/Time of Note DATE: 08/29/17 TIME: 13:48 Assessment/Plan Assessment/Plan Chief Complaint/Hosp Course 52-year-old male with a reported history of diabetes over the last 7 years. He presented to [facility] several years ago with gallstone pancreatitis and significant pancreatic abnormalities. He reports he underwent surgery at the [facility] with partial resection of the pancreas which rendered him diabetic at that time. He reports that he has been on insulin since then although he has missed insulin and has not gone into DKA despite having missed it for more than 48 hours. Problems: (1) Diabetes mellitus out of control Status: Chronic Comment: With the adjustments in his insulin his sugars are drifting back into line. In an ideal world we send him out on the more modern analog insulins however his primary care team as an outpatient is not using these products Qualifiers: Diabetes mellitus type: due to underlying condition Diabetes mellitus complication status: without complication Diabetes mellitus senior living insulin use: with senior living use Qualified Code: E08.9 - Diabetes mellitus due to underlying condition, uncontrolled, without complication, with long-term current use of insulin (2) Chronic pain syndrome Status: Chronic Comment: As per primary care team. It is unclear to me and the level of activity of the possible infection in his spine Consultation Date/Type/Reason Admit Date/Time Aug 15, 2017 at 19:21 Initial Consult Date 08/23/17 Type of Consultation: Endocrinology Reason for Consultation Hyperglycemia; possible residual spinal infection Referring Provider: SALUD GARIBAY MD 24 HR Interval Summary Constitutional: no complaints Exam/Review of Systems Vital Signs Vitals Vital Signs Date Time Temp Pulse Resp B/P Pulse Ox O2 Delivery O2 Flow Rate FiO2 08/29/17 07:49 97.8 50 18 112/57 97 08/28/17 14:35 Room Air Intake and Output 08/28/17 08/28/17 08/29/17 15:00 23:00 07:00 Intake Total 1360 ml 720 ml Output Total 900 ml Balance 1360 ml -180 ml Results No changes Result Diagram: 08/29/17 0533 08/29/17 0533 Results 24 hrs Laboratory Tests Test 08/28/17 17:18 08/28/17 21:00 08/29/17 05:33 08/29/17 07:55 Bedside Glucose 370 H 110 229 H White Blood Count 5.7 Red Blood Count 3.62 L Hemoglobin 11.9 L Hematocrit 35.0 L Mean Corpuscular Volume 96.7 Mean Corpuscular Hemoglobin 32.9 Mean Corpuscular Hemoglobin Concent 34.0 Red Cell Distribution Width 13.9 Platelet Count 193 Mean Platelet Volume 11.1 H Neutrophils % 34.8 L Lymphocytes % 47.2 Monocytes % 12.0 H Eosinophils % 4.0 Basophils % 1.8 Nucleated Red Blood Cells % 0.0 Neutrophils # 2.0 Lymphocytes # 2.7 Monocytes # 0.7 Eosinophils # 0.2 Basophils # 0.1 Nucleated Red Blood Cells # 0.0 Sodium Level 137 Potassium Level 4.3 Chloride Level 100 Carbon Dioxide Level 29 Anion Gap 12 Blood Urea Nitrogen 30 H Creatinine 0.86 Glucose Level 235 H Calcium Level 9.0 Phosphorus Level 4.3 Magnesium Level 1.8 Albumin 3.9 Test 08/29/17 11:59 Bedside Glucose 158 Medications Medications Current Medications Aspirin (Aspirin) 81 mg DAILY PO Last administered on 08/29/17 07:51; Admin Dose 81 MG; Start 08/16/17 at 09:00 Ondansetron HCl (Zofran Inj) 4 mg Q6H PRN IV NAUSEA AND/OR VOMITING; Start 08/22 at 19:00 Bisacodyl (Dulcolax) 5 mg DAILY PRN PO CONSTIPATION; Start 08/15/17 at 19:00 Nicotine (Nicoderm 14 Mg/ 24hr) 1 patch DAILY TRANSDERM Last administered on 07:52; Admin Dose 1 PATCH; Start 08/16/17 at 09:00 Miscellaneous Information 1 ea NOTE XX ; Start 08/15/17 at 19:30 Glucose (Glutose) 15 gm Q15M PRN PO DECREASED GLUCOSE; Start 08/15/17 at 19:30 Glucose (Glutose) 22.5 gm Q15M PRN PO DECREASED GLUCOSE; Start 08/15/17 at 19: 30 Dextrose (D50w Syringe) 25 ml Q15M PRN IV DECREASED GLUCOSE; Start 08/15/17 at 19:30 Dextrose (D50w Syringe) 50 ml Q15M PRN IV DECREASED GLUCOSE; Start 08/15/17 at 19:30 Glucagon (Glucagen) 1 mg Q15M PRN IM DECREASED GLUCOSE; Start 08/15/17 at 19: 30 Glucose (Glutose) 15 gm Q15M PRN BUCCAL DECREASED GLUCOSE Last administered on 08/26/17 17:18; Admin Dose 15 GM; Start 08/15/17 at 19:30 Diagnostic Test (Pha) (Accu-Chek) 1 ea 02 XX Last administered on 08/25/17 01 :50; Admin Dose 1 EA; Start 08/18/17 at 02:00 Acetaminophen (Tylenol Tab) 650 mg Q6H PRN PO PAIN AND OR ELEVATED TEMP Last administered on 08/29/17 06:08; Admin Dose 650 MG; Start 08/18/17 at 15:00 Lactobacillus Acidophilus/ Rhamnosus (Culturelle) 1 cap BID PO Last administered on 08/29/17 07:51; Admin Dose 1 CAP; Start 08/21/17 at 11:30 Methadone HCl (Methadone) 5 mg Q8H PRN PO PAIN Last administered on 08/29/17 09:49; Admin Dose 5 MG; Start 08/22/17 at 17:30 Lorazepam (Ativan) 0.5 mg Q8H PRN PO ANXIETY Last administered on 08/29/17 09 :49; Admin Dose 0.5 MG; Start 08/24/17 at 16:00 Zolpidem Tartrate (Ambien) 5 mg HS PRN PO INSOMNIA Last administered on 21:06; Admin Dose 5 MG; Start 08/24/17 at 21:30 Insulin Glargine (Lantus) 18 unit DAILY@08 SC Last administered on 08/29/17 08:11; Admin Dose 18 UNIT; Start 08/29/17 at 08:00 MASON HANEY MD Aug 29, 2017 13:50
[2017-08-29 14:00] VITALS: BP 105/56; RESP 20
--- NOTE | 2017-08-29 17:49 | CONS ---
Date/Time of Note Date/Time of Note DATE: 08/29/17 TIME: 17:35 Assessment/Plan Assessment/Plan Problems: (1) Severe sepsis Status: Acute Additional Assessment/Plan Patient with multiple medical problems and known 7-month history of spinal osteomyelitis, partially treated?, now presenting with pain. I recommend getting the patient's old records from [facility] to see if the infection/ lytic lesion of the thoracic spine has progressed. Per the patient, a biopsy was performed at [facility] but no organism was identified. I think a biopsy probably makes a lot of sense (ie repeat bx), in order to help identify the organism and to guide further therapy. This is something you might want to consider discussing further with ID. I do recommend that you seek ID input! Surgery for this patient would be extremely high risk, given his extensive comorbidities and the extent of surgery needed (two level thoracic corpectomy and thoracic fusion/ pedicle screw fixation). However, I do NOT believe that surgery is indicated at the present time. Surgery would be indicated for the following reasons: 1) if there was cord compression and neurologic deficit; 2) to correct deformity for pain or cosmetic reasons; 3) to debride the infection if it was determined (by ID) that the infection was resistant to appropriate medical therapy. Please feel free to re-consult prn. Consultation Date/Type/Reason Admit Date/Time Aug 15, 2017 at 19:21 Date of Consultation: Aug 29, 2017 Type of Consultation: neurosurgery Reason for Consultation T7-8 fracture with kyphosis Hx of Present Illness The patient is a 52 year old male with a history of thoracic osteomyelitis treated with IV abx for 6-8 weeks (patient cannot recall exactly) in January 2017. He states he followed up and was told that 'everything was stable', however he has continued to have severe back pain. He denies any B/B complaints , he is ambulatory, denies LE weakness, though he states his left leg does not "feel the same as the right". CT and MRI of the thoracic spine show erosion of T7 and T8 vertebral bodies with kyphosis at T7; there is some enhancement and radiology suggests possible pathological fracture, though no asya metastatic or primary neoplasm identified. Three is no significant canal compromise and no cord signal changes. ID has not been consulted to see patient this admission. Constitutional: no complaints Eyes: no complaints ENT: no complaints Respiratory: no complaints Cardiovascular: no complaints Gastrointestinal: no complaints Genitourinary: no complaints Musculoskeletal: no complaints Skin: no complaints Neurologic: no complaints Endocrine: polydypsia Psychological: nl mood/affect, no complaints Social History Alcohol Use: heavy Smoking Status: Current every day smoker Drug Use: other (On prescription opiate therapy long-term for chronic pain syndrome) Exam/Review of Systems Vital Signs Vitals Vital Signs Date Time Temp Pulse Resp B/P Pulse Ox O2 Delivery O2 Flow Rate FiO2 08/29/17 14:00 98.4 60 20 105/56 98 08/28/17 14:35 Room Air Intake and Output 08/28/17 08/28/17 08/29/17 15:00 23:00 07:00 Intake Total 1360 ml 720 ml Output Total 900 ml Balance 1360 ml -180 ml Exam On exam the patient is a & o x4, speech is fluent and appropriate. PERRL, EOMI, Face=. TML. He is 5/5 bilateral LE and UE. No drift. Constitutional: alert, oriented, well developed Psych: nl mood/affect, no complaints Head: atraumatic, normocephalic Eyes: EOMI, nl conjunctiva, nl lids ENMT: nl external ears & nose, nl lips & teeth Neck: non-tender Musculoskeletal: nl extremities to inspection Neurological: HVAC LEAD II-XII intact, nl mental status, nl speech, nl strength Results Result Diagram: 08/29/1753208/29/17532 Results 24 hrs Laboratory Tests Test 08/28/17 21:00 08/29/17 05:33 08/29/17 07:55 08/29/17 11:59 Bedside Glucose 110 229 H 158 White Blood Count 5.7 Red Blood Count 3.62 L Hemoglobin 11.9 L Hematocrit 35.0 L Mean Corpuscular Volume 96.7 Mean Corpuscular Hemoglobin 32.9 Mean Corpuscular Hemoglobin Concent 34.0 Red Cell Distribution Width 13.9 Platelet Count 193 Mean Platelet Volume 11.1 H Neutrophils % 34.8 L Lymphocytes % 47.2 Monocytes % 12.0 H Eosinophils % 4.0 Basophils % 1.8 Nucleated Red Blood Cells % 0.0 Neutrophils # 2.0 Lymphocytes # 2.7 Monocytes # 0.7 Eosinophils # 0.2 Basophils # 0.1 Nucleated Red Blood Cells # 0.0 Sodium Level 137 Potassium Level 4.3 Chloride Level 100 Carbon Dioxide Level 29 Anion Gap 12 Blood Urea Nitrogen 30 H Creatinine 0.86 Glucose Level 235 H Calcium Level 9.0 Phosphorus Level 4.3 Magnesium Level 1.8 Albumin 3.9 Test 08/29/17 17:11 Bedside Glucose 153 Medications Medications Current Medications Aspirin (Aspirin) 81 mg DAILY PO Last administered on 08/29/17 07:51; Admin Dose 81 MG; Start 08/16/17 at 09:00 Ondansetron HCl (Zofran Inj) 4 mg Q6H PRN IV NAUSEA AND/OR VOMITING; Start 08/22 at 19:00 Bisacodyl (Dulcolax) 5 mg DAILY PRN PO CONSTIPATION; Start 08/15/17 at 19:00 Nicotine (Nicoderm 14 Mg/ 24hr) 1 patch DAILY TRANSDERM Last administered on 07:52; Admin Dose 1 PATCH; Start 08/16/17 at 09:00 Miscellaneous Information 1 ea NOTE XX ; Start 08/15/17 at 19:30 Glucose (Glutose) 15 gm Q15M PRN PO DECREASED GLUCOSE; Start 08/15/17 at 19:30 Glucose (Glutose) 22.5 gm Q15M PRN PO DECREASED GLUCOSE; Start 08/15/17 at 19: 30 Dextrose (D50w Syringe) 25 ml Q15M PRN IV DECREASED GLUCOSE; Start 08/15/17 at 19:30 Dextrose (D50w Syringe) 50 ml Q15M PRN IV DECREASED GLUCOSE; Start 08/15/17 at 19:30 Glucagon (Glucagen) 1 mg Q15M PRN IM DECREASED GLUCOSE; Start 08/15/17 at 19: 30 Glucose (Glutose) 15 gm Q15M PRN BUCCAL DECREASED GLUCOSE Last administered on 08/26/17 17:18; Admin Dose 15 GM; Start 08/15/17 at 19:30 Diagnostic Test (Pha) (Accu-Chek) 1 ea 02 XX Last administered on 08/25/17 01 :50; Admin Dose 1 EA; Start 08/18/17 at 02:00 Acetaminophen (Tylenol Tab) 650 mg Q6H PRN PO PAIN AND OR ELEVATED TEMP Last administered on 08/29/17 14:10; Admin Dose 650 MG; Start 08/18/17 at 15:00 Lactobacillus Acidophilus/ Rhamnosus (Culturelle) 1 cap BID PO Last administered on 08/29/17 07:51; Admin Dose 1 CAP; Start 08/21/17 at 11:30 Methadone HCl (Methadone) 5 mg Q8H PRN PO PAIN Last administered on 08/29/17 09:49; Admin Dose 5 MG; Start 08/22/17 at 17:30 Lorazepam (Ativan) 0.5 mg Q8H PRN PO ANXIETY Last administered on 08/29/17 09 :49; Admin Dose 0.5 MG; Start 08/24/17 at 16:00 Zolpidem Tartrate (Ambien) 5 mg HS PRN PO INSOMNIA Last administered on 21:06; Admin Dose 5 MG; Start 08/24/17 at 21:30 Insulin Glargine (Lantus) 18 unit DAILY@08 SC Last administered on 08/29/17 08:11; Admin Dose 18 UNIT; Start 08/29/17 at 08:00 ROSARIO ALVARES MD Aug 29, 2017 17:48
--- NOTE | 2017-08-29 18:25 | PN ---
Date/Time of Note Date/Time of Note DATE: 08/29/17 TIME: 18:22 Assessment/Plan VTE Prophylaxis VTE Prophylaxis Intervention: ambulation Lines/Catheters IV [facility] Saline Lock Urinary Cath still in place: No Assessment/Plan Chief Complaint/Hosp Course Patient is a 52-year-old alcoholic and medically noncompliant diabetic who presents to [facility] and is admitted for hyperglycemia and elevated lactic acid Assessment/Plan 1. Diabetes Mellitus, uncontrolled - Appears to be better controlled on new regimen - A1c 9.5. - Secondary to partial pancreatectomy on Creon - Endocrinology consultation appreciated and adjustments made to his regime this am - Diabetic counselor recommendations appreciated - Will continue monitoring 2. 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 Hutchinson, neurosurgery consulted, states non surgical at this time, however requests ID consult - ID has been consulted 3. Altered mental status, likely secondary to alcohol abuse- resolved - Patient is mentating well and reevaluation by tele psych cleared patient - no witnessed seizures and continuing seizure precautions. - Ativan TID prn which has been helping his mood. Offered halfway medications for mood control as well but refusing and states he feels lonely and depressed and anxious when on other medications - Given information for support for alcohol abuse 4. Anion gap metabolic acidosis, moderate, not full DKA, secondary to medical noncompliance- resolved 5. suicidal ideation - No longer experiencing SI and cleared by tele-psych 6. Lactic acidosis - resolved 7. Hypernatremia, likely secondary to volume depletion given alcohol extent- resolved 8. Elevated AST and ALT, resolved 9. Mood Disorder - Improving with Ativan - Denies any SI 10. Disposition - neurosurgery requests ID consult, will consult and dispo according to recs. Problems: Subjective 24 Hr Interval Summary Free Text/Dictation no acute complaints Exam/Review of Systems Vital Signs Vitals Vital Signs Date Time Temp Pulse Resp B/P Pulse Ox O2 Delivery O2 Flow Rate FiO2 08/29/17 14:00 98.4 60 20 105/56 98 08/28/17 14:35 Room Air Intake and Output 08/28/17 08/28/17 08/29/17 15:00 23:00 07:00 Intake Total 1360 ml 720 ml Output Total 900 ml Balance 1360 ml -180 ml Exam General: Patient is laying in bed and answers questions appropriately Head: Normocephalic atraumatic Eyes: EOMI, pupils reactive to light Neck: Supple, nontender, midline Respiratory: Clear to auscultation bilaterally. no wheezes or crackles Cardiovascular: regular rate, no obvious murmurs Gastrointestinal: non-tender to palpation, bowel sounds heard. Extremities: No tenderness to palpation spine, moving all extremities Neurological: Moves all extremities spontaneously Psych: Flat affect. no SI/HI Skin: No new skin lesions Results Result Diagram: 08/29/1753208/29/17532 Results 24 hrs Laboratory Tests Test 08/28/17 21:00 08/29/17 05:33 08/29/17 07:55 08/29/17 11:59 Bedside Glucose 110 229 H 158 White Blood Count 5.7 Red Blood Count 3.62 L Hemoglobin 11.9 L Hematocrit 35.0 L Mean Corpuscular Volume 96.7 Mean Corpuscular Hemoglobin 32.9 Mean Corpuscular Hemoglobin Concent 34.0 Red Cell Distribution Width 13.9 Platelet Count 193 Mean Platelet Volume 11.1 H Neutrophils % 34.8 L Lymphocytes % 47.2 Monocytes % 12.0 H Eosinophils % 4.0 Basophils % 1.8 Nucleated Red Blood Cells % 0.0 Neutrophils # 2.0 Lymphocytes # 2.7 Monocytes # 0.7 Eosinophils # 0.2 Basophils # 0.1 Nucleated Red Blood Cells # 0.0 Sodium Level 137 Potassium Level 4.3 Chloride Level 100 Carbon Dioxide Level 29 Anion Gap 12 Blood Urea Nitrogen 30 H Creatinine 0.86 Glucose Level 235 H Calcium Level 9.0 Phosphorus Level 4.3 Magnesium Level 1.8 Albumin 3.9 Test 08/29/17 17:11 Bedside Glucose 153 Medications Medications Current Medications Aspirin (Aspirin) 81 mg DAILY PO Last administered on 08/29/17 07:51; Admin Dose 81 MG; Start 08/16/17 at 09:00 Ondansetron HCl (Zofran Inj) 4 mg Q6H PRN IV NAUSEA AND/OR VOMITING; Start 08/22 at 19:00 Bisacodyl (Dulcolax) 5 mg DAILY PRN PO CONSTIPATION; Start 08/15/17 at 19:00 Nicotine (Nicoderm 14 Mg/ 24hr) 1 patch DAILY TRANSDERM Last administered on 07:52; Admin Dose 1 PATCH; Start 08/16/17 at 09:00 Miscellaneous Information 1 ea NOTE XX ; Start 08/15/17 at 19:30 Glucose (Glutose) 15 gm Q15M PRN PO DECREASED GLUCOSE; Start 08/15/17 at 19:30 Glucose (Glutose) 22.5 gm Q15M PRN PO DECREASED GLUCOSE; Start 08/15/17 at 19: 30 Dextrose (D50w Syringe) 25 ml Q15M PRN IV DECREASED GLUCOSE; Start 08/15/17 at 19:30 Dextrose (D50w Syringe) 50 ml Q15M PRN IV DECREASED GLUCOSE; Start 08/15/17 at 19:30 Glucagon (Glucagen) 1 mg Q15M PRN IM DECREASED GLUCOSE; Start 08/15/17 at 19: 30 Glucose (Glutose) 15 gm Q15M PRN BUCCAL DECREASED GLUCOSE Last administered on 08/26/17 17:18; Admin Dose 15 GM; Start 08/15/17 at 19:30 Diagnostic Test (Pha) (Accu-Chek) 1 ea 02 XX Last administered on 08/25/17 01 :50; Admin Dose 1 EA; Start 08/18/17 at 02:00 Acetaminophen (Tylenol Tab) 650 mg Q6H PRN PO PAIN AND OR ELEVATED TEMP Last administered on 08/29/17 14:10; Admin Dose 650 MG; Start 08/18/17 at 15:00 Lactobacillus Acidophilus/ Rhamnosus (Culturelle) 1 cap BID PO Last administered on 08/29/17 07:51; Admin Dose 1 CAP; Start 08/21/17 at 11:30 Methadone HCl (Methadone) 5 mg Q8H PRN PO PAIN Last administered on 08/29/17 17:51; Admin Dose 5 MG; Start 08/22/17 at 17:30 Lorazepam (Ativan) 0.5 mg Q8H PRN PO ANXIETY Last administered on 08/29/17 17 :51; Admin Dose 0.5 MG; Start 08/24/17 at 16:00 Zolpidem Tartrate (Ambien) 5 mg HS PRN PO INSOMNIA Last administered on 21:06; Admin Dose 5 MG; Start 08/24/17 at 21:30 Insulin Glargine (Lantus) 18 unit DAILY@08 SC Last administered on 08/29/17 08:11; Admin Dose 18 UNIT; Start 08/29/17 at 08:00 SELINA HDZ Aug 29, 2017 18:25
[2017-08-29 19:55] VITALS: BP 120/64; RESP 18
[2017-08-30] MEDS: METHADONE 5 MG TAB PO PRN ×3 (01:53→17:43)
[2017-08-30] MEDS: LORAZEPAM 0.5 MG TAB PO PRN ×3 (01:53→17:42)
[2017-08-30 02:00] VITALS: BP 130/61; RESP 18
[2017-08-30] MEDS: ACCU-CHEK XX SCH (02:00)
[2017-08-30 08:00] VITALS: BP 118/68; RESP 17
[2017-08-30] MEDS: ASPIRIN 81 MG TAB PO SCH (08:17)
[2017-08-30] MEDS: CREON (12k-38k-60k) 1 CAP PO SCH ×3 (08:17→17:04)
[2017-08-30] MEDS: LACTOBACILLUS RHAMNOSUS CAP PO SCH ×2 (08:17→21:05)
[2017-08-30] MEDS: NICOTINE (14 MG/24 HR) PATCH TRANSDERM SCH (08:19)
[2017-08-30] MEDS: INSULIN GLARGINE [LANtus] 3 ML PEN SC SCH (08:35)
[2017-08-30] MEDS: INSULIN ASPART [NOVOLOG] 3 ML PEN SC SCH ×7 (08:35→21:00)
--- NOTE | 2017-08-30 11:36 | CONS ---
DATE OF ADMISSION: 08/15/2017 DATE OF CONSULTATION: 08/30/2017 INFECTIOUS DISEASE CONSULTATION REASON FOR CONSULTATION: Antibiotic management. HISTORY OF PRESENT ILLNESS: Varun Canchola is a 52-year-old male with a history of alcoholism and diab etes mellitus, who comes in on 08/15/2017 actually with altered mental status, who is is being seen now for antibiotic management. His past problems include: 1. Alcohol abuse. 2. Adult-onset diabetes mellitus. 3. DKA and hyperglycemia. He was admitted after passing out and found drunk, and he appeared intoxicated on his admission on . He has chronic back pain, history of cholecystectomy. He is an everyday drinker, he is a smoker. HOSPITAL COURSE: The patient has been seen by multiple physicians. A chest x-ray showed right para tracheal density, possibly secondary to vascular structure; however, a mass is not excluded. A CT s can of the chest on 08/23/2017 shows fragmentation and severe compression deformity of the T7 verteb ral body. Extensive endplate destructive changes are seen at T7-T8, and to a lesser extent at T6-T7 . Adjacent paravertebral soft tissue thickening and edema is noted. Findings appear new when elke red to prior CT from 2016, and are concerning for diskitis and osteomyelitis. MRI was recommended. A CT scan of the abdomen showed the same findings. A sacral and coccygeal x-ray showed degenerativ e changes at L4-5 and L5-S1. An MRI showed severely comminuted anterior compression deformity of C7 vertebral body with suggestion of moth-eaten appearance on CT scan and mild enhancement involving t he anterior aspect of the vertebral body. This is concerning for possible pathological fracture. T here is no significant prevertebral soft tissue swelling to suggest acute fracture at this time. Th irty percent interior compression deformity at T8 with prominent subchondral sclerosis and subtle en hancement involving the superior endplate, likely related to subacute fracture. No definite focal a rogelio of abnormal enhancement is seen to suggest metastatic disease at this time. There is mild enhan cement in the inferior T6 endplate without definite evidence of T6 fracture, trace amount of fluid i n the disk space at T6-T7 with intact adjacent endplates. There is a subtle amount of fluid. Findi ngs are felt to be related to pathological fracture at T7 without definite evidence of diskitis or o steomyelitis at this time. The thoracic spinal cord is normal in signal and caliber. Remaining tho racic spine is normal in appearance. No additional areas of abnormal signal or enhancement is seen. The lumbar spine does not show any abnormalities except for disk space narrowing. Blood cultures and urine cultures are negative. White count today on the was 5.7. Urine is negative for leuk ocyte esterase and for nitrites. BUN and creatinine is 30/0.86. Patient was seen by Dr. Arthur of neurosurgery. He has known 7-month history of spinal osteomyelitis, partially treated, now present ing with pain. He recommended getting the old medical records from [facility], to see if the infect ion or lytic lesions of the thoracic spine have progressed. Per the patient, the biopsy was perform ed, but no organism was identified. He suggests another biopsy in order to help identify the organi sm and to guide further therapy. He recommended IV input. Surgery for this patient would be extrem marni high risk given his extensive comorbidities and the extent of the surgery. He would need 2-leve l thoracic corpectomy and thoracic fusion with pedicle screw fixation. He does not believe that ludmila kimber is indicated at this time. It would be recommended if there was cord compression and neurologi leanne deficit to correct the deformity for pain or cosmetic reasons, to debride the infection if it wa s determined that the infection was resistant to appropriate medical therapy. PHYSICAL EXAMINATION: GENERAL: The patient is alert, responsive, in no acute distress. VITAL SIGNS: Stable. He is afebrile. SKIN: Without generalized rash. HEENT: Within normal limits. NECK: Supple. LYMPH NODES: None palpable. CHEST: Decreased breath sounds at the bases. HEART: Without murmur or gallop. ABDOMEN: Soft, nontender without organosplenomegaly or masses. EXTREMITIES: Without cyanosis, clubbing or edema. RECTAL AND GENITAL: Deferred. NEUROLOGIC: No focal neurological abnormalities. LABORATORY DATA: As noted, his white count from 08/29/2017 was 5.7, H and H of 30 and 0.86. Blood cultures and urine cultures are negative. The patient is currently off antibiotic therapy. IMPRESSION AND PLAN: Patient with probable osteomyelitis. We would recommend interventional radiol ogy to do a repeat biopsy of the area, also to get the old records from [facility] to determine what happened in the past. However, at present, I think that interventional radiology to get a good cul ture and biopsy of an involved area would be appropriate. I will dictate my findings to the hospitalist, as well as to the various consultants. Of note, is t he fact that he had gallstone pancreatitis and significant pancreatic abnormalities. He was seen by Dr. Kb Caldwell. 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 His major problem right now , however, is his neurosurgical problems. I will dictate my findings to the hospitalist and to the various consultants. Dictated By: JERRICA MORRISON MD, JD/NATALIE Conf#: [id number] DID#: [id number] CC: ROSARIO ARTHUR MD; SELINA HDZ MD; KB CALDWELL MD;*[facility]*
[2017-08-30 14:43] VITALS: BP 119/63; RESP 16
--- NOTE | 2017-08-30 16:35 | PN ---
Date/Time of Note Date/Time of Note DATE: 08/30/17 TIME: 16:31 Assessment/Plan VTE Prophylaxis VTE Prophylaxis Intervention: ambulation Lines/Catheters IV Catheter Type (from [facility]): [facility] Urinary Cath still in place: No Assessment/Plan Chief Complaint/Hosp Course Patient is a 52-year-old alcoholic and medically noncompliant diabetic who presents to [facility] and is admitted for hyperglycemia and elevated lactic acid Assessment/Plan 1. Diabetes Mellitus, uncontrolled - Appears to be better controlled on new regimen - A1c 9.5. 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 Arthur, neurosurgery consulted, states non surgical at this time, however requests ID consult - ID has been consulted, recommended biopsy. patient willing to undergo lesion biopsy, ordered and pending. 3. Altered mental status, likely secondary to alcohol abuse- resolved - Patient is mentating well and reevaluation by tele psych cleared patient - no witnessed seizures and continuing seizure precautions. - Ativan TID prn which has been helping his mood. Offered bed bug exterminator medications for mood control as well but refusing and states he feels lonely and depressed and anxious when on other medications - Given information for support for alcohol abuse 4. Anion gap metabolic acidosis, moderate, not full DKA, secondary to medical noncompliance- resolved 5. suicidal ideation - No longer experiencing SI and cleared by tele-psych 6. Lactic acidosis - resolved 7. Hypernatremia, likely secondary to volume depletion given alcohol extent- resolved 8. Elevated AST and ALT, resolved 9. Mood Disorder - Improving with Ativan - Denies any SI 10. Disposition - awaiting lesion biopsy Problems: Subjective 24 Hr Interval Summary Free Text/Dictation no acute issues Exam/Review of Systems Vital Signs Vitals Vital Signs Date Time Temp Pulse Resp B/P Pulse Ox O2 Delivery O2 Flow Rate FiO2 08/30/17 14:43 98.2 59 16 119/63 97 08/28/17 14:35 Room Air Intake and Output 08/29/17 08/29/17 08/30/17 15:00 23:00 07:00 Intake Total 1140 ml 450 ml Output Total 1000 ml Balance 140 ml 450 ml Exam General: Patient is laying in bed and answers questions appropriately Head: Normocephalic atraumatic Eyes: EOMI, pupils reactive to light Neck: Supple, nontender, midline Respiratory: Clear to auscultation bilaterally. no wheezes or crackles Cardiovascular: regular rate, no obvious murmurs Gastrointestinal: non-tender to palpation, bowel sounds heard. Extremities: No tenderness to palpation spine, moving all extremities Neurological: Moves all extremities spontaneously Psych: Flat affect. no SI/HI Skin: No new skin lesions Results Result Diagram: 08/29/1753208/29/17532 Results 24 hrs Laboratory Tests Test 08/29/17 17:11 08/29/17 21:02 08/30/17 07:57 08/30/17 12:00 Bedside Glucose 153 145 165 183 Medications Medications Current Medications Aspirin (Aspirin) 81 mg DAILY PO Last administered on 08/30/17 08:17; Admin Dose 81 MG; Start 08/16/17 at 09:00 Ondansetron HCl (Zofran Inj) 4 mg Q6H PRN IV NAUSEA AND/OR VOMITING; Start 08/22 at 19:00 Bisacodyl (Dulcolax) 5 mg DAILY PRN PO CONSTIPATION; Start 08/15/17 at 19:00 Nicotine (Nicoderm 14 Mg/ 24hr) 1 patch DAILY TRANSDERM Last administered on 08:19; Admin Dose 1 PATCH; Start 08/16/17 at 09:00 Miscellaneous Information 1 ea NOTE XX ; Start 08/15/17 at 19:30 Glucose (Glutose) 15 gm Q15M PRN PO DECREASED GLUCOSE; Start 08/15/17 at 19:30 Glucose (Glutose) 22.5 gm Q15M PRN PO DECREASED GLUCOSE; Start 08/15/17 at 19: 30 Dextrose (D50w Syringe) 25 ml Q15M PRN IV DECREASED GLUCOSE; Start 08/15/17 at 19:30 Dextrose (D50w Syringe) 50 ml Q15M PRN IV DECREASED GLUCOSE; Start 08/15/17 at 19:30 Glucagon (Glucagen) 1 mg Q15M PRN IM DECREASED GLUCOSE; Start 08/15/17 at 19: 30 Glucose (Glutose) 15 gm Q15M PRN BUCCAL DECREASED GLUCOSE Last administered on 08/26/17 17:18; Admin Dose 15 GM; Start 08/15/17 at 19:30 Diagnostic Test (Pha) (Accu-Chek) 1 ea 02 XX Last administered on 08/25/17 01 :50; Admin Dose 1 EA; Start 08/18/17 at 02:00 Acetaminophen (Tylenol Tab) 650 mg Q6H PRN PO PAIN AND OR ELEVATED TEMP Last administered on 08/29/17 21:03; Admin Dose 650 MG; Start 08/18/17 at 15:00 Lactobacillus Acidophilus/ Rhamnosus (Culturelle) 1 cap BID PO Last administered on 08/30/17 08:17; Admin Dose 1 CAP; Start 08/21/17 at 11:30 Methadone HCl (Methadone) 5 mg Q8H PRN PO PAIN Last administered on 08/30/17 09:52; Admin Dose 5 MG; Start 08/22/17 at 17:30 Lorazepam (Ativan) 0.5 mg Q8H PRN PO ANXIETY Last administered on 08/30/17 09 :52; Admin Dose 0.5 MG; Start 08/24/17 at 16:00 Zolpidem Tartrate (Ambien) 5 mg HS PRN PO INSOMNIA Last administered on 21:06; Admin Dose 5 MG; Start 08/24/17 at 21:30 Insulin Glargine (Lantus) 18 unit DAILY@08 SC Last administered on 08/30/17 08:35; Admin Dose 18 UNIT; Start 08/29/17 at 08:00 SELINA HDZ Aug 30, 2017 16:35
[2017-08-30] MEDS: ACETAMINOPHEN 325 MG TAB PO PRN (17:04)
--- NOTE | 2017-08-30 17:59 | CONS ---
Date/Time of Note Date/Time of Note DATE: 08/30/17 TIME: 17:57 Assessment/Plan Assessment/Plan Chief Complaint/Hosp Course 52-year-old male with a reported history of diabetes over the last 7 years. He presented to [facility] several years ago with gallstone pancreatitis and significant pancreatic abnormalities. He reports he underwent surgery at the [facility] with partial resection of the pancreas which rendered him diabetic at that time. He reports that he has been on insulin since then although he has missed insulin and has not gone into DKA despite having missed it for more than 48 hours. Problems: (1) Chronic osteomyelitis of thoracic spine Status: Chronic Comment: I concur with the recommendations of neurosurgery and infectious disease that have come to the chart now. (2) Diabetes mellitus out of control Status: Chronic Comment: Excellent control with multiple daily injection regimen. If the patient is willing than this would be a regimen acute could be discharged on. Qualifiers: Diabetes mellitus type: due to underlying condition Diabetes mellitus complication status: without complication Diabetes mellitus extermination inspector insulin use: with alf use Qualified Code: E08.9 - Diabetes mellitus due to underlying condition, uncontrolled, without complication, with long-term current use of insulin (3) Alcohol abuse Status: Chronic Comment: He is past the point where we have an expectation of DTs or withdrawal. Consideration of referral for alcohol recovery is as per primary team and case management. Please consider this (4) Chronic pain syndrome Status: Chronic Comment: Adequate control. Consultation Date/Type/Reason Admit Date/Time Aug 15, 2017 at 19:21 Initial Consult Date 08/23/17 Type of Consultation: Endocrinology Reason for Consultation Diabetes mellitus; thoracic spine osteomyelitis; Referring Provider: SALUD GARIBAY MD 24 HR Interval Summary Free Text/Dictation Patient reports his pain has adequate control. Constitutional: no complaints (Denies fevers chills or sweats) Exam/Review of Systems Vital Signs Vitals Vital Signs Date Time Temp Pulse Resp B/P Pulse Ox O2 Delivery O2 Flow Rate FiO2 08/30/17 14:43 98.2 59 16 119/63 97 08/28/17 14:35 Room Air Intake and Output 08/29/17 08/29/17 08/30/17 15:00 23:00 07:00 Intake Total 1140 ml 450 ml Output Total 1000 ml Balance 140 ml 450 ml Exam Constitutional: alert, oriented Respiratory: clear to auscultation, normal air movement Results Result Diagram: 08/29/17 0533 08/29/17 0533 Results 24 hrs Laboratory Tests Test 08/29/17 21:02 08/30/17 07:57 08/30/17 12:00 08/30/17 17:06 Bedside Glucose 145 165 183 120 Medications Medications Current Medications Aspirin (Aspirin) 81 mg DAILY PO Last administered on 08/30/17 08:17; Admin Dose 81 MG; Start 08/16/17 at 09:00 Ondansetron HCl (Zofran Inj) 4 mg Q6H PRN IV NAUSEA AND/OR VOMITING; Start 08/22 at 19:00 Bisacodyl (Dulcolax) 5 mg DAILY PRN PO CONSTIPATION; Start 08/15/17 at 19:00 Nicotine (Nicoderm 14 Mg/ 24hr) 1 patch DAILY TRANSDERM Last administered on 08:19; Admin Dose 1 PATCH; Start 08/16/17 at 09:00 Miscellaneous Information 1 ea NOTE XX ; Start 08/15/17 at 19:30 Glucose (Glutose) 15 gm Q15M PRN PO DECREASED GLUCOSE; Start 08/15/17 at 19:30 Glucose (Glutose) 22.5 gm Q15M PRN PO DECREASED GLUCOSE; Start 08/15/17 at 19: 30 Dextrose (D50w Syringe) 25 ml Q15M PRN IV DECREASED GLUCOSE; Start 08/15/17 at 19:30 Dextrose (D50w Syringe) 50 ml Q15M PRN IV DECREASED GLUCOSE; Start 08/15/17 at 19:30 Glucagon (Glucagen) 1 mg Q15M PRN IM DECREASED GLUCOSE; Start 08/15/17 at 19: 30 Glucose (Glutose) 15 gm Q15M PRN BUCCAL DECREASED GLUCOSE Last administered on 08/26/17 17:18; Admin Dose 15 GM; Start 08/15/17 at 19:30 Diagnostic Test (Pha) (Accu-Chek) 1 ea 02 XX Last administered on 08/25/17 01 :50; Admin Dose 1 EA; Start 08/18/17 at 02:00 Acetaminophen (Tylenol Tab) 650 mg Q6H PRN PO PAIN AND OR ELEVATED TEMP Last administered on 08/30/17 17:04; Admin Dose 650 MG; Start 08/18/17 at 15:00 Lactobacillus Acidophilus/ Rhamnosus (Culturelle) 1 cap BID PO Last administered on 08/30/17 08:17; Admin Dose 1 CAP; Start 08/21/17 at 11:30 Methadone HCl (Methadone) 5 mg Q8H PRN PO PAIN Last administered on 08/30/17 17:43; Admin Dose 5 MG; Start 08/22/17 at 17:30 Lorazepam (Ativan) 0.5 mg Q8H PRN PO ANXIETY Last administered on 08/30/17 17 :42; Admin Dose 0.5 MG; Start 08/24/17 at 16:00 Zolpidem Tartrate (Ambien) 5 mg HS PRN PO INSOMNIA Last administered on 21:06; Admin Dose 5 MG; Start 08/24/17 at 21:30 Insulin Glargine (Lantus) 18 unit DAILY@08 SC Last administered on 08/30/17 08:35; Admin Dose 18 UNIT; Start 08/29/17 at 08:00 MASON HANEY MD Aug 30, 2017 17:59
[2017-08-30 20:00] VITALS: BP 119/64; RESP 19
[2017-08-30] MEDS: ZOLPIDEM 5 MG TAB PO PRN (22:12)
[2017-08-31] MEDS ORDERED: DEXTROSE 5%-0.45% NACL 1,000 ML IV SCH (01:00)
[2017-08-31] MEDS: METHADONE 5 MG TAB PO PRN ×3 (01:35→18:38)
[2017-08-31] MEDS: LORAZEPAM 0.5 MG TAB PO PRN ×3 (01:38→18:38)
[2017-08-31 02:00] VITALS: BP 120/62; RESP 18
[2017-08-31] MEDS: ACCU-CHEK XX SCH (02:00)
[2017-08-31 05:55] LABS: BASOPHIL # 0.1 10^3/ul (0.0-0.1); BASOPHILS % 1.6 % (0.0-2.0); EOSINOPHILS # 0.2 10^3/ul (0.0-0.5); EOSINOPHILS % 4.2 % (0.0-7.0); HEMATOCRIT 36.1 % (42.0-52.0); HEMOGLOBIN 11.9 g/dl (14.0-18.0); LYMPHOCYTES # 2.6 10^3/ul (0.8-2.9); LYMPHOCYTES % 46.6 % (15.0-51.0); MEAN CORPUSCULAR HEMOGLOBIN 31.9 pg (29.0-33.0); MEAN CORPUSCULAR VOLUME 96.8 fl (82.0-101.0); MEAN PLATELET VOLUME 10.9 fl (7.4-10.4); MONOCYTE # 0.6 10^3/ul (0.3-0.9); MONOCYTES % 10.5 % (0.0-11.0); NEUTROPHILS % 36.9 % (39.0-77.0); PLATELET COUNT 195 10^3/UL (140-415); RED BLOOD COUNT 3.73 10^6/ul (4.70-6.10); RED CELL DISTRIBUTION WIDTH 13.9 % (11.5-14.5); WHITE BLOOD COUNT 5.5 10^3/ul (4.8-10.8)
[2017-08-31 06:51] LABS: CALCIUM 9.1 mg/dl (8.4-10.2); CREATININE 0.91 mg/dl (0.61-1.24); MAGNESIUM 1.7 mg/dl (1.7-2.5); POTASSIUM 4.3 mmol/L (3.5-5.1)
[2017-08-31 07:42] VITALS: BP 122/66; RESP 20
[2017-08-31] MEDS ORDERED: INSULIN GLARGINE [LANtus] 3 ML PEN SC ONE (08:00)
[2017-08-31] MEDS: INSULIN ASPART [NOVOLOG] 3 ML PEN SC SCH ×8 (08:08→21:00)
[2017-08-31] MEDS: CREON (12k-38k-60k) 1 CAP PO SCH ×3 (08:15→18:19)
[2017-08-31] MEDS: LACTOBACILLUS RHAMNOSUS CAP PO SCH ×2 (09:00→21:18)
[2017-08-31] MEDS: ASPIRIN 81 MG TAB PO SCH (09:00)
[2017-08-31] MEDS: NICOTINE (14 MG/24 HR) PATCH TRANSDERM SCH (10:06)
[2017-08-31 12:56] VITALS: BP 118/66; RESP 20
--- NOTE | 2017-08-31 12:57 | CONS ---
Date/Time of Note Date/Time of Note DATE: 08/31/17 TIME: 12:54 Assessment/Plan Assessment/Plan Chief Complaint/Hosp Course 52-year-old male with a reported history of diabetes over the last 7 years. He presented to [facility] several years ago with gallstone pancreatitis and significant pancreatic abnormalities. He reports he underwent [place] [facility] [place] resection of the pancreas which rendered him diabetic at that time. He reports that he has been on insulin since then although he has missed insulin and has not gone into DKA despite having missed it for more than 48 hours. Problems: (1) Chronic osteomyelitis of thoracic spine Status: Chronic Comment: Patient scheduled for bone biopsy today. I will go ahead and order the sedimentation rate and C-reactive protein so we have a biochemical test be able to follow the response to treatment. Antibiotics as per the determination of our infectious disease colleagues. (2) Exocrine pancreatic insufficiency Status: Chronic Comment: Patient is on pancreatic enzymes specifically Creon successfully. (3) Diabetes mellitus out of control Status: Chronic Comment: Please note and the newer nomenclature this can be described as diabetes mellitus type IIIc. 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 As such an insulin based protocol is in his best interest. Could be supplemented with a sensitizing agent on top of the insulin not instead of the insulin. At the present time he has adequate control Qualifiers: Diabetes mellitus type: due to underlying condition Diabetes mellitus complication status: without complication Diabetes mellitus fpc insulin use: with fpc use Qualified Code: E08.9 - Diabetes mellitus due to underlying condition, uncontrolled, without complication, with long-term current use of insulin (4) Chronic pain syndrome Status: Chronic Comment: As per primary team apparently control is fair (5) Alcohol abuse Status: Chronic Comment: He is possibly where we would worry about withdrawal or DTs. He is actually been in the hospital long enough these completed detoxification. As such consideration could be made for him to go to a rehabilitation center as long as it could be one that would allow for the antibiotics. Consultation Date/Type/Reason Admit Date/Time Aug 15, 2017 at 19:21 Initial Consult Date 08/23/17 Type of Consultation: Endocrinology Reason for Consultation Diabetes mellitus type 2 out of control; probable T-spine osteomyelitis chronic ; chronic pain syndrome Referring Provider: SALUD GARIBAY MD 24 HR Interval Summary Constitutional: no complaints Detailed Summary Respiratory: no complaints Cardiovascular: no complaints Gastrointestinal: no complaints Exam/Review of Systems Vital Signs Vitals Vital Signs Date Time Temp Pulse Resp B/P Pulse Ox O2 Delivery O2 Flow Rate FiO2 08/31/17 07:42 97.7 60 20 122/66 98 08/28/17 14:35 Room Air Intake and Output 08/30/17 08/30/17 08/31/17 15:00 23:00 07:00 Intake Total 1220 ml 1500 ml Output Total 800 ml 1200 ml Balance 420 ml 300 ml Results No change in exam Result Diagram: 08/31/17 0513 08/31/17 0513 Results 24 hrs Laboratory Tests Test 08/30/17 17:06 08/30/17 21:00 08/31/17 05:13 08/31/17 08:02 Bedside Glucose 120 150 181 White Blood Count 5.5 Red Blood Count 3.73 L Hemoglobin 11.9 L Hematocrit 36.1 L Mean Corpuscular Volume 96.8 Mean Corpuscular Hemoglobin 31.9 Mean Corpuscular Hemoglobin Concent 33.0 Red Cell Distribution Width 13.9 Platelet Count 195 Mean Platelet Volume 10.9 H Neutrophils % 36.9 L Lymphocytes % 46.6 Monocytes % 10.5 Eosinophils % 4.2 Basophils % 1.6 Nucleated Red Blood Cells % 0.0 Neutrophils # 2.0 Lymphocytes # 2.6 Monocytes # 0.6 Eosinophils # 0.2 Basophils # 0.1 Nucleated Red Blood Cells # 0.0 Sodium Level 139 Potassium Level 4.3 Chloride Level 103 Carbon Dioxide Level 30 Anion Gap 10 Blood Urea Nitrogen 30 H Creatinine 0.91 Glucose Level 233 H Calcium Level 9.1 Phosphorus Level 4.0 Magnesium Level 1.7 Test 08/31/17 12:07 Bedside Glucose 220 Medications Medications Current Medications Aspirin (Aspirin) 81 mg DAILY PO Last administered on 08/30/17 08:17; Admin Dose 81 MG; Start 08/16/17 at 09:00 Ondansetron HCl (Zofran Inj) 4 mg Q6H PRN IV NAUSEA AND/OR VOMITING; Start 08/22 at 19:00 Bisacodyl (Dulcolax) 5 mg DAILY PRN PO CONSTIPATION; Start 08/15/17 at 19:00 Nicotine (Nicoderm 14 Mg/ 24hr) 1 patch DAILY TRANSDERM Last administered on 10:06; Admin Dose 1 PATCH; Start 08/16/17 at 09:00 Miscellaneous Information 1 ea NOTE XX ; Start 08/15/17 at 19:30 Glucose (Glutose) 15 gm Q15M PRN PO DECREASED GLUCOSE; Start 08/15/17 at 19:30 Glucose (Glutose) 22.5 gm Q15M PRN PO DECREASED GLUCOSE; Start 08/15/17 at 19: 30 Dextrose (D50w Syringe) 25 ml Q15M PRN IV DECREASED GLUCOSE; Start 08/15/17 at 19:30 Dextrose (D50w Syringe) 50 ml Q15M PRN IV DECREASED GLUCOSE; Start 08/15/17 at 19:30 Glucagon (Glucagen) 1 mg Q15M PRN IM DECREASED GLUCOSE; Start 08/15/17 at 19: 30 Glucose (Glutose) 15 gm Q15M PRN BUCCAL DECREASED GLUCOSE Last administered on 08/26/17 17:18; Admin Dose 15 GM; Start 08/15/17 at 19:30 Diagnostic Test (Pha) (Accu-Chek) 1 ea 02 XX Last administered on 08/25/17 01 :50; Admin Dose 1 EA; Start 08/18/17 at 02:00 Acetaminophen (Tylenol Tab) 650 mg Q6H PRN PO PAIN AND OR ELEVATED TEMP Last administered on 08/30/17 17:04; Admin Dose 650 MG; Start 08/18/17 at 15:00 Lactobacillus Acidophilus/ Rhamnosus (Culturelle) 1 cap BID PO Last administered on 08/30/17 21:05; Admin Dose 1 CAP; Start 08/21/17 at 11:30 Methadone HCl (Methadone) 5 mg Q8H PRN PO PAIN Last administered on 08/31/17 10:10; Admin Dose 5 MG; Start 08/22/17 at 17:30 Lorazepam (Ativan) 0.5 mg Q8H PRN PO ANXIETY Last administered on 08/31/17 10 :07; Admin Dose 0.5 MG; Start 08/24/17 at 16:00 Zolpidem Tartrate (Ambien) 5 mg HS PRN PO INSOMNIA Last administered on 22:12; Admin Dose 5 MG; Start 08/24/17 at 21:30 Insulin Glargine (Lantus) 19 unit DAILY@08 SC ; Start 09/01/17 at 08:00; Status UNV MASON HANEY MD Aug 31, 2017 12:57
[2017-08-31] MEDS: CEFTRIAXONE 1 GM/50 ML (PMX) 50 ML IVPB SCH (13:46)
[2017-08-31] MEDS: ACETAMINOPHEN 325 MG TAB PO PRN ×2 (14:29→21:18)
[2017-08-31] MEDS: SOD CHLORIDE 0.9% IVPB SCH (15:26)
[2017-08-31] MEDS: DAPTOMYCIN IVPB SCH (15:26)
--- NOTE | 2017-08-31 15:27 | PN ---
Date/Time of Note Date/Time of Note DATE: 08/31/17 TIME: 15:24 Assessment/Plan VTE Prophylaxis VTE Prophylaxis Intervention: ambulation Lines/Catheters IV Catheter Type (from [facility]): Saline Lock Urinary Cath still in place: No Assessment/Plan Chief Complaint/Hosp Course Patient is a 52-year-old alcoholic and medically noncompliant diabetic who presents to [facility] and is admitted for hyperglycemia and elevated lactic acid Assessment/Plan #. Diabetes Mellitus, uncontrolled - Appears to be better controlled on new regimen - A1c 9.5. 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 Arthur, neurosurgery consulted, states non surgical at this time, however requests ID consult - ID has been consulted, recommended biopsy. however biopsy is too high risk per IR. - will treat empirically per ID, will try to obtain records from [facility] regarding stay/retail operations specialist who saw the patient, he can not remember the name clearly. #. Altered mental status, likely secondary to alcohol abuse- resolved - Patient is mentating well and reevaluation by tele psych cleared patient - no witnessed seizures and continuing seizure precautions. - Ativan TID prn which has been helping his mood. Offered intermediate manager medications for mood control as well but refusing and states he feels lonely and depressed and anxious when on other medications - Given information for support for alcohol abuse #. Anion gap metabolic acidosis, moderate, not full DKA, secondary to medical noncompliance- resolved #. suicidal ideation - No longer experiencing SI and cleared by tele-psych #. Lactic acidosis - resolved #. Hypernatremia, likely secondary to volume depletion given alcohol extent- resolved #. Elevated AST and ALT, resolved #. Mood Disorder - Improved - Denies any SI #. Disposition - biopsy deferred as it is too high risk - empiric abx for 2-4 weeks per ID, will place PICC tomorrow - need to find who saw the patient at [facility] in order to arrange outpatient f/u or transfer. Problems: Subjective 24 Hr Interval Summary Free Text/Dictation no acute issues, wishes to proceed with plan of care Exam/Review of Systems Vital Signs Vitals Vital Signs Date Time Temp Pulse Resp B/P Pulse Ox O2 Delivery O2 Flow Rate FiO2 08/31/17 12:56 97.9 55 20 118/66 99 08/28/17 14:35 Room Air Intake and Output 08/30/17 08/30/17 08/31/17 15:00 23:00 07:00 Intake Total 1220 ml 1500 ml Output Total 800 ml 1200 ml Balance 420 ml 300 ml Exam General: Patient is laying in bed and answers questions appropriately Head: Normocephalic atraumatic Eyes: EOMI, pupils reactive to light Neck: Supple, nontender, midline Respiratory: Clear to auscultation bilaterally. no wheezes or crackles Cardiovascular: regular rate, no obvious murmurs Gastrointestinal: non-tender to palpation, bowel sounds heard. Extremities: No tenderness to palpation spine, moving all extremities Neurological: Moves all extremities spontaneously Psych: Flat affect. no SI/HI Skin: No new skin lesions Results Result Diagram: 08/31/17 0513 08/31/17 0513 Results 24 hrs Laboratory Tests Test 08/30/17 17:06 08/30/17 21:00 08/31/17 05:13 08/31/17 08:02 Bedside Glucose 120 150 181 White Blood Count 5.5 Red Blood Count 3.73 L Hemoglobin 11.9 L Hematocrit 36.1 L Mean Corpuscular Volume 96.8 Mean Corpuscular Hemoglobin 31.9 Mean Corpuscular Hemoglobin Concent 33.0 Red Cell Distribution Width 13.9 Platelet Count 195 Mean Platelet Volume 10.9 H Neutrophils % 36.9 L Lymphocytes % 46.6 Monocytes % 10.5 Eosinophils % 4.2 Basophils % 1.6 Nucleated Red Blood Cells % 0.0 Neutrophils # 2.0 Lymphocytes # 2.6 Monocytes # 0.6 Eosinophils # 0.2 Basophils # 0.1 Nucleated Red Blood Cells # 0.0 Sodium Level 139 Potassium Level 4.3 Chloride Level 103 Carbon Dioxide Level 30 Anion Gap 10 Blood Urea Nitrogen 30 H Creatinine 0.91 Glucose Level 233 H Calcium Level 9.1 Phosphorus Level 4.0 Magnesium Level 1.7 Test 08/31/17 12:07 Bedside Glucose 220 Medications Medications Current Medications Aspirin (Aspirin) 81 mg DAILY PO Last administered on 08/30/17t 08:17; Admin Dose 81 MG; Start 08/16/17 at 09:00 Ondansetron HCl (Zofran Inj) 4 mg Q6H PRN IV NAUSEA AND/OR VOMITING; Start 08/22 at 19:00 Bisacodyl (Dulcolax) 5 mg DAILY PRN PO CONSTIPATION; Start 08/15/17 at 19:00 Nicotine (Nicoderm 14 Mg/ 24hr) 1 patch DAILY TRANSDERM Last administered on 10:06; Admin Dose 1 PATCH; Start 08/16/17 at 09:00 Miscellaneous Information 1 ea NOTE XX ; Start 08/15/17 at 19:30 Glucose (Glutose) 15 gm Q15M PRN PO DECREASED GLUCOSE; Start 08/15/17 at 19:30 Glucose (Glutose) 22.5 gm Q15M PRN PO DECREASED GLUCOSE; Start 08/15/17 at 19: 30 Dextrose (D50w Syringe) 25 ml Q15M PRN IV DECREASED GLUCOSE; Start 08/15/17 at 19:30 Dextrose (D50w Syringe) 50 ml Q15M PRN IV DECREASED GLUCOSE; Start 08/15/17 at 19:30 Glucagon (Glucagen) 1 mg Q15M PRN IM DECREASED GLUCOSE; Start 08/15/17 at 19: 30 Glucose (Glutose) 15 gm Q15M PRN BUCCAL DECREASED GLUCOSE Last administered on 08/26/17 17:18; Admin Dose 15 GM; Start 08/15/17 at 19:30 Diagnostic Test (Pha) (Accu-Chek) 1 ea 02 XX Last administered on 08/25/17 01 :50; Admin Dose 1 EA; Start 08/18/17 at 02:00 Acetaminophen (Tylenol Tab) 650 mg Q6H PRN PO PAIN AND OR ELEVATED TEMP Last administered on 08/31/17 14:29; Admin Dose 650 MG; Start 08/18/17 at 15:00 Lactobacillus Acidophilus/ Rhamnosus (Culturelle) 1 cap BID PO Last administered on 08/30/17 21:05; Admin Dose 1 CAP; Start 08/21/17 at 11:30 Methadone HCl (Methadone) 5 mg Q8H PRN PO PAIN Last administered on 08/31/17 10:10; Admin Dose 5 MG; Start 08/22/17 at 17:30 Lorazepam (Ativan) 0.5 mg Q8H PRN PO ANXIETY Last administered on 08/31/17 10 :07; Admin Dose 0.5 MG; Start 08/24/17 at 16:00 Zolpidem Tartrate (Ambien) 5 mg HS PRN PO INSOMNIA Last administered on 22:12; Admin Dose 5 MG; Start 08/24/17 at 21:30 Insulin Glargine 19 unit 19 unit DAILY@08 SC ; Start 09/01/17 at 08:00 Daptomycin 430 mg/ Sodium Chloride 100 ml @ 200 mls/hr Q24H IVPB ; Start 08/31 at 15:00 Ceftriaxone Sodium (Rocephin) 50 ml @ 100 mls/hr Q24H IVPB Last administered on 08/31/17 13:46; Admin Dose 100 MLS/HR; Start 08/31/17 at 13:30 SELINA HDZ Aug 31, 2017 15:27
--- NOTE | 2017-08-31 17:34 | PN ---
DATE: 08/31/2017 SUBJECTIVE: The patient is awake. Complaining of back pain. Looks comfortable. No fevers. VITAL SIGNS: Temperature 97.9, pulse 60, respirations 20, blood pressure 122/66 , saturation 98 on room air. LABORATORY: WBC 5.5, platelets 195, no shift, no bands. BUN 30, creatinine 0.91. DIAGNOSTICS: MRI of the thoracic spine revealed severely comminuted anterior compression deformity of the C7 vertebral body concerning for possible pathologic fracture. MICROBIOLOGY: Blood and urine cultures remain negative. PHYSICAL EXAMINATION: GENERAL: This is a well-developed, middle-aged, white man who is awake, in no distress. HEENT: Head atraumatic, normocephalic. Sclerae anicteric. Buccal mucosa pink , dry. NECK: Supple. CHEST: Rise symmetrical. Breath sounds clear. HEART: S1, S2. ABDOMEN: Soft. Bowel tones present. EXTREMITIES: No cyanosis. ASSESSMENT: 1. Back pain with a history of spinal osteomyelitis, possibly partially treated as per orthopedic note. 2. Diabetes. 3. Psychiatric disorders with a history of suicidal ideation and mood disorder. 4. History of diskitis versus osteomyelitis. The patient was followed at [facility] and had been on antibiotics, completed treatment. PLAN: The patient remains clinically and hemodynamically stable. He is being seen by neurosurgery who recommended a spinal biopsy which cannot be done at this time because of the high risk as per radiology note. The patient needs to follow with ortho team at [facility] as they have his original records and radiographic imaging to compare with the current ones and give him recommendations in regards to further treatments. Meanwhile, we may need to will start him on broad spectrum antibiotics and ask pillowcase maker to arrange either followup appointment with ortho surgeon at [facility] versus transferring him there. Above was discussed with primary team. Above was discussed with Dr. Grayson Stevens. Dictated By: CA BAHENA FILTER TANK TENDER HELPER HEAD for GRAYSON COBURN/NATALIE Conf#: [id number] DID#: [id number] SALTY
[2017-08-31 20:44] VITALS: BP 126/63; RESP 20
[2017-08-31] MEDS: ZOLPIDEM 5 MG TAB PO PRN (21:17)
[2017-09-01] MEDS: ACCU-CHEK XX SCH (01:03)
[2017-09-01 02:00] VITALS: BP 146/70; RESP 18
[2017-09-01] MEDS: METHADONE 5 MG TAB PO PRN ×3 (02:02→18:13)
[2017-09-01] MEDS: LORAZEPAM 0.5 MG TAB PO PRN ×3 (02:02→18:14)
[2017-09-01 07:37] VITALS: BP 128/70; RESP 20
[2017-09-01 07:40] LABS: ANION GAP 16 (8-16); BLOOD UREA NITROGEN 35 mg/dl (7-20); CALCIUM 9.2 mg/dl (8.4-10.2); CARBON DIOXIDE 28 mmol/L (21-31); CHLORIDE 99 mmol/L (97-110); CREATININE 0.97 mg/dl (0.61-1.24); GLUCOSE 336 mg/dl (70-220); POTASSIUM 4.6 mmol/L (3.5-5.1); SODIUM 138 mmol/L (135-144)
[2017-09-01 07:45] LABS: C-REACTIVE PROTEIN < 0.5 mg/dl (0.0-0.9)
[2017-09-01] MEDS: CREON (12k-38k-60k) 1 CAP PO SCH ×3 (07:54→17:51)
[2017-09-01] MEDS: INSULIN ASPART [NOVOLOG] 3 ML PEN SC SCH ×7 (07:59→21:19)
[2017-09-01] MEDS: INSULIN GLARGINE [LANtus] 3 ML PEN SC SCH (07:59)
[2017-09-01] MEDS: NICOTINE (14 MG/24 HR) PATCH TRANSDERM SCH (08:02)
[2017-09-01] MEDS: ASPIRIN 81 MG TAB PO SCH (08:02)
[2017-09-01] MEDS: LACTOBACILLUS RHAMNOSUS CAP PO SCH ×2 (08:02→21:11)
[2017-09-01] MEDS ORDERED: LIDOCAINE 1% (MPF) 5 ML VIAL SC ONE (11:30)
--- NOTE | 2017-09-01 12:46 | CONS ---
Date/Time of Note Date/Time of Note DATE: 09/01/17 TIME: 12:44 Consult Date/Type/Reason Admit Date/Time Aug 15, 2017 at 19:21 Initial Consult Date 08/29/17 Type of Consultation: ID Ordering Provider: SALUD GARIBAY MD Objective Vital Signs Date Time Temp Pulse Resp B/P Pulse Ox O2 Delivery O2 Flow Rate FiO2 09/01/17 07:37 98.4 55 20 128/70 99 08/28/17 14:35 Room Air Intake and Output 08/31/17 08/31/17 09/01/17 15:00 23:00 07:00 Intake Total 550 ml 780 ml 700 ml Output Total 1200 ml Balance 550 ml -420 ml 700 ml Results/Medications Result Diagram: 08/31/17 0513 09/01/17 0628 Results 24 hrs Laboratory Tests Test 08/31/17 17:23 08/31/17 21:10 09/01/17 06:28 09/01/17 07:51 Bedside Glucose 126 143 296 H Erythrocyte Sedimentation Rate 8 Sodium Level 138 Potassium Level 4.6 Chloride Level 99 Carbon Dioxide Level 28 Anion Gap 16 Blood Urea Nitrogen 35 H Creatinine 0.97 Glucose Level 336 H Calcium Level 9.2 Creatine Kinase 36 C-Reactive Protein < 0.5 Test 09/01/17 12:05 Bedside Glucose 207 Medications Current Medications Aspirin (Aspirin) 81 mg DAILY PO Last administered on 09/01/17 08:02; Admin Dose 81 MG; Start 08/16/17 at 09:00 Ondansetron HCl (Zofran Inj) 4 mg Q6H PRN IV NAUSEA AND/OR VOMITING; Start 08/22 at 19:00 Bisacodyl (Dulcolax) 5 mg DAILY PRN PO CONSTIPATION; Start 08/15/17 at 19:00 Nicotine (Nicoderm 14 Mg/ 24hr) 1 patch DAILY TRANSDERM Last administered on 08:02; Admin Dose 1 PATCH; Start 08/16/17 at 09:00 Miscellaneous Information 1 ea NOTE XX ; Start 08/15/17 at 19:30 Glucose (Glutose) 15 gm Q15M PRN PO DECREASED GLUCOSE; Start 08/15/17 at 19:30 Glucose (Glutose) 22.5 gm Q15M PRN PO DECREASED GLUCOSE; Start 08/15/17 at 19: 30 Dextrose (D50w Syringe) 25 ml Q15M PRN IV DECREASED GLUCOSE; Start 08/15/17 at 19:30 Dextrose (D50w Syringe) 50 ml Q15M PRN IV DECREASED GLUCOSE; Start 08/15/17 at 19:30 Glucagon (Glucagen) 1 mg Q15M PRN IM DECREASED GLUCOSE; Start 08/15/17 at 19: 30 Glucose (Glutose) 15 gm Q15M PRN BUCCAL DECREASED GLUCOSE Last administered on 08/26/17 17:18; Admin Dose 15 GM; Start 08/15/17 at 19:30 Diagnostic Test (Pha) (Accu-Chek) 1 ea 02 XX Last administered on 08/25/17 01 :50; Admin Dose 1 EA; Start 08/18/17 at 02:00 Acetaminophen (Tylenol Tab) 650 mg Q6H PRN PO PAIN AND OR ELEVATED TEMP Last administered on 08/31/17 21:18; Admin Dose 650 MG; Start 08/18/17 at 15:00 Lactobacillus Acidophilus/ Rhamnosus (Culturelle) 1 cap BID PO Last administered on 09/01/17 08:02; Admin Dose 1 CAP; Start 08/21/17 at 11:30 Methadone HCl (Methadone) 5 mg Q8H PRN PO PAIN Last administered on 09/01/17 10:10; Admin Dose 5 MG; Start 08/22/17 at 17:30 Lorazepam (Ativan) 0.5 mg Q8H PRN PO ANXIETY Last administered on 09/01/17 10 :10; Admin Dose 0.5 MG; Start 08/24/17 at 16:00 Zolpidem Tartrate (Ambien) 5 mg HS PRN PO INSOMNIA Last administered on 21:17; Admin Dose 5 MG; Start 08/24/17 at 21:30 Insulin Glargine 19 unit 19 unit DAILY@08 SC Last administered on 09/01/17 07 :59; Admin Dose 19 UNIT; Start 09/01/17 at 08:00 Daptomycin 430 mg/ Sodium Chloride 100 ml @ 200 mls/hr Q24H IVPB Last administered on 08/31/17 15:26; Admin Dose 200 MLS/HR; Start 08/31/17 at 15: 00 Ceftriaxone Sodium (Rocephin) 50 ml @ 100 mls/hr Q24H IVPB Last administered on 08/31/17t 13:46; Admin Dose 100 MLS/HR; Start 08/31/17 at 13:30 Assessment/Plan Chief Complaint/Hosp Course SUBJECTIVE: The patient is awake. Looks comfortable. No fevers. MICROBIOLOGY: Blood and urine cultures remain negative. Abx: Daptomycin, Rocephin PHYSICAL EXAMINATION: GENERAL: This is a well-developed, middle-aged, white man who is awake, in no distress. HEENT: Head atraumatic, normocephalic. Sclerae anicteric. Buccal mucosa pink , dry. NECK: Supple. CHEST: Rise symmetrical. Breath sounds clear. HEART: S1, S2. ABDOMEN: Soft. Bowel tones present. EXTREMITIES: No cyanosis. ASSESSMENT: 1. Ongoing back pain with a history of spinal osteomyelitis, possibly partially treated as per orthopedic note. 2. Diabetes. 3. Psychiatric disorders with a history of suicidal ideation and mood disorder. 4. History of diskitis versus osteomyelitis. The patient was followed at [facility] and had been on antibiotics, completed treatment. PLAN: The patient remains clinically and hemodynamically stable. Recommend to keep him on abx until he sees ortho team at [facility] for further rec-s. ANA staff Problems: CA BAHENA NP Sep 01, 2017 12:46
[2017-09-01 13:13] VITALS: BP 130/69; RESP 18
--- NOTE | 2017-09-01 13:24 | PN ---
Date/Time of Note Date/Time of Note DATE: 09/01/17 TIME: 13:19 Assessment/Plan VTE Prophylaxis VTE Prophylaxis Intervention: ambulation Lines/Catheters IV Catheter Type (from Nrsg): Saline Lock Urinary Cath still in place: No Assessment/Plan Chief Complaint/Hosp Course Patient is a 52-year-old alcoholic and medically noncompliant diabetic who presents to [facility] and is admitted for hyperglycemia and elevated lactic acid Assessment/Plan #. Diabetes Mellitus, uncontrolled - Appears to be better controlled on new regimen - A1c 9.5. 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 Arthur, neurosurgery consulted, states non surgical at this time, however requests ID consult - ID has been consulted, recommended biopsy. however biopsy is too high risk per IR. - will treat empirically per ID, 4 weeks IV abx, picc line today - cm to arrange appt with [facility], as noted in previous DC summary from records from [facility] #. Altered mental status, likely secondary to alcohol abuse- resolved - Patient is mentating well and reevaluation by tele psych cleared patient - no witnessed seizures and continuing seizure precautions. - Ativan TID prn which has been helping his mood, prn. Offered residential medications for mood control as well but refusing and states he feels lonely and depressed and anxious when on other medications - Given information for support for alcohol abuse #. Anion gap metabolic acidosis, moderate, not full DKA, secondary to medical noncompliance- resolved #. suicidal ideation - No longer experiencing SI and cleared by tele-psych #. Lactic acidosis - resolved #. Hypernatremia, likely secondary to volume depletion given alcohol extent- resolved #. Elevated AST and ALT, resolved #. Mood Disorder - Improved - Denies any SI #. Disposition - biopsy deferred as it is too high risk - empiric abx for 4 weeks per ID, will place PICC - will need to arrange outpatient appt with [facility] before DC Problems: Subjective 24 Hr Interval Summary Free Text/Dictation no acute issues Exam/Review of Systems Vital Signs Vitals Vital Signs Date Time Temp Pulse Resp B/P Pulse Ox O2 Delivery O2 Flow Rate FiO2 09/01/17 13:13 98.0 62 18 130/69 98 08/28/17 14:35 Room Air Intake and Output 08/31/17 08/31/17 09/01/17 15:00 23:00 07:00 Intake Total 550 ml 780 ml 700 ml Output Total 1200 ml Balance 550 ml -420 ml 700 ml Exam General: Patient is laying in bed and answers questions appropriately Head: Normocephalic atraumatic Eyes: EOMI, pupils reactive to light Neck: Supple, nontender, midline Respiratory: Clear to auscultation bilaterally. no wheezes or crackles Cardiovascular: regular rate, no obvious murmurs Gastrointestinal: non-tender to palpation, bowel sounds heard. Extremities: No tenderness to palpation spine, moving all extremities Neurological: Moves all extremities spontaneously Psych: Flat affect. no SI/HI Skin: No new skin lesions Results Result Diagram: 08/31/17 0513 09/01/17 0628 Results 24 hrs Laboratory Tests Test 08/31/17 17:23 08/31/17 21:10 09/01/17 06:28 09/01/17 07:51 Bedside Glucose 126 143 296 H Erythrocyte Sedimentation Rate 8 Sodium Level 138 Potassium Level 4.6 Chloride Level 99 Carbon Dioxide Level 28 Anion Gap 16 Blood Urea Nitrogen 35 H Creatinine 0.97 Glucose Level 336 H Calcium Level 9.2 Creatine Kinase 36 C-Reactive Protein < 0.5 Test 09/01/17 12:05 Bedside Glucose 207 Medications Medications Current Medications Aspirin (Aspirin) 81 mg DAILY PO Last administered on 09/01/17 08:02; Admin Dose 81 MG; Start 08/16/17 at 09:00 Ondansetron HCl (Zofran Inj) 4 mg Q6H PRN IV NAUSEA AND/OR VOMITING; Start 08/22 at 19:00 Bisacodyl (Dulcolax) 5 mg DAILY PRN PO CONSTIPATION; Start 08/15/17 at 19:00 Nicotine (Nicoderm 14 Mg/ 24hr) 1 patch DAILY TRANSDERM Last administered on 08:02; Admin Dose 1 PATCH; Start 08/16/17 at 09:00 Miscellaneous Information 1 ea NOTE XX ; Start 08/15/17 at 19:30 Glucose (Glutose) 15 gm Q15M PRN PO DECREASED GLUCOSE; Start 08/15/17 at 19:30 Glucose (Glutose) 22.5 gm Q15M PRN PO DECREASED GLUCOSE; Start 08/15/17 at 19: 30 Dextrose (D50w Syringe) 25 ml Q15M PRN IV DECREASED GLUCOSE; Start 08/15/17 at 19:30 Dextrose (D50w Syringe) 50 ml Q15M PRN IV DECREASED GLUCOSE; Start 08/15/17 at 19:30 Glucagon (Glucagen) 1 mg Q15M PRN IM DECREASED GLUCOSE; Start 08/15/17 at 19: 30 Glucose (Glutose) 15 gm Q15M PRN BUCCAL DECREASED GLUCOSE Last administered on 08/26/17 17:18; Admin Dose 15 GM; Start 08/15/17 at 19:30 Diagnostic Test (Pha) (Accu-Chek) 1 ea 02 XX Last administered on 08/25/17 01 :50; Admin Dose 1 EA; Start 08/18/17 at 02:00 Acetaminophen (Tylenol Tab) 650 mg Q6H PRN PO PAIN AND OR ELEVATED TEMP Last administered on 08/31/17 21:18; Admin Dose 650 MG; Start 08/18/17 at 15:00 Lactobacillus Acidophilus/ Rhamnosus (Culturelle) 1 cap BID PO Last administered on 09/01/17 08:02; Admin Dose 1 CAP; Start 08/21/17 at 11:30 Methadone HCl (Methadone) 5 mg Q8H PRN PO PAIN Last administered on 09/01/17 10:10; Admin Dose 5 MG; Start 08/22/17 at 17:30 Lorazepam (Ativan) 0.5 mg Q8H PRN PO ANXIETY Last administered on 09/01/17 10 :10; Admin Dose 0.5 MG; Start 08/24/17 at 16:00 Zolpidem Tartrate (Ambien) 5 mg HS PRN PO INSOMNIA Last administered on 21:17; Admin Dose 5 MG; Start 08/24/17 at 21:30 Insulin Glargine 19 unit 19 unit DAILY@08 SC Last administered on 09/01/17 07 :59; Admin Dose 19 UNIT; Start 09/01/17 at 08:00 Daptomycin 430 mg/ Sodium Chloride 100 ml @ 200 mls/hr Q24H IVPB Last administered on 08/31/17 15:26; Admin Dose 200 MLS/HR; Start 08/31/17 at 15: 00 Ceftriaxone Sodium (Rocephin) 50 ml @ 100 mls/hr Q24H IVPB Last administered on 08/31/17t 13:46; Admin Dose 100 MLS/HR; Start 08/31/17 at 13:30 SELINA HDZ Sep 01, 2017 13:24
[2017-09-01] MEDS: CEFTRIAXONE 1 GM/50 ML (PMX) 50 ML IVPB SCH (13:29)
--- NOTE | 2017-09-01 13:35 | CONS ---
Date/Time of Note Date/Time of Note DATE: 09/01/17 TIME: 13:33 Assessment/Plan Assessment/Plan Chief Complaint/Hosp Course 52-year-old male with a reported history of diabetes over the last 7 years. He presented to [facility] several years ago with gallstone pancreatitis and significant pancreatic abnormalities. He reports he underwent surgery at the [facility] with partial resection of the pancreas which rendered him diabetic at that time. He reports that he has been on insulin since then although he has missed insulin and has not gone into DKA despite having missed it for more than 48 hours. Problems: (1) Chronic osteomyelitis of thoracic spine Status: Chronic Comment: The patient has been evaluated by ID spinal surgery and radiology. Please see their notes. I am very positively encouraged by the patient having a very low C-reactive protein and a low sedimentation rate. This suggests that the patient does not have significant inflammatory issues going on internally. I am in agreement with arranging for the patient follow-up with his original treating physicians at the [facility] in [place] (2) Exocrine pancreatic insufficiency Status: Chronic Comment: Adequate replacement. (3) Chronic pain syndrome Status: Chronic Comment: Pain control is adequate. (4) Diabetes mellitus out of control Status: Chronic Comment: The patient's blood sugar control is adequate although he does very around this is corresponded with some extra access to calories Qualifiers: Diabetes mellitus type: due to underlying condition Diabetes mellitus complication status: without complication Diabetes mellitus halfway insulin use: with halfway use Qualified Code: E08.9 - Diabetes mellitus due to underlying condition, uncontrolled, without complication, with long-term current use of insulin Consultation Date/Type/Reason Admit Date/Time Aug 15, 2017 at 19:21 Initial Consult Date 08/23/17 Type of Consultation: Endocrinology Reason for Consultation Diabetes mellitus type 2; chemical dependency currently dry; history of spinal osteomyelitis; Referring Provider: SALUD GARIBAY MD 24 HR Interval Summary Constitutional: no complaints Exam/Review of Systems Vital Signs Vitals Vital Signs Date Time Temp Pulse Resp B/P Pulse Ox O2 Delivery O2 Flow Rate FiO2 09/01/17 13:13 98.0 62 18 130/69 98 08/28/17 14:35 Room Air Intake and Output 08/31/17 08/31/17 09/01/17 15:00 23:00 07:00 Intake Total 550 ml 780 ml 700 ml Output Total 1200 ml Balance 550 ml -420 ml 700 ml Results No changes Result Diagram: 08/31/17 0513 09/01/17 0628 Results 24 hrs Laboratory Tests Test 08/31/17 17:23 08/31/17 21:10 09/01/17 06:28 09/01/17 07:51 Bedside Glucose 126 143 296 H Erythrocyte Sedimentation Rate 8 Sodium Level 138 Potassium Level 4.6 Chloride Level 99 Carbon Dioxide Level 28 Anion Gap 16 Blood Urea Nitrogen 35 H Creatinine 0.97 Glucose Level 336 H Calcium Level 9.2 Creatine Kinase 36 C-Reactive Protein < 0.5 Test 09/01/17 12:05 Bedside Glucose 207 Medications Medications Current Medications Aspirin (Aspirin) 81 mg DAILY PO Last administered on 09/01/17 08:02; Admin Dose 81 MG; Start 08/16/17 at 09:00 Ondansetron HCl (Zofran Inj) 4 mg Q6H PRN IV NAUSEA AND/OR VOMITING; Start 08/22 at 19:00 Bisacodyl (Dulcolax) 5 mg DAILY PRN PO CONSTIPATION; Start 08/15/17 at 19:00 Nicotine (Nicoderm 14 Mg/ 24hr) 1 patch DAILY TRANSDERM Last administered on 08:02; Admin Dose 1 PATCH; Start 08/16/17 at 09:00 Miscellaneous Information 1 ea NOTE XX ; Start 08/15/17 at 19:30 Glucose (Glutose) 15 gm Q15M PRN PO DECREASED GLUCOSE; Start 08/15/17 at 19:30 Glucose (Glutose) 22.5 gm Q15M PRN PO DECREASED GLUCOSE; Start 08/15/17 at 19: 30 Dextrose (D50w Syringe) 25 ml Q15M PRN IV DECREASED GLUCOSE; Start 08/15/17 at 19:30 Dextrose (D50w Syringe) 50 ml Q15M PRN IV DECREASED GLUCOSE; Start 08/15/17 at 19:30 Glucagon (Glucagen) 1 mg Q15M PRN IM DECREASED GLUCOSE; Start 08/15/17 at 19: 30 Glucose (Glutose) 15 gm Q15M PRN BUCCAL DECREASED GLUCOSE Last administered on 08/26/17 17:18; Admin Dose 15 GM; Start 08/15/17 at 19:30 Diagnostic Test (Pha) (Accu-Chek) 1 ea 02 XX Last administered on 08/25/17 01 :50; Admin Dose 1 EA; Start 08/18/17 at 02:00 Acetaminophen (Tylenol Tab) 650 mg Q6H PRN PO PAIN AND OR ELEVATED TEMP Last administered on 08/31/17 21:18; Admin Dose 650 MG; Start 08/18/17 at 15:00 Lactobacillus Acidophilus/ Rhamnosus (Culturelle) 1 cap BID PO Last administered on 09/01/17 08:02; Admin Dose 1 CAP; Start 08/21/17 at 11:30 Methadone HCl (Methadone) 5 mg Q8H PRN PO PAIN Last administered on 09/01/17 10:10; Admin Dose 5 MG; Start 08/22/17 at 17:30 Lorazepam (Ativan) 0.5 mg Q8H PRN PO ANXIETY Last administered on 09/01/17 10 :10; Admin Dose 0.5 MG; Start 08/24/17 at 16:00 Zolpidem Tartrate (Ambien) 5 mg HS PRN PO INSOMNIA Last administered on 21:17; Admin Dose 5 MG; Start 08/24/17 at 21:30 Insulin Glargine 19 unit 19 unit DAILY@08 SC Last administered on 09/01/17 07 :59; Admin Dose 19 UNIT; Start 09/01/17 at 08:00 Daptomycin 430 mg/ Sodium Chloride 100 ml @ 200 mls/hr Q24H IVPB Last administered on 08/31/17 15:26; Admin Dose 200 MLS/HR; Start 08/31/17 at 15: 00 Ceftriaxone Sodium (Rocephin) 50 ml @ 100 mls/hr Q24H IVPB Last administered on 09/01/17 13:29; Admin Dose 100 MLS/HR; Start 08/31/17 at 13:30 MASON HANEY MD Sep 01, 2017 13:35
[2017-09-01] MEDS ORDERED: SOD CHLORIDE 0.9% 100 ML ONE (15:49)
[2017-09-01 16:03] VITALS: BP 117/57; RESP 18
[2017-09-01] MEDS: SOD CHLORIDE 0.9% IVPB SCH (16:17)
[2017-09-01] MEDS: DAPTOMYCIN IVPB SCH (16:17)
--- NOTE | 2017-09-01 16:40 | RADRPT ---
PROCEDURE: US guidance for PICC line CLINICAL INDICATION: PICC line placement TECHNIQUE: Multiple real-time images were acquired of the patient's arm utilizing a high resolutio n transducer. This was performed by the PICC line nurse for venous access. COMPARISON: None FINDINGS: Ultrasound guidance for PICC line placement. IMPRESSION: Ultrasound guidance for PICC line placement. RPTAT: AA .Gilberto Camp MD, MD Date Time Electronically viewed and signed by .Gilberto Camp MD, on 09/01/2017 16:39 .S/
--- NOTE | 2017-09-01 17:08 | RADRPT ---
PROCEDURE: XR Chest. CLINICAL INDICATION: Check PICC line position. TECHNIQUE: Single frontal view. COMPARISON: 08/15/2017. FINDINGS: There is a right arm PICC line with the tip in the mid superior vena cava. The lungs are clear. The heart size is normal. There is no pleural effusion. There is no pneumothorax. There are old healed left rib and clavicle fractures. IMPRESSION: 1. Right arm PICC line tip in satisfactory position. 2. Old healed left rib and clavicle fractures. 3. Otherwise normal chest radiograph. RPTAT: QQ .Brennan Machuca MD, MD Date Time Electronically viewed and signed by .Brennan Machuca MD, on 09/01/2017 17:08 .R/
[2017-09-01 19:57] VITALS: BP 108/59; RESP 18
[2017-09-01] MEDS: ACETAMINOPHEN 325 MG TAB PO PRN (21:11)
[2017-09-01] MEDS: ZOLPIDEM 5 MG TAB PO PRN (21:12)
[2017-09-02] MEDS: LORAZEPAM 0.5 MG TAB PO PRN ×3 (01:54→17:20)
[2017-09-02] MEDS: METHADONE 5 MG TAB PO PRN ×3 (01:55→17:20)
[2017-09-02 02:00] VITALS: BP 131/67; RESP 18
[2017-09-02] MEDS: ACCU-CHEK XX SCH (02:00)
[2017-09-02 07:38] VITALS: BP 119/64; RESP 16
[2017-09-02] MEDS: CREON (12k-38k-60k) 1 CAP PO SCH ×3 (08:10→17:20)
[2017-09-02] MEDS: LACTOBACILLUS RHAMNOSUS CAP PO SCH ×2 (08:10→20:54)
[2017-09-02] MEDS: ASPIRIN 81 MG TAB PO SCH (08:10)
[2017-09-02] MEDS: NICOTINE (14 MG/24 HR) PATCH TRANSDERM SCH (08:11)
[2017-09-02] MEDS: INSULIN ASPART [NOVOLOG] 3 ML PEN SC SCH ×7 (08:34→20:55)
[2017-09-02] MEDS: INSULIN GLARGINE [LANtus] 3 ML PEN SC SCH (08:34)
--- NOTE | 2017-09-02 11:28 | CONS ---
Date/Time of Note Date/Time of Note DATE: 09/02/17 TIME: 11:27 Assessment/Plan Assessment/Plan Chief Complaint/Hosp Course 52-year-old male with a reported history of diabetes over the last 7 years. He presented to [facility] several years ago with gallstone pancreatitis and significant pancreatic abnormalities. He reports he underwent surgery at the [facility] [place] with partial resection of the pancreas which rendered him diabetic at that time. He reports that he has been on insulin since then although he has missed insulin and has not gone into DKA despite having missed it for more than 48 hours. Problems: (1) Diabetes mellitus out of control Status: Chronic Comment: Adequate but variable control based on his intake. Continue current treatment protocol Qualifiers: Diabetes mellitus type: due to underlying condition Diabetes mellitus complication status: without complication Diabetes mellitus manager intermediate insulin use: with manager intermediate use Qualified Code: E08.9 - Diabetes mellitus due to underlying condition, uncontrolled, without complication, with long-term current use of insulin (2) Chronic pain syndrome Status: Chronic Comment: Adequate control. (3) Chronic osteomyelitis of thoracic spine Status: Chronic Comment: As per infectious disease and primary team. Consultation Date/Type/Reason Admit Date/Time Aug 15, 2017 at 19:21 Initial Consult Date 08/23/17 Type of Consultation: Endocrinology Reason for Consultation Diabetes mellitus with pancreatic beta cell insufficiency and insulin resistance syndrome sometimes referred to his diabetes type IIIc Referring Provider: SALUD GARIBAY MD 24 HR Interval Summary Constitutional: no complaints Detailed Summary Musculoskeletal: back pain Exam/Review of Systems Vital Signs Vitals Vital Signs Date Time Temp Pulse Resp B/P Pulse Ox O2 Delivery O2 Flow Rate FiO2 09/02/17 07:38 98.3 51 16 119/64 97 Intake and Output 09/01/17 09/01/17 09/02/17 14:59 22:59 06:59 Intake Total 50 ml 920 ml Output Total 700 ml Balance 50 ml 220 ml Results No changes Result Diagram: 08/31/17 0513 09/01/17 0628 Results 24 hrs Laboratory Tests Test 09/01/17 12:05 09/01/17 17:18 09/01/17 20:46 09/02/17 02:36 Bedside Glucose 207 162 144 297 H Test 09/02/17 08:03 Bedside Glucose 276 H Medications Medications Current Medications Aspirin (Aspirin) 81 mg DAILY PO Last administered on 09/02/17 08:10; Admin Dose 81 MG; Start 08/16/17 at 09:00 Ondansetron HCl (Zofran Inj) 4 mg Q6H PRN IV NAUSEA AND/OR VOMITING; Start 08/22 at 19:00 Bisacodyl (Dulcolax) 5 mg DAILY PRN PO CONSTIPATION; Start 08/15/17 at 19:00 Nicotine (Nicoderm 14 Mg/ 24hr) 1 patch DAILY TRANSDERM Last administered on 08:11; Admin Dose 1 PATCH; Start 08/16/17 at 09:00 Miscellaneous Information 1 ea NOTE XX ; Start 08/15/17 at 19:30 Glucose (Glutose) 15 gm Q15M PRN PO DECREASED GLUCOSE; Start 08/15/17 at 19:30 Glucose (Glutose) 22.5 gm Q15M PRN PO DECREASED GLUCOSE; Start 08/15/17 at 19: 30 Dextrose (D50w Syringe) 25 ml Q15M PRN IV DECREASED GLUCOSE; Start 08/15/17 at 19:30 Dextrose (D50w Syringe) 50 ml Q15M PRN IV DECREASED GLUCOSE; Start 08/15/17 at 19:30 Glucagon (Glucagen) 1 mg Q15M PRN IM DECREASED GLUCOSE; Start 08/15/17 at 19: 30 Glucose (Glutose) 15 gm Q15M PRN BUCCAL DECREASED GLUCOSE Last administered on 08/26/17 17:18; Admin Dose 15 GM; Start 08/15/17 at 19:30 Diagnostic Test (Pha) (Accu-Chek) 1 ea 02 XX Last administered on 08/25/17 01 :50; Admin Dose 1 EA; Start 08/18/17 at 02:00 Acetaminophen (Tylenol Tab) 650 mg Q6H PRN PO PAIN AND OR ELEVATED TEMP Last administered on 09/01/17 21:11; Admin Dose 650 MG; Start 08/18/17 at 15:00 Lactobacillus Acidophilus/ Rhamnosus (Culturelle) 1 cap BID PO Last administered on 09/02/17 08:10; Admin Dose 1 CAP; Start 08/21/17 at 11:30 Methadone HCl (Methadone) 5 mg Q8H PRN PO PAIN Last administered on 09/02/17 09:58; Admin Dose 5 MG; Start 08/22/17 at 17:30 Lorazepam (Ativan) 0.5 mg Q8H PRN PO ANXIETY Last administered on 09/02/17 09 :57; Admin Dose 0.5 MG; Start 08/24/17 at 16:00 Zolpidem Tartrate (Ambien) 5 mg HS PRN PO INSOMNIA Last administered on 21:12; Admin Dose 5 MG; Start 08/24/17 at 21:30 Insulin Glargine 19 unit 19 unit DAILY@08 SC Last administered on 09/02/17 08 :34; Admin Dose 19 UNIT; Start 09/01/17 at 08:00 Daptomycin 430 mg/ Sodium Chloride 100 ml @ 200 mls/hr Q24H IVPB Last administered on 09/01/17 16:17; Admin Dose 200 MLS/HR; Start 08/31/17 at 15: 00 Ceftriaxone Sodium (Rocephin) 50 ml @ 100 mls/hr Q24H IVPB Last administered on 09/01/17 13:29; Admin Dose 100 MLS/HR; Start 08/31/17 at 13:30 IV Flush (NS 10 ml) 10 ml PRN PRN IV IV PROTOCOL; Start 09/01/17 at 16:00 MASON HANEY MD Sep 02, 2017 11:28
--- NOTE | 2017-09-02 12:14 | PN ---
Date/Time of Note Date/Time of Note DATE: 09/02/17 TIME: 12:13 Assessment/Plan VTE Prophylaxis VTE Prophylaxis Intervention: ambulation Lines/Catheters IV Catheter Type (from Nrsg): PICC Line Central line still needed: Yes Urinary Cath still in place: No Assessment/Plan Chief Complaint/Hosp Course Patient is a 52-year-old alcoholic and medically noncompliant diabetic who presents to [facility] [place] and is admitted for hyperglycemia and elevated lactic acid Assessment/Plan #. Diabetes Mellitus, uncontrolled - Appears to be better controlled on new regimen - A1c 9.5. 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 Arthur, neurosurgery consulted, states non surgical at this time, however requests ID consult - ID has been consulted, recommended biopsy. however biopsy is too high risk per IR. - will treat empirically per ID, 4 weeks IV abx, picc line today - cm to arrange appt with [facility] ID, as noted in previous DC summary from records from [facility] #. Altered mental status, likely secondary to alcohol abuse- resolved - Patient is mentating well and reevaluation by tele psych cleared patient - no witnessed seizures and continuing seizure precautions. - Ativan TID prn which has been helping his mood, prn. Offered alf medications for mood control as well but refusing and states he feels lonely and depressed and anxious when on other medications - Given information for support for alcohol abuse #. Anion gap metabolic acidosis, moderate, not full DKA, secondary to medical noncompliance- resolved #. suicidal ideation - No longer experiencing SI and cleared by tele-psych #. Lactic acidosis - resolved #. Hypernatremia, likely secondary to volume depletion given alcohol extent- resolved #. Elevated AST and ALT, resolved #. Mood Disorder - Improved - Denies any SI #. Disposition - biopsy deferred as it is too high risk - empiric abx for 4 weeks per ID, will place PICC - will need appt with Dr. Augustine Berry, ID with [facility], patient's previous ID doctor, who has been following him. Problems: Subjective 24 Hr Interval Summary Free Text/Dictation no acute issues Exam/Review of Systems Vital Signs Vitals Vital Signs Date Time Temp Pulse Resp B/P Pulse Ox O2 Delivery O2 Flow Rate FiO2 09/02/17 07:38 98.3 51 16 119/64 97 Intake and Output 09/01/17 09/01/17 09/02/17 14:59 22:59 06:59 Intake Total 50 ml 920 ml Output Total 700 ml Balance 50 ml 220 ml Exam General: Patient is laying in bed and answers questions appropriately Head: Normocephalic atraumatic Eyes: EOMI, pupils reactive to light Neck: Supple, nontender, midline Respiratory: Clear to auscultation bilaterally. no wheezes or crackles Cardiovascular: regular rate, no obvious murmurs Gastrointestinal: non-tender to palpation, bowel sounds heard. Extremities: No tenderness to palpation spine, moving all extremities Neurological: Moves all extremities spontaneously Psych: Flat affect. no SI/HI Skin: No new skin lesions Results Result Diagram: 08/31/17 0513 09/01/17 0628 Results 24 hrs Laboratory Tests Test 09/01/17 17:18 09/01/17 20:46 09/02/17 02:36 09/02/17 08:03 Bedside Glucose 162 144 297 H 276 H Medications Medications Current Medications Aspirin (Aspirin) 81 mg DAILY PO Last administered on 09/02/17 08:10; Admin Dose 81 MG; Start 08/16/17 at 09:00 Ondansetron HCl (Zofran Inj) 4 mg Q6H PRN IV NAUSEA AND/OR VOMITING; Start 08/22 at 19:00 Bisacodyl (Dulcolax) 5 mg DAILY PRN PO CONSTIPATION; Start 08/15/17 at 19:00 Nicotine (Nicoderm 14 Mg/ 24hr) 1 patch DAILY TRANSDERM Last administered on 08:11; Admin Dose 1 PATCH; Start 08/16/17 at 09:00 Miscellaneous Information 1 ea NOTE XX ; Start 08/15/17 at 19:30 Glucose (Glutose) 15 gm Q15M PRN PO DECREASED GLUCOSE; Start 08/15/17 at 19:30 Glucose (Glutose) 22.5 gm Q15M PRN PO DECREASED GLUCOSE; Start 08/15/17 at 19: 30 Dextrose (D50w Syringe) 25 ml Q15M PRN IV DECREASED GLUCOSE; Start 08/15/17 at 19:30 Dextrose (D50w Syringe) 50 ml Q15M PRN IV DECREASED GLUCOSE; Start 08/15/17 at 19:30 Glucagon (Glucagen) 1 mg Q15M PRN IM DECREASED GLUCOSE; Start 08/15/17 at 19: 30 Glucose (Glutose) 15 gm Q15M PRN BUCCAL DECREASED GLUCOSE Last administered on 08/26/17 17:18; Admin Dose 15 GM; Start 08/15/17 at 19:30 Diagnostic Test (Pha) (Accu-Chek) 1 ea 02 XX Last administered on 08/25/17 01 :50; Admin Dose 1 EA; Start 08/18/17 at 02:00 Acetaminophen (Tylenol Tab) 650 mg Q6H PRN PO PAIN AND OR ELEVATED TEMP Last administered on 09/01/17 21:11; Admin Dose 650 MG; Start 08/18/17 at 15:00 Lactobacillus Acidophilus/ Rhamnosus (Culturelle) 1 cap BID PO Last administered on 09/02/17 08:10; Admin Dose 1 CAP; Start 08/21/17 at 11:30 Methadone HCl (Methadone) 5 mg Q8H PRN PO PAIN Last administered on 09/02/17 09:58; Admin Dose 5 MG; Start 08/22/17 at 17:30 Lorazepam (Ativan) 0.5 mg Q8H PRN PO ANXIETY Last administered on 09/02/17 09 :57; Admin Dose 0.5 MG; Start 08/24/17 at 16:00 Zolpidem Tartrate (Ambien) 5 mg HS PRN PO INSOMNIA Last administered on 21:12; Admin Dose 5 MG; Start 08/24/17 at 21:30 Insulin Glargine 19 unit 19 unit DAILY@08 SC Last administered on 09/02/17 08 :34; Admin Dose 19 UNIT; Start 09/01/17 at 08:00 Daptomycin 430 mg/ Sodium Chloride 100 ml @ 200 mls/hr Q24H IVPB Last administered on 09/01/17 16:17; Admin Dose 200 MLS/HR; Start 08/31/17 at 15: 00 Ceftriaxone Sodium (Rocephin) 50 ml @ 100 mls/hr Q24H IVPB Last administered on 09/01/17 13:29; Admin Dose 100 MLS/HR; Start 08/31/17 at 13:30 IV Flush (NS 10 ml) 10 ml PRN PRN IV IV PROTOCOL; Start 09/01/17 at 16:00 SELINA HDZ Sep 02, 2017 12:14
[2017-09-02] MEDS: CEFTRIAXONE 1 GM/50 ML (PMX) 50 ML IVPB SCH (12:43)
[2017-09-02 13:59] VITALS: BP 123/71; RESP 18
[2017-09-02] MEDS: SOD CHLORIDE 0.9% IVPB SCH (14:46)
[2017-09-02] MEDS: DAPTOMYCIN IVPB SCH (14:46)
[2017-09-02] MEDS: ACETAMINOPHEN 325 MG TAB PO PRN ×2 (14:54→23:29)
--- NOTE | 2017-09-02 16:08 | CONS ---
Date/Time of Note Date/Time of Note DATE: 09/02/17 TIME: 16:02 Assessment/Plan Assessment/Plan Chief Complaint/Hosp Course ID PROGRESS NOTE CURRENT ABX: TOTAL ABX DAY # 18 => Daptomycin + Ceftriaxone 24H INTERVAL SUMMARY * A/A/O & responsive, follows commands, calm, reports ongoing back pain when questioned -- appears to be coping well * MICROBIOLOGY: Blood and urine cultures remain negative. * 09/01/17 CXR: IMPRESSION:1. Right arm PICC line tip in satisfactory position.2. Old healed left rib and clavicle fractures.3. Otherwise normal chest radiograph. Physical Exam Const: 52 yo M, normal weight, lying in bed, calm, VSS, no fevers, NAD, alert, responsive Head: Atraumatic , normocephalic Eyes: Normal Conjunctiva, anicteric ENT: Normal External Ears, Nose, Edentulous Neck: Supple, full rom Resp: Equal chest rise bilaterally, without dyspnea on observation , room air Cardio: Regular rate and rhythm Abd: Soft, non tender Skin: No petechiae or rashes Back: Deferred, laying supine on back with back pain Ext: No cyanosis, or edema ID ASSESSMENT 52 yo M admit with: 1. Ongoing back pain with a history of spinal osteomyelitis, possibly partially treated as per orthopedic note. 2. Diabetes. 3. Psychiatric disorders with a history of suicidal ideation and mood disorder. 4. History of diskitis versus osteomyelitis. The patient was followed at [facility] and had been on antibiotics, completed treatment. (-) MRSA Nares INVASIVES: PICC (09/01/17) ABX ALLERGIES: KNDA CURRENT ABX: TOTAL ABX DAY # 18 => Daptomycin + Ceftriaxone ID RECOMMENDATIONS 1. Recommend to keep him on abx until he sees ortho team at [facility] for further rec -s. . Problems: Consultation Date/Type/Reason Admit Date/Time Aug 15, 2017 at 19:21 Initial Consult Date 08/29/17 Type of Consultation: ID Referring Provider: SALUD GARIBAY MD Exam/Review of Systems Vital Signs Vitals Vital Signs Date Time Temp Pulse Resp B/P Pulse Ox O2 Delivery O2 Flow Rate FiO2 09/02/17 13:59 98.3 59 18 123/71 99 Intake and Output 09/01/17 09/01/17 09/02/17 15:00 23:00 07:00 Intake Total 50 ml 920 ml Output Total 700 ml Balance 50 ml 220 ml Results Result Diagram: 08/31/17 0513 09/01/17 0628 Results 24 hrs Laboratory Tests Test 09/01/17 17:18 09/01/17 20:46 09/02/17 02:36 09/02/17 08:03 Bedside Glucose 162 144 297 H 276 H Test 09/02/17 12:20 Bedside Glucose 363 H Medications Medications Current Medications Aspirin (Aspirin) 81 mg DAILY PO Last administered on 09/02/17 08:10; Admin Dose 81 MG; Start 08/16/17 at 09:00 Ondansetron HCl (Zofran Inj) 4 mg Q6H PRN IV NAUSEA AND/OR VOMITING; Start 08/22 at 19:00 Bisacodyl (Dulcolax) 5 mg DAILY PRN PO CONSTIPATION; Start 08/15/17 at 19:00 Nicotine (Nicoderm 14 Mg/ 24hr) 1 patch DAILY TRANSDERM Last administered on 08:11; Admin Dose 1 PATCH; Start 08/16/17 at 09:00 Miscellaneous Information 1 ea NOTE XX ; Start 08/15/17 at 19:30 Glucose (Glutose) 15 gm Q15M PRN PO DECREASED GLUCOSE; Start 08/15/17 at 19:30 Glucose (Glutose) 22.5 gm Q15M PRN PO DECREASED GLUCOSE; Start 08/15/17 at 19: 30 Dextrose (D50w Syringe) 25 ml Q15M PRN IV DECREASED GLUCOSE; Start 08/15/17 at 19:30 Dextrose (D50w Syringe) 50 ml Q15M PRN IV DECREASED GLUCOSE; Start 08/15/17 at 19:30 Glucagon (Glucagen) 1 mg Q15M PRN IM DECREASED GLUCOSE; Start 08/15/17 at 19: 30 Glucose (Glutose) 15 gm Q15M PRN BUCCAL DECREASED GLUCOSE Last administered on 08/26/17 17:18; Admin Dose 15 GM; Start 08/15/17 at 19:30 Diagnostic Test (Pha) (Accu-Chek) 1 ea 02 XX Last administered on 08/25/17 01 :50; Admin Dose 1 EA; Start 08/18/17 at 02:00 Acetaminophen (Tylenol Tab) 650 mg Q6H PRN PO PAIN AND OR ELEVATED TEMP Last administered on 09/02/17 14:54; Admin Dose 650 MG; Start 08/18/17 at 15:00 Lactobacillus Acidophilus/ Rhamnosus (Culturelle) 1 cap BID PO Last administered on 09/02/17 08:10; Admin Dose 1 CAP; Start 08/21/17 at 11:30 Methadone HCl (Methadone) 5 mg Q8H PRN PO PAIN Last administered on 09/02/17 09:58; Admin Dose 5 MG; Start 08/22/17 at 17:30 Lorazepam (Ativan) 0.5 mg Q8H PRN PO ANXIETY Last administered on 09/02/17 09 :57; Admin Dose 0.5 MG; Start 08/24/17 at 16:00 Zolpidem Tartrate (Ambien) 5 mg HS PRN PO INSOMNIA Last administered on 21:12; Admin Dose 5 MG; Start 08/24/17 at 21:30 Insulin Glargine 19 unit 19 unit DAILY@08 SC Last administered on 09/02/17 08 :34; Admin Dose 19 UNIT; Start 09/01/17 at 08:00 Daptomycin 430 mg/ Sodium Chloride 100 ml @ 200 mls/hr Q24H IVPB Last administered on 09/02/17 14:46; Admin Dose 200 MLS/HR; Start 08/31/17 at 15: 00 Ceftriaxone Sodium (Rocephin) 50 ml @ 100 mls/hr Q24H IVPB Last administered on 09/02/17 12:43; Admin Dose 100 MLS/HR; Start 08/31/17 at 13:30 IV Flush (NS 10 ml) 10 ml PRN PRN IV IV PROTOCOL; Start 09/01/17 at 16:00 BHARATH MACIEL NP Sep 02, 2017 16:08
[2017-09-02 19:25] VITALS: BP 120/57; RESP 20
[2017-09-02] MEDS: ZOLPIDEM 5 MG TAB PO PRN (23:29)
[2017-09-03] MEDS: METHADONE 5 MG TAB PO PRN ×3 (01:26→17:39)
[2017-09-03] MEDS: LORAZEPAM 0.5 MG TAB PO PRN ×3 (01:26→17:40)
[2017-09-03 01:59] VITALS: BP 133/70; RESP 22
[2017-09-03] MEDS: ACCU-CHEK XX SCH (02:00)
[2017-09-03 07:52] VITALS: BP 162/78; RESP 18
[2017-09-03] MEDS: CREON (12k-38k-60k) 1 CAP PO SCH ×3 (08:13→17:39)
[2017-09-03] MEDS: LACTOBACILLUS RHAMNOSUS CAP PO SCH ×2 (08:13→21:14)
[2017-09-03] MEDS: ASPIRIN 81 MG TAB PO SCH (08:13)
[2017-09-03] MEDS: NICOTINE (14 MG/24 HR) PATCH TRANSDERM SCH (08:16)
[2017-09-03] MEDS: INSULIN ASPART [NOVOLOG] 3 ML PEN SC SCH ×7 (08:22→21:00)
[2017-09-03] MEDS: INSULIN GLARGINE [LANtus] 3 ML PEN SC SCH (08:23)
[2017-09-03] MEDS: CEFTRIAXONE 1 GM/50 ML (PMX) 50 ML IVPB SCH (12:50)
--- NOTE | 2017-09-03 12:51 | PN ---
Date/Time of Note Date/Time of Note DATE: 09/03/17 TIME: 12:49 Assessment/Plan VTE Prophylaxis VTE Prophylaxis Intervention: ambulation Lines/Catheters IV Catheter Type (from Nrsg): PICC Line Central line still needed: Yes Urinary Cath still in place: No Assessment/Plan Chief Complaint/Hosp Course Patient is a 52-year-old alcoholic and medically noncompliant diabetic who presents to [facility] and is admitted for hyperglycemia and elevated lactic acid Assessment/Plan #. Diabetes Mellitus, uncontrolled - Appears to be better controlled on new regimen - A1c 9.5. 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 Arthur, neurosurgery consulted, states non surgical at this time, however requests ID consult - ID has been consulted, recommended biopsy. however biopsy is too high risk per IR. - will treat empirically per ID, 4 weeks IV abx, picc line today - CM to arrange appt with Dr. Augustine Berry, with asher garza, patient's previous ID doctor who is familiar with his condition. #. Altered mental status, likely secondary to alcohol abuse- resolved - Patient is mentating well and reevaluation by tele psych cleared patient - no witnessed seizures and continuing seizure precautions. - Ativan TID prn which has been helping his mood, prn. Offered [facility] medications for mood control as well but refusing and states he feels lonely and depressed and anxious when on other medications - Given information for support for alcohol abuse #. Anion gap metabolic acidosis, moderate, not full DKA, secondary to medical noncompliance- resolved #. suicidal ideation - No longer experiencing SI and cleared by tele-psych #. Lactic acidosis - resolved #. Hypernatremia, likely secondary to volume depletion given alcohol extent- resolved #. Elevated AST and ALT, resolved #. Mood Disorder - Improved - Denies any SI #. Disposition - biopsy deferred as it is too high risk - empiric abx for 4 weeks per ID, will place PICC - will need appt with Dr. Augustine Berry, ID with asher garza, patient's previous ID doctor, who has been following him. CM states will reattempt monday. - patient's friend now refuses to take in patient, repeat SS consult placed. Problems: Subjective 24 Hr Interval Summary Free Text/Dictation no acute changes Exam/Review of Systems Vital Signs Vitals Vital Signs Date Time Temp Pulse Resp B/P Pulse Ox O2 Delivery O2 Flow Rate FiO2 09/03/17 07:52 97.8 51 18 162/78 100 Intake and Output 09/02/17 09/02/17 09/03/17 15:00 23:00 07:00 Intake Total 300 ml 150 ml 1900 ml Output Total 502 ml 800 ml Balance -202 ml 150 ml 1100 ml Exam General: Patient is laying in bed and answers questions appropriately Head: Normocephalic atraumatic Eyes: EOMI, pupils reactive to light Neck: Supple, nontender, midline Respiratory: Clear to auscultation bilaterally. no wheezes or crackles Cardiovascular: regular rate, no obvious murmurs Gastrointestinal: non-tender to palpation, bowel sounds heard. Extremities: No tenderness to palpation spine, moving all extremities Neurological: Moves all extremities spontaneously Psych: Flat affect. no SI/HI Skin: No new skin lesions Results Result Diagram: 08/31/17 0513 09/01/17 0628 Results 24 hrs Laboratory Tests Test 09/02/17 17:08 09/02/17 20:53 09/03/17 08:01 09/03/17 12:02 Bedside Glucose 153 101 236 H 159 Medications Medications Current Medications Aspirin (Aspirin) 81 mg DAILY PO Last administered on 09/03/17 08:13; Admin Dose 81 MG; Start 08/16/17 at 09:00 Ondansetron HCl (Zofran Inj) 4 mg Q6H PRN IV NAUSEA AND/OR VOMITING; Start 08/22 at 19:00 Bisacodyl (Dulcolax) 5 mg DAILY PRN PO CONSTIPATION; Start 08/15/17 at 19:00 Nicotine (Nicoderm 14 Mg/ 24hr) 1 patch DAILY TRANSDERM Last administered on 08:16; Admin Dose 1 PATCH; Start 08/16/17 at 09:00 Miscellaneous Information 1 ea NOTE XX ; Start 08/15/17 at 19:30 Glucose (Glutose) 15 gm Q15M PRN PO DECREASED GLUCOSE; Start 08/15/17 at 19:30 Glucose (Glutose) 22.5 gm Q15M PRN PO DECREASED GLUCOSE; Start 08/15/17 at 19: 30 Dextrose (D50w Syringe) 25 ml Q15M PRN IV DECREASED GLUCOSE; Start 08/15/17 at 19:30 Dextrose (D50w Syringe) 50 ml Q15M PRN IV DECREASED GLUCOSE; Start 08/15/17 at 19:30 Glucagon (Glucagen) 1 mg Q15M PRN IM DECREASED GLUCOSE; Start 08/15/17 at 19: 30 Glucose (Glutose) 15 gm Q15M PRN BUCCAL DECREASED GLUCOSE Last administered on 08/26/17 17:18; Admin Dose 15 GM; Start 08/15/17 at 19:30 Diagnostic Test (Pha) (Accu-Chek) 1 ea 02 XX Last administered on 08/25/17 01 :50; Admin Dose 1 EA; Start 08/18/17 at 02:00 Acetaminophen (Tylenol Tab) 650 mg Q6H PRN PO PAIN AND OR ELEVATED TEMP Last administered on 09/02/17 23:29; Admin Dose 650 MG; Start 08/18/17 at 15:00 Lactobacillus Acidophilus/ Rhamnosus (Culturelle) 1 cap BID PO Last administered on 09/03/17 08:13; Admin Dose 1 CAP; Start 08/21/17 at 11:30 Methadone HCl (Methadone) 5 mg Q8H PRN PO PAIN Last administered on 09/03/17 09:33; Admin Dose 5 MG; Start 08/22/17 at 17:30 Lorazepam (Ativan) 0.5 mg Q8H PRN PO ANXIETY Last administered on 09/03/17 09 :32; Admin Dose 0.5 MG; Start 08/24/17 at 16:00 Zolpidem Tartrate (Ambien) 5 mg HS PRN PO INSOMNIA Last administered on 23:29; Admin Dose 5 MG; Start 08/24/17 at 21:30 Insulin Glargine 19 unit 19 unit DAILY@08 SC Last administered on 09/03/17 08 :23; Admin Dose 19 UNIT; Start 09/01/17 at 08:00 Daptomycin 430 mg/ Sodium Chloride 100 ml @ 200 mls/hr Q24H IVPB Last administered on 09/02/17 14:46; Admin Dose 200 MLS/HR; Start 08/31/17 at 15: 00 Ceftriaxone Sodium (Rocephin) 50 ml @ 100 mls/hr Q24H IVPB Last administered on 09/02/17t 12:43; Admin Dose 100 MLS/HR; Start 08/31/17 at 13:30 IV Flush (NS 10 ml) 10 ml PRN PRN IV IV PROTOCOL; Start 09/01/17 at 16:00 SELINA HDZ Sep 03, 2017 12:50
--- NOTE | 2017-09-03 13:02 | CONS ---
Date/Time of Note Date/Time of Note DATE: 09/03/17 TIME: 13:00 Assessment/Plan Assessment/Plan Chief Complaint/Hosp Course 52-year-old male with a reported history of diabetes over the last 7 years. He presented to [facility] several years ago with gallstone pancreatitis and significant pancreatic abnormalities. He reports he underwent surgery at the [facility] with partial resection of the pancreas which rendered him diabetic at that time. He reports that he has been on insulin since then although he has missed insulin and has not gone into DKA despite having missed it for more than 48 hours. Problems: (1) History of partial pancreatectomy Status: Chronic Comment: Noted. He is both some degree of exocrine and endocrine pancreatic insufficiency. Please note that the DKA was most likely induced by infection (2) Chronic osteomyelitis of thoracic spine Status: Chronic Comment: As per infectious disease. Please note that the physician [facility] sees Dr. 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 Admitted with DKA in the setting of stressors specifically chronic osteomyelitis Referring Provider: SALUD GARIBAY MD 24 HR Interval Summary Constitutional: no complaints Exam/Review of Systems Vital Signs Vitals Vital Signs Date Time Temp Pulse Resp B/P Pulse Ox O2 Delivery O2 Flow Rate FiO2 09/03/17 07:52 97.8 51 18 162/78 100 Intake and Output 09/02/17 09/02/17 09/03/17 15:00 23:00 07:00 Intake Total 300 ml 150 ml 1900 ml Output Total 502 ml 800 ml Balance -202 ml 150 ml 1100 ml Results No changes Result Diagram: 08/31/17 0513 09/01/17 0628 Results 24 hrs Laboratory Tests Test 09/02/17 17:08 09/02/17 20:53 09/03/17 08:01 09/03/17 12:02 Bedside Glucose 153 101 236 H 159 Medications Medications Current Medications Aspirin (Aspirin) 81 mg DAILY PO Last administered on 09/03/17 08:13; Admin Dose 81 MG; Start 08/16/17 at 09:00 Ondansetron HCl (Zofran Inj) 4 mg Q6H PRN IV NAUSEA AND/OR VOMITING; Start 08/22 at 19:00 Bisacodyl (Dulcolax) 5 mg DAILY PRN PO CONSTIPATION; Start 08/15/17 at 19:00 Nicotine (Nicoderm 14 Mg/ 24hr) 1 patch DAILY TRANSDERM Last administered on 08:16; Admin Dose 1 PATCH; Start 08/16/17 at 09:00 Miscellaneous Information 1 ea NOTE XX ; Start 08/15/17 at 19:30 Glucose (Glutose) 15 gm Q15M PRN PO DECREASED GLUCOSE; Start 08/15/17 at 19:30 Glucose (Glutose) 22.5 gm Q15M PRN PO DECREASED GLUCOSE; Start 08/15/17 at 19: 30 Dextrose (D50w Syringe) 25 ml Q15M PRN IV DECREASED GLUCOSE; Start 08/15/17 at 19:30 Dextrose (D50w Syringe) 50 ml Q15M PRN IV DECREASED GLUCOSE; Start 08/15/17 at 19:30 Glucagon (Glucagen) 1 mg Q15M PRN IM DECREASED GLUCOSE; Start 08/15/17 at 19: 30 Glucose (Glutose) 15 gm Q15M PRN BUCCAL DECREASED GLUCOSE Last administered on 08/26/17 17:18; Admin Dose 15 GM; Start 08/15/17 at 19:30 Diagnostic Test (Pha) (Accu-Chek) 1 ea 02 XX Last administered on 08/25/17 01 :50; Admin Dose 1 EA; Start 08/18/17 at 02:00 Acetaminophen (Tylenol Tab) 650 mg Q6H PRN PO PAIN AND OR ELEVATED TEMP Last administered on 09/02/17 23:29; Admin Dose 650 MG; Start 08/18/17 at 15:00 Lactobacillus Acidophilus/ Rhamnosus (Culturelle) 1 cap BID PO Last administered on 09/03/17 08:13; Admin Dose 1 CAP; Start 08/21/17 at 11:30 Methadone HCl (Methadone) 5 mg Q8H PRN PO PAIN Last administered on 09/03/17 09:33; Admin Dose 5 MG; Start 08/22/17 at 17:30 Lorazepam (Ativan) 0.5 mg Q8H PRN PO ANXIETY Last administered on 09/03/17 09 :32; Admin Dose 0.5 MG; Start 08/24/17 at 16:00 Zolpidem Tartrate (Ambien) 5 mg HS PRN PO INSOMNIA Last administered on 23:29; Admin Dose 5 MG; Start 08/24/17 at 21:30 Insulin Glargine 19 unit 19 unit DAILY@08 SC Last administered on 09/03/17 08 :23; Admin Dose 19 UNIT; Start 09/01/17 at 08:00 Daptomycin 430 mg/ Sodium Chloride 100 ml @ 200 mls/hr Q24H IVPB Last administered on 09/02/17 14:46; Admin Dose 200 MLS/HR; Start 08/31/17 at 15: 00 Ceftriaxone Sodium (Rocephin) 50 ml @ 100 mls/hr Q24H IVPB Last administered on 09/03/17 12:50; Admin Dose 100 MLS/HR; Start 08/31/17 at 13:30 IV Flush (NS 10 ml) 10 ml PRN PRN IV IV PROTOCOL; Start 09/01/17 at 16:00 MASON HANEY MD Sep 03, 2017 13:02
[2017-09-03 14:17] VITALS: BP 111/69; RESP 19
[2017-09-03] MEDS: SOD CHLORIDE 0.9% IVPB SCH (15:27)
[2017-09-03] MEDS: DAPTOMYCIN IVPB SCH (15:27)
[2017-09-03] MEDS: ACETAMINOPHEN 325 MG TAB PO PRN (15:34)
[2017-09-03 19:31] VITALS: BP 109/58; RESP 18
--- NOTE | 2017-09-03 19:35 | CONS ---
Date/Time of Note Date/Time of Note DATE: 09/03/17 TIME: 19:34 Assessment/Plan Assessment/Plan Chief Complaint/Hosp Course ID PROGRESS NOTE CURRENT ABX: TOTAL ABX DAY # 19 => Daptomycin + Ceftriaxone 24H INTERVAL SUMMARY * Resting comfortably after pain meds given -- stable appears to be coping well * MICROBIOLOGY: Blood and urine cultures remain negative. * 09/01/17 CXR: IMPRESSION:1. Right arm PICC line tip in satisfactory position.2. Old healed left rib and clavicle fractures.3. Otherwise normal chest radiograph. Physical Exam Const: 52 yo M, normal weight, lying in bed, calm, VSS, no fevers, NAD, alert, responsive Head: Atraumatic , normocephalic Eyes: Normal Conjunctiva, anicteric ENT: Normal External Ears, Nose, Edentulous Neck: Supple, full rom Resp: Equal chest rise bilaterally, without dyspnea on observation , room air Cardio: Regular rate and rhythm Abd: Soft, non tender Skin: No petechiae or rashes Back: Deferred, laying supine on back with back pain Ext: No cyanosis, or edema ID ASSESSMENT 52 yo M admit with: 1. Ongoing back pain with a history of spinal osteomyelitis, possibly partially treated as per orthopedic note. 2. Diabetes. 3. Psychiatric disorders with a history of suicidal ideation and mood disorder. 4. History of diskitis versus osteomyelitis. The patient was followed at [facility] and had been on antibiotics, completed treatment. (-) MRSA Nares INVASIVES: PICC (09/01/17) ABX ALLERGIES: KNDA CURRENT ABX: TOTAL ABX DAY # 19 => Daptomycin + Ceftriaxone ID RECOMMENDATIONS 1. Recommend to keep him on abx until he sees ortho team at [facility] for further rec -s. . Problems: Consultation Date/Type/Reason Admit Date/Time Aug 15, 2017 at 19:21 Initial Consult Date 08/29/17 Type of Consultation: ID Referring Provider: SALUD GARIBAY MD Exam/Review of Systems Vital Signs Vitals Vital Signs Date Time Temp Pulse Resp B/P Pulse Ox O2 Delivery O2 Flow Rate FiO2 09/03/17 19:31 98.3 54 18 109/58 99 Intake and Output 09/02/17 09/02/17 09/03/17 15:00 23:00 07:00 Intake Total 300 ml 150 ml 1900 ml Output Total 502 ml 800 ml Balance -202 ml 150 ml 1100 ml Results Result Diagram: 08/31/17 0513 09/01/17 0628 Results 24 hrs Laboratory Tests Test 09/02/17 20:53 09/03/17 08:01 09/03/17 12:02 09/03/17 17:07 Bedside Glucose 101 236 H 159 94 Medications Medications Current Medications Aspirin (Aspirin) 81 mg DAILY PO Last administered on 09/03/17 08:13; Admin Dose 81 MG; Start 08/16/17 at 09:00 Ondansetron HCl (Zofran Inj) 4 mg Q6H PRN IV NAUSEA AND/OR VOMITING; Start 08/22 at 19:00 Bisacodyl (Dulcolax) 5 mg DAILY PRN PO CONSTIPATION; Start 08/15/17 at 19:00 Nicotine (Nicoderm 14 Mg/ 24hr) 1 patch DAILY TRANSDERM Last administered on 08:16; Admin Dose 1 PATCH; Start 08/16/17 at 09:00 Miscellaneous Information 1 ea NOTE XX ; Start 08/15/17 at 19:30 Glucose (Glutose) 15 gm Q15M PRN PO DECREASED GLUCOSE; Start 08/15/17 at 19:30 Glucose (Glutose) 22.5 gm Q15M PRN PO DECREASED GLUCOSE; Start 08/15/17 at 19: 30 Dextrose (D50w Syringe) 25 ml Q15M PRN IV DECREASED GLUCOSE; Start 08/15/17 at 19:30 Dextrose (D50w Syringe) 50 ml Q15M PRN IV DECREASED GLUCOSE; Start 08/15/17 at 19:30 Glucagon (Glucagen) 1 mg Q15M PRN IM DECREASED GLUCOSE; Start 08/15/17 at 19: 30 Glucose (Glutose) 15 gm Q15M PRN BUCCAL DECREASED GLUCOSE Last administered on 08/26/17 17:18; Admin Dose 15 GM; Start 08/15/17 at 19:30 Diagnostic Test (Pha) (Accu-Chek) 1 ea 02 XX Last administered on 08/25/17 01 :50; Admin Dose 1 EA; Start 08/18/17 at 02:00 Acetaminophen (Tylenol Tab) 650 mg Q6H PRN PO PAIN AND OR ELEVATED TEMP Last administered on 09/03/17 15:34; Admin Dose 650 MG; Start 08/18/17 at 15:00 Lactobacillus Acidophilus/ Rhamnosus (Culturelle) 1 cap BID PO Last administered on 09/03/17 08:13; Admin Dose 1 CAP; Start 08/21/17 at 11:30 Methadone HCl (Methadone) 5 mg Q8H PRN PO PAIN Last administered on 09/03/17 17:39; Admin Dose 5 MG; Start 08/22/17 at 17:30 Lorazepam (Ativan) 0.5 mg Q8H PRN PO ANXIETY Last administered on 09/03/17 17 :40; Admin Dose 0.5 MG; Start 08/24/17 at 16:00 Zolpidem Tartrate (Ambien) 5 mg HS PRN PO INSOMNIA Last administered on 23:29; Admin Dose 5 MG; Start 08/24/17 at 21:30 Insulin Glargine 19 unit 19 unit DAILY@08 SC Last administered on 09/03/17 08 :23; Admin Dose 19 UNIT; Start 09/01/17 at 08:00 Daptomycin 430 mg/ Sodium Chloride 100 ml @ 200 mls/hr Q24H IVPB Last administered on 09/03/17 15:27; Admin Dose 200 MLS/HR; Start 08/31/17 at 15: 00 Ceftriaxone Sodium (Rocephin) 50 ml @ 100 mls/hr Q24H IVPB Last administered on 09/03/17 12:50; Admin Dose 100 MLS/HR; Start 08/31/17 at 13:30 IV Flush (NS 10 ml) 10 ml PRN PRN IV IV PROTOCOL; Start 09/01/17 at 16:00 BHARATH MACIEL NP Sep 03, 2017 19:35
[2017-09-03] MEDS: ZOLPIDEM 5 MG TAB PO PRN (22:05)
[2017-09-04] MEDS: ACCU-CHEK XX SCH (02:00)
[2017-09-04 02:10] VITALS: BP 139/70; RESP 18
[2017-09-04] MEDS: METHADONE 5 MG TAB PO PRN ×3 (02:14→18:16)
[2017-09-04] MEDS: LORAZEPAM 0.5 MG TAB PO PRN ×3 (03:12→19:48)
[2017-09-04 07:29] VITALS: BP 126/69; RESP 18
[2017-09-04] MEDS: INSULIN GLARGINE [LANtus] 3 ML PEN SC SCH (08:28)
[2017-09-04] MEDS: INSULIN ASPART [NOVOLOG] 3 ML PEN SC SCH ×7 (08:28→20:47)
[2017-09-04] MEDS: CREON (12k-38k-60k) 1 CAP PO SCH ×3 (08:33→17:37)
[2017-09-04] MEDS: LACTOBACILLUS RHAMNOSUS CAP PO SCH ×2 (08:33→20:46)
[2017-09-04] MEDS: ASPIRIN 81 MG TAB PO SCH (08:33)
[2017-09-04] MEDS: NICOTINE (14 MG/24 HR) PATCH TRANSDERM SCH (08:34)
--- NOTE | 2017-09-04 12:20 | PN ---
Date/Time of Note Date/Time of Note DATE: 09/04/17 TIME: 12:20 Assessment/Plan VTE Prophylaxis VTE Prophylaxis Intervention: ambulation Lines/Catheters IV Catheter Type (from Nrsg): PICC Line Central line still needed: Yes (IV antibiotics needed) Urinary Cath still in place: No Assessment/Plan Assessment/Plan 1. 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 Arthur, neurosurgery consulted, states non surgical at this time, however requests ID consult - ID has been consulted, recommended biopsy. however biopsy is too high risk per IR. - will treat empirically per ID, 4 weeks IV abx, picc line in place - CM to arrange appt with Dr. Augustine Berry, with asher garza, patient's previous ID doctor who is familiar with his condition. 2. Diabetes Mellitus, uncontrolled - Appears to be better controlled on new regimen but still has sugars in the 200s - A1c 9.5. 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 suicidal ideation - No longer experiencing SI and cleared by tele-psych 4. Anxiety - requesting Ativan often and agreed to try BuSpar for long term care social worker control of symptoms. Will titrate up on dose as tolerated - Tried Celexa in the past with no improvement 5. Altered mental status, likely secondary to alcohol abuse- resolved - Patient is mentating well and reevaluation by tele psych cleared patient - no witnessed seizures and continuing seizure precautions. - Ativan TID prn which has been helping his mood, prn. Offered long term care social worker medications for mood control as well but refusing and states he feels lonely and depressed and anxious when on other medications - Given information for support for alcohol abuse 6. Anion gap metabolic acidosis, moderate, not full DKA, secondary to medical noncompliance- resolved 7. Lactic acidosis - resolved 8. Hypernatremia, likely secondary to volume depletion given alcohol extent- resolved 9. Elevated AST and ALT, resolved 10. Disposition - biopsy deferred as it is too high risk - empiric abx for 4 weeks per ID, will place PICC - will need appt with Dr. Augustine Berry, ID with asher garza, patient's previous ID doctor, who has been following him. CM states will reattempt today - patient's friend now refuses to take in patient, SS consult placed for placement given will need IV antibiotics. Subjective 24 Hr Interval Summary Free Text/Dictation Patient states still feeling nervous but no new complaints. Willing to try long acting medication now. No acute overnight events Exam/Review of Systems Vital Signs Vitals Vital Signs Date Time Temp Pulse Resp B/P Pulse Ox O2 Delivery O2 Flow Rate FiO2 09/04/17 07:29 97.7 56 18 126/69 99 Intake and Output 09/03/17 09/03/17 09/04/17 15:00 23:00 07:00 Intake Total 50 ml 1060 ml 700 ml Output Total 600 ml Balance 50 ml 460 ml 700 ml Exam General: Patient in no acute distress Head: Normocephalic atraumatic Eyes: EOMI, pupils reactive to light Neck: Supple, nontender, midline Respiratory: Clear to auscultation bilaterally. no wheezes or crackles Cardiovascular: regular rate, no obvious murmurs Gastrointestinal: non-tender to palpation, bowel sounds heard. Extremities: No tenderness to palpation spine, moving all extremities Neurological: Moves all extremities spontaneously Psych: Flat affect. no SI/HI Results Result Diagram: 08/31/17 0513 09/01/17 0628 Results 24 hrs Laboratory Tests Test 09/03/17 17:07 09/03/17 21:16 09/04/17 07:59 09/04/17 11:59 Bedside Glucose 94 137 271 H 235 H Medications Medications Current Medications Aspirin (Aspirin) 81 mg DAILY PO Last administered on 09/04/17 08:33; Admin Dose 81 MG; Start 08/16/17 at 09:00 Ondansetron HCl (Zofran Inj) 4 mg Q6H PRN IV NAUSEA AND/OR VOMITING; Start 08/22 at 19:00 Bisacodyl (Dulcolax) 5 mg DAILY PRN PO CONSTIPATION; Start 08/15/17 at 19:00 Nicotine (Nicoderm 14 Mg/ 24hr) 1 patch DAILY TRANSDERM Last administered on 08:34; Admin Dose 1 PATCH; Start 08/16/17 at 09:00 Miscellaneous Information 1 ea NOTE XX ; Start 08/15/17 at 19:30 Glucose (Glutose) 15 gm Q15M PRN PO DECREASED GLUCOSE; Start 08/15/17 at 19:30 Glucose (Glutose) 22.5 gm Q15M PRN PO DECREASED GLUCOSE; Start 08/15/17 at 19: 30 Dextrose (D50w Syringe) 25 ml Q15M PRN IV DECREASED GLUCOSE; Start 08/15/17 at 19:30 Dextrose (D50w Syringe) 50 ml Q15M PRN IV DECREASED GLUCOSE; Start 08/15/17 at 19:30 Glucagon (Glucagen) 1 mg Q15M PRN IM DECREASED GLUCOSE; Start 08/15/17 at 19: 30 Glucose (Glutose) 15 gm Q15M PRN BUCCAL DECREASED GLUCOSE Last administered on 08/26/17 17:18; Admin Dose 15 GM; Start 08/15/17 at 19:30 Diagnostic Test (Pha) (Accu-Chek) 1 ea 02 XX Last administered on 08/25/17 01 :50; Admin Dose 1 EA; Start 08/18/17 at 02:00 Acetaminophen (Tylenol Tab) 650 mg Q6H PRN PO PAIN AND OR ELEVATED TEMP Last administered on 09/03/17 15:34; Admin Dose 650 MG; Start 08/18/17 at 15:00 Lactobacillus Acidophilus/ Rhamnosus (Culturelle) 1 cap BID PO Last administered on 09/04/17 08:33; Admin Dose 1 CAP; Start 08/21/17 at 11:30 Methadone HCl (Methadone) 5 mg Q8H PRN PO PAIN Last administered on 09/04/17 10:10; Admin Dose 5 MG; Start 08/22/17 at 17:30 Lorazepam (Ativan) 0.5 mg Q8H PRN PO ANXIETY Last administered on 09/04/17 11 :15; Admin Dose 0.5 MG; Start 08/24/17 at 16:00 Zolpidem Tartrate (Ambien) 5 mg HS PRN PO INSOMNIA Last administered on 22:05; Admin Dose 5 MG; Start 08/24/17 at 21:30 Insulin Glargine 19 unit 19 unit DAILY@08 SC Last administered on 09/04/17 08 :28; Admin Dose 19 UNIT; Start 09/01/17 at 08:00 Daptomycin 430 mg/ Sodium Chloride 100 ml @ 200 mls/hr Q24H IVPB Last administered on 09/03/17 15:27; Admin Dose 200 MLS/HR; Start 08/31/17 at 15: 00 Ceftriaxone Sodium (Rocephin) 50 ml @ 100 mls/hr Q24H IVPB Last administered on 09/03/17 12:50; Admin Dose 100 MLS/HR; Start 08/31/17 at 13:30 IV Flush (NS 10 ml) 10 ml PRN PRN IV IV PROTOCOL; Start 09/01/17 at 16:00 SALUD GARIBAY MD Sep 04, 2017 12:20
[2017-09-04] MEDS: CEFTRIAXONE 1 GM/50 ML (PMX) 50 ML IVPB SCH (12:55)
[2017-09-04] MEDS: BUSPIRONE 5 MG TAB PO SCH ×2 (13:58→20:46)
[2017-09-04 14:52] VITALS: BP 109/62; RESP 18
[2017-09-04] MEDS: DAPTOMYCIN IVPB SCH (15:12)
[2017-09-04] MEDS: SOD CHLORIDE 0.9% IVPB SCH (15:12)
[2017-09-04 19:50] VITALS: BP 113/62; RESP 18
[2017-09-05 01:47] VITALS: BP 120/61; RESP 18
[2017-09-05] MEDS: ACCU-CHEK XX SCH (02:00)
[2017-09-05] MEDS: METHADONE 5 MG TAB PO PRN ×3 (02:33→18:29)
[2017-09-05] MEDS: LORAZEPAM 0.5 MG TAB PO PRN ×3 (04:02→20:35)
[2017-09-05 06:21] LABS: BASOPHIL # 0.1 10^3/ul (0.0-0.1); BASOPHILS % 2.1 % (0.0-2.0); EOSINOPHILS # 0.2 10^3/ul (0.0-0.5); EOSINOPHILS % 5.2 % (0.0-7.0); HEMATOCRIT 36.5 % (42.0-52.0); HEMOGLOBIN 11.9 g/dl (14.0-18.0); LYMPHOCYTES # 1.6 10^3/ul (0.8-2.9); LYMPHOCYTES % 38.3 % (15.0-51.0); MEAN CORPUSCULAR HEMOGLOBIN 31.4 pg (29.0-33.0); MEAN CORPUSCULAR HGB CONC 32.6 g/dl (32.0-37.0); MEAN CORPUSCULAR VOLUME 96.3 fl (82.0-101.0); MEAN PLATELET VOLUME 11.8 fl (7.4-10.4); MONOCYTE # 0.3 10^3/ul (0.3-0.9); NEUTROPHILS % 46.2 % (39.0-77.0); PLATELET COUNT 142 10^3/UL (140-415); RED BLOOD COUNT 3.79 10^6/ul (4.70-6.10); WHITE BLOOD COUNT 4.2 10^3/ul (4.8-10.8)
--- NOTE | 2017-09-05 06:36 | PN ---
DATE: 09/04/2017 SUBJECTIVE: The patient is alert. Back pain is better. He is in no distress and afebrile. ANTIMICROBIALS: 1. Daptomycin. 2. Rocephin. PHYSICAL EXAMINATION: GENERAL: A well-developed, well-nourished, middle-aged man who is alert, in no distress. HEENT: Head atraumatic, normocephalic. Sclerae anicteric. Buccal mucosa dry. NECK: Supple. CHEST: Rise symmetrical. Breath sounds diminished to bases. HEART: S1, S2. ABDOMEN: Soft. Bowel tones present. EXTREMITIES: Without cyanosis. ASSESSMENT: 1. Ongoing back pain, status post spinal osteomyelitis. Patient was restarted on antibiotics for c oncern of partially treated osteomyelitis as per ortho note. 2. Diabetes. 3. History of psychiatric problems. PLAN: The patient remains stable. He is on broad spectrum antibiotics, symptomatically improved. Pending discharge planning on current antibiotics. The patient to follow at [facility] er with ortho team for further evaluation. Dictated By: CA BAHENA KEY ACCOUNT DIRECTOR for JERRICA COBURN/NATALIE Conf#: [id number] DID#: [id number]
[2017-09-05 06:42] LABS: ALBUMIN 4.1 g/dl (3.3-4.9); CALCIUM 8.8 mg/dl (8.4-10.2); CREATININE 0.81 mg/dl (0.61-1.24); MAGNESIUM 1.7 mg/dl (1.7-2.5); POTASSIUM 4.4 mmol/L (3.5-5.1)
[2017-09-05 07:30] VITALS: BP 142/70; RESP 20
[2017-09-05] MEDS: CREON (12k-38k-60k) 1 CAP PO SCH ×3 (08:28→17:27)
[2017-09-05] MEDS: ASPIRIN 81 MG TAB PO SCH (08:28)
[2017-09-05] MEDS: LACTOBACILLUS RHAMNOSUS CAP PO SCH ×2 (08:28→20:38)
[2017-09-05] MEDS: NICOTINE (14 MG/24 HR) PATCH TRANSDERM SCH (08:29)
[2017-09-05] MEDS: BUSPIRONE 5 MG TAB PO SCH ×2 (08:29→21:53)
[2017-09-05] MEDS: INSULIN ASPART [NOVOLOG] 3 ML PEN SC SCH ×7 (08:37→21:00)
[2017-09-05] MEDS: INSULIN GLARGINE [LANtus] 3 ML PEN SC SCH (08:37)
--- NOTE | 2017-09-05 10:29 | PN ---
Date/Time of Note Date/Time of Note DATE: 09/05/17 TIME: 10:29 Assessment/Plan VTE Prophylaxis VTE Prophylaxis Intervention: ambulation Lines/Catheters IV Catheter Type (from Nrsg): PICC Line Central line still needed: Yes Urinary Cath still in place: No Assessment/Plan Assessment/Plan 1. 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 Arthur, neurosurgery consulted, states non surgical at this time - ID has been consulted, recommended biopsy. however biopsy is too high risk per IR. Will need 4 more weeks of IV antibiotics - CM to arrange appt with Dr. Augustine Berry, with asher garza, patient's previous physician who is familiar with his condition. 2. Diabetes Mellitus, uncontrolled - Appears to be better controlled on new regimen but still has sugars in the 200s. Spoke with patient about snacking and has been requesting sugar free meals - A1c 9.5. 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 Suicidal ideation - No longer experiencing SI and cleared by tele-psych 4. Anxiety - Doing well on Buspar and will increase dose tomorrow - Ativan as needed and will wean as tolerated - Tried Celexa in the past with no improvement 5. Altered mental status, likely secondary to alcohol abuse- resolved - Patient is mentating well and reevaluation by tele psych cleared patient - no witnessed seizures and continuing seizure precautions. - Ativan TID prn which has been helping his mood, prn. Offered usp medications for mood control as well but refusing and states he feels lonely and depressed and anxious when on other medications 6. Anion gap metabolic acidosis, moderate, not full DKA, secondary to medical noncompliance- resolved 7. Lactic acidosis - resolved 8. Hypernatremia, likely secondary to volume depletion given alcohol extent- resolved 9. Elevated AST and ALT, resolved 10. Disposition - biopsy deferred as it is too high risk - Will need to continue antibiotics for another 4 weeks - Spoke with CM regarding placement for patient and arranging for ID follow up appointment Subjective 24 Hr Interval Summary Free Text/Dictation Patient states hes doing well and denies any new complaints. Spoke with again about snacking and states he has been asking for sugar free snacks. No acute overnight events. Tolerating Buspar and states has been helping with his nerves. Exam/Review of Systems Vital Signs Vitals Vital Signs Date Time Temp Pulse Resp B/P Pulse Ox O2 Delivery O2 Flow Rate FiO2 09/05/17 07:30 97.7 60 20 142/70 98 Intake and Output 09/04/17 09/04/17 09/05/17 15:00 23:00 07:00 Intake Total 1750 ml 800 ml Output Total 300 ml Balance 1450 ml 800 ml Exam General: Patient in no acute distress. awake and alert Head: Normocephalic atraumatic Eyes: EOMI, pupils reactive to light Neck: Supple, nontender, midline Respiratory: Clear to auscultation bilaterally. no wheezes or crackles Cardiovascular: regular rate, no obvious murmurs Gastrointestinal: non-tender to palpation, bowel sounds heard. Extremities: No tenderness to palpation spine, moving all extremities Neurological: Moves all extremities spontaneously Psych: Flat affect. no SI/HI Results Result Diagram: 09/05/17 0545 09/05/17 0545 Results 24 hrs Laboratory Tests Test 09/04/17 11:59 09/04/17 17:15 09/04/17 20:43 09/05/17 05:45 Bedside Glucose 235 H 212 70 White Blood Count 4.2 #L Red Blood Count 3.79 L Hemoglobin 11.9 L Hematocrit 36.5 L Mean Corpuscular Volume 96.3 Mean Corpuscular Hemoglobin 31.4 Mean Corpuscular Hemoglobin Concent 32.6 Red Cell Distribution Width 14.0 Platelet Count 142 # Mean Platelet Volume 11.8 H Neutrophils % 46.2 Lymphocytes % 38.3 Monocytes % 8.0 Eosinophils % 5.2 Basophils % 2.1 H Nucleated Red Blood Cells % 0.0 Neutrophils # 2.0 Lymphocytes # 1.6 Monocytes # 0.3 Eosinophils # 0.2 Basophils # 0.1 Nucleated Red Blood Cells # 0.0 Sodium Level 139 Potassium Level 4.4 Chloride Level 100 Carbon Dioxide Level 30 Anion Gap 13 Blood Urea Nitrogen 26 H Creatinine 0.81 Glucose Level 268 H Calcium Level 8.8 Phosphorus Level 4.0 Magnesium Level 1.7 Albumin 4.1 Test 09/05/17 08:27 Bedside Glucose 237 H Medications Medications Current Medications Aspirin (Aspirin) 81 mg DAILY PO Last administered on 09/05/17t 08:28; Admin Dose 81 MG; Start 10/11/17 at 09:00 Ondansetron HCl (Zofran Inj) 4 mg Q6H PRN IV NAUSEA AND/OR VOMITING; Start 08/22 at 19:00 Bisacodyl (Dulcolax) 5 mg DAILY PRN PO CONSTIPATION; Start 08/15/17 at 19:00 Nicotine (Nicoderm 14 Mg/ 24hr) 1 patch DAILY TRANSDERM Last administered on 08:29; Admin Dose 1 PATCH; Start 08/16/17 at 09:00 Miscellaneous Information 1 ea NOTE XX ; Start 08/15/17 at 19:30 Glucose (Glutose) 15 gm Q15M PRN PO DECREASED GLUCOSE; Start 08/15/17 at 19:30 Glucose (Glutose) 22.5 gm Q15M PRN PO DECREASED GLUCOSE; Start 08/15/17 at 19: 30 Dextrose (D50w Syringe) 25 ml Q15M PRN IV DECREASED GLUCOSE; Start 08/15/17 at 19:30 Dextrose (D50w Syringe) 50 ml Q15M PRN IV DECREASED GLUCOSE; Start 08/15/17 at 19:30 Glucagon (Glucagen) 1 mg Q15M PRN IM DECREASED GLUCOSE; Start 08/15/17 at 19: 30 Glucose (Glutose) 15 gm Q15M PRN BUCCAL DECREASED GLUCOSE Last administered on 08/26/17 17:18; Admin Dose 15 GM; Start 08/15/17 at 19:30 Diagnostic Test (Pha) (Accu-Chek) 1 ea 02 XX Last administered on 08/25/17 01 :50; Admin Dose 1 EA; Start 08/18/17 at 02:00 Acetaminophen (Tylenol Tab) 650 mg Q6H PRN PO PAIN AND OR ELEVATED TEMP Last administered on 09/03/17 15:34; Admin Dose 650 MG; Start 08/18/17 at 15:00 Lactobacillus Acidophilus/ Rhamnosus (Culturelle) 1 cap BID PO Last administered on 09/05/17 08:28; Admin Dose 1 CAP; Start 08/21/17 at 11:30 Methadone HCl (Methadone) 5 mg Q8H PRN PO PAIN Last administered on 09/05/17 02:33; Admin Dose 5 MG; Start 08/22/17 at 17:30 Lorazepam (Ativan) 0.5 mg Q8H PRN PO ANXIETY Last administered on 09/05/17 04 :02; Admin Dose 0.5 MG; Start 08/24/17 at 16:00 Zolpidem Tartrate (Ambien) 5 mg HS PRN PO INSOMNIA Last administered on 22:05; Admin Dose 5 MG; Start 08/24/17 at 21:30 Insulin Glargine 19 unit 19 unit DAILY@08 SC Last administered on 09/05/17 08 :37; Admin Dose 19 UNIT; Start 09/01/17 at 08:00 Daptomycin 430 mg/ Sodium Chloride 100 ml @ 200 mls/hr Q24H IVPB Last administered on 09/04/17 15:12; Admin Dose 200 MLS/HR; Start 08/31/17 at 15: 00 Ceftriaxone Sodium (Rocephin) 50 ml @ 100 mls/hr Q24H IVPB Last administered on 09/04/17 12:55; Admin Dose 100 MLS/HR; Start 08/31/17 at 13:30 IV Flush (NS 10 ml) 10 ml PRN PRN IV IV PROTOCOL; Start 09/01/17 at 16:00 Buspirone HCl (Buspar) 7.5 mg BID PO Last administered on 09/05/17 08:29; Admin Dose 7.5 MG; Start 09/04/17 at 12:30 SALUD GARIBAY MD Sep 05, 2017 10:29
[2017-09-05 14:00] VITALS: BP 128/68; RESP 20
--- NOTE | 2017-09-05 14:09 | CONS ---
Date/Time of Note Date/Time of Note DATE: 09/05/17 TIME: 14:07 Consult Date/Type/Reason Admit Date/Time Aug 15, 2017 at 19:21 Initial Consult Date 08/29/17 Type of Consultation: ID Ordering Provider: SALUD GARIBAY MD Objective Vital Signs Date Time Temp Pulse Resp B/P Pulse Ox O2 Delivery O2 Flow Rate FiO2 09/05/17 07:30 97.7 60 20 142/70 98 Intake and Output 09/04/17 09/04/17 09/05/17 15:00 23:00 07:00 Intake Total 1750 ml 800 ml Output Total 300 ml Balance 1450 ml 800 ml Results/Medications Result Diagram: 09/05/17 0545 09/05/17 0545 Results 24 hrs Laboratory Tests Test 09/04/17 17:15 09/04/17 20:43 09/05/17 05:45 09/05/17 08:27 Bedside Glucose 212 70 237 H White Blood Count 4.2 #L Red Blood Count 3.79 L Hemoglobin 11.9 L Hematocrit 36.5 L Mean Corpuscular Volume 96.3 Mean Corpuscular Hemoglobin 31.4 Mean Corpuscular Hemoglobin Concent 32.6 Red Cell Distribution Width 14.0 Platelet Count 142 # Mean Platelet Volume 11.8 H Neutrophils % 46.2 Lymphocytes % 38.3 Monocytes % 8.0 Eosinophils % 5.2 Basophils % 2.1 H Nucleated Red Blood Cells % 0.0 Neutrophils # 2.0 Lymphocytes # 1.6 Monocytes # 0.3 Eosinophils # 0.2 Basophils # 0.1 Nucleated Red Blood Cells # 0.0 Sodium Level 139 Potassium Level 4.4 Chloride Level 100 Carbon Dioxide Level 30 Anion Gap 13 Blood Urea Nitrogen 26 H Creatinine 0.81 Glucose Level 268 H Calcium Level 8.8 Phosphorus Level 4.0 Magnesium Level 1.7 Albumin 4.1 Test 09/05/17 12:15 Bedside Glucose 285 H Medications Current Medications Aspirin (Aspirin) 81 mg DAILY PO Last administered on 09/05/17t 08:28; Admin Dose 81 MG; Start 08/16/17 at 09:00 Ondansetron HCl (Zofran Inj) 4 mg Q6H PRN IV NAUSEA AND/OR VOMITING; Start 08/22 at 19:00 Bisacodyl (Dulcolax) 5 mg DAILY PRN PO CONSTIPATION; Start 08/15/17 at 19:00 Nicotine (Nicoderm 14 Mg/ 24hr) 1 patch DAILY TRANSDERM Last administered on 08:29; Admin Dose 1 PATCH; Start 08/16/17 at 09:00 Miscellaneous Information 1 ea NOTE XX ; Start 08/15/17 at 19:30 Glucose (Glutose) 15 gm Q15M PRN PO DECREASED GLUCOSE; Start 08/15/17 at 19:30 Glucose (Glutose) 22.5 gm Q15M PRN PO DECREASED GLUCOSE; Start 08/15/17 at 19: 30 Dextrose (D50w Syringe) 25 ml Q15M PRN IV DECREASED GLUCOSE; Start 08/15/17 at 19:30 Dextrose (D50w Syringe) 50 ml Q15M PRN IV DECREASED GLUCOSE; Start 08/15/17 at 19:30 Glucagon (Glucagen) 1 mg Q15M PRN IM DECREASED GLUCOSE; Start 08/15/17 at 19: 30 Glucose (Glutose) 15 gm Q15M PRN BUCCAL DECREASED GLUCOSE Last administered on 08/26/17 17:18; Admin Dose 15 GM; Start 08/15/17 at 19:30 Diagnostic Test (Pha) (Accu-Chek) 1 ea 02 XX Last administered on 08/25/17 01 :50; Admin Dose 1 EA; Start 08/18/17 at 02:00 Acetaminophen (Tylenol Tab) 650 mg Q6H PRN PO PAIN AND OR ELEVATED TEMP Last administered on 09/03/17 15:34; Admin Dose 650 MG; Start 08/18/17 at 15:00 Lactobacillus Acidophilus/ Rhamnosus (Culturelle) 1 cap BID PO Last administered on 09/05/17 08:28; Admin Dose 1 CAP; Start 08/21/17 at 11:30 Methadone HCl (Methadone) 5 mg Q8H PRN PO PAIN Last administered on 09/05/17 10:48; Admin Dose 5 MG; Start 08/22/17 at 17:30 Lorazepam (Ativan) 0.5 mg Q8H PRN PO ANXIETY Last administered on 09/05/17 12 :13; Admin Dose 0.5 MG; Start 08/24/17 at 16:00 Zolpidem Tartrate (Ambien) 5 mg HS PRN PO INSOMNIA Last administered on 22:05; Admin Dose 5 MG; Start 08/24/17 at 21:30 Insulin Glargine 19 unit 19 unit DAILY@08 SC Last administered on 09/05/17 08 :37; Admin Dose 19 UNIT; Start 09/01/17 at 08:00 Daptomycin 430 mg/ Sodium Chloride 100 ml @ 200 mls/hr Q24H IVPB Last administered on 09/04/17 15:12; Admin Dose 200 MLS/HR; Start 08/31/17 at 15: 00 Ceftriaxone Sodium (Rocephin) 50 ml @ 100 mls/hr Q24H IVPB Last administered on 09/04/17 12:55; Admin Dose 100 MLS/HR; Start 08/31/17 at 13:30 IV Flush (NS 10 ml) 10 ml PRN PRN IV IV PROTOCOL; Start 09/01/17 at 16:00 Buspirone HCl (Buspar) 7.5 mg BID PO Last administered on 09/05/17 08:29; Admin Dose 7.5 MG; Start 09/04/17 at 12:30 Assessment/Plan Chief Complaint/Hosp Course SUBJECTIVE: The patient is alert, ambulating in hallway, back pain improved, no fevers ANTIMICROBIALS: 1. Daptomycin. 2. Rocephin. PHYSICAL EXAMINATION: GENERAL: A well-developed, well-nourished, middle-aged man who is alert, in no distress. HEENT: Head atraumatic, normocephalic. Sclerae anicteric. Buccal mucosa dry. NECK: Supple. CHEST: Rise symmetrical. Breath sounds diminished to bases. HEART: S1, S2. ABDOMEN: Soft. Bowel tones present. EXTREMITIES: Without cyanosis. ASSESSMENT: 1. Ongoing back pain with a hx of recent spinal osteomyelitis. Patient was restarted on antibiotics for concern of partially treated osteomyelitis as per ortho note. 2. Diabetes. 3. History of psychiatric problems. PLAN: The patient remains stable. Recommend dc on current antibiotics for 4 more weeks. The patient to follow at [facility] with ortho team for further rec-s DW staff Problems: CA BAHENA NP Sep 05, 2017 14:09
[2017-09-05] MEDS: CEFTRIAXONE 1 GM/50 ML (PMX) 50 ML IVPB SCH (14:27)
[2017-09-05] MEDS: SOD CHLORIDE 0.9% IVPB SCH (16:42)
[2017-09-05] MEDS: DAPTOMYCIN IVPB SCH (16:42)
--- NOTE | 2017-09-05 17:09 | CONS ---
Date/Time of Note Date/Time of Note DATE: 09/05/17 TIME: 17:08 Assessment/Plan Assessment/Plan Chief Complaint/Hosp Course 52-year-old male with a reported history of diabetes over the last 7 years. He presented to [facility] several years ago with gallstone pancreatitis and significant pancreatic abnormalities. He reports he underwent surgery at the [facility] with partial resection of the pancreas which rendered him diabetic at that time. He reports that he has been on insulin since then although he has missed insulin and has not gone into DKA despite having missed it for more than 48 hours. Problems: (1) Diabetes mellitus out of control Status: Chronic Comment: Sugar control has drifted and I will adjust his basal insulin. We need to be careful to avoid hypoglycemic reactions and the used to stronger dose of insulin is quite possible. For now he will be adjusted and will continue to follow along. Please note from endocrinology standpoint there is no reason for him to stay in the hospital or waiting for his placement. Qualifiers: Diabetes mellitus type: due to underlying condition Diabetes mellitus complication status: without complication Diabetes mellitus longterm insulin use: with longterm use Qualified Code: E08.9 - Diabetes mellitus due to underlying condition, uncontrolled, without complication, with long-term current use of insulin Consultation Date/Type/Reason Admit Date/Time Aug 15, 2017 at 19:21 Initial Consult Date 08/23/17 Type of Consultation: Endocrinology Reason for Consultation Diabetes mellitus Referring Provider: SALUD GARIBAY MD 24 HR Interval Summary Constitutional: no complaints Exam/Review of Systems Vital Signs Vitals Vital Signs Date Time Temp Pulse Resp B/P Pulse Ox O2 Delivery O2 Flow Rate FiO2 09/05/17 14:00 98.5 57 20 128/68 96 Intake and Output 09/04/17 09/04/17 09/05/17 15:00 23:00 07:00 Intake Total 1750 ml 800 ml Output Total 300 ml Balance 1450 ml 800 ml Results No change in exam Result Diagram: 09/05/17 0545 09/05/17 0545 Results 24 hrs Laboratory Tests Test 09/04/17 17:15 09/04/17 20:43 09/05/17 05:45 09/05/17 08:27 Bedside Glucose 212 70 237 H White Blood Count 4.2 #L Red Blood Count 3.79 L Hemoglobin 11.9 L Hematocrit 36.5 L Mean Corpuscular Volume 96.3 Mean Corpuscular Hemoglobin 31.4 Mean Corpuscular Hemoglobin Concent 32.6 Red Cell Distribution Width 14.0 Platelet Count 142 # Mean Platelet Volume 11.8 H Neutrophils % 46.2 Lymphocytes % 38.3 Monocytes % 8.0 Eosinophils % 5.2 Basophils % 2.1 H Nucleated Red Blood Cells % 0.0 Neutrophils # 2.0 Lymphocytes # 1.6 Monocytes # 0.3 Eosinophils # 0.2 Basophils # 0.1 Nucleated Red Blood Cells # 0.0 Sodium Level 139 Potassium Level 4.4 Chloride Level 100 Carbon Dioxide Level 30 Anion Gap 13 Blood Urea Nitrogen 26 H Creatinine 0.81 Glucose Level 268 H Calcium Level 8.8 Phosphorus Level 4.0 Magnesium Level 1.7 Albumin 4.1 Test 09/05/17 12:15 Bedside Glucose 285 H Medications Medications Current Medications Aspirin (Aspirin) 81 mg DAILY PO Last administered on 09/05/17 08:28; Admin Dose 81 MG; Start 08/16/17 at 09:00 Ondansetron HCl (Zofran Inj) 4 mg Q6H PRN IV NAUSEA AND/OR VOMITING; Start 08/22 at 19:00 Bisacodyl (Dulcolax) 5 mg DAILY PRN PO CONSTIPATION; Start 08/15/17 at 19:00 Nicotine (Nicoderm 14 Mg/ 24hr) 1 patch DAILY TRANSDERM Last administered on 08:29; Admin Dose 1 PATCH; Start 08/16/17 at 09:00 Miscellaneous Information 1 ea NOTE XX ; Start 08/15/17 at 19:30 Glucose (Glutose) 15 gm Q15M PRN PO DECREASED GLUCOSE; Start 08/15/17 at 19:30 Glucose (Glutose) 22.5 gm Q15M PRN PO DECREASED GLUCOSE; Start 08/15/17 at 19: 30 Dextrose (D50w Syringe) 25 ml Q15M PRN IV DECREASED GLUCOSE; Start 08/15/17 at 19:30 Dextrose (D50w Syringe) 50 ml Q15M PRN IV DECREASED GLUCOSE; Start 08/15/17 at 19:30 Glucagon (Glucagen) 1 mg Q15M PRN IM DECREASED GLUCOSE; Start 08/15/17 at 19: 30 Glucose (Glutose) 15 gm Q15M PRN BUCCAL DECREASED GLUCOSE Last administered on 08/26/17 17:18; Admin Dose 15 GM; Start 08/15/17 at 19:30 Diagnostic Test (Pha) (Accu-Chek) 1 ea 02 XX Last administered on 08/25/17 01 :50; Admin Dose 1 EA; Start 08/18/17 at 02:00 Acetaminophen (Tylenol Tab) 650 mg Q6H PRN PO PAIN AND OR ELEVATED TEMP Last administered on 09/03/17 15:34; Admin Dose 650 MG; Start 08/18/17 at 15:00 Lactobacillus Acidophilus/ Rhamnosus (Culturelle) 1 cap BID PO Last administered on 09/05/17 08:28; Admin Dose 1 CAP; Start 08/21/17 at 11:30 Methadone HCl (Methadone) 5 mg Q8H PRN PO PAIN Last administered on 09/05/17 10:48; Admin Dose 5 MG; Start 08/22/17 at 17:30 Lorazepam (Ativan) 0.5 mg Q8H PRN PO ANXIETY Last administered on 09/05/17 12 :13; Admin Dose 0.5 MG; Start 08/24/17 at 16:00 Zolpidem Tartrate (Ambien) 5 mg HS PRN PO INSOMNIA Last administered on 22:05; Admin Dose 5 MG; Start 08/24/17 at 21:30 Insulin Glargine 19 unit 19 unit DAILY@08 SC Last administered on 09/05/17 08 :37; Admin Dose 19 UNIT; Start 09/01/17 at 08:00 Daptomycin 430 mg/ Sodium Chloride 100 ml @ 200 mls/hr Q24H IVPB Last administered on 09/05/17 16:42; Admin Dose 200 MLS/HR; Start 08/31/17 at 15: 00 Ceftriaxone Sodium (Rocephin) 50 ml @ 100 mls/hr Q24H IVPB Last administered on 09/05/17 14:27; Admin Dose 100 MLS/HR; Start 08/31/17 at 13:30 IV Flush (NS 10 ml) 10 ml PRN PRN IV IV PROTOCOL; Start 09/01/17 at 16:00 Buspirone HCl (Buspar) 7.5 mg BID PO Last administered on 09/05/17 08:29; Admin Dose 7.5 MG; Start 09/04/17 at 12:30; Stop 09/05/17 at 23:55 Buspirone HCl (Buspar) 10 mg BID PO ; Start 09/06/17 at 09:00 MASON HANEY MD Sep 05, 2017 17:09
[2017-09-05 19:13] VITALS: BP 114/63; RESP 18
[2017-09-06] MEDS: ACCU-CHEK XX SCH (01:39)
[2017-09-06 01:56] VITALS: BP 112/59; RESP 18
[2017-09-06] MEDS: METHADONE 5 MG TAB PO PRN ×3 (04:00→23:49)
[2017-09-06] MEDS: LORAZEPAM 0.5 MG TAB PO PRN ×3 (05:36→23:48)
[2017-09-06 06:33] LABS: BASOPHIL # 0.1 10^3/ul (0.0-0.1); BASOPHILS % 1.9 % (0.0-2.0); EOSINOPHILS # 0.3 10^3/ul (0.0-0.5); HEMATOCRIT 37.6 % (42.0-52.0); HEMOGLOBIN 12.5 g/dl (14.0-18.0); LYMPHOCYTES % 38.9 % (15.0-51.0); MEAN CORPUSCULAR HEMOGLOBIN 32.1 pg (29.0-33.0); MEAN CORPUSCULAR HGB CONC 33.2 g/dl (32.0-37.0); MEAN CORPUSCULAR VOLUME 96.4 fl (82.0-101.0); MEAN PLATELET VOLUME 11.9 fl (7.4-10.4); MONOCYTE # 0.5 10^3/ul (0.3-0.9); MONOCYTES % 10.1 % (0.0-11.0); NEUTROPHIL # 2.3 10^3/ul (1.6-7.5); NEUTROPHILS % 43.9 % (39.0-77.0); PLATELET COUNT 149 10^3/UL (140-415); RED CELL DISTRIBUTION WIDTH 13.8 % (11.5-14.5); WHITE BLOOD COUNT 5.2 10^3/ul (4.8-10.8)
[2017-09-06 06:52] LABS: ALBUMIN 3.9 g/dl (3.3-4.9); CALCIUM 9.4 mg/dl (8.4-10.2); CREATININE 0.87 mg/dl (0.61-1.24); MAGNESIUM 1.8 mg/dl (1.7-2.5); POTASSIUM 4.6 mmol/L (3.5-5.1)
[2017-09-06 07:22] VITALS: BP 128/65; RESP 18
[2017-09-06] MEDS: CREON (12k-38k-60k) 1 CAP PO SCH ×3 (08:03→17:25)
[2017-09-06] MEDS: INSULIN ASPART [NOVOLOG] 3 ML PEN SC SCH ×7 (08:24→20:19)
[2017-09-06] MEDS: INSULIN GLARGINE [LANtus] 3 ML PEN SC SCH (08:25)
[2017-09-06] MEDS: NICOTINE (14 MG/24 HR) PATCH TRANSDERM SCH (09:14)
[2017-09-06] MEDS: LACTOBACILLUS RHAMNOSUS CAP PO SCH ×2 (09:14→20:18)
[2017-09-06] MEDS: ASPIRIN 81 MG TAB PO SCH (09:14)
[2017-09-06] MEDS: BUSPIRONE 10 MG TAB PO SCH ×2 (11:31→20:21)
--- NOTE | 2017-09-06 12:16 | PN ---
Date/Time of Note Date/Time of Note DATE: 09/06/17 TIME: 12:13 Assessment/Plan VTE Prophylaxis VTE Prophylaxis Intervention: ambulation Lines/Catheters IV Catheter Type (from Nrsg): PICC Line Central line still needed: Yes (intermediate IV antibiotics) Urinary Cath still in place: No Assessment/Plan Assessment/Plan 1. Back pain secondary to diskitis vs osteomyelitis - Patient ambulating with no gait abnormalities or falls. No acute fevers and WBC normal - MRI noted, likely 2/2 old OM, however unsure if acute, Dr. Arthur, neurosurgery consulted, states non surgical at this time - ID has been consulted, recommended biopsy. however biopsy is too high risk per IR. Will need 4 more weeks of IV antibiotics - CM to arrange appt with Dr. Augustine Berry, with asher garza, patient's previous physician who is familiar with his condition. 2. Diabetes Mellitus, uncontrolled - Sugars continue to fluctuate and medication has been adjusted. - A1c 9.5. 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 Suicidal ideation - No longer experiencing SI and cleared by tele-psych 4. Anxiety - Doing well on Buspar - Ativan as needed and will wean as tolerated - Tried Celexa in the past with no improvement 5. Altered mental status, likely secondary to alcohol abuse- resolved - Patient is mentating well and reevaluation by tele psych cleared patient - no witnessed seizures and continuing seizure precautions. - Ativan TID prn which has been helping his mood, prn. Offered intermediate medications for mood control as well but refusing and states he feels lonely and depressed and anxious when on other medications 6. Anion gap metabolic acidosis, moderate, not full DKA, secondary to medical noncompliance- resolved 7. Lactic acidosis - resolved 8. Hypernatremia, likely secondary to volume depletion given alcohol extent- resolved 9. Elevated AST and ALT, resolved 10. Disposition - Will need to continue antibiotics for another 4 weeks - Pending placement 2/2 patient being homeless and not having anywhere to go now since friend will not take him in. Subjective 24 Hr Interval Summary Free Text/Dictation Patient ambulating around unit with no issues. States he feels the same and denies any new issues. No acute overnight events. Exam/Review of Systems Vital Signs Vitals Vital Signs Date Time Temp Pulse Resp B/P Pulse Ox O2 Delivery O2 Flow Rate FiO2 09/06/17 07:22 98.4 52 18 128/65 99 Intake and Output 09/05/17 09/05/17 09/06/17 15:00 23:00 07:00 Intake Total 50 ml 100 ml 1060 ml Balance 50 ml 100 ml 1060 ml Exam General: Patient in no acute distress. awake and alert. ambulating with no issues Head: Normocephalic atraumatic Eyes: EOMI, pupils reactive to light Neck: Supple, nontender, midline Respiratory: Clear to auscultation bilaterally. no wheezes or crackles Cardiovascular: regular rate, no obvious murmurs Gastrointestinal: non-tender to palpation, bowel sounds heard. Extremities: No tenderness to palpation spine, moving all extremities Neurological: Moves all extremities spontaneously Psych: Flat affect. no SI/HI Results Result Diagram: 09/06/17 0542 09/06/17 0542 Results 24 hrs Laboratory Tests Test 09/05/17 12:15 09/05/17 17:28 09/05/17 19:36 09/05/17 20:00 Bedside Glucose 285 H 86 48 *L 59 L Test 09/05/17 20:17 09/05/17 20:34 09/06/17 05:42 09/06/17 08:02 Bedside Glucose 87 116 215 White Blood Count 5.2 # Red Blood Count 3.90 L Hemoglobin 12.5 L Hematocrit 37.6 L Mean Corpuscular Volume 96.4 Mean Corpuscular Hemoglobin 32.1 Mean Corpuscular Hemoglobin Concent 33.2 Red Cell Distribution Width 13.8 Platelet Count 149 Mean Platelet Volume 11.9 H Neutrophils % 43.9 Lymphocytes % 38.9 Monocytes % 10.1 Eosinophils % 5.0 Basophils % 1.9 Nucleated Red Blood Cells % 0.0 Neutrophils # 2.3 Lymphocytes # 2.0 Monocytes # 0.5 Eosinophils # 0.3 Basophils # 0.1 Nucleated Red Blood Cells # 0.0 Sodium Level 139 Potassium Level 4.6 Chloride Level 102 Carbon Dioxide Level 29 Anion Gap 13 Blood Urea Nitrogen 22 H Creatinine 0.87 Glucose Level 240 H Calcium Level 9.4 Phosphorus Level 4.0 Magnesium Level 1.8 Albumin 3.9 Test 09/06/17 11:32 Bedside Glucose 118 Medications Medications Current Medications Aspirin (Aspirin) 81 mg DAILY PO Last administered on 09/06/17 09:14; Admin Dose 81 MG; Start 08/16/17 at 09:00 Ondansetron HCl (Zofran Inj) 4 mg Q6H PRN IV NAUSEA AND/OR VOMITING; Start 08/22 at 19:00 Bisacodyl (Dulcolax) 5 mg DAILY PRN PO CONSTIPATION; Start 08/15/17 at 19:00 Nicotine (Nicoderm 14 Mg/ 24hr) 1 patch DAILY TRANSDERM Last administered on 09:14; Admin Dose 1 PATCH; Start 08/16/17 at 09:00 Miscellaneous Information 1 ea NOTE XX ; Start 08/15/17 at 19:30 Glucose (Glutose) 15 gm Q15M PRN PO DECREASED GLUCOSE; Start 08/15/17 at 19:30 Glucose (Glutose) 22.5 gm Q15M PRN PO DECREASED GLUCOSE; Start 08/15/17 at 19: 30 Dextrose (D50w Syringe) 25 ml Q15M PRN IV DECREASED GLUCOSE; Start 08/15/17 at 19:30 Dextrose (D50w Syringe) 50 ml Q15M PRN IV DECREASED GLUCOSE; Start 08/15/17 at 19:30 Glucagon (Glucagen) 1 mg Q15M PRN IM DECREASED GLUCOSE; Start 08/15/17 at 19: 30 Glucose (Glutose) 15 gm Q15M PRN BUCCAL DECREASED GLUCOSE Last administered on 08/26/17 17:18; Admin Dose 15 GM; Start 08/15/17 at 19:30 Diagnostic Test (Pha) (Accu-Chek) 1 ea 02 XX Last administered on 08/25/17 01 :50; Admin Dose 1 EA; Start 08/18/17 at 02:00 Acetaminophen (Tylenol Tab) 650 mg Q6H PRN PO PAIN AND OR ELEVATED TEMP Last administered on 09/03/17 15:34; Admin Dose 650 MG; Start 08/18/17 at 15:00 Lactobacillus Acidophilus/ Rhamnosus (Culturelle) 1 cap BID PO Last administered on 09/06/17 09:14; Admin Dose 1 CAP; Start 08/21/17 at 11:30 Methadone HCl (Methadone) 5 mg Q8H PRN PO PAIN Last administered on 09/06/17 04:00; Admin Dose 5 MG; Start 08/22/17 at 17:30 Lorazepam (Ativan) 0.5 mg Q8H PRN PO ANXIETY Last administered on 09/06/17 05: 36; Admin Dose 0.5 MG; Start 08/24/17 at 16:00 Zolpidem Tartrate 5 mg 5 mg HS PRN PO INSOMNIA Last administered on 09/03/17 22:05; Admin Dose 5 MG; Start 08/24/17 at 21:30 Daptomycin 430 mg/ Sodium Chloride 100 ml @ 200 mls/hr Q24H IVPB Last administered on 09/05/17 16:42; Admin Dose 200 MLS/HR; Start 08/31/17 at 15: 00 Ceftriaxone Sodium (Rocephin) 50 ml @ 100 mls/hr Q24H IVPB Last administered on 09/05/17 14:27; Admin Dose 100 MLS/HR; Start 08/31/17 at 13:30 IV Flush (NS 10 ml) 10 ml PRN PRN IV IV PROTOCOL; Start 09/01/17 at 16:00 Buspirone HCl (Buspar) 10 mg BID PO Last administered on 09/06/17 11:31; Admin Dose 10 MG; Start 09/06/17 at 09:00 Insulin Glargine (Lantus) 20 unit DAILY@08 SC Last administered on 09/06/17 08 :25; Admin Dose 20 UNIT; Start 09/06/17 at 08:00 SALUD GARIBAY MD Sep 06, 2017 12:16
[2017-09-06] MEDS ORDERED: BUSP10TA2 PO (12:42)
[2017-09-06] MEDS ORDERED: LACT1CAP28 PO (12:42)
[2017-09-06] MEDS ORDERED: LIPA1CAP4 PO (12:42)
--- NOTE | 2017-09-06 13:16 | CONS ---
Date/Time of Note Date/Time of Note DATE: 09/06/17 TIME: 13:16 Consult Date/Type/Reason Admit Date/Time Aug 15, 2017 at 19:21 Initial Consult Date 08/29/17 Type of Consultation: ID Ordering Provider: SALUD GARIBAY MD Objective Vital Signs Date Time Temp Pulse Resp B/P Pulse Ox O2 Delivery O2 Flow Rate FiO2 09/06/17 07:22 98.4 52 18 128/65 99 Intake and Output 09/05/17 09/05/17 09/06/17 15:00 23:00 07:00 Intake Total 50 ml 100 ml 1060 ml Balance 50 ml 100 ml 1060 ml Results/Medications Result Diagram: 09/06/17 0542 09/06/17 0542 Results 24 hrs Laboratory Tests Test 09/05/17 17:28 09/05/17 19:36 09/05/17 20:00 09/05/17 20:17 Bedside Glucose 86 48 *L 59 L 87 Test 09/05/17 20:34 09/06/17 05:42 09/06/17 08:02 09/06/17 11:32 Bedside Glucose 116 215 118 White Blood Count 5.2 # Red Blood Count 3.90 L Hemoglobin 12.5 L Hematocrit 37.6 L Mean Corpuscular Volume 96.4 Mean Corpuscular Hemoglobin 32.1 Mean Corpuscular Hemoglobin Concent 33.2 Red Cell Distribution Width 13.8 Platelet Count 149 Mean Platelet Volume 11.9 H Neutrophils % 43.9 Lymphocytes % 38.9 Monocytes % 10.1 Eosinophils % 5.0 Basophils % 1.9 Nucleated Red Blood Cells % 0.0 Neutrophils # 2.3 Lymphocytes # 2.0 Monocytes # 0.5 Eosinophils # 0.3 Basophils # 0.1 Nucleated Red Blood Cells # 0.0 Sodium Level 139 Potassium Level 4.6 Chloride Level 102 Carbon Dioxide Level 29 Anion Gap 13 Blood Urea Nitrogen 22 H Creatinine 0.87 Glucose Level 240 H Calcium Level 9.4 Phosphorus Level 4.0 Magnesium Level 1.8 Albumin 3.9 Medications Current Medications Aspirin (Aspirin) 81 mg DAILY PO Last administered on 09/06/17t 09:14; Admin Dose 81 MG; Start 08/16/17 at 09:00 Ondansetron HCl (Zofran Inj) 4 mg Q6H PRN IV NAUSEA AND/OR VOMITING; Start 08/22 at 19:00 Bisacodyl (Dulcolax) 5 mg DAILY PRN PO CONSTIPATION; Start 08/15/17 at 19:00 Nicotine (Nicoderm 14 Mg/ 24hr) 1 patch DAILY TRANSDERM Last administered on 09:14; Admin Dose 1 PATCH; Start 08/16/17 at 09:00 Miscellaneous Information 1 ea NOTE XX ; Start 08/15/17 at 19:30 Glucose (Glutose) 15 gm Q15M PRN PO DECREASED GLUCOSE; Start 08/15/17 at 19:30 Glucose (Glutose) 22.5 gm Q15M PRN PO DECREASED GLUCOSE; Start 08/15/17 at 19: 30 Dextrose (D50w Syringe) 25 ml Q15M PRN IV DECREASED GLUCOSE; Start 08/15/17 at 19:30 Dextrose (D50w Syringe) 50 ml Q15M PRN IV DECREASED GLUCOSE; Start 08/15/17 at 19:30 Glucagon (Glucagen) 1 mg Q15M PRN IM DECREASED GLUCOSE; Start 08/15/17 at 19: 30 Glucose (Glutose) 15 gm Q15M PRN BUCCAL DECREASED GLUCOSE Last administered on 08/26/17 17:18; Admin Dose 15 GM; Start 08/15/17 at 19:30 Diagnostic Test (Pha) (Accu-Chek) 1 ea 02 XX Last administered on 08/25/17 01 :50; Admin Dose 1 EA; Start 08/18/17 at 02:00 Acetaminophen (Tylenol Tab) 650 mg Q6H PRN PO PAIN AND OR ELEVATED TEMP Last administered on 09/03/17 15:34; Admin Dose 650 MG; Start 08/18/17 at 15:00 Lactobacillus Acidophilus/ Rhamnosus (Culturelle) 1 cap BID PO Last administered on 09/06/17 09:14; Admin Dose 1 CAP; Start 08/21/17 at 11:30 Methadone HCl (Methadone) 5 mg Q8H PRN PO PAIN Last administered on 09/06/17 04:00; Admin Dose 5 MG; Start 08/22/17 at 17:30 Lorazepam (Ativan) 0.5 mg Q8H PRN PO ANXIETY Last administered on 09/06/17 05: 36; Admin Dose 0.5 MG; Start 08/24/17 at 16:00 Zolpidem Tartrate 5 mg 5 mg HS PRN PO INSOMNIA Last administered on 09/03/17 22:05; Admin Dose 5 MG; Start 08/24/17 at 21:30 Daptomycin 430 mg/ Sodium Chloride 100 ml @ 200 mls/hr Q24H IVPB Last administered on 09/05/17 16:42; Admin Dose 200 MLS/HR; Start 08/31/17 at 15: 00 Ceftriaxone Sodium (Rocephin) 50 ml @ 100 mls/hr Q24H IVPB Last administered on 09/05/17 14:27; Admin Dose 100 MLS/HR; Start 08/31/17 at 13:30 IV Flush (NS 10 ml) 10 ml PRN PRN IV IV PROTOCOL; Start 09/01/17 at 16:00 Buspirone HCl (Buspar) 10 mg BID PO Last administered on 09/06/17 11:31; Admin Dose 10 MG; Start 09/06/17 at 09:00 Insulin Glargine (Lantus) 20 unit DAILY@08 SC Last administered on 09/06/17 08 :25; Admin Dose 20 UNIT; Start 09/06/17 at 08:00 Assessment/Plan Chief Complaint/Hosp Course SUBJECTIVE: The patient is alert, feels good, back pain improved, no fevers ANTIMICROBIALS: 1. Daptomycin. 2. Rocephin. PHYSICAL EXAMINATION: GENERAL: A well-developed, well-nourished, middle-aged man who is alert, in no distress. HEENT: Head atraumatic, normocephalic. Sclerae anicteric. Buccal mucosa dry. NECK: Supple. CHEST: Rise symmetrical. Breath sounds diminished to bases. HEART: S1, S2. ABDOMEN: Soft. Bowel tones present. EXTREMITIES: Without cyanosis. ASSESSMENT: 1. Ongoing back pain with a hx of recent spinal osteomyelitis. Patient was restarted on antibiotics for concern of partially treated osteomyelitis as per ortho note. 2. Diabetes. 3. History of psychiatric problems. PLAN: The patient remains stable. Recommend dc on current antibiotics for 4 more weeks. The patient to follow at [facility] with ortho team for further rec-s DW staff Problems: CA BAHENA NP Sep 06, 2017 13:16
[2017-09-06] MEDS: CEFTRIAXONE 1 GM/50 ML (PMX) 50 ML IVPB SCH (13:54)
[2017-09-06 13:57] VITALS: BP 115/64; RESP 18
[2017-09-06] MEDS: SOD CHLORIDE 0.9% IVPB SCH (15:20)
[2017-09-06] MEDS: DAPTOMYCIN IVPB SCH (15:20)
--- NOTE | 2017-09-06 17:40 | CONS ---
Date/Time of Note Date/Time of Note DATE: 09/06/17 TIME: 17:38 Assessment/Plan Assessment/Plan Chief Complaint/Hosp Course 52-year-old male with a reported history of diabetes over the last 7 years. He presented to [facility] several years ago with gallstone pancreatitis and significant pancreatic abnormalities. He [place] [facility] [place] which rendered him diabetic at that time. He reports that he has been on insulin since then although he has missed insulin and has not gone into DKA despite having missed it for more than 48 hours. Problems: (1) Exocrine pancreatic insufficiency Status: Chronic Comment: He remains on pancreatic exocrine enzymes orally to compensate. (2) Diabetes mellitus out of control Status: Chronic Comment: His control is adequate. 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 Summary for this is diabetes mellitus type IIIc Qualifiers: Diabetes mellitus type: due to underlying condition Diabetes mellitus complication status: without complication Diabetes mellitus intermediate insulin use: with dessert cup machine feeder use Qualified Code: E08.9 - Diabetes mellitus due to underlying condition, uncontrolled, without complication, with long-term current use of insulin (3) Alcohol abuse Status: Chronic Comment: Stable and not a risk of going into DTs or withdrawal after this many days in the hospital. (4) Chronic pain syndrome Status: Chronic Comment: Fair control of chronic pain (5) Chronic osteomyelitis of thoracic spine Status: Chronic Comment: As per infectious diseases. Discharge planning in process Consultation Date/Type/Reason Admit Date/Time Aug 15, 2017 at 19:21 Initial Consult Date 08/23/17 Type of Consultation: Endocrinology Reason for Consultation Diabetes out of control with possible T-spine osteomyelitis Referring Provider: SALUD GARIBAY MD 24 HR Interval Summary Free Text/Dictation No new complaints Exam/Review of Systems Vital Signs Vitals Vital Signs Date Time Temp Pulse Resp B/P Pulse Ox O2 Delivery O2 Flow Rate FiO2 09/06/17 13:57 99.2 60 18 115/64 99 Intake and Output 09/05/17 09/05/17 09/06/17 15:00 23:00 07:00 Intake Total 50 ml 100 ml 1060 ml Balance 50 ml 100 ml 1060 ml Results No change in exam Result Diagram: 09/06/17 0542 09/06/17 0542 Results 24 hrs Laboratory Tests Test 09/05/17 19:36 10/31/17 20:00 09/05/17 20:17 09/05/17 20:34 Bedside Glucose 48 *L 59 L 87 116 Test 09/06/17 05:42 09/06/17 08:02 09/06/17 11:32 09/06/17 17:16 White Blood Count 5.2 # Red Blood Count 3.90 L Hemoglobin 12.5 L Hematocrit 37.6 L Mean Corpuscular Volume 96.4 Mean Corpuscular Hemoglobin 32.1 Mean Corpuscular Hemoglobin Concent 33.2 Red Cell Distribution Width 13.8 Platelet Count 149 Mean Platelet Volume 11.9 H Neutrophils % 43.9 Lymphocytes % 38.9 Monocytes % 10.1 Eosinophils % 5.0 Basophils % 1.9 Nucleated Red Blood Cells % 0.0 Neutrophils # 2.3 Lymphocytes # 2.0 Monocytes # 0.5 Eosinophils # 0.3 Basophils # 0.1 Nucleated Red Blood Cells # 0.0 Sodium Level 139 Potassium Level 4.6 Chloride Level 102 Carbon Dioxide Level 29 Anion Gap 13 Blood Urea Nitrogen 22 H Creatinine 0.87 Glucose Level 240 H Calcium Level 9.4 Phosphorus Level 4.0 Magnesium Level 1.8 Albumin 3.9 Bedside Glucose 215 118 74 Medications Medications Current Medications Aspirin (Aspirin) 81 mg DAILY PO Last administered on 09/06/17 09:14; Admin Dose 81 MG; Start 08/16/17 at 09:00 Ondansetron HCl (Zofran Inj) 4 mg Q6H PRN IV NAUSEA AND/OR VOMITING; Start 08/22 at 19:00 Bisacodyl (Dulcolax) 5 mg DAILY PRN PO CONSTIPATION; Start 08/15/17 at 19:00 Nicotine (Nicoderm 14 Mg/ 24hr) 1 patch DAILY TRANSDERM Last administered on 09:14; Admin Dose 1 PATCH; Start 08/16/17 at 09:00 Miscellaneous Information 1 ea NOTE XX ; Start 08/15/17 at 19:30 Glucose (Glutose) 15 gm Q15M PRN PO DECREASED GLUCOSE; Start 08/15/17 at 19:30 Glucose (Glutose) 22.5 gm Q15M PRN PO DECREASED GLUCOSE; Start 08/15/17 at 19: 30 Dextrose (D50w Syringe) 25 ml Q15M PRN IV DECREASED GLUCOSE; Start 08/15/17 at 19:30 Dextrose (D50w Syringe) 50 ml Q15M PRN IV DECREASED GLUCOSE; Start 08/15/17 at 19:30 Glucagon (Glucagen) 1 mg Q15M PRN IM DECREASED GLUCOSE; Start 08/15/17 at 19: 30 Glucose (Glutose) 15 gm Q15M PRN BUCCAL DECREASED GLUCOSE Last administered on 08/26/17 17:18; Admin Dose 15 GM; Start 08/15/17 at 19:30 Diagnostic Test (Pha) (Accu-Chek) 1 ea 02 XX Last administered on 08/25/17 01 :50; Admin Dose 1 EA; Start 08/18/17 at 02:00 Acetaminophen (Tylenol Tab) 650 mg Q6H PRN PO PAIN AND OR ELEVATED TEMP Last administered on 09/03/17 15:34; Admin Dose 650 MG; Start 08/18/17 at 15:00 Lactobacillus Acidophilus/ Rhamnosus (Culturelle) 1 cap BID PO Last administered on 09/06/17 09:14; Admin Dose 1 CAP; Start 08/21/17 at 11:30 Methadone HCl (Methadone) 5 mg Q8H PRN PO PAIN Last administered on 09/06/17 13:29; Admin Dose 5 MG; Start 08/22/17 at 17:30 Lorazepam (Ativan) 0.5 mg Q8H PRN PO ANXIETY Last administered on 09/06/17 13: 28; Admin Dose 0.5 MG; Start 08/24/17 at 16:00 Zolpidem Tartrate 5 mg 5 mg HS PRN PO INSOMNIA Last administered on 09/03/17 22:05; Admin Dose 5 MG; Start 08/24/17 at 21:30 Daptomycin 430 mg/ Sodium Chloride 100 ml @ 200 mls/hr Q24H IVPB Last administered on 09/06/17 15:20; Admin Dose 200 MLS/HR; Start 08/31/17 at 15:00 Ceftriaxone Sodium (Rocephin) 50 ml @ 100 mls/hr Q24H IVPB Last administered on 09/06/17 13:54; Admin Dose 100 MLS/HR; Start 08/31/17 at 13:30 IV Flush (NS 10 ml) 10 ml PRN PRN IV IV PROTOCOL; Start 09/01/17 at 16:00 Buspirone HCl (Buspar) 10 mg BID PO Last administered on 09/06/17 11:31; Admin Dose 10 MG; Start 09/06/17 at 09:00 Insulin Glargine (Lantus) 20 unit DAILY@08 SC Last administered on 09/06/17 08 :25; Admin Dose 20 UNIT; Start 09/06/17 at 08:00 MASON HANEY MD Sep 06, 2017 17:40
[2017-09-06 20:17] VITALS: BP 127/67; RESP 20
[2017-09-06] MEDS: ACETAMINOPHEN 325 MG TAB PO PRN (22:33)
[2017-09-06] MEDS: ZOLPIDEM 5 MG TAB PO PRN (22:33)
[2017-09-07] MEDS: ACCU-CHEK XX SCH (01:20)
[2017-09-07 01:27] VITALS: BP 120/63; RESP 20
[2017-09-07 05:33] LABS: BASOPHIL # 0.1 10^3/ul (0.0-0.1); BASOPHILS % 2.1 % (0.0-2.0); EOSINOPHILS # 0.3 10^3/ul (0.0-0.5); EOSINOPHILS % 6.8 % (0.0-7.0); HEMATOCRIT 36.4 % (42.0-52.0); LYMPHOCYTES # 2.1 10^3/ul (0.8-2.9); LYMPHOCYTES % 44.1 % (15.0-51.0); MEAN CORPUSCULAR HEMOGLOBIN 31.7 pg (29.0-33.0); MEAN PLATELET VOLUME 11.5 fl (7.4-10.4); MONOCYTE # 0.5 10^3/ul (0.3-0.9); MONOCYTES % 9.7 % (0.0-11.0); NEUTROPHIL # 1.8 10^3/ul (1.6-7.5); NEUTROPHILS % 37.1 % (39.0-77.0); PLATELET COUNT 136 10^3/UL (140-415); POSITIVE DIFF @See below; RED BLOOD COUNT 3.79 10^6/ul (4.70-6.10); RED CELL DISTRIBUTION WIDTH 13.8 % (11.5-14.5); WHITE BLOOD COUNT 4.8 10^3/ul (4.8-10.8)
[2017-09-07 06:03] LABS: ALBUMIN 3.6 g/dl (3.3-4.9); CALCIUM 9.3 mg/dl (8.4-10.2); CREATININE 0.87 mg/dl (0.61-1.24); MAGNESIUM 1.8 mg/dl (1.7-2.5); PHOSPHORUS 4.4 mg/dl (2.5-4.9); POTASSIUM 4.5 mmol/L (3.5-5.1)
[2017-09-07 07:21] VITALS: BP 137/69; RESP 16
[2017-09-07] MEDS: INSULIN ASPART [NOVOLOG] 3 ML PEN SC SCH ×7 (08:41→20:43)
[2017-09-07] MEDS: CREON (12k-38k-60k) 1 CAP PO SCH ×3 (08:44→18:23)
[2017-09-07] MEDS: LORAZEPAM 0.5 MG TAB PO PRN ×2 (08:44→16:33)
[2017-09-07] MEDS: METHADONE 5 MG TAB PO PRN ×2 (08:45→16:33)
[2017-09-07] MEDS: BUSPIRONE 10 MG TAB PO SCH ×2 (08:46→20:39)
[2017-09-07] MEDS: NICOTINE (14 MG/24 HR) PATCH TRANSDERM SCH (08:46)
[2017-09-07] MEDS: LACTOBACILLUS RHAMNOSUS CAP PO SCH ×2 (08:47→20:39)
[2017-09-07] MEDS: INSULIN GLARGINE [LANtus] 3 ML PEN SC SCH (08:50)
[2017-09-07] MEDS: ASPIRIN 81 MG TAB PO SCH (10:03)
[2017-09-07 11:46] VITALS: BP 121/66; PULSE 58; RESP 14
[2017-09-07] MEDS: ACETAMINOPHEN 325 MG TAB PO PRN ×2 (12:39→22:07)
[2017-09-07] MEDS: CEFTRIAXONE 1 GM/50 ML (PMX) 50 ML IVPB SCH (12:39)
[2017-09-07 13:23] VITALS: BP 117/67; RESP 16
--- NOTE | 2017-09-07 13:54 | CONS ---
Date/Time of Note Date/Time of Note DATE: 09/07/17 TIME: 13:52 Assessment/Plan Assessment/Plan Chief Complaint/Hosp Course 52-year-old male with a reported history of diabetes over the last 7 years. He presented to [facility] several years ago with gallstone pancreatitis and significant pancreatic abnormalities. He reports he [place] [facility] [place] of the pancreas which rendered him diabetic at that time. He reports that he has been on insulin since then although he has missed insulin and has not gone into DKA despite having missed it for more than 48 hours. 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 Qualified Code: E08.9 - Diabetes mellitus due to underlying condition, uncontrolled, without complication, with long-term current use of insulin (2) Alcohol abuse Status: Chronic Comment: Stable and past the point of withdrawal symptoms (3) Chronic pain syndrome Status: Chronic Comment: Fair control Consultation Date/Type/Reason Admit Date/Time Aug 15, 2017 at 19:21 Initial Consult Date 08/23/17 Type of Consultation: Endocrinology Reason for Consultation Diabetes mellitus type 1 with poor control and thoracic osteomyelitis Referring Provider: SALUD GARIBAY MD 24 HR Interval Summary Free Text/Dictation No changes in therapeutics although he reports that his pain control is adequate Exam/Review of Systems Vital Signs Vitals Vital Signs Date Time Temp Pulse Resp B/P Pulse Ox O2 Delivery O2 Flow Rate FiO2 09/07/17 13:23 98.6 65 16 117/67 96 09/07/17 11:46 Room Air Intake and Output 09/06/17 09/06/17 09/07/17 15:00 23:00 07:00 Intake Total 50 ml 2220 ml 700 ml Output Total 300 ml Balance 50 ml 1920 ml 700 ml Results No changes in exam Result Diagram: 09/07/17 0518 09/07/17 0518 Results 24 hrs Laboratory Tests Test 09/06/17 17:16 09/06/17 20:18 09/07/17 05:18 09/07/17 08:23 Bedside Glucose 74 98 281 H White Blood Count 4.8 Red Blood Count 3.79 L Hemoglobin 12.0 L Hematocrit 36.4 L Mean Corpuscular Volume 96.0 Mean Corpuscular Hemoglobin 31.7 Mean Corpuscular Hemoglobin Concent 33.0 Red Cell Distribution Width 13.8 Platelet Count 136 L Mean Platelet Volume 11.5 H Neutrophils % 37.1 L Lymphocytes % 44.1 Monocytes % 9.7 Eosinophils % 6.8 Basophils % 2.1 H Nucleated Red Blood Cells % 0.0 Neutrophils # 1.8 Lymphocytes # 2.1 Monocytes # 0.5 Eosinophils # 0.3 Basophils # 0.1 Nucleated Red Blood Cells # 0.0 Sodium Level 140 Potassium Level 4.5 Chloride Level 103 Carbon Dioxide Level 31 Anion Gap 11 Blood Urea Nitrogen 21 H Creatinine 0.87 Glucose Level 249 H Calcium Level 9.3 Phosphorus Level 4.4 Magnesium Level 1.8 Albumin 3.6 Test 09/07/17 12:00 Bedside Glucose 205 Medications Medications Current Medications Aspirin (Aspirin) 81 mg DAILY PO Last administered on 09/07/17 10:03; Admin Dose 81 MG; Start 08/16/17 at 09:00 Ondansetron HCl (Zofran Inj) 4 mg Q6H PRN IV NAUSEA AND/OR VOMITING; Start 08/22 at 19:00 Bisacodyl (Dulcolax) 5 mg DAILY PRN PO CONSTIPATION; Start 08/15/17 at 19:00 Nicotine (Nicoderm 14 Mg/ 24hr) 1 patch DAILY TRANSDERM Last administered on 08:46; Admin Dose 1 PATCH; Start 08/16/17 at 09:00 Miscellaneous Information 1 ea NOTE XX ; Start 08/15/17 at 19:30 Glucose (Glutose) 15 gm Q15M PRN PO DECREASED GLUCOSE; Start 08/15/17 at 19:30 Glucose (Glutose) 22.5 gm Q15M PRN PO DECREASED GLUCOSE; Start 08/15/17 at 19: 30 Dextrose (D50w Syringe) 25 ml Q15M PRN IV DECREASED GLUCOSE; Start 08/15/17 at 19:30 Dextrose (D50w Syringe) 50 ml Q15M PRN IV DECREASED GLUCOSE; Start 08/15/17 at 19:30 Glucagon (Glucagen) 1 mg Q15M PRN IM DECREASED GLUCOSE; Start 08/15/17 at 19: 30 Glucose (Glutose) 15 gm Q15M PRN BUCCAL DECREASED GLUCOSE Last administered on 08/26/17 17:18; Admin Dose 15 GM; Start 08/15/17 at 19:30 Diagnostic Test (Pha) (Accu-Chek) 1 ea 02 XX Last administered on 08/25/17 01 :50; Admin Dose 1 EA; Start 08/18/17 at 02:00 Acetaminophen (Tylenol Tab) 650 mg Q6H PRN PO PAIN AND OR ELEVATED TEMP Last administered on 09/07/17 12:39; Admin Dose 650 MG; Start 08/18/17 at 15:00 Lactobacillus Acidophilus/ Rhamnosus (Culturelle) 1 cap BID PO Last administered on 09/07/17 08:47; Admin Dose 1 CAP; Start 08/21/17 at 11:30 Methadone HCl (Methadone) 5 mg Q8H PRN PO PAIN Last administered on 09/07/17 08:45; Admin Dose 5 MG; Start 08/22/17 at 17:30 Lorazepam (Ativan) 0.5 mg Q8H PRN PO ANXIETY Last administered on 09/07/17 08: 44; Admin Dose 0.5 MG; Start 08/24/17 at 16:00 Zolpidem Tartrate 5 mg 5 mg HS PRN PO INSOMNIA Last administered on 09/06/17 22:33; Admin Dose 5 MG; Start 08/24/17 at 21:30 Daptomycin 430 mg/ Sodium Chloride 100 ml @ 200 mls/hr Q24H IVPB Last administered on 09/06/17 15:20; Admin Dose 200 MLS/HR; Start 08/31/17 at 15:00 Ceftriaxone Sodium (Rocephin) 50 ml @ 100 mls/hr Q24H IVPB Last administered on 09/07/17 12:39; Admin Dose 100 MLS/HR; Start 08/31/17 at 13:30 IV Flush (NS 10 ml) 10 ml PRN PRN IV IV PROTOCOL; Start 09/01/17 at 16:00 Buspirone HCl (Buspar) 10 mg BID PO Last administered on 09/07/17 08:46; Admin Dose 10 MG; Start 09/06/17 at 09:00 Insulin Glargine (Lantus) 20 unit DAILY@08 SC Last administered on 09/07/17t 08 :50; Admin Dose 20 UNIT; Start 09/06/17 at 08:00 MASON HANEY MD Sep 07, 2017 13:54
--- NOTE | 2017-09-07 13:59 | CONS ---
Date/Time of Note Date/Time of Note DATE: 09/07/17 TIME: 13:58 Consult Date/Type/Reason Admit Date/Time Aug 15, 2017 at 19:21 Initial Consult Date 08/29/17 Type of Consultation: id Ordering Provider: SALUD GARIBAY MD Objective Vital Signs Date Time Temp Pulse Resp B/P Pulse Ox O2 Delivery O2 Flow Rate FiO2 09/07/17 13:23 98.6 65 16 117/67 96 09/07/17 11:46 Room Air Intake and Output 09/06/17 09/06/17 09/07/17 15:00 23:00 07:00 Intake Total 50 ml 2220 ml 700 ml Output Total 300 ml Balance 50 ml 1920 ml 700 ml Results/Medications Result Diagram: 09/07/1718 09/07/17 0518 Results 24 hrs Laboratory Tests Test 09/06/17 17:16 09/06/17 20:18 09/07/17 05:18 09/07/17 08:23 Bedside Glucose 74 98 281 H White Blood Count 4.8 Red Blood Count 3.79 L Hemoglobin 12.0 L Hematocrit 36.4 L Mean Corpuscular Volume 96.0 Mean Corpuscular Hemoglobin 31.7 Mean Corpuscular Hemoglobin Concent 33.0 Red Cell Distribution Width 13.8 Platelet Count 136 L Mean Platelet Volume 11.5 H Neutrophils % 37.1 L Lymphocytes % 44.1 Monocytes % 9.7 Eosinophils % 6.8 Basophils % 2.1 H Nucleated Red Blood Cells % 0.0 Neutrophils # 1.8 Lymphocytes # 2.1 Monocytes # 0.5 Eosinophils # 0.3 Basophils # 0.1 Nucleated Red Blood Cells # 0.0 Sodium Level 140 Potassium Level 4.5 Chloride Level 103 Carbon Dioxide Level 31 Anion Gap 11 Blood Urea Nitrogen 21 H Creatinine 0.87 Glucose Level 249 H Calcium Level 9.3 Phosphorus Level 4.4 Magnesium Level 1.8 Albumin 3.6 Test 09/07/17 12:00 Bedside Glucose 205 Medications Current Medications Aspirin (Aspirin) 81 mg DAILY PO Last administered on 09/07/17t 10:03; Admin Dose 81 MG; Start 08/16/17 at 09:00 Ondansetron HCl (Zofran Inj) 4 mg Q6H PRN IV NAUSEA AND/OR VOMITING; Start 08/22 at 19:00 Bisacodyl (Dulcolax) 5 mg DAILY PRN PO CONSTIPATION; Start 08/15/17 at 19:00 Nicotine (Nicoderm 14 Mg/ 24hr) 1 patch DAILY TRANSDERM Last administered on 08:46; Admin Dose 1 PATCH; Start 08/16/17 at 09:00 Miscellaneous Information 1 ea NOTE XX ; Start 08/15/17 at 19:30 Glucose (Glutose) 15 gm Q15M PRN PO DECREASED GLUCOSE; Start 08/15/17 at 19:30 Glucose (Glutose) 22.5 gm Q15M PRN PO DECREASED GLUCOSE; Start 08/15/17 at 19: 30 Dextrose (D50w Syringe) 25 ml Q15M PRN IV DECREASED GLUCOSE; Start 08/15/17 at 19:30 Dextrose (D50w Syringe) 50 ml Q15M PRN IV DECREASED GLUCOSE; Start 08/15/17 at 19:30 Glucagon (Glucagen) 1 mg Q15M PRN IM DECREASED GLUCOSE; Start 08/15/17 at 19: 30 Glucose (Glutose) 15 gm Q15M PRN BUCCAL DECREASED GLUCOSE Last administered on 08/26/17 17:18; Admin Dose 15 GM; Start 08/15/17 at 19:30 Diagnostic Test (Pha) (Accu-Chek) 1 ea 02 XX Last administered on 08/25/17 01 :50; Admin Dose 1 EA; Start 08/18/17 at 02:00 Acetaminophen (Tylenol Tab) 650 mg Q6H PRN PO PAIN AND OR ELEVATED TEMP Last administered on 09/07/17 12:39; Admin Dose 650 MG; Start 08/18/17 at 15:00 Lactobacillus Acidophilus/ Rhamnosus (Culturelle) 1 cap BID PO Last administered on 09/07/17 08:47; Admin Dose 1 CAP; Start 08/21/17 at 11:30 Methadone HCl (Methadone) 5 mg Q8H PRN PO PAIN Last administered on 09/07/17 08:45; Admin Dose 5 MG; Start 08/22/17 at 17:30 Lorazepam (Ativan) 0.5 mg Q8H PRN PO ANXIETY Last administered on 09/07/17 08: 44; Admin Dose 0.5 MG; Start 08/24/17 at 16:00 Zolpidem Tartrate 5 mg 5 mg HS PRN PO INSOMNIA Last administered on 09/06/17 22:33; Admin Dose 5 MG; Start 08/24/17 at 21:30 Daptomycin 430 mg/ Sodium Chloride 100 ml @ 200 mls/hr Q24H IVPB Last administered on 09/06/17 15:20; Admin Dose 200 MLS/HR; Start 08/31/17 at 15:00 Ceftriaxone Sodium (Rocephin) 50 ml @ 100 mls/hr Q24H IVPB Last administered on 09/07/17 12:39; Admin Dose 100 MLS/HR; Start 08/31/17 at 13:30 IV Flush (NS 10 ml) 10 ml PRN PRN IV IV PROTOCOL; Start 09/01/17 at 16:00 Buspirone HCl (Buspar) 10 mg BID PO Last administered on 09/07/17 08:46; Admin Dose 10 MG; Start 09/06/17 at 09:00 Insulin Glargine (Lantus) 20 unit DAILY@08 SC Last administered on 09/07/17 08 :50; Admin Dose 20 UNIT; Start 09/06/17 at 08:00 Assessment/Plan Chief Complaint/Hosp Course SUBJECTIVE: The patient is alert, feels good, no fevers ANTIMICROBIALS: 1. Daptomycin. 2. Rocephin. PHYSICAL EXAMINATION: GENERAL: A well-developed, well-nourished, middle-aged man who is alert, in no distress. HEENT: Head atraumatic, normocephalic. Sclerae anicteric. Buccal mucosa dry. NECK: Supple. CHEST: Rise symmetrical. Breath sounds diminished to bases. HEART: S1, S2. ABDOMEN: Soft. Bowel tones present. EXTREMITIES: Without cyanosis. ASSESSMENT: 1. Ongoing back pain with a hx of recent spinal osteomyelitis. Patient was restarted on antibiotics for concern of partially treated osteomyelitis as per ortho note. 2. Diabetes. 3. History of psychiatric problems. PLAN: The patient remains stable. Pending discharge arrangements, recommend continue current antibiotics for 4 more weeks. The patient to follow at [facility] with ortho team for further rec-s DW staff Problems: CA BAHENA NP Sep 07, 2017 13:59
[2017-09-07] MEDS: SOD CHLORIDE 0.9% IVPB SCH (14:48)
[2017-09-07] MEDS: DAPTOMYCIN IVPB SCH (14:48)
--- NOTE | 2017-09-07 15:25 | PN ---
Date/Time of Note Date/Time of Note DATE: 09/07/17 TIME: 15:21 Assessment/Plan VTE Prophylaxis VTE Prophylaxis Intervention: ambulation Lines/Catheters IV Catheter Type (from Nrsg): PICC Line Central line still needed: Yes Urinary Cath still in place: No Assessment/Plan Assessment/Plan 1. Back pain secondary to diskitis vs osteomyelitis - Patient ambulating with no gait abnormalities or falls. No acute fevers and WBC normal - MRI noted, likely 2/2 old OM, however unsure if acute, Dr. Arthur, neurosurgery consulted, states non surgical at this time - ID has been consulted, recommended biopsy. however biopsy is too high risk per IR. Will need 4 more weeks of IV antibiotics - CM to arrange appt with Dr. Augustine Berry, with asher garza, patient's previous physician who is familiar with his condition. 2. Diabetes Mellitus, uncontrolled - Sugars continue to fluctuate - A1c 9.5. 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 Suicidal ideation - No longer experiencing SI and cleared by tele-psych 4. Anxiety - Doing well on Buspar - Ativan as needed and will wean as tolerated 5. Altered mental status, likely secondary to alcohol abuse- resolved - Patient is mentating well and reevaluation by tele psych cleared patient - no witnessed seizures and continuing seizure precautions. 6. Anion gap metabolic acidosis, moderate, not full DKA, secondary to medical noncompliance- resolved 7. Lactic acidosis - resolved 8. Hypernatremia, likely secondary to volume depletion given alcohol extent- resolved 9. Elevated AST and ALT, resolved 10. Disposition - Will need to continue antibiotics for another 4 weeks - Awaiting approval from home health Subjective 24 Hr Interval Summary Free Text/Dictation Patient states he is feeling better and anxiety more controlled. Denies any new issues and no acute overnight events Exam/Review of Systems Vital Signs Vitals Vital Signs Date Time Temp Pulse Resp B/P Pulse Ox O2 Delivery O2 Flow Rate FiO2 09/07/17 13:23 98.6 65 16 117/67 96 09/07/17 11:46 Room Air Intake and Output 09/06/17 09/06/17 09/07/17 15:00 23:00 07:00 Intake Total 50 ml 2220 ml 700 ml Output Total 300 ml Balance 50 ml 1920 ml 700 ml Exam General: Patient in no acute distress. awake and alert. ambulating with no issues Head: Normocephalic atraumatic Eyes: EOMI, pupils reactive to light Neck: Supple, nontender, midline Respiratory: Clear to auscultation bilaterally. no wheezes or crackles Cardiovascular: regular rate, no obvious murmurs Gastrointestinal: non-tender to palpation, bowel sounds heard. Extremities: No tenderness to palpation spine, moving all extremities Neurological: Moves all extremities spontaneously Psych: no SI/HI Results Result Diagram: 09/07/1751709/07/17517 Results 24 hrs Laboratory Tests Test 09/06/17 17:16 09/06/17 20:18 09/07/17 05:18 09/07/17 08:23 Bedside Glucose 74 98 281 H White Blood Count 4.8 Red Blood Count 3.79 L Hemoglobin 12.0 L Hematocrit 36.4 L Mean Corpuscular Volume 96.0 Mean Corpuscular Hemoglobin 31.7 Mean Corpuscular Hemoglobin Concent 33.0 Red Cell Distribution Width 13.8 Platelet Count 136 L Mean Platelet Volume 11.5 H Neutrophils % 37.1 L Lymphocytes % 44.1 Monocytes % 9.7 Eosinophils % 6.8 Basophils % 2.1 H Nucleated Red Blood Cells % 0.0 Neutrophils # 1.8 Lymphocytes # 2.1 Monocytes # 0.5 Eosinophils # 0.3 Basophils # 0.1 Nucleated Red Blood Cells # 0.0 Sodium Level 140 Potassium Level 4.5 Chloride Level 103 Carbon Dioxide Level 31 Anion Gap 11 Blood Urea Nitrogen 21 H Creatinine 0.87 Glucose Level 249 H Calcium Level 9.3 Phosphorus Level 4.4 Magnesium Level 1.8 Albumin 3.6 Test 09/07/17 12:00 Bedside Glucose 205 Medications Medications Current Medications Aspirin (Aspirin) 81 mg DAILY PO Last administered on 09/07/17 10:03; Admin Dose 81 MG; Start 08/16/17 at 09:00 Ondansetron HCl (Zofran Inj) 4 mg Q6H PRN IV NAUSEA AND/OR VOMITING; Start 08/22 at 19:00 Bisacodyl (Dulcolax) 5 mg DAILY PRN PO CONSTIPATION; Start 08/15/17 at 19:00 Nicotine (Nicoderm 14 Mg/ 24hr) 1 patch DAILY TRANSDERM Last administered on 08:46; Admin Dose 1 PATCH; Start 08/16/17 at 09:00 Miscellaneous Information 1 ea NOTE XX ; Start 08/15/17 at 19:30 Glucose (Glutose) 15 gm Q15M PRN PO DECREASED GLUCOSE; Start 08/15/17 at 19:30 Glucose (Glutose) 22.5 gm Q15M PRN PO DECREASED GLUCOSE; Start 08/15/17 at 19: 30 Dextrose (D50w Syringe) 25 ml Q15M PRN IV DECREASED GLUCOSE; Start 08/15/17 at 19:30 Dextrose (D50w Syringe) 50 ml Q15M PRN IV DECREASED GLUCOSE; Start 08/15/17 at 19:30 Glucagon (Glucagen) 1 mg Q15M PRN IM DECREASED GLUCOSE; Start 08/15/17 at 19: 30 Glucose (Glutose) 15 gm Q15M PRN BUCCAL DECREASED GLUCOSE Last administered on 08/26/17 17:18; Admin Dose 15 GM; Start 08/15/17 at 19:30 Diagnostic Test (Pha) (Accu-Chek) 1 ea 02 XX Last administered on 08/25/17 01 :50; Admin Dose 1 EA; Start 08/18/17 at 02:00 Acetaminophen (Tylenol Tab) 650 mg Q6H PRN PO PAIN AND OR ELEVATED TEMP Last administered on 09/07/17 12:39; Admin Dose 650 MG; Start 08/18/17 at 15:00 Lactobacillus Acidophilus/ Rhamnosus (Culturelle) 1 cap BID PO Last administered on 09/07/17 08:47; Admin Dose 1 CAP; Start 08/21/17 at 11:30 Methadone HCl (Methadone) 5 mg Q8H PRN PO PAIN Last administered on 09/07/17 08:45; Admin Dose 5 MG; Start 08/22/17 at 17:30 Lorazepam (Ativan) 0.5 mg Q8H PRN PO ANXIETY Last administered on 09/07/17 08: 44; Admin Dose 0.5 MG; Start 08/24/17 at 16:00 Zolpidem Tartrate 5 mg 5 mg HS PRN PO INSOMNIA Last administered on 09/06/17 22:33; Admin Dose 5 MG; Start 08/24/17 at 21:30 Daptomycin 430 mg/ Sodium Chloride 100 ml @ 200 mls/hr Q24H IVPB Last administered on 09/07/17 14:48; Admin Dose 200 MLS/HR; Start 08/31/17 at 15:00 Ceftriaxone Sodium (Rocephin) 50 ml @ 100 mls/hr Q24H IVPB Last administered on 09/07/17 12:39; Admin Dose 100 MLS/HR; Start 08/31/17 at 13:30 IV Flush (NS 10 ml) 10 ml PRN PRN IV IV PROTOCOL; Start 09/01/17 at 16:00 Buspirone HCl (Buspar) 10 mg BID PO Last administered on 09/07/17 08:46; Admin Dose 10 MG; Start 09/06/17 at 09:00 Insulin Glargine (Lantus) 20 unit DAILY@08 SC Last administered on 09/07/17 08 :50; Admin Dose 20 UNIT; Start 09/06/17 at 08:00 SALUD GARIBAY MD Sep 07, 2017 15:25
[2017-09-07] MEDS ORDERED: INSULIN ASPART [NOVOLOG] 3 ML PEN SC ONE (17:30)
[2017-09-07] MEDS: ZOLPIDEM 5 MG TAB PO PRN (22:07)
[2017-09-08] MEDS: METHADONE 5 MG TAB PO PRN ×3 (00:36→16:32)
[2017-09-08] MEDS: LORAZEPAM 0.5 MG TAB PO PRN ×3 (00:36→16:32)
[2017-09-08 01:24] VITALS: BP 113/57; RESP 20
[2017-09-08] MEDS: ACCU-CHEK XX SCH (02:27)
[2017-09-08 07:38] VITALS: BP 141/67; PULSE 50; RESP 14
[2017-09-08] MEDS: INSULIN GLARGINE [LANtus] 3 ML PEN SC SCH (08:30)
[2017-09-08] MEDS: INSULIN ASPART [NOVOLOG] 3 ML PEN SC SCH ×7 (08:31→21:00)
[2017-09-08] MEDS: CREON (12k-38k-60k) 1 CAP PO SCH ×3 (08:42→17:44)
[2017-09-08] MEDS: ASPIRIN 81 MG TAB PO SCH (09:09)
[2017-09-08] MEDS: BUSPIRONE 10 MG TAB PO SCH ×2 (09:10→21:06)
[2017-09-08] MEDS: LACTOBACILLUS RHAMNOSUS CAP PO SCH ×2 (09:10→21:05)
[2017-09-08] MEDS: NICOTINE (14 MG/24 HR) PATCH TRANSDERM SCH (09:11)
--- NOTE | 2017-09-08 09:55 | PN ---
Date/Time of Note Date/Time of Note DATE: 09/08/17 TIME: 09:51 Assessment/Plan VTE Prophylaxis VTE Prophylaxis Intervention: ambulation Lines/Catheters IV Catheter Type (from Nrsg): PICC Line Central line still needed: Yes (Iv antibiotics) Urinary Cath still in place: No Assessment/Plan Assessment/Plan 1. Back pain secondary to diskitis vs osteomyelitis - remains stable with no acute issues with ambulation. 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 Arthur, neurosurgery consulted, states non surgical at this time - ID has been consulted, recommended biopsy. however biopsy is too high risk per IR. Will need 3.5 more weeks of IV antibiotics - CM to arrange appt with Dr. Augustine Berry, with asher garza, patient's previous physician who is familiar with his condition. 2. Diabetes Mellitus, uncontrolled - Sugars continue to fluctuate with hyperglycemia in the am and pm and hypoglycemia during the day - A1c 9.5. 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 Suicidal ideation - No longer experiencing SI and cleared by tele-psych 4. Anxiety - Doing well on Buspar and will increase to 15mg BID - Ativan as needed and will wean as tolerated 5. Altered mental status, likely secondary to alcohol abuse- resolved - Patient is mentating well - no witnessed seizures and continuing seizure precautions. 6. Anion gap metabolic acidosis, moderate, not full DKA, secondary to medical noncompliance- resolved 7. Lactic acidosis - resolved 8. Hypernatremia, likely secondary to volume depletion given alcohol extent- resolved 9. Elevated AST and ALT, resolved 10. Disposition - Will need to continue antibiotics for another 3.5 weeks - Awaiting approval from home health Subjective 24 Hr Interval Summary Free Text/Dictation Patient states doing well and feels as if Buspar is helping but would like dose increased. Denies any new complaints and no acute overnight events. Exam/Review of Systems Vital Signs Vitals Vital Signs Date Time Temp Pulse Resp B/P Pulse Ox O2 Delivery O2 Flow Rate FiO2 09/08/17 07:38 97.9 50 14 141/67 98 Room Air Intake and Output 09/07/17 09/07/17 09/08/17 15:00 23:00 07:00 Intake Total 50 ml 1920 ml Output Total 1900 ml Balance 50 ml 20 ml Exam General: Patient in no acute distress. awake and alert. Head: Normocephalic atraumatic Eyes: EOMI, pupils reactive to light Neck: Supple, nontender, midline Respiratory: Clear to auscultation bilaterally. no wheezes or crackles Cardiovascular: regular rate, no obvious murmurs Gastrointestinal: non-tender to palpation, bowel sounds heard. Extremities: No tenderness to palpation spine, moving all extremities Neurological: Moves all extremities spontaneously Psych: mildly anxious, no SI/HI Results Result Diagram: 09/07/1751709/07/1718 Results 24 hrs Laboratory Tests Test 09/07/17 12:00 09/07/17 17:18 09/07/17 17:36 09/07/17 17:49 Bedside Glucose 205 59 L 66 L 77 Test 09/07/17 18:18 09/07/17 20:38 09/08/17 01:37 09/08/17 05:34 Bedside Glucose 176 284 H 239 H Creatine Kinase 45 Test 09/08/17 07:53 Bedside Glucose 241 H Medications Medications Current Medications Aspirin (Aspirin) 81 mg DAILY PO Last administered on 09/08/17 09:09; Admin Dose 81 MG; Start 08/16/17 at 09:00 Ondansetron HCl (Zofran Inj) 4 mg Q6H PRN IV NAUSEA AND/OR VOMITING; Start 08/22 at 19:00 Bisacodyl (Dulcolax) 5 mg DAILY PRN PO CONSTIPATION; Start 08/15/17 at 19:00 Nicotine (Nicoderm 14 Mg/ 24hr) 1 patch DAILY TRANSDERM Last administered on 09:11; Admin Dose 1 PATCH; Start 08/16/17 at 09:00 Miscellaneous Information 1 ea NOTE XX ; Start 08/15/17 at 19:30 Glucose (Glutose) 15 gm Q15M PRN PO DECREASED GLUCOSE; Start 08/15/17 at 19:30 Glucose (Glutose) 22.5 gm Q15M PRN PO DECREASED GLUCOSE; Start 08/15/17 at 19: 30 Dextrose (D50w Syringe) 25 ml Q15M PRN IV DECREASED GLUCOSE; Start 08/15/17 at 19:30 Dextrose (D50w Syringe) 50 ml Q15M PRN IV DECREASED GLUCOSE; Start 08/15/17 at 19:30 Glucagon (Glucagen) 1 mg Q15M PRN IM DECREASED GLUCOSE; Start 08/15/17 at 19: 30 Glucose (Glutose) 15 gm Q15M PRN BUCCAL DECREASED GLUCOSE Last administered on 08/26/17 17:18; Admin Dose 15 GM; Start 08/15/17 at 19:30 Diagnostic Test (Pha) (Accu-Chek) 1 ea 02 XX Last administered on 09/08/17 02: 27; Admin Dose 1 EA; Start 08/18/17 at 02:00 Acetaminophen (Tylenol Tab) 650 mg Q6H PRN PO PAIN AND OR ELEVATED TEMP Last administered on 09/07/17 22:07; Admin Dose 650 MG; Start 08/18/17 at 15:00 Lactobacillus Acidophilus/ Rhamnosus (Culturelle) 1 cap BID PO Last administered on 09/08/17 09:10; Admin Dose 1 CAP; Start 08/21/17 at 11:30 Methadone HCl (Methadone) 5 mg Q8H PRN PO PAIN Last administered on 09/08/17 08:42; Admin Dose 5 MG; Start 08/22/17 at 17:30 Lorazepam (Ativan) 0.5 mg Q8H PRN PO ANXIETY Last administered on 09/08/17 08: 41; Admin Dose 0.5 MG; Start 08/24/17 at 16:00 Zolpidem Tartrate 5 mg 5 mg HS PRN PO INSOMNIA Last administered on 09/07/17 22:07; Admin Dose 5 MG; Start 08/24/17 at 21:30 Daptomycin 430 mg/ Sodium Chloride 100 ml @ 200 mls/hr Q24H IVPB Last administered on 09/07/17 14:48; Admin Dose 200 MLS/HR; Start 08/31/17 at 15:00 Ceftriaxone Sodium (Rocephin) 50 ml @ 100 mls/hr Q24H IVPB Last administered on 09/07/17 12:39; Admin Dose 100 MLS/HR; Start 08/31/17 at 13:30 IV Flush (NS 10 ml) 10 ml PRN PRN IV IV PROTOCOL; Start 09/01/17 at 16:00 Buspirone HCl (Buspar) 10 mg BID PO Last administered on 09/08/17 09:10; Admin Dose 10 MG; Start 09/06/17 at 09:00 Insulin Glargine (Lantus) 20 unit DAILY@08 SC Last administered on 09/08/17 08 :30; Admin Dose 20 UNIT; Start 09/06/17 at 08:00 SALUD GARIBAY MD Sep 08, 2017 09:55
[2017-09-08] MEDS: CEFTRIAXONE 1 GM/50 ML (PMX) 50 ML IVPB SCH (13:40)
[2017-09-08] MEDS: ACETAMINOPHEN 325 MG TAB PO PRN (13:44)
--- NOTE | 2017-09-08 13:46 | CONS ---
Date/Time of Note Date/Time of Note DATE: 09/08/17 TIME: 13:45 Consult Date/Type/Reason Admit Date/Time Aug 15, 2017 at 19:21 Initial Consult Date 08/29/17 Type of Consultation: id Ordering Provider: SALUD GARIBAY MD Objective Vital Signs Date Time Temp Pulse Resp B/P Pulse Ox O2 Delivery O2 Flow Rate FiO2 09/08/17 07:38 97.9 50 14 141/67 98 Room Air Intake and Output 09/07/17 09/07/17 09/08/17 15:00 23:00 07:00 Intake Total 50 ml 1920 ml Output Total 1900 ml Balance 50 ml 20 ml Results/Medications Result Diagram: 09/07/1751709/07/1718 Results 24 hrs Laboratory Tests Test 09/07/17 17:18 09/07/17 17:36 09/07/17 17:49 09/07/17 18:18 Bedside Glucose 59 L 66 L 77 176 Test 09/07/17 20:38 09/08/17 01:37 09/08/17 05:34 09/08/17 07:53 Bedside Glucose 284 H 239 H 241 H Creatine Kinase 45 Test 09/08/17 12:00 Bedside Glucose 185 Medications Current Medications Aspirin (Aspirin) 81 mg DAILY PO Last administered on 09/08/17 09:09; Admin Dose 81 MG; Start 08/16/17 at 09:00 Ondansetron HCl (Zofran Inj) 4 mg Q6H PRN IV NAUSEA AND/OR VOMITING; Start 08/22 at 19:00 Bisacodyl (Dulcolax) 5 mg DAILY PRN PO CONSTIPATION; Start 08/15/17 at 19:00 Nicotine (Nicoderm 14 Mg/ 24hr) 1 patch DAILY TRANSDERM Last administered on 09:11; Admin Dose 1 PATCH; Start 08/16/17 at 09:00 Miscellaneous Information 1 ea NOTE XX ; Start 08/15/17 at 19:30 Glucose (Glutose) 15 gm Q15M PRN PO DECREASED GLUCOSE; Start 08/15/17 at 19:30 Glucose (Glutose) 22.5 gm Q15M PRN PO DECREASED GLUCOSE; Start 08/15/17 at 19: 30 Dextrose (D50w Syringe) 25 ml Q15M PRN IV DECREASED GLUCOSE; Start 08/15/17 at 19:30 Dextrose (D50w Syringe) 50 ml Q15M PRN IV DECREASED GLUCOSE; Start 08/15/17 at 19:30 Glucagon (Glucagen) 1 mg Q15M PRN IM DECREASED GLUCOSE; Start 08/15/17 at 19: 30 Glucose (Glutose) 15 gm Q15M PRN BUCCAL DECREASED GLUCOSE Last administered on 08/26/17 17:18; Admin Dose 15 GM; Start 08/15/17 at 19:30 Diagnostic Test (Pha) (Accu-Chek) 1 ea 02 XX Last administered on 09/08/17 02: 27; Admin Dose 1 EA; Start 08/18/17 at 02:00 Acetaminophen (Tylenol Tab) 650 mg Q6H PRN PO PAIN AND OR ELEVATED TEMP Last administered on 09/08/17 13:44; Admin Dose 650 MG; Start 08/18/17 at 15:00 Lactobacillus Acidophilus/ Rhamnosus (Culturelle) 1 cap BID PO Last administered on 09/08/17 09:10; Admin Dose 1 CAP; Start 08/21/17 at 11:30 Methadone HCl (Methadone) 5 mg Q8H PRN PO PAIN Last administered on 09/08/17 08:42; Admin Dose 5 MG; Start 08/22/17 at 17:30 Lorazepam (Ativan) 0.5 mg Q8H PRN PO ANXIETY Last administered on 09/08/17 08: 41; Admin Dose 0.5 MG; Start 08/24/17 at 16:00 Zolpidem Tartrate 5 mg 5 mg HS PRN PO INSOMNIA Last administered on 09/07/17 22:07; Admin Dose 5 MG; Start 08/24/17 at 21:30 Daptomycin 430 mg/ Sodium Chloride 100 ml @ 200 mls/hr Q24H IVPB Last administered on 09/07/17 14:48; Admin Dose 200 MLS/HR; Start 08/31/17 at 15:00 Ceftriaxone Sodium (Rocephin) 50 ml @ 100 mls/hr Q24H IVPB Last administered on 09/08/17 13:40; Admin Dose 100 MLS/HR; Start 08/31/17 at 13:30 IV Flush (NS 10 ml) 10 ml PRN PRN IV IV PROTOCOL; Start 09/01/17 at 16:00 Insulin Glargine (Lantus) 20 unit DAILY@08 SC Last administered on 09/08/17t 08 :30; Admin Dose 20 UNIT; Start 09/06/17 at 08:00 Buspirone HCl (Buspar) 15 mg BID PO ; Start 09/08/17 at 21:00 Assessment/Plan Chief Complaint/Hosp Course SUBJECTIVE: Alert, feels good, no fevers ANTIMICROBIALS: 1. Daptomycin. 2. Rocephin. PHYSICAL EXAMINATION: GENERAL: A well-developed, well-nourished, middle-aged man who is alert, in no distress. HEENT: Head atraumatic, normocephalic. Sclerae anicteric. Buccal mucosa dry. NECK: Supple. CHEST: Rise symmetrical. Breath sounds diminished to bases. HEART: S1, S2. ABDOMEN: Soft. Bowel tones present. EXTREMITIES: Without cyanosis. ASSESSMENT: 1. Ongoing back pain with a hx of recent spinal osteomyelitis. Patient was restarted on antibiotics for concern of partially treated osteomyelitis as per ortho note. 2. Diabetes. 3. History of psychiatric problems. PLAN: Remains unchanged. Pending discharge arrangements, recommend continue current antibiotics for 4 more weeks. The patient to follow at [facility] with ortho team for further rec-s DW staff Problems: CA BAHENA NP Sep 08, 2017 13:46
[2017-09-08 14:23] VITALS: BP 119/67; RESP 18
[2017-09-08] MEDS: SOD CHLORIDE 0.9% IVPB SCH (14:48)
[2017-09-08] MEDS: DAPTOMYCIN IVPB SCH (14:48)
--- NOTE | 2017-09-08 15:19 | CONS ---
Date/Time of Note Date/Time of Note DATE: 09/08/17 TIME: 15:17 Assessment/Plan Assessment/Plan Chief Complaint/Hosp Course 52-year-old male with a reported history of diabetes over the last 7 years. He presented to [facility] several years ago with gallstone pancreatitis and significant pancreatic abnormalities. He reports he underwent surgery at the [facility] [place] with partial resection of the pancreas which rendered him diabetic at that time. He reports that he has been on insulin since then although he has missed insulin and has not gone into DKA despite having missed it for more than 48 hours. Problems: (1) Chronic osteomyelitis of thoracic spine Status: Chronic Comment: As per infectious disease. Awaiting for the final agreements for him being able to go to [facility] on IV antibiotics. Please note the infectious disease specialist at [facility] is Dr. Jamal Henry who can be reached at area code [phone] (2) Exocrine pancreatic insufficiency Status: Chronic Comment: Continue on replacement therapy (3) Chronic pain syndrome Status: Chronic Comment: Adequate control (4) Diabetes mellitus out of control Status: Chronic Comment: Adequate control Qualifiers: Diabetes mellitus type: due to underlying condition Diabetes mellitus complication status: without complication Diabetes mellitus fdc insulin use: with fdc use Qualified Code: E08.9 - Diabetes mellitus due to underlying condition, uncontrolled, without complication, with long-term current use of insulin Consultation Date/Type/Reason Admit Date/Time Aug 15, 2017 at 19:21 Initial Consult Date 08/23/17 Type of Consultation: Endocrinology Reason for Consultation Diabetes mellitus with insulin resistance syndrome and pancreatic beta cell insufficiency due to partial pancreatectomy; pancreatic exocrine insufficiency; thoracic spine osteomyelitis; chronic pain syndrome Referring Provider: SALUD GARIBAY MD 24 HR Interval Summary Constitutional: no complaints (No fevers chills or sweats) Detailed Summary Musculoskeletal: back pain Exam/Review of Systems Vital Signs Vitals Vital Signs Date Time Temp Pulse Resp B/P Pulse Ox O2 Delivery O2 Flow Rate FiO2 09/08/17 14:23 98.5 55 18 119/67 99 09/08/17 07:38 Room Air Intake and Output 09/07/17 09/07/17 09/08/17 15:00 23:00 07:00 Intake Total 50 ml 1920 ml Output Total 1900 ml Balance 50 ml 20 ml Exam Constitutional: alert, oriented Respiratory: clear to auscultation, normal air movement Cardiovascular: nl pulses, regular rate and rhythm Gastrointestinal: nl liver, spleen, non-tender, soft Results Result Diagram: 09/07/1751709/07/17 0518 Results 24 hrs Laboratory Tests Test 09/07/17 17:18 09/07/17 17:36 09/07/17 17:49 09/07/17 18:18 Bedside Glucose 59 L 66 L 77 176 Test 09/07/17 20:38 09/08/17 01:37 09/08/17 05:34 09/08/17 07:53 Bedside Glucose 284 H 239 H 241 H Creatine Kinase 45 Test 09/08/17 12:00 Bedside Glucose 185 Medications Medications Current Medications Aspirin (Aspirin) 81 mg DAILY PO Last administered on 09/08/17 09:09; Admin Dose 81 MG; Start 08/16/17 at 09:00 Ondansetron HCl (Zofran Inj) 4 mg Q6H PRN IV NAUSEA AND/OR VOMITING; Start 08/22 at 19:00 Bisacodyl (Dulcolax) 5 mg DAILY PRN PO CONSTIPATION; Start 08/15/17 at 19:00 Nicotine (Nicoderm 14 Mg/ 24hr) 1 patch DAILY TRANSDERM Last administered on 09:11; Admin Dose 1 PATCH; Start 08/16/17 at 09:00 Miscellaneous Information 1 ea NOTE XX ; Start 08/15/17 at 19:30 Glucose (Glutose) 15 gm Q15M PRN PO DECREASED GLUCOSE; Start 08/15/17 at 19:30 Glucose (Glutose) 22.5 gm Q15M PRN PO DECREASED GLUCOSE; Start 08/15/17 at 19: 30 Dextrose (D50w Syringe) 25 ml Q15M PRN IV DECREASED GLUCOSE; Start 08/15/17 at 19:30 Dextrose (D50w Syringe) 50 ml Q15M PRN IV DECREASED GLUCOSE; Start 08/15/17 at 19:30 Glucagon (Glucagen) 1 mg Q15M PRN IM DECREASED GLUCOSE; Start 08/15/17 at 19: 30 Glucose (Glutose) 15 gm Q15M PRN BUCCAL DECREASED GLUCOSE Last administered on 08/26/17 17:18; Admin Dose 15 GM; Start 08/15/17 at 19:30 Diagnostic Test (Pha) (Accu-Chek) 1 ea 02 XX Last administered on 09/08/17 02: 27; Admin Dose 1 EA; Start 08/18/17 at 02:00 Acetaminophen (Tylenol Tab) 650 mg Q6H PRN PO PAIN AND OR ELEVATED TEMP Last administered on 09/08/17 13:44; Admin Dose 650 MG; Start 08/18/17 at 15:00 Lactobacillus Acidophilus/ Rhamnosus (Culturelle) 1 cap BID PO Last administered on 09/08/17 09:10; Admin Dose 1 CAP; Start 08/21/17 at 11:30 Methadone HCl (Methadone) 5 mg Q8H PRN PO PAIN Last administered on 09/08/17 08:42; Admin Dose 5 MG; Start 08/22/17 at 17:30 Lorazepam (Ativan) 0.5 mg Q8H PRN PO ANXIETY Last administered on 09/08/17 08: 41; Admin Dose 0.5 MG; Start 08/24/17 at 16:00 Zolpidem Tartrate 5 mg 5 mg HS PRN PO INSOMNIA Last administered on 09/07/17 22:07; Admin Dose 5 MG; Start 08/24/17 at 21:30 Daptomycin 430 mg/ Sodium Chloride 100 ml @ 200 mls/hr Q24H IVPB Last administered on 09/08/17 14:48; Admin Dose 200 MLS/HR; Start 08/31/17 at 15:00 Ceftriaxone Sodium (Rocephin) 50 ml @ 100 mls/hr Q24H IVPB Last administered on 09/08/17 13:40; Admin Dose 100 MLS/HR; Start 08/31/17 at 13:30 IV Flush (NS 10 ml) 10 ml PRN PRN IV IV PROTOCOL; Start 09/01/17 at 16:00 Insulin Glargine (Lantus) 20 unit DAILY@08 SC Last administered on 09/08/17 08 :30; Admin Dose 20 UNIT; Start 09/06/17 at 08:00 Buspirone HCl (Buspar) 15 mg BID PO ; Start 09/08/17 at 21:00 MASON HANEY MD Sep 08, 2017 15:19
[2017-09-08 19:45] VITALS: BP 110/61; RESP 20
[2017-09-08] MEDS: ZOLPIDEM 5 MG TAB PO PRN (21:52)
[2017-09-09] MEDS: LORAZEPAM 0.5 MG TAB PO PRN ×3 (00:31→16:36)
[2017-09-09] MEDS: METHADONE 5 MG TAB PO PRN ×3 (00:31→16:36)
[2017-09-09 01:52] VITALS: BP 106/59; RESP 20
[2017-09-09] MEDS: ACCU-CHEK XX SCH (02:00)
[2017-09-09 06:25] LABS: BASOPHIL # 0.1 10^3/ul (0.0-0.1); BASOPHILS % 1.8 % (0.0-2.0); EOSINOPHILS # 0.4 10^3/ul (0.0-0.5); EOSINOPHILS % 7.4 % (0.0-7.0); HEMATOCRIT 36.6 % (42.0-52.0); HEMOGLOBIN 12.2 g/dl (14.0-18.0); LYMPHOCYTES # 2.4 10^3/ul (0.8-2.9); LYMPHOCYTES % 47.5 % (15.0-51.0); MEAN CORPUSCULAR HEMOGLOBIN 32.2 pg (29.0-33.0); MEAN CORPUSCULAR HGB CONC 33.3 g/dl (32.0-37.0); MEAN CORPUSCULAR VOLUME 96.6 fl (82.0-101.0); MEAN PLATELET VOLUME 12.1 fl (7.4-10.4); MONOCYTE # 0.5 10^3/ul (0.3-0.9); MONOCYTES % 10.1 % (0.0-11.0); NEUTROPHIL # 1.6 10^3/ul (1.6-7.5); PLATELET COUNT 132 10^3/UL (140-415); RED BLOOD COUNT 3.79 10^6/ul (4.70-6.10); RED CELL DISTRIBUTION WIDTH 13.8 % (11.5-14.5)
[2017-09-09 06:54] LABS: ALBUMIN 3.8 g/dl (3.3-4.9); CALCIUM 8.9 mg/dl (8.4-10.2); CREATININE 0.91 mg/dl (0.61-1.24); MAGNESIUM 1.7 mg/dl (1.7-2.5); PHOSPHORUS 5.2 mg/dl (2.5-4.9); POTASSIUM 4.6 mmol/L (3.5-5.1)
[2017-09-09 07:56] VITALS: BP 147/70; RESP 18
[2017-09-09] MEDS: INSULIN GLARGINE [LANtus] 3 ML PEN SC SCH (08:07)
[2017-09-09] MEDS: INSULIN ASPART [NOVOLOG] 3 ML PEN SC SCH ×7 (08:07→20:33)
[2017-09-09] MEDS: CREON (12k-38k-60k) 1 CAP PO SCH ×3 (08:17→17:44)
[2017-09-09] MEDS: BUSPIRONE 10 MG TAB PO SCH ×2 (08:18→20:30)
[2017-09-09] MEDS: LACTOBACILLUS RHAMNOSUS CAP PO SCH ×2 (08:18→20:30)
[2017-09-09] MEDS: ASPIRIN 81 MG TAB PO SCH (08:18)
[2017-09-09] MEDS: NICOTINE (14 MG/24 HR) PATCH TRANSDERM SCH (08:21)
--- NOTE | 2017-09-09 10:03 | CONS ---
Date/Time of Note Date/Time of Note DATE: 09/09/17 TIME: 09:59 Assessment/Plan Assessment/Plan Chief Complaint/Hosp Course Pt. appears to have higher glucose levels early in the day, then lower at hs. Will increase Novolog w/ B/L from 7 to 9 units and decrease Novolog w/ dinner from 7 to 5 units. Reeval tomorrow. Pt. may also require NPH at hs to control fasting BG. Will decide tomorrow. Problems: Consultation Date/Type/Reason Admit Date/Time Aug 15, 2017 at 19:21 Initial Consult Date 08/23/17 Type of Consultation: Endocrinology Reason for Consultation Endocrinology Referring Provider: SALUD GARIBAY MD 24 HR Interval Summary Constitutional: no complaints Detailed Summary Respiratory: no complaints Cardiovascular: no complaints Gastrointestinal: no complaints Genitourinary: no complaints Musculoskeletal: back pain Neurologic: no complaints Exam/Review of Systems Vital Signs Vitals VS - Last 72 Hours, by Label Date Time Temp Pulse Resp B/P Pulse Ox O2 Delivery O2 Flow Rate FiO2 09/09/17 07:56 97.9 18 147/70 100 09/09/17 01:52 97.9 55 20 106/59 99 09/08/17 19:45 98.0 58 20 110/61 95 09/08/17 14:23 98.5 55 18 119/67 99 09/08/17 07:38 97.9 50 14 141/67 98 Room Air 09/08/17 01:24 98.0 53 20 113/57 99 09/07/17 13:23 98.6 65 16 117/67 96 09/07/17 11:46 98.1 58 14 121/66 98 Room Air 09/07/17 07:21 97.7 53 16 137/69 99 09/07/17 01:27 98.2 51 20 120/63 97 09/06/17 20:17 97.9 58 20 127/67 99 09/06/17 13:57 99.2 60 18 115/64 99 Vital Signs Date Time Temp Pulse Resp B/P Pulse Ox O2 Delivery O2 Flow Rate FiO2 09/09/17 07:56 97.9 18 147/70 100 09/09/17 01:52 55 09/08/17 07:38 Room Air Intake and Output 09/08/17 09/08/17 09/09/17 15:00 23:00 07:00 Intake Total 1050 ml 1060 ml 900 ml Output Total 901 ml Balance 1050 ml 159 ml 900 ml Exam Constitutional: alert, oriented, well developed Psych: nl mood/affect, no complaints Respiratory: clear to auscultation, normal air movement Cardiovascular: nl pulses, regular rate and rhythm, No edema, No murmurs/extra sounds, No rub Gastrointestinal: bowel sounds, nl liver, spleen, non-tender, soft, No mass, No rebound or guarding Musculoskeletal: nl extremities to inspection, No nl gait and stance (slow gait, limited by pain) Extremities: normal pulses, No clubbing, No cyanosis, No edema Neurological: [employer] II-XII intact, nl mental status, nl speech, nl strength Additional Comments Bedside Glucose - 72 Hours Test 09/06/17 11:32 09/06/17 17:16 09/06/17 20:18 09/07/17 08:23 Bedside Glucose 118mg/dL (70-220) 74mg/dL (70-220) 98mg/dL (70-220) 281mg/dL (70-220) H Test 09/07/17 12:00 09/07/17 17:18 09/07/17 17:36 09/07/17 17:49 Bedside Glucose 205mg/dL (70-220) 59mg/dL (70-220) L 66mg/dL (70-220) L 77mg/dL (70-220) Test 09/07/17 18:18 09/07/17 20:38 09/08/17 01:37 09/08/17 07:53 Bedside Glucose 176mg/dL (70-220) 284mg/dL (70-220) H 239mg/dL (70-220) H 241mg/dL (70-220) H Test 09/08/17 12:00 09/08/17 17:36 09/08/17 21:00 09/08/17 21:48 Bedside Glucose 185mg/dL (70-220) 232mg/dL (70-220) H 63mg/dL (70-220) L 111mg/dL (70-220) Test 09/09/17 07:57 Bedside Glucose 197mg/dL (70-220) Results Result Diagram: 09/09/17 0539 09/09/17 0539 Results 24 hrs Laboratory Tests Test 09/08/17 12:00 09/08/17 17:36 09/08/17 21:00 09/08/17 21:48 Bedside Glucose 185 232 H 63 L 111 Test 09/09/17 05:39 09/09/17 07:57 White Blood Count 5.0 Red Blood Count 3.79 L Hemoglobin 12.2 L Hematocrit 36.6 L Mean Corpuscular Volume 96.6 Mean Corpuscular Hemoglobin 32.2 Mean Corpuscular Hemoglobin Concent 33.3 Red Cell Distribution Width 13.8 Platelet Count 132 L Mean Platelet Volume 12.1 H Neutrophils % 33.0 L Lymphocytes % 47.5 Monocytes % 10.1 Eosinophils % 7.4 H Basophils % 1.8 Nucleated Red Blood Cells % 0.0 Neutrophils # 1.6 Lymphocytes # 2.4 Monocytes # 0.5 Eosinophils # 0.4 Basophils # 0.1 Nucleated Red Blood Cells # 0.0 Sodium Level 140 Potassium Level 4.6 Chloride Level 100 Carbon Dioxide Level 30 Anion Gap 15 Blood Urea Nitrogen 21 H Creatinine 0.91 Glucose Level 244 H Calcium Level 8.9 Phosphorus Level 5.2 H Magnesium Level 1.7 Albumin 3.8 Bedside Glucose 197 Medications Medications Current Medications Aspirin (Aspirin) 81 mg DAILY PO Last administered on 09/09/17 08:18; Admin Dose 81 MG; Start 08/16/17 at 09:00 Ondansetron HCl (Zofran Inj) 4 mg Q6H PRN IV NAUSEA AND/OR VOMITING; Start 08/22 at 19:00 Bisacodyl (Dulcolax) 5 mg DAILY PRN PO CONSTIPATION; Start 08/15/17 at 19:00 Nicotine (Nicoderm 14 Mg/ 24hr) 1 patch DAILY TRANSDERM Last administered on 08:21; Admin Dose 1 PATCH; Start 08/16/17 at 09:00 Miscellaneous Information 1 ea NOTE XX ; Start 08/15/17 at 19:30 Glucose (Glutose) 15 gm Q15M PRN PO DECREASED GLUCOSE; Start 08/15/17 at 19:30 Glucose (Glutose) 22.5 gm Q15M PRN PO DECREASED GLUCOSE; Start 08/15/17 at 19: 30 Dextrose (D50w Syringe) 25 ml Q15M PRN IV DECREASED GLUCOSE; Start 08/15/17 at 19:30 Dextrose (D50w Syringe) 50 ml Q15M PRN IV DECREASED GLUCOSE; Start 08/15/17 at 19:30 Glucagon (Glucagen) 1 mg Q15M PRN IM DECREASED GLUCOSE; Start 08/15/17 at 19: 30 Glucose (Glutose) 15 gm Q15M PRN BUCCAL DECREASED GLUCOSE Last administered on 08/26/17 17:18; Admin Dose 15 GM; Start 08/15/17 at 19:30 Diagnostic Test (Pha) (Accu-Chek) 1 ea 02 XX Last administered on 09/08/17 02: 27; Admin Dose 1 EA; Start 08/18/17 at 02:00 Acetaminophen (Tylenol Tab) 650 mg Q6H PRN PO PAIN AND OR ELEVATED TEMP Last administered on 09/08/17 13:44; Admin Dose 650 MG; Start 08/18/17 at 15:00 Lactobacillus Acidophilus/ Rhamnosus (Culturelle) 1 cap BID PO Last administered on 09/09/17 08:18; Admin Dose 1 CAP; Start 08/21/17 at 11:30 Methadone HCl (Methadone) 5 mg Q8H PRN PO PAIN Last administered on 09/09/17 08:29; Admin Dose 5 MG; Start 08/22/17 at 17:30 Lorazepam (Ativan) 0.5 mg Q8H PRN PO ANXIETY Last administered on 09/09/17 08: 29; Admin Dose 0.5 MG; Start 08/24/17 at 16:00 Zolpidem Tartrate 5 mg 5 mg HS PRN PO INSOMNIA Last administered on 09/08/17 21:52; Admin Dose 5 MG; Start 08/24/17 at 21:30 Daptomycin 430 mg/ Sodium Chloride 100 ml @ 200 mls/hr Q24H IVPB Last administered on 09/08/17 14:48; Admin Dose 200 MLS/HR; Start 08/31/17 at 15:00 Ceftriaxone Sodium (Rocephin) 50 ml @ 100 mls/hr Q24H IVPB Last administered on 09/08/17 13:40; Admin Dose 100 MLS/HR; Start 08/31/17 at 13:30 IV Flush (NS 10 ml) 10 ml PRN PRN IV IV PROTOCOL; Start 09/01/17 at 16:00 Insulin Glargine (Lantus) 20 unit DAILY@08 SC Last administered on 09/09/17 08 :07; Admin Dose 20 UNIT; Start 09/06/17 at 08:00 Buspirone HCl (Buspar) 15 mg BID PO Last administered on 09/09/17 08:18; Admin Dose 15 MG; Start 09/08/17 at 21:00 CARLOS MARIANO MD Sep 09, 2017 10:03
[2017-09-09] MEDS: ACETAMINOPHEN 325 MG TAB PO PRN (13:04)
--- NOTE | 2017-09-09 13:04 | PN ---
Date/Time of Note Date/Time of Note DATE: 09/09/17 TIME: 13:01 Assessment/Plan VTE Prophylaxis VTE Prophylaxis Intervention: ambulation Lines/Catheters IV Catheter Type (from Nrsg): PICC Line Central line still needed: Yes Urinary Cath still in place: No Assessment/Plan Assessment/Plan 1. Back pain secondary to diskitis vs osteomyelitis - remains stable with no acute issues with ambulation. 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 Arthur, neurosurgery consulted, states non surgical at this time - ID has been consulted, recommended biopsy. however biopsy is too high risk per IR. Will need 3.5 more weeks of IV antibiotics - Patient has appt with ID physician at [facility] next , 09/14/17 in the am 2. Diabetes Mellitus, uncontrolled - Sugars continue to fluctuate - A1c 9.5. 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 Suicidal ideation - No longer experiencing SI and cleared by tele-psych 4. Anxiety - Doing well on Buspar 15mg BID. Will increase dose tomorrow - Ativan as needed and will wean as tolerated 5. Altered mental status, likely secondary to alcohol abuse- resolved - Patient is mentating well - no witnessed seizures and continuing seizure precautions. 6. Anion gap metabolic acidosis, moderate, not full DKA, secondary to medical noncompliance- resolved 7. Lactic acidosis - resolved 8. Hypernatremia, likely secondary to volume depletion given alcohol extent- resolved 9. Elevated AST and ALT, resolved 10. Disposition - Will need to continue antibiotics for another 3 weeks - Awaiting placement Subjective 24 Hr Interval Summary Free Text/Dictation Patient asking for Buspar to be increased but explained was just adjusted yesterday and will need to wait. No new complaints or acute overnight events. Still awaiting placement. Exam/Review of Systems Vital Signs Vitals Vital Signs Date Time Temp Pulse Resp B/P Pulse Ox O2 Delivery O2 Flow Rate FiO2 09/09/17 07:56 97.9 18 147/70 100 09/09/17 01:52 55 09/08/17 07:38 Room Air Intake and Output 09/08/17 09/08/17 09/09/17 15:00 23:00 07:00 Intake Total 1050 ml 1060 ml 900 ml Output Total 901 ml Balance 1050 ml 159 ml 900 ml Exam General: Patient in no acute distress. awake and alert. Head: Normocephalic atraumatic Eyes: EOMI, pupils reactive to light Neck: Supple, nontender, midline Respiratory: Clear to auscultation bilaterally. no wheezes or crackles Cardiovascular: regular rate, no obvious murmurs Gastrointestinal: non-tender to palpation, bowel sounds heard. Extremities: No tenderness to palpation spine, moving all extremities Neurological: Moves all extremities spontaneously Psych: mildly anxious, no SI/HI Results Result Diagram: 09/09/17 0539 09/09/17 0539 Results 24 hrs Laboratory Tests Test 09/08/17 17:36 09/08/17 21:00 09/08/17 21:48 09/09/17 05:39 Bedside Glucose 232 H 63 L 111 White Blood Count 5.0 Red Blood Count 3.79 L Hemoglobin 12.2 L Hematocrit 36.6 L Mean Corpuscular Volume 96.6 Mean Corpuscular Hemoglobin 32.2 Mean Corpuscular Hemoglobin Concent 33.3 Red Cell Distribution Width 13.8 Platelet Count 132 L Mean Platelet Volume 12.1 H Neutrophils % 33.0 L Lymphocytes % 47.5 Monocytes % 10.1 Eosinophils % 7.4 H Basophils % 1.8 Nucleated Red Blood Cells % 0.0 Neutrophils # 1.6 Lymphocytes # 2.4 Monocytes # 0.5 Eosinophils # 0.4 Basophils # 0.1 Nucleated Red Blood Cells # 0.0 Sodium Level 140 Potassium Level 4.6 Chloride Level 100 Carbon Dioxide Level 30 Anion Gap 15 Blood Urea Nitrogen 21 H Creatinine 0.91 Glucose Level 244 H Calcium Level 8.9 Phosphorus Level 5.2 H Magnesium Level 1.7 Albumin 3.8 Test 09/09/17 07:57 09/09/17 12:06 Bedside Glucose 197 127 Medications Medications Current Medications Aspirin (Aspirin) 81 mg DAILY PO Last administered on 09/09/17t 08:18; Admin Dose 81 MG; Start 08/16/17 at 09:00 Ondansetron HCl (Zofran Inj) 4 mg Q6H PRN IV NAUSEA AND/OR VOMITING; Start 08/22 at 19:00 Bisacodyl (Dulcolax) 5 mg DAILY PRN PO CONSTIPATION; Start 08/15/17 at 19:00 Nicotine (Nicoderm 14 Mg/ 24hr) 1 patch DAILY TRANSDERM Last administered on 08:21; Admin Dose 1 PATCH; Start 08/16/17 at 09:00 Miscellaneous Information 1 ea NOTE XX ; Start 08/15/17 at 19:30 Glucose (Glutose) 15 gm Q15M PRN PO DECREASED GLUCOSE; Start 08/15/17 at 19:30 Glucose (Glutose) 22.5 gm Q15M PRN PO DECREASED GLUCOSE; Start 08/15/17 at 19: 30 Dextrose (D50w Syringe) 25 ml Q15M PRN IV DECREASED GLUCOSE; Start 08/15/17 at 19:30 Dextrose (D50w Syringe) 50 ml Q15M PRN IV DECREASED GLUCOSE; Start 08/15/17 at 19:30 Glucagon (Glucagen) 1 mg Q15M PRN IM DECREASED GLUCOSE; Start 08/15/17 at 19: 30 Glucose (Glutose) 15 gm Q15M PRN BUCCAL DECREASED GLUCOSE Last administered on 08/26/17 17:18; Admin Dose 15 GM; Start 08/15/17 at 19:30 Diagnostic Test (Pha) (Accu-Chek) 1 ea 02 XX Last administered on 09/08/17 02: 27; Admin Dose 1 EA; Start 08/18/17 at 02:00 Acetaminophen (Tylenol Tab) 650 mg Q6H PRN PO PAIN AND OR ELEVATED TEMP Last administered on 09/08/17 13:44; Admin Dose 650 MG; Start 08/18/17 at 15:00 Lactobacillus Acidophilus/ Rhamnosus (Culturelle) 1 cap BID PO Last administered on 09/09/17 08:18; Admin Dose 1 CAP; Start 08/21/17 at 11:30 Methadone HCl (Methadone) 5 mg Q8H PRN PO PAIN Last administered on 09/09/17 08:29; Admin Dose 5 MG; Start 08/22/17 at 17:30 Lorazepam (Ativan) 0.5 mg Q8H PRN PO ANXIETY Last administered on 09/09/17 08: 29; Admin Dose 0.5 MG; Start 08/24/17 at 16:00 Zolpidem Tartrate 5 mg 5 mg HS PRN PO INSOMNIA Last administered on 09/08/17 21:52; Admin Dose 5 MG; Start 08/24/17 at 21:30 Daptomycin 430 mg/ Sodium Chloride 100 ml @ 200 mls/hr Q24H IVPB Last administered on 09/08/17 14:48; Admin Dose 200 MLS/HR; Start 08/31/17 at 15:00 Ceftriaxone Sodium (Rocephin) 50 ml @ 100 mls/hr Q24H IVPB Last administered on 09/08/17 13:40; Admin Dose 100 MLS/HR; Start 08/31/17 at 13:30 IV Flush (NS 10 ml) 10 ml PRN PRN IV IV PROTOCOL; Start 09/01/17 at 16:00 Insulin Glargine (Lantus) 20 unit DAILY@08 SC Last administered on 09/09/17 08 :07; Admin Dose 20 UNIT; Start 09/06/17 at 08:00 Buspirone HCl (Buspar) 15 mg BID PO Last administered on 09/09/17 08:18; Admin Dose 15 MG; Start 09/08/17 at 21:00 SALUD GARIBAY MD Sep 09, 2017 13:04
[2017-09-09] MEDS: CEFTRIAXONE 1 GM/50 ML (PMX) 50 ML IVPB SCH (13:40)
[2017-09-09 14:26] VITALS: BP 119/65; RESP 18
[2017-09-09] MEDS: DAPTOMYCIN IVPB SCH (15:32)
[2017-09-09] MEDS: SOD CHLORIDE 0.9% IVPB SCH (15:32)
--- NOTE | 2017-09-09 17:13 | CONS ---
Date/Time of Note Date/Time of Note DATE: 09/09/17 TIME: 17:04 Consultation Date/Type/Reason Admit Date/Time Aug 15, 2017 at 19:21 Initial Consult Date SUBJECTIVE: 52 y/o male currently being treated for spinal osteomyelitis. S/P suicidal ideation. Cleared by psych. Awake,alert. States that feeling better. Denies fever, chills. VS: 119/65 P: 56 R:18 T: 97.4 SO2: 97% LABS: Reviewed. WBC- 5.0 H&H: stable. BUN-21 CR-0.91 ANTIMICROBIALS: 1. Daptomycin. 2. Rocephin. PHYSICAL EXAMINATION: GENERAL: A well-developed, well-nourished, middle-aged man who is alert, in no distress. HEENT: Head atraumatic, normocephalic. Sclerae anicteric. Buccal mucosa dry. NECK: Supple. CHEST: Rise symmetrical. Breath sounds diminished to bases. HEART: S1, S2. ABDOMEN: Soft. Bowel tones present. EXTREMITIES: Without cyanosis. ASSESSMENT: 1. Ongoing back pain with a hx of recent spinal osteomyelitis. Patient was restarted on antibiotics for concern of partially treated osteomyelitis as per ortho note. 2. Diabetes Mellitus, uncontrolled. Endocrine following. 3. History of psychiatric problems. 4. Suicidal ideation. Cleared by psych. 5. Lactic Acidosis-resolved. PLAN: Remains unchanged. Pending discharge arrangements. Continue current antibiotics for 4 more weeks. The patient to follow at [facility] with ortho team for further rec-s upon D/C. Type of Consultation: ID Referring Provider: SALUD GARIBAY MD Exam/Review of Systems Vital Signs Vitals Vital Signs Date Time Temp Pulse Resp B/P Pulse Ox O2 Delivery O2 Flow Rate FiO2 09/09/17 14:26 97.4 56 18 119/65 97 09/08/17 07:38 Room Air Intake and Output 09/08/17 09/08/17 09/09/17 15:00 23:00 07:00 Intake Total 1050 ml 1060 ml 900 ml Output Total 901 ml Balance 1050 ml 159 ml 900 ml Results Result Diagram: 09/09/17 0539 09/09/17 0539 Results 24 hrs Laboratory Tests Test 09/08/17 17:36 09/08/17 21:00 09/08/17 21:48 09/09/17 05:39 Bedside Glucose 232 H 63 L 111 White Blood Count 5.0 Red Blood Count 3.79 L Hemoglobin 12.2 L Hematocrit 36.6 L Mean Corpuscular Volume 96.6 Mean Corpuscular Hemoglobin 32.2 Mean Corpuscular Hemoglobin Concent 33.3 Red Cell Distribution Width 13.8 Platelet Count 132 L Mean Platelet Volume 12.1 H Neutrophils % 33.0 L Lymphocytes % 47.5 Monocytes % 10.1 Eosinophils % 7.4 H Basophils % 1.8 Nucleated Red Blood Cells % 0.0 Neutrophils # 1.6 Lymphocytes # 2.4 Monocytes # 0.5 Eosinophils # 0.4 Basophils # 0.1 Nucleated Red Blood Cells # 0.0 Sodium Level 140 Potassium Level 4.6 Chloride Level 100 Carbon Dioxide Level 30 Anion Gap 15 Blood Urea Nitrogen 21 H Creatinine 0.91 Glucose Level 244 H Calcium Level 8.9 Phosphorus Level 5.2 H Magnesium Level 1.7 Albumin 3.8 Test 09/09/17 07:57 09/09/17 12:06 09/09/17 16:38 Bedside Glucose 197 127 127 Medications Medications Current Medications Aspirin (Aspirin) 81 mg DAILY PO Last administered on 09/09/17 08:18; Admin Dose 81 MG; Start 08/16/17 at 09:00 Ondansetron HCl (Zofran Inj) 4 mg Q6H PRN IV NAUSEA AND/OR VOMITING; Start 08/22 at 19:00 Bisacodyl (Dulcolax) 5 mg DAILY PRN PO CONSTIPATION; Start 08/15/17 at 19:00 Nicotine (Nicoderm 14 Mg/ 24hr) 1 patch DAILY TRANSDERM Last administered on 08:21; Admin Dose 1 PATCH; Start 08/16/17 at 09:00 Miscellaneous Information 1 ea NOTE XX ; Start 08/15/17 at 19:30 Glucose (Glutose) 15 gm Q15M PRN PO DECREASED GLUCOSE; Start 08/15/17 at 19:30 Glucose (Glutose) 22.5 gm Q15M PRN PO DECREASED GLUCOSE; Start 08/15/17 at 19: 30 Dextrose (D50w Syringe) 25 ml Q15M PRN IV DECREASED GLUCOSE; Start 08/15/17 at 19:30 Dextrose (D50w Syringe) 50 ml Q15M PRN IV DECREASED GLUCOSE; Start 08/15/17 at 19:30 Glucagon (Glucagen) 1 mg Q15M PRN IM DECREASED GLUCOSE; Start 08/15/17 at 19: 30 Glucose (Glutose) 15 gm Q15M PRN BUCCAL DECREASED GLUCOSE Last administered on 08/26/17 17:18; Admin Dose 15 GM; Start 08/15/17 at 19:30 Diagnostic Test (Pha) (Accu-Chek) 1 ea 02 XX Last administered on 09/08/17 02: 27; Admin Dose 1 EA; Start 08/18/17 at 02:00 Acetaminophen (Tylenol Tab) 650 mg Q6H PRN PO PAIN AND OR ELEVATED TEMP Last administered on 09/09/17 13:04; Admin Dose 650 MG; Start 08/18/17 at 15:00 Lactobacillus Acidophilus/ Rhamnosus (Culturelle) 1 cap BID PO Last administered on 09/09/17 08:18; Admin Dose 1 CAP; Start 08/21/17 at 11:30 Methadone HCl (Methadone) 5 mg Q8H PRN PO PAIN Last administered on 09/09/17 16:36; Admin Dose 5 MG; Start 08/22/17 at 17:30 Lorazepam (Ativan) 0.5 mg Q8H PRN PO ANXIETY Last administered on 09/09/17 16: 36; Admin Dose 0.5 MG; Start 08/24/17 at 16:00 Zolpidem Tartrate 5 mg 5 mg HS PRN PO INSOMNIA Last administered on 09/08/17 21:52; Admin Dose 5 MG; Start 08/24/17 at 21:30 Daptomycin 430 mg/ Sodium Chloride 100 ml @ 200 mls/hr Q24H IVPB Last administered on 09/09/17 15:32; Admin Dose 200 MLS/HR; Start 08/31/17 at 15:00 Ceftriaxone Sodium (Rocephin) 50 ml @ 100 mls/hr Q24H IVPB Last administered on 09/09/17 13:40; Admin Dose 100 MLS/HR; Start 08/31/17 at 13:30 IV Flush (NS 10 ml) 10 ml PRN PRN IV IV PROTOCOL; Start 09/01/17 at 16:00 Insulin Glargine (Lantus) 20 unit DAILY@08 SC Last administered on 09/09/17 08 :07; Admin Dose 20 UNIT; Start 09/06/17 at 08:00 Buspirone HCl (Buspar) 15 mg BID PO Last administered on 09/09/17 08:18; Admin Dose 15 MG; Start 09/08/17 at 21:00 DANIEL ADHIKARI Sep 09, 2017 17:13
[2017-09-09 20:00] VITALS: BP 123/69; RESP 19
[2017-09-09] MEDS: ZOLPIDEM 5 MG TAB PO PRN (21:22)
[2017-09-10] MEDS: LORAZEPAM 0.5 MG TAB PO PRN ×3 (00:10→16:27)
[2017-09-10] MEDS: METHADONE 5 MG TAB PO PRN ×3 (00:10→16:27)
[2017-09-10] MEDS: ACCU-CHEK XX SCH (01:25)
[2017-09-10 02:05] VITALS: BP 125/66; RESP 19
[2017-09-10 06:28] LABS: BASOPHIL # 0.1 10^3/ul (0.0-0.1); BASOPHILS % 1.2 % (0.0-2.0); EOSINOPHILS # 0.4 10^3/ul (0.0-0.5); EOSINOPHILS % 6.5 % (0.0-7.0); HEMATOCRIT 37.6 % (42.0-52.0); HEMOGLOBIN 12.5 g/dl (14.0-18.0); LYMPHOCYTES # 2.7 10^3/ul (0.8-2.9); LYMPHOCYTES % 44.7 % (15.0-51.0); MEAN CORPUSCULAR HEMOGLOBIN 31.9 pg (29.0-33.0); MEAN CORPUSCULAR HGB CONC 33.2 g/dl (32.0-37.0); MEAN CORPUSCULAR VOLUME 95.9 fl (82.0-101.0); MEAN PLATELET VOLUME 11.6 fl (7.4-10.4); MONOCYTE # 0.6 10^3/ul (0.3-0.9); MONOCYTES % 9.6 % (0.0-11.0); NEUTROPHIL # 2.3 10^3/ul (1.6-7.5); NEUTROPHILS % 37.8 % (39.0-77.0); PLATELET COUNT 139 10^3/UL (140-415); POSITIVE DIFF @See below; RED BLOOD COUNT 3.92 10^6/ul (4.70-6.10); RED CELL DISTRIBUTION WIDTH 13.9 % (11.5-14.5)
[2017-09-10 06:41] LABS: ALBUMIN 3.8 g/dl (3.3-4.9); CALCIUM 9.4 mg/dl (8.4-10.2); CREATININE 0.92 mg/dl (0.61-1.24); MAGNESIUM 1.7 mg/dl (1.7-2.5); POTASSIUM 4.3 mmol/L (3.5-5.1)
[2017-09-10 07:39] VITALS: BP 127/68; RESP 18
[2017-09-10] MEDS: INSULIN GLARGINE [LANtus] 3 ML PEN SC SCH (08:20)
[2017-09-10] MEDS: INSULIN ASPART [NOVOLOG] 3 ML PEN SC SCH ×7 (08:20→20:35)
[2017-09-10] MEDS: LACTOBACILLUS RHAMNOSUS CAP PO SCH ×2 (08:44→20:33)
[2017-09-10] MEDS: ASPIRIN 81 MG TAB PO SCH (08:45)
[2017-09-10] MEDS: BUSPIRONE 10 MG TAB PO SCH ×2 (08:45→20:33)
[2017-09-10] MEDS: NICOTINE (14 MG/24 HR) PATCH TRANSDERM SCH (08:46)
[2017-09-10] MEDS: CREON (12k-38k-60k) 1 CAP PO SCH ×3 (09:08→17:54)
--- NOTE | 2017-09-10 10:33 | CONS ---
Date/Time of Note Date/Time of Note DATE: 09/10/17 TIME: 10:31 Assessment/Plan Assessment/Plan Problems: (1) Diabetes mellitus out of control Status: Chronic Comment: Improved glycemic control over last 24 hours. Still w/ mild fasting hyperglycemia. 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 winder tender insulin use: with correction use Qualified Code: E08.9 - Diabetes mellitus due to underlying condition, uncontrolled, without complication, with long-term current use of insulin Consultation Date/Type/Reason Admit Date/Time Aug 15, 2017 at 19:21 Initial Consult Date 08/23/17 Type of Consultation: Endocrinology Reason for Consultation DM management Referring Provider: SALUD GARIBAY MD 24 HR Interval Summary Constitutional: improved, no complaints Detailed Summary Respiratory: no complaints Cardiovascular: no complaints Gastrointestinal: no complaints Genitourinary: no complaints Musculoskeletal: No back pain (controlled at this time) Neurologic: no complaints Exam/Review of Systems Vital Signs Vitals VS - Last 72 Hours, by Label Date Time Temp Pulse Resp B/P Pulse Ox O2 Delivery O2 Flow Rate FiO2 09/10/17 07:39 97.9 50 18 127/68 98 09/10/17 02:05 98.0 53 19 125/66 98 09/09/17 20:00 98.2 63 19 123/69 97 09/09/17 14:26 97.4 56 18 119/65 97 09/09/17 07:56 97.9 18 147/70 100 09/09/17 01:52 97.9 55 20 106/59 99 09/08/17 19:45 98.0 58 20 110/61 95 09/08/17 14:23 98.5 55 18 119/67 99 09/08/17 07:38 97.9 50 14 141/67 98 Room Air 09/08/17 01:24 98.0 53 20 113/57 99 09/07/17 13:23 98.6 65 16 117/67 96 09/07/17 11:46 98.1 58 14 121/66 98 Room Air Vital Signs Date Time Temp Pulse Resp B/P Pulse Ox O2 Delivery O2 Flow Rate FiO2 09/10/17 07:39 97.9 50 18 127/68 98 09/08/17 07:38 Room Air Intake and Output 09/09/17 09/09/17 09/10/17 15:00 23:00 07:00 Intake Total 2520 ml 2060 ml Output Total 600 ml Balance 1920 ml 2060 ml Exam Constitutional: alert, oriented, well developed Psych: nl mood/affect, no complaints Respiratory: clear to auscultation, normal air movement Cardiovascular: nl pulses, regular rate and rhythm, No edema, No murmurs/extra sounds, No rub Gastrointestinal: bowel sounds, nl liver, spleen, non-tender, soft, No mass, No rebound or guarding Musculoskeletal: nl extremities to inspection Extremities: normal pulses, No clubbing, No cyanosis, No edema Neurological: [employer]-X[employer] intact, nl mental status, nl speech, nl strength Additional Comments Bedside Glucose - 72 Hours Test 09/07/17 12:00 09/07/17 17:18 09/07/17 17:36 09/07/17 17:49 Bedside Glucose 205mg/dL (70-220) 59mg/dL (70-220) L 66mg/dL (70-220) L 77mg/dL (70-220) Test 09/07/17 18:18 09/07/17 20:38 09/08/17 01:37 09/08/17 07:53 Bedside Glucose 176mg/dL (70-220) 284mg/dL (70-220) H 239mg/dL (70-220) H 241mg/dL (70-220) H Test 09/08/17 12:00 09/08/17 17:36 09/08/17 21:00 09/08/17 21:48 Bedside Glucose 185mg/dL (70-220) 232mg/dL (70-220) H 63mg/dL (70-220) L 111mg/dL (70-220) Test 09/09/17 07:57 09/09/17 12:06 09/09/17 16:38 09/09/17 17:37 Bedside Glucose 197mg/dL (70-220) 127mg/dL (70-220) 127mg/dL (70-220) 126mg/dL (70-220) Test 09/09/17 20:32 09/10/17 08:12 Bedside Glucose 103mg/dL (70-220) 211mg/dL (70-220) Results Result Diagram: 09/10/17 0602 09/10/17 0602 Results 24 hrs Laboratory Tests Test 09/09/17 12:06 09/09/17 16:38 09/09/17 17:37 09/09/17 20:32 Bedside Glucose 127 127 126 103 Test 09/10/17 06:02 09/10/17 08:12 White Blood Count 6.0 Red Blood Count 3.92 L Hemoglobin 12.5 L Hematocrit 37.6 L Mean Corpuscular Volume 95.9 Mean Corpuscular Hemoglobin 31.9 Mean Corpuscular Hemoglobin Concent 33.2 Red Cell Distribution Width 13.9 Platelet Count 139 L Mean Platelet Volume 11.6 H Neutrophils % 37.8 L Lymphocytes % 44.7 Monocytes % 9.6 Eosinophils % 6.5 Basophils % 1.2 Nucleated Red Blood Cells % 0.0 Neutrophils # 2.3 Lymphocytes # 2.7 Monocytes # 0.6 Eosinophils # 0.4 Basophils # 0.1 Nucleated Red Blood Cells # 0.0 Sodium Level 140 Potassium Level 4.3 Chloride Level 102 Carbon Dioxide Level 32 H Anion Gap 10 # Blood Urea Nitrogen 24 H Creatinine 0.92 Glucose Level 185 Calcium Level 9.4 Phosphorus Level 5.0 H Magnesium Level 1.7 Albumin 3.8 Bedside Glucose 211 Medications Medications Current Medications Aspirin (Aspirin) 81 mg DAILY PO Last administered on 09/10/17 08:45; Admin Dose 81 MG; Start 08/16/17 at 09:00 Ondansetron HCl (Zofran Inj) 4 mg Q6H PRN IV NAUSEA AND/OR VOMITING; Start 08/22 at 19:00 Bisacodyl (Dulcolax) 5 mg DAILY PRN PO CONSTIPATION; Start 08/15/17 at 19:00 Nicotine (Nicoderm 14 Mg/ 24hr) 1 patch DAILY TRANSDERM Last administered on 08:46; Admin Dose 1 PATCH; Start 08/16/17 at 09:00 Miscellaneous Information 1 ea NOTE XX ; Start 08/15/17 at 19:30 Glucose (Glutose) 15 gm Q15M PRN PO DECREASED GLUCOSE; Start 08/15/17 at 19:30 Glucose (Glutose) 22.5 gm Q15M PRN PO DECREASED GLUCOSE; Start 08/15/17 at 19: 30 Dextrose (D50w Syringe) 25 ml Q15M PRN IV DECREASED GLUCOSE; Start 08/15/17 at 19:30 Dextrose (D50w Syringe) 50 ml Q15M PRN IV DECREASED GLUCOSE; Start 08/15/17 at 19:30 Glucagon (Glucagen) 1 mg Q15M PRN IM DECREASED GLUCOSE; Start 08/15/17 at 19: 30 Glucose (Glutose) 15 gm Q15M PRN BUCCAL DECREASED GLUCOSE Last administered on 08/26/17 17:18; Admin Dose 15 GM; Start 08/15/17 at 19:30 Diagnostic Test (Pha) (Accu-Chek) 1 ea 02 XX Last administered on 09/08/17 02: 27; Admin Dose 1 EA; Start 08/18/17 at 02:00 Acetaminophen (Tylenol Tab) 650 mg Q6H PRN PO PAIN AND OR ELEVATED TEMP Last administered on 09/09/17 13:04; Admin Dose 650 MG; Start 08/18/17 at 15:00 Lactobacillus Acidophilus/ Rhamnosus (Culturelle) 1 cap BID PO Last administered on 09/10/17 08:44; Admin Dose 1 CAP; Start 08/21/17 at 11:30 Methadone HCl (Methadone) 5 mg Q8H PRN PO PAIN Last administered on 09/10/17 08:46; Admin Dose 5 MG; Start 08/22/17 at 17:30 Lorazepam (Ativan) 0.5 mg Q8H PRN PO ANXIETY Last administered on 09/10/17 08: 45; Admin Dose 0.5 MG; Start 08/24/17 at 16:00 Zolpidem Tartrate 5 mg 5 mg HS PRN PO INSOMNIA Last administered on 09/09/17 21:22; Admin Dose 5 MG; Start 08/24/17 at 21:30 Daptomycin 430 mg/ Sodium Chloride 100 ml @ 200 mls/hr Q24H IVPB Last administered on 09/09/17 15:32; Admin Dose 200 MLS/HR; Start 08/31/17 at 15:00 Ceftriaxone Sodium (Rocephin) 50 ml @ 100 mls/hr Q24H IVPB Last administered on 09/09/17 13:40; Admin Dose 100 MLS/HR; Start 08/31/17 at 13:30 IV Flush (NS 10 ml) 10 ml PRN PRN IV IV PROTOCOL Last administered on 20:33; Admin Dose 10 ML; Start 09/01/17 at 16:00 Insulin Glargine (Lantus) 20 unit DAILY@08 SC Last administered on 09/10/17 08 :20; Admin Dose 20 UNIT; Start 09/06/17 at 08:00 Buspirone HCl (Buspar) 15 mg BID PO Last administered on 09/10/17 08:45; Admin Dose 15 MG; Start 09/08/17 at 21:00 Insulin Human NPH (Humulin N) 4 unit DAILY@20 SC ; Start 09/10/17 at 20:00 CARLOS MARIANO MD Sep 10, 2017 10:33
[2017-09-10] MEDS: CEFTRIAXONE 1 GM/50 ML (PMX) 50 ML IVPB SCH (13:08)
--- NOTE | 2017-09-10 13:30 | PN ---
Date/Time of Note Date/Time of Note DATE: 09/10/17 TIME: 13:30 Assessment/Plan VTE Prophylaxis VTE Prophylaxis Intervention: ambulation Lines/Catheters IV Catheter Type (from Nrsg): PICC Line Central line still needed: Yes Urinary Cath still in place: No Assessment/Plan Assessment/Plan 1. Back pain secondary to diskitis vs osteomyelitis - remains stable with no acute issues with ambulation. 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 Arthur, neurosurgery consulted, states non surgical at this time - ID has been consulted, recommended biopsy. however biopsy is too high risk per IR. Will need 3 more weeks of IV antibiotics - Patient has appt with ID physician at [facility] next , 09/14/17 in the am 2. Diabetes Mellitus, uncontrolled - Sugars continue to fluctuate - A1c 9.5. 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 Suicidal ideation - No longer experiencing SI and cleared by tele-psych 4. Anxiety - Doing well and will increase Buspar to 20mg BID. - Ativan as needed and will wean as tolerated 5. Altered mental status, likely secondary to alcohol abuse- resolved - Patient is mentating well - no witnessed seizures and continuing seizure precautions. 6. Anion gap metabolic acidosis, moderate, not full DKA, secondary to medical noncompliance- resolved 7. Lactic acidosis - resolved 8. Hypernatremia, likely secondary to volume depletion given alcohol extent- resolved 9. Elevated AST and ALT, resolved 10. Disposition - Will need to continue antibiotics for another 3 weeks - Awaiting placement Subjective 24 Hr Interval Summary Free Text/Dictation Patient doing well and has no new complaints. No acute overnight events. Exam/Review of Systems Vital Signs Vitals Vital Signs Date Time Temp Pulse Resp B/P Pulse Ox O2 Delivery O2 Flow Rate FiO2 09/10/17 07:39 97.9 50 18 127/68 98 09/08/17 07:38 Room Air Intake and Output 09/09/17 09/09/17 09/10/17 15:00 23:00 07:00 Intake Total 2520 ml 2060 ml Output Total 600 ml Balance 1920 ml 2060 ml Exam General: Patient in no acute distress. awake and alert. Head: Normocephalic atraumatic Eyes: EOMI, pupils reactive to light Neck: Supple, nontender, midline Respiratory: Clear to auscultation bilaterally. no wheezes or crackles Cardiovascular: regular rate, no obvious murmurs Gastrointestinal: non-tender to palpation, bowel sounds heard. Extremities: No tenderness to palpation spine, moving all extremities Neurological: Moves all extremities spontaneously Psych: calm, flat affect, no SI/HI Results Result Diagram: 09/10/17 0602 09/10/17 0602 Results 24 hrs Laboratory Tests Test 09/09/17 16:38 09/09/17 17:37 09/09/17 20:32 09/10/17 06:02 Bedside Glucose 127 126 103 White Blood Count 6.0 Red Blood Count 3.92 L Hemoglobin 12.5 L Hematocrit 37.6 L Mean Corpuscular Volume 95.9 Mean Corpuscular Hemoglobin 31.9 Mean Corpuscular Hemoglobin Concent 33.2 Red Cell Distribution Width 13.9 Platelet Count 139 L Mean Platelet Volume 11.6 H Neutrophils % 37.8 L Lymphocytes % 44.7 Monocytes % 9.6 Eosinophils % 6.5 Basophils % 1.2 Nucleated Red Blood Cells % 0.0 Neutrophils # 2.3 Lymphocytes # 2.7 Monocytes # 0.6 Eosinophils # 0.4 Basophils # 0.1 Nucleated Red Blood Cells # 0.0 Sodium Level 140 Potassium Level 4.3 Chloride Level 102 Carbon Dioxide Level 32 H Anion Gap 10 # Blood Urea Nitrogen 24 H Creatinine 0.92 Glucose Level 185 Calcium Level 9.4 Phosphorus Level 5.0 H Magnesium Level 1.7 Albumin 3.8 Test 09/10/17 08:12 09/10/17 12:28 Bedside Glucose 211 87 Medications Medications Current Medications Aspirin (Aspirin) 81 mg DAILY PO Last administered on 09/10/17 08:45; Admin Dose 81 MG; Start 08/16/17 at 09:00 Ondansetron HCl (Zofran Inj) 4 mg Q6H PRN IV NAUSEA AND/OR VOMITING; Start 08/22 at 19:00 Bisacodyl (Dulcolax) 5 mg DAILY PRN PO CONSTIPATION; Start 08/15/17 at 19:00 Nicotine (Nicoderm 14 Mg/ 24hr) 1 patch DAILY TRANSDERM Last administered on 08:46; Admin Dose 1 PATCH; Start 08/16/17 at 09:00 Miscellaneous Information 1 ea NOTE XX ; Start 08/15/17 at 19:30 Glucose (Glutose) 15 gm Q15M PRN PO DECREASED GLUCOSE; Start 08/15/17 at 19:30 Glucose (Glutose) 22.5 gm Q15M PRN PO DECREASED GLUCOSE; Start 08/15/17 at 19: 30 Dextrose (D50w Syringe) 25 ml Q15M PRN IV DECREASED GLUCOSE; Start 08/15/17 at 19:30 Dextrose (D50w Syringe) 50 ml Q15M PRN IV DECREASED GLUCOSE; Start 08/15/17 at 19:30 Glucagon (Glucagen) 1 mg Q15M PRN IM DECREASED GLUCOSE; Start 08/15/17 at 19: 30 Glucose (Glutose) 15 gm Q15M PRN BUCCAL DECREASED GLUCOSE Last administered on 08/26/17 17:18; Admin Dose 15 GM; Start 08/15/17 at 19:30 Diagnostic Test (Pha) (Accu-Chek) 1 ea 02 XX Last administered on 09/08/17 02: 27; Admin Dose 1 EA; Start 08/18/17 at 02:00 Acetaminophen (Tylenol Tab) 650 mg Q6H PRN PO PAIN AND OR ELEVATED TEMP Last administered on 09/09/17 13:04; Admin Dose 650 MG; Start 08/18/17 at 15:00 Lactobacillus Acidophilus/ Rhamnosus (Culturelle) 1 cap BID PO Last administered on 09/10/17 08:44; Admin Dose 1 CAP; Start 08/21/17 at 11:30 Methadone HCl (Methadone) 5 mg Q8H PRN PO PAIN Last administered on 09/10/17 08:46; Admin Dose 5 MG; Start 08/22/17 at 17:30 Lorazepam (Ativan) 0.5 mg Q8H PRN PO ANXIETY Last administered on 09/10/17 08: 45; Admin Dose 0.5 MG; Start 08/24/17 at 16:00 Zolpidem Tartrate 5 mg 5 mg HS PRN PO INSOMNIA Last administered on 09/09/17 21:22; Admin Dose 5 MG; Start 08/24/17 at 21:30 Daptomycin 430 mg/ Sodium Chloride 100 ml @ 200 mls/hr Q24H IVPB Last administered on 09/09/17 15:32; Admin Dose 200 MLS/HR; Start 08/31/17 at 15:00 Ceftriaxone Sodium (Rocephin) 50 ml @ 100 mls/hr Q24H IVPB Last administered on 09/10/17 13:08; Admin Dose 100 MLS/HR; Start 08/31/17 at 13:30 IV Flush (NS 10 ml) 10 ml PRN PRN IV IV PROTOCOL Last administered on 20:33; Admin Dose 10 ML; Start 09/01/17 at 16:00 Insulin Glargine (Lantus) 20 unit DAILY@08 SC Last administered on 09/10/17 08 :20; Admin Dose 20 UNIT; Start 09/06/17 at 08:00 Buspirone HCl (Buspar) 15 mg BID PO Last administered on 09/10/17 08:45; Admin Dose 15 MG; Start 09/08/17 at 21:00 Insulin Human NPH (Humulin N) 4 unit DAILY@20 SC ; Start 09/10/17 at 20:00 SALUD GARIBAY MD Sep 10, 2017 13:30
[2017-09-10 15:05] VITALS: BP 140/76; RESP 18
[2017-09-10] MEDS: SOD CHLORIDE 0.9% IVPB SCH (15:10)
[2017-09-10] MEDS: DAPTOMYCIN IVPB SCH (15:10)
--- NOTE | 2017-09-10 17:37 | CONS ---
Date/Time of Note Date/Time of Note DATE: 09/10/17 TIME: 17:35 Assessment/Plan Assessment/Plan Chief Complaint/Hosp Course ID PROGRESS NOTE CURRENT ABX: TOTAL ABX DAY # 26 => Daptomycin + Ceftriaxone 24H INTERVAL SUMMARY * Clinically status quo - -no new issues, no fevers, VSS, still w/back pain Physical Exam Const: 52 yo M, normal weight, lying in bed, calm, VSS, no fevers, NAD, alert, responsive Head: Atraumatic , normocephalic Eyes: Normal Conjunctiva, anicteric ENT: Normal External Ears, Nose, Edentulous Neck: Supple, full rom Resp: Equal chest rise bilaterally, without dyspnea on observation , room air Cardio: Regular rate and rhythm Abd: Soft, non tender Skin: No petechiae or rashes Back: Deferred, laying supine on back with back pain Ext: No cyanosis, or edema ID ASSESSMENT 52 yo M admit with: 1. Ongoing back pain with a history of spinal osteomyelitis, possibly partially treated as per orthopedic note. 2. Diabetes. 3. Psychiatric disorders with a history of suicidal ideation and mood disorder. 4. History of diskitis versus osteomyelitis. The patient was followed at [facility] and had been on antibiotics, completed treatment. (-) MRSA Nares INVASIVES: PICC (09/01/17) ABX ALLERGIES: KNDA CURRENT ABX: TOTAL ABX DAY # 26 => Daptomycin + Ceftriaxone ID RECOMMENDATIONS 1. Recommend continue ABX total 6 weeks = today day #26 /42 days 2. TNS vs DC to [facility] . Problems: Consultation Date/Type/Reason Admit Date/Time Aug 15, 2017 at 19:21 Initial Consult Date 08/29/17 Type of Consultation: ID Referring Provider: SALUD GARIBAY MD Exam/Review of Systems Vital Signs Vitals Vital Signs Date Time Temp Pulse Resp B/P Pulse Ox O2 Delivery O2 Flow Rate FiO2 09/10/17 15:05 98.4 76 18 140/76 100 09/08/17 07:38 Room Air Intake and Output 09/09/17 09/09/17 09/10/17 15:00 23:00 07:00 Intake Total 2520 ml 2060 ml Output Total 600 ml Balance 1920 ml 2060 ml Results Result Diagram: 09/10/17 0602 09/10/17 0602 Results 24 hrs Laboratory Tests Test 09/09/17 17:37 09/09/17 20:32 09/10/17 06:02 09/10/17 08:12 Bedside Glucose 126 103 211 White Blood Count 6.0 Red Blood Count 3.92 L Hemoglobin 12.5 L Hematocrit 37.6 L Mean Corpuscular Volume 95.9 Mean Corpuscular Hemoglobin 31.9 Mean Corpuscular Hemoglobin Concent 33.2 Red Cell Distribution Width 13.9 Platelet Count 139 L Mean Platelet Volume 11.6 H Neutrophils % 37.8 L Lymphocytes % 44.7 Monocytes % 9.6 Eosinophils % 6.5 Basophils % 1.2 Nucleated Red Blood Cells % 0.0 Neutrophils # 2.3 Lymphocytes # 2.7 Monocytes # 0.6 Eosinophils # 0.4 Basophils # 0.1 Nucleated Red Blood Cells # 0.0 Sodium Level 140 Potassium Level 4.3 Chloride Level 102 Carbon Dioxide Level 32 H Anion Gap 10 # Blood Urea Nitrogen 24 H Creatinine 0.92 Glucose Level 185 Calcium Level 9.4 Phosphorus Level 5.0 H Magnesium Level 1.7 Albumin 3.8 Test 09/10/17 12:28 Bedside Glucose 87 Medications Medications Current Medications Aspirin (Aspirin) 81 mg DAILY PO Last administered on 09/10/17 08:45; Admin Dose 81 MG; Start 08/16/17 at 09:00 Ondansetron HCl (Zofran Inj) 4 mg Q6H PRN IV NAUSEA AND/OR VOMITING; Start 08/22 at 19:00 Bisacodyl (Dulcolax) 5 mg DAILY PRN PO CONSTIPATION; Start 08/15/17 at 19:00 Nicotine (Nicoderm 14 Mg/ 24hr) 1 patch DAILY TRANSDERM Last administered on 08:46; Admin Dose 1 PATCH; Start 08/16/17 at 09:00 Miscellaneous Information 1 ea NOTE XX ; Start 08/15/17 at 19:30 Glucose (Glutose) 15 gm Q15M PRN PO DECREASED GLUCOSE; Start 08/15/17 at 19:30 Glucose (Glutose) 22.5 gm Q15M PRN PO DECREASED GLUCOSE; Start 08/15/17 at 19: 30 Dextrose (D50w Syringe) 25 ml Q15M PRN IV DECREASED GLUCOSE; Start 08/15/17 at 19:30 Dextrose (D50w Syringe) 50 ml Q15M PRN IV DECREASED GLUCOSE; Start 08/15/17 at 19:30 Glucagon (Glucagen) 1 mg Q15M PRN IM DECREASED GLUCOSE; Start 08/15/17 at 19: 30 Glucose (Glutose) 15 gm Q15M PRN BUCCAL DECREASED GLUCOSE Last administered on 08/26/17 17:18; Admin Dose 15 GM; Start 08/15/17 at 19:30 Diagnostic Test (Pha) (Accu-Chek) 1 ea 02 XX Last administered on 09/08/17 02: 27; Admin Dose 1 EA; Start 08/18/17 at 02:00 Acetaminophen (Tylenol Tab) 650 mg Q6H PRN PO PAIN AND OR ELEVATED TEMP Last administered on 09/09/17 13:04; Admin Dose 650 MG; Start 08/18/17 at 15:00 Lactobacillus Acidophilus/ Rhamnosus (Culturelle) 1 cap BID PO Last administered on 09/10/17 08:44; Admin Dose 1 CAP; Start 08/21/17 at 11:30 Methadone HCl (Methadone) 5 mg Q8H PRN PO PAIN Last administered on 09/10/17 16:27; Admin Dose 5 MG; Start 08/22/17 at 17:30 Lorazepam (Ativan) 0.5 mg Q8H PRN PO ANXIETY Last administered on 09/10/17 16: 27; Admin Dose 0.5 MG; Start 08/24/17 at 16:00 Zolpidem Tartrate 5 mg 5 mg HS PRN PO INSOMNIA Last administered on 09/09/17 21:22; Admin Dose 5 MG; Start 08/24/17 at 21:30 Daptomycin 430 mg/ Sodium Chloride 100 ml @ 200 mls/hr Q24H IVPB Last administered on 09/10/17 15:10; Admin Dose 200 MLS/HR; Start 08/31/17 at 15:00 Ceftriaxone Sodium (Rocephin) 50 ml @ 100 mls/hr Q24H IVPB Last administered on 09/10/17 13:08; Admin Dose 100 MLS/HR; Start 08/31/17 at 13:30 IV Flush (NS 10 ml) 10 ml PRN PRN IV IV PROTOCOL Last administered on 20:33; Admin Dose 10 ML; Start 09/01/17 at 16:00 Insulin Glargine (Lantus) 20 unit DAILY@08 SC Last administered on 09/10/17 08 :20; Admin Dose 20 UNIT; Start 09/06/17 at 08:00 Insulin Human NPH (Humulin N) 4 unit DAILY@20 SC ; Start 09/10/17 at 20:00 Buspirone HCl (Buspar) 20 mg BID PO ; Start 09/10/17 at 21:00 BHARATH MACIEL NP Sep 10, 2017 17:37
[2017-09-10] MEDS: ACETAMINOPHEN 325 MG TAB PO PRN (17:58)
[2017-09-10 19:49] VITALS: BP 138/72; RESP 19
[2017-09-10] MEDS: NPH, HUMAN INSULIN ISOPHANE 3ML VIAL SC SCH (21:22)
[2017-09-10] MEDS: ZOLPIDEM 5 MG TAB PO PRN (21:26)
[2017-09-11] MEDS: ACCU-CHEK XX SCH (00:30)
[2017-09-11] MEDS: METHADONE 5 MG TAB PO PRN ×3 (00:33→16:24)
[2017-09-11] MEDS: LORAZEPAM 0.5 MG TAB PO PRN ×3 (00:33→16:24)
[2017-09-11 02:07] VITALS: BP 115/59; RESP 19
[2017-09-11 06:24] LABS: BASOPHIL # 0.1 10^3/ul (0.0-0.1); BASOPHILS % 1.6 % (0.0-2.0); EOSINOPHILS # 0.4 10^3/ul (0.0-0.5); EOSINOPHILS % 7.6 % (0.0-7.0); HEMATOCRIT 36.5 % (42.0-52.0); HEMOGLOBIN 11.8 g/dl (14.0-18.0); LYMPHOCYTES # 2.8 10^3/ul (0.8-2.9); LYMPHOCYTES % 47.9 % (15.0-51.0); MEAN CORPUSCULAR HEMOGLOBIN 31.1 pg (29.0-33.0); MEAN CORPUSCULAR HGB CONC 32.3 g/dl (32.0-37.0); MEAN CORPUSCULAR VOLUME 96.3 fl (82.0-101.0); MEAN PLATELET VOLUME 11.7 fl (7.4-10.4); MONOCYTE # 0.6 10^3/ul (0.3-0.9); MONOCYTES % 10.4 % (0.0-11.0); NEUTROPHIL # 1.9 10^3/ul (1.6-7.5); NEUTROPHILS % 32.5 % (39.0-77.0); PLATELET COUNT 135 10^3/UL (140-415); RED BLOOD COUNT 3.79 10^6/ul (4.70-6.10); WHITE BLOOD COUNT 5.8 10^3/ul (4.8-10.8)
[2017-09-11 06:52] LABS: ALBUMIN 3.5 g/dl (3.3-4.9); CALCIUM 9.3 mg/dl (8.4-10.2); CREATININE 0.9 mg/dl (0.61-1.24); MAGNESIUM 1.8 mg/dl (1.7-2.5); PHOSPHORUS 5.9 mg/dl (2.5-4.9); POTASSIUM 4.2 mmol/L (3.5-5.1)
[2017-09-11 07:26] VITALS: BP 126/65; RESP 20
[2017-09-11] MEDS: LACTOBACILLUS RHAMNOSUS CAP PO SCH ×2 (08:21→21:00)
[2017-09-11] MEDS: CREON (12k-38k-60k) 1 CAP PO SCH ×3 (08:21→18:00)
[2017-09-11] MEDS: ASPIRIN 81 MG TAB PO SCH (08:22)
[2017-09-11] MEDS: BUSPIRONE 10 MG TAB PO SCH ×2 (08:22→21:00)
[2017-09-11] MEDS: INSULIN ASPART [NOVOLOG] 3 ML PEN SC SCH ×7 (08:33→21:00)
[2017-09-11] MEDS: INSULIN GLARGINE [LANtus] 3 ML PEN SC SCH (08:33)
--- NOTE | 2017-09-11 12:16 | CONS ---
Date/Time of Note Date/Time of Note DATE: 09/11/17 TIME: 12:15 Consult Date/Type/Reason Admit Date/Time Aug 15, 2017 at 19:21 Initial Consult Date 08/29/17 Type of Consultation: ID Ordering Provider: SALUD GARIBAY MD Objective Vital Signs Date Time Temp Pulse Resp B/P Pulse Ox O2 Delivery O2 Flow Rate FiO2 09/11/17 07:26 98.0 51 20 126/65 97 09/08/17 07:38 Room Air Intake and Output 09/10/17 09/10/17 09/11/17 15:00 23:00 07:00 Intake Total 50 ml 1780 ml 1400 ml Output Total 600 ml Balance 50 ml 1180 ml 1400 ml Results/Medications Result Diagram: 09/11/1726 09/11/17525 Results 24 hrs Laboratory Tests Test 09/10/17 12:28 09/10/17 17:50 09/10/17 20:34 09/10/17 20:55 Bedside Glucose 87 155 55 L 54 L Test 09/10/17 21:20 09/10/17 21:50 09/11/17 00:32 09/11/17 05:26 Bedside Glucose 73 73 177 White Blood Count 5.8 Red Blood Count 3.79 L Hemoglobin 11.8 L Hematocrit 36.5 L Mean Corpuscular Volume 96.3 Mean Corpuscular Hemoglobin 31.1 Mean Corpuscular Hemoglobin Concent 32.3 Red Cell Distribution Width 14.0 Platelet Count 135 L Mean Platelet Volume 11.7 H Neutrophils % 32.5 L Lymphocytes % 47.9 Monocytes % 10.4 Eosinophils % 7.6 H Basophils % 1.6 Nucleated Red Blood Cells % 0.0 Neutrophils # 1.9 Lymphocytes # 2.8 Monocytes # 0.6 Eosinophils # 0.4 Basophils # 0.1 Nucleated Red Blood Cells # 0.0 Sodium Level 142 Potassium Level 4.2 Chloride Level 103 Carbon Dioxide Level 31 Anion Gap 12 Blood Urea Nitrogen 24 H Creatinine 0.90 Glucose Level 109 # Calcium Level 9.3 Phosphorus Level 5.9 H Magnesium Level 1.8 Albumin 3.5 Test 09/11/17 08:14 Bedside Glucose 144 Medications Current Medications Aspirin (Aspirin) 81 mg DAILY PO Last administered on 09/11/17t 08:22; Admin Dose 81 MG; Start 08/16/17 at 09:00 Ondansetron HCl (Zofran Inj) 4 mg Q6H PRN IV NAUSEA AND/OR VOMITING; Start 08/22 at 19:00 Bisacodyl (Dulcolax) 5 mg DAILY PRN PO CONSTIPATION; Start 08/15/17 at 19:00 Nicotine (Nicoderm 14 Mg/ 24hr) 1 patch DAILY TRANSDERM Last administered on 08:46; Admin Dose 1 PATCH; Start 08/16/17 at 09:00 Miscellaneous Information 1 ea NOTE XX ; Start 08/15/17 at 19:30 Glucose (Glutose) 15 gm Q15M PRN PO DECREASED GLUCOSE; Start 08/15/17 at 19:30 Glucose (Glutose) 22.5 gm Q15M PRN PO DECREASED GLUCOSE; Start 08/15/17 at 19: 30 Dextrose (D50w Syringe) 25 ml Q15M PRN IV DECREASED GLUCOSE; Start 08/15/17 at 19:30 Dextrose (D50w Syringe) 50 ml Q15M PRN IV DECREASED GLUCOSE; Start 08/15/17 at 19:30 Glucagon (Glucagen) 1 mg Q15M PRN IM DECREASED GLUCOSE; Start 08/15/17 at 19: 30 Glucose (Glutose) 15 gm Q15M PRN BUCCAL DECREASED GLUCOSE Last administered on 08/26/17 17:18; Admin Dose 15 GM; Start 08/15/17 at 19:30 Diagnostic Test (Pha) (Accu-Chek) 1 ea 02 XX Last administered on 09/11/17 00: 30; Admin Dose 1 EA; Start 08/18/17 at 02:00 Acetaminophen (Tylenol Tab) 650 mg Q6H PRN PO PAIN AND OR ELEVATED TEMP Last administered on 09/10/17 17:58; Admin Dose 650 MG; Start 08/18/17 at 15:00 Lactobacillus Acidophilus/ Rhamnosus (Culturelle) 1 cap BID PO Last administered on 09/11/17 08:21; Admin Dose 1 CAP; Start 08/21/17 at 11:30 Methadone HCl (Methadone) 5 mg Q8H PRN PO PAIN Last administered on 09/11/17 08:22; Admin Dose 5 MG; Start 08/22/17 at 17:30 Lorazepam (Ativan) 0.5 mg Q8H PRN PO ANXIETY Last administered on 09/11/17 08: 22; Admin Dose 0.5 MG; Start 08/24/17 at 16:00 Zolpidem Tartrate 5 mg 5 mg HS PRN PO INSOMNIA Last administered on 09/10/17 21:26; Admin Dose 5 MG; Start 08/24/17 at 21:30 Daptomycin 430 mg/ Sodium Chloride 100 ml @ 200 mls/hr Q24H IVPB Last administered on 09/10/17 15:10; Admin Dose 200 MLS/HR; Start 08/31/17 at 15:00 Ceftriaxone Sodium (Rocephin) 50 ml @ 100 mls/hr Q24H IVPB Last administered on 09/10/17 13:08; Admin Dose 100 MLS/HR; Start 08/31/17 at 13:30 IV Flush (NS 10 ml) 10 ml PRN PRN IV IV PROTOCOL Last administered on 20:33; Admin Dose 10 ML; Start 09/01/17 at 16:00 Insulin Glargine (Lantus) 20 unit DAILY@08 SC Last administered on 09/11/17 08 :33; Admin Dose 20 UNIT; Start 09/06/17 at 08:00 Insulin Human NPH (Humulin N) 4 unit DAILY@20 SC Last administered on 21:22; Admin Dose 4 UNIT; Start 09/10/17 at 20:00 Buspirone HCl (Buspar) 20 mg BID PO Last administered on 09/11/17 08:22; Admin Dose 20 MG; Start 09/10/17 at 21:00 Assessment/Plan Chief Complaint/Hosp Course SUBJECTIVE: Alert, no fevers ANTIMICROBIALS: 1. Daptomycin. 2. Rocephin. PHYSICAL EXAMINATION: GENERAL: A well-developed, well-nourished, middle-aged man who is alert, in no distress. HEENT: Head atraumatic, normocephalic. Sclerae anicteric. Buccal mucosa dry. NECK: Supple. CHEST: Rise symmetrical. Breath sounds diminished to bases. HEART: S1, S2. ABDOMEN: Soft. Bowel tones present. EXTREMITIES: Without cyanosis. ASSESSMENT: 1. Ongoing back pain with a hx of recent spinal osteomyelitis. Patient was restarted on antibiotics for concern of partially treated osteomyelitis as per ortho note. 2. Diabetes. 3. History of psychiatric problems. PLAN: Remains unchanged. Pending discharge arrangements, recommend continue current antibiotics for 4 more weeks. The patient to follow at [facility] with ortho team for further rec-s DW staff Problems: CA BAHENA NP Sep 11, 2017 12:16
[2017-09-11] MEDS: NICOTINE (14 MG/24 HR) PATCH TRANSDERM SCH (12:37)
--- NOTE | 2017-09-11 13:33 | CONS ---
Date/Time of Note Date/Time of Note DATE: 09/11/17 TIME: 13:31 Assessment/Plan Assessment/Plan Chief Complaint/Hosp Course 52-year-old male with a reported history of diabetes over the last 7 years. He presented to [facility] several years ago with gallstone pancreatitis and significant pancreatic abnormalities. He reports he underwent surgery at the [facility] with partial resection of the pancreas which rendered him diabetic at that time. He reports that he has been on insulin since then although he has missed insulin and has not gone into DKA despite having missed it for more than 48 hours. Problems: (1) Diabetes mellitus out of control Status: Chronic Comment: Patient sugar control is improved with a gentle modifications. He now is having very good sugar control. Continue same pending discharge planning Qualifiers: Diabetes mellitus type: due to underlying condition Diabetes mellitus complication status: without complication Diabetes mellitus retirement insulin use: with lvn use Qualified Code: E08.9 - Diabetes mellitus due to underlying condition, uncontrolled, without complication, with long-term current use of insulin Consultation Date/Type/Reason Admit Date/Time Aug 15, 2017 at 19:21 Initial Consult Date 08/23/17 Type of Consultation: Endocrinology Reason for Consultation Diabetes in the setting of thoracic spine osteomyelitis Referring Provider: SALUD GARIBAY MD 24 HR Interval Summary Constitutional: no complaints Exam/Review of Systems Vital Signs Vitals Vital Signs Date Time Temp Pulse Resp B/P Pulse Ox O2 Delivery O2 Flow Rate FiO2 09/11/17 07:26 98.0 51 20 126/65 97 09/08/17 07:38 Room Air Intake and Output 09/10/17 09/10/17 09/11/17 15:00 23:00 07:00 Intake Total 50 ml 1780 ml 1400 ml Output Total 600 ml Balance 50 ml 1180 ml 1400 ml Results No changes in examination Result Diagram: 09/11/1752509/11/17525 Results 24 hrs Laboratory Tests Test 09/10/17 17:50 09/10/17 20:34 09/10/17 20:55 09/10/17 21:20 Bedside Glucose 155 55 L 54 L 73 Test 09/10/17 21:50 09/11/17 00:32 09/11/17 05:26 09/11/17 08:14 Bedside Glucose 73 177 144 White Blood Count 5.8 Red Blood Count 3.79 L Hemoglobin 11.8 L Hematocrit 36.5 L Mean Corpuscular Volume 96.3 Mean Corpuscular Hemoglobin 31.1 Mean Corpuscular Hemoglobin Concent 32.3 Red Cell Distribution Width 14.0 Platelet Count 135 L Mean Platelet Volume 11.7 H Neutrophils % 32.5 L Lymphocytes % 47.9 Monocytes % 10.4 Eosinophils % 7.6 H Basophils % 1.6 Nucleated Red Blood Cells % 0.0 Neutrophils # 1.9 Lymphocytes # 2.8 Monocytes # 0.6 Eosinophils # 0.4 Basophils # 0.1 Nucleated Red Blood Cells # 0.0 Sodium Level 142 Potassium Level 4.2 Chloride Level 103 Carbon Dioxide Level 31 Anion Gap 12 Blood Urea Nitrogen 24 H Creatinine 0.90 Glucose Level 109 # Calcium Level 9.3 Phosphorus Level 5.9 H Magnesium Level 1.8 Albumin 3.5 Test 09/11/17 12:28 Bedside Glucose 92 Medications Medications Current Medications Aspirin (Aspirin) 81 mg DAILY PO Last administered on 09/11/17 08:22; Admin Dose 81 MG; Start 08/16/17 at 09:00 Ondansetron HCl (Zofran Inj) 4 mg Q6H PRN IV NAUSEA AND/OR VOMITING; Start 08/22 at 19:00 Bisacodyl (Dulcolax) 5 mg DAILY PRN PO CONSTIPATION; Start 08/15/17 at 19:00 Nicotine (Nicoderm 14 Mg/ 24hr) 1 patch DAILY TRANSDERM Last administered on 12:37; Admin Dose 1 PATCH; Start 08/16/17 at 09:00 Miscellaneous Information 1 ea NOTE XX ; Start 08/15/17 at 19:30 Glucose (Glutose) 15 gm Q15M PRN PO DECREASED GLUCOSE; Start 08/15/17 at 19:30 Glucose (Glutose) 22.5 gm Q15M PRN PO DECREASED GLUCOSE; Start 08/15/17 at 19: 30 Dextrose (D50w Syringe) 25 ml Q15M PRN IV DECREASED GLUCOSE; Start 08/15/17 at 19:30 Dextrose (D50w Syringe) 50 ml Q15M PRN IV DECREASED GLUCOSE; Start 08/15/17 at 19:30 Glucagon (Glucagen) 1 mg Q15M PRN IM DECREASED GLUCOSE; Start 08/15/17 at 19: 30 Glucose (Glutose) 15 gm Q15M PRN BUCCAL DECREASED GLUCOSE Last administered on 08/26/17 17:18; Admin Dose 15 GM; Start 08/15/17 at 19:30 Diagnostic Test (Pha) (Accu-Chek) 1 ea 02 XX Last administered on 09/11/17 00: 30; Admin Dose 1 EA; Start 08/18/17 at 02:00 Acetaminophen (Tylenol Tab) 650 mg Q6H PRN PO PAIN AND OR ELEVATED TEMP Last administered on 09/10/17 17:58; Admin Dose 650 MG; Start 08/18/17 at 15:00 Lactobacillus Acidophilus/ Rhamnosus (Culturelle) 1 cap BID PO Last administered on 09/11/17 08:21; Admin Dose 1 CAP; Start 08/21/17 at 11:30 Methadone HCl (Methadone) 5 mg Q8H PRN PO PAIN Last administered on 09/11/17 08:22; Admin Dose 5 MG; Start 08/22/17 at 17:30 Lorazepam (Ativan) 0.5 mg Q8H PRN PO ANXIETY Last administered on 09/11/17 08: 22; Admin Dose 0.5 MG; Start 08/24/17 at 16:00 Zolpidem Tartrate 5 mg 5 mg HS PRN PO INSOMNIA Last administered on 09/10/17 21:26; Admin Dose 5 MG; Start 08/24/17 at 21:30 Daptomycin 430 mg/ Sodium Chloride 100 ml @ 200 mls/hr Q24H IVPB Last administered on 09/10/17 15:10; Admin Dose 200 MLS/HR; Start 08/31/17 at 15:00 Ceftriaxone Sodium (Rocephin) 50 ml @ 100 mls/hr Q24H IVPB Last administered on 09/10/17 13:08; Admin Dose 100 MLS/HR; Start 08/31/17 at 13:30 IV Flush (NS 10 ml) 10 ml PRN PRN IV IV PROTOCOL Last administered on 20:33; Admin Dose 10 ML; Start 09/01/17 at 16:00 Insulin Glargine (Lantus) 20 unit DAILY@08 SC Last administered on 09/11/17 08 :33; Admin Dose 20 UNIT; Start 09/06/17 at 08:00 Insulin Human NPH (Humulin N) 4 unit DAILY@20 SC Last administered on 21:22; Admin Dose 4 UNIT; Start 09/10/17 at 20:00 Buspirone HCl (Buspar) 20 mg BID PO Last administered on 09/11/17 08:22; Admin Dose 20 MG; Start 09/10/17 at 21:00 MASON HANEY MD Sep 11, 2017 13:33
[2017-09-11] MEDS: ACETAMINOPHEN 325 MG TAB PO PRN (14:16)
[2017-09-11] MEDS: CEFTRIAXONE 1 GM/50 ML (PMX) 50 ML IVPB SCH (14:16)
[2017-09-11 14:31] VITALS: BP 131/71; RESP 18
[2017-09-11] MEDS: DAPTOMYCIN IVPB SCH (14:52)
[2017-09-11] MEDS: SOD CHLORIDE 0.9% IVPB SCH (14:52)
--- NOTE | 2017-09-11 15:12 | PN ---
Date/Time of Note Date/Time of Note DATE: 09/11/17 TIME: 15:11 Assessment/Plan VTE Prophylaxis VTE Prophylaxis Intervention: ambulation Lines/Catheters IV Catheter Type (from Nrsg): PICC Line Central line still needed: Yes Urinary Cath still in place: No Assessment/Plan Chief Complaint/Hosp Course Patient is a 52-year-old alcoholic and medically noncompliant diabetic who presents to [facility] and is admitted for hyperglycemia and elevated lactic acid Assessment/Plan #. Diabetes Mellitus, uncontrolled - Appears to be better controlled on new regimen - A1c 9.5. 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 Arthur, neurosurgery consulted, states non surgical at this time, however requests ID consult - ID has been consulted, recommended biopsy. however biopsy is too high risk per IR. - will treat empirically per ID, 4 weeks IV abx, picc line today - CM to arrange appt with Dr. Augustine Berry, with [facility], appt made for 09/14/17 #. Altered mental status, likely secondary to alcohol abuse- resolved - Patient is mentating well and reevaluation by tele psych cleared patient - no witnessed seizures and continuing seizure precautions. - Ativan TID prn which has been helping his mood, prn. Offered retirement medications for mood control as well but refusing and states he feels lonely and depressed and anxious when on other medications - Given information for support for alcohol abuse #. Anion gap metabolic acidosis, moderate, not full DKA, secondary to medical noncompliance- resolved #. suicidal ideation - No longer experiencing SI and cleared by tele-psych - on buspar #. Lactic acidosis - resolved #. Hypernatremia, likely secondary to volume depletion given alcohol extent- resolved #. Elevated AST and ALT, resolved #. Mood Disorder - Improved - Denies any SI #. Disposition - biopsy deferred as it is too high risk - empiric abx for 4 weeks total per ID, will place PICC - will need appt with Dr. Augustine Berry, ID with [facility], patient's previous ID doctor, who has been following him. appt made for 09/14/17 - patient's friend now refuses to take in patient, repeat SS consult placed. - will need to find placement before DC, patient is very high bounce back risk. Problems: Exam/Review of Systems Vital Signs Vitals Vital Signs Date Time Temp Pulse Resp B/P Pulse Ox O2 Delivery O2 Flow Rate FiO2 09/11/17 14:31 97.9 62 18 131/71 100 09/08/17 07:38 Room Air Intake and Output 09/10/17 09/10/17 09/11/17 15:00 23:00 07:00 Intake Total 50 ml 1780 ml 1400 ml Output Total 600 ml Balance 50 ml 1180 ml 1400 ml Exam General: Patient in no acute distress. awake and alert. Head: Normocephalic atraumatic Eyes: EOMI, pupils reactive to light Neck: Supple, nontender, midline Respiratory: Clear to auscultation bilaterally. no wheezes or crackles Cardiovascular: regular rate, no obvious murmurs Gastrointestinal: non-tender to palpation, bowel sounds heard. Extremities: No tenderness to palpation spine, moving all extremities Neurological: Moves all extremities spontaneously Psych: calm, flat affect, no SI/HI Results Result Diagram: 09/11/17 0509/11/17 05 Results 24 hrs Laboratory Tests Test 09/10/17 17:50 09/10/17 20:34 09/10/17 20:55 09/10/17 21:20 Bedside Glucose 155 55 L 54 L 73 Test 09/10/17 21:50 09/11/17 00:32 09/11/17 05:26 09/11/17 08:14 Bedside Glucose 73 177 144 White Blood Count 5.8 Red Blood Count 3.79 L Hemoglobin 11.8 L Hematocrit 36.5 L Mean Corpuscular Volume 96.3 Mean Corpuscular Hemoglobin 31.1 Mean Corpuscular Hemoglobin Concent 32.3 Red Cell Distribution Width 14.0 Platelet Count 135 L Mean Platelet Volume 11.7 H Neutrophils % 32.5 L Lymphocytes % 47.9 Monocytes % 10.4 Eosinophils % 7.6 H Basophils % 1.6 Nucleated Red Blood Cells % 0.0 Neutrophils # 1.9 Lymphocytes # 2.8 Monocytes # 0.6 Eosinophils # 0.4 Basophils # 0.1 Nucleated Red Blood Cells # 0.0 Sodium Level 142 Potassium Level 4.2 Chloride Level 103 Carbon Dioxide Level 31 Anion Gap 12 Blood Urea Nitrogen 24 H Creatinine 0.90 Glucose Level 109 # Calcium Level 9.3 Phosphorus Level 5.9 H Magnesium Level 1.8 Albumin 3.5 Test 09/11/17 12:28 Bedside Glucose 92 Medications Medications Current Medications Aspirin (Aspirin) 81 mg DAILY PO Last administered on 09/11/17 08:22; Admin Dose 81 MG; Start 08/16/17 at 09:00 Ondansetron HCl (Zofran Inj) 4 mg Q6H PRN IV NAUSEA AND/OR VOMITING; Start 08/22 at 19:00 Bisacodyl (Dulcolax) 5 mg DAILY PRN PO CONSTIPATION; Start 08/15/17 at 19:00 Nicotine (Nicoderm 14 Mg/ 24hr) 1 patch DAILY TRANSDERM Last administered on 12:37; Admin Dose 1 PATCH; Start 08/16/17 at 09:00 Miscellaneous Information 1 ea NOTE XX ; Start 08/15/17 at 19:30 Glucose (Glutose) 15 gm Q15M PRN PO DECREASED GLUCOSE; Start 08/15/17 at 19:30 Glucose (Glutose) 22.5 gm Q15M PRN PO DECREASED GLUCOSE; Start 08/15/17 at 19: 30 Dextrose (D50w Syringe) 25 ml Q15M PRN IV DECREASED GLUCOSE; Start 08/15/17 at 19:30 Dextrose (D50w Syringe) 50 ml Q15M PRN IV DECREASED GLUCOSE; Start 08/15/17 at 19:30 Glucagon (Glucagen) 1 mg Q15M PRN IM DECREASED GLUCOSE; Start 08/15/17 at 19: 30 Glucose (Glutose) 15 gm Q15M PRN BUCCAL DECREASED GLUCOSE Last administered on 08/26/17 17:18; Admin Dose 15 GM; Start 08/15/17 at 19:30 Diagnostic Test (Pha) (Accu-Chek) 1 ea 02 XX Last administered on 09/11/17 00: 30; Admin Dose 1 EA; Start 08/18/17 at 02:00 Acetaminophen (Tylenol Tab) 650 mg Q6H PRN PO PAIN AND OR ELEVATED TEMP Last administered on 09/11/17 14:16; Admin Dose 650 MG; Start 08/18/17 at 15:00 Lactobacillus Acidophilus/ Rhamnosus (Culturelle) 1 cap BID PO Last administered on 09/11/17 08:21; Admin Dose 1 CAP; Start 08/21/17 at 11:30 Methadone HCl (Methadone) 5 mg Q8H PRN PO PAIN Last administered on 09/11/17 08:22; Admin Dose 5 MG; Start 08/22/17 at 17:30 Lorazepam (Ativan) 0.5 mg Q8H PRN PO ANXIETY Last administered on 09/11/17 08: 22; Admin Dose 0.5 MG; Start 08/24/17 at 16:00 Zolpidem Tartrate 5 mg 5 mg HS PRN PO INSOMNIA Last administered on 09/10/17 21:26; Admin Dose 5 MG; Start 08/24/17 at 21:30 Daptomycin 430 mg/ Sodium Chloride 100 ml @ 200 mls/hr Q24H IVPB Last administered on 09/11/17 14:52; Admin Dose 200 MLS/HR; Start 08/31/17 at 15:00 Ceftriaxone Sodium (Rocephin) 50 ml @ 100 mls/hr Q24H IVPB Last administered on 09/11/17 14:16; Admin Dose 100 MLS/HR; Start 08/31/17 at 13:30 IV Flush (NS 10 ml) 10 ml PRN PRN IV IV PROTOCOL Last administered on 20:33; Admin Dose 10 ML; Start 09/01/17 at 16:00 Insulin Glargine (Lantus) 20 unit DAILY@08 SC Last administered on 09/11/17 08 :33; Admin Dose 20 UNIT; Start 09/06/17 at 08:00 Insulin Human NPH (Humulin N) 4 unit DAILY@20 SC Last administered on 21:22; Admin Dose 4 UNIT; Start 09/10/17 at 20:00 Buspirone HCl (Buspar) 20 mg BID PO Last administered on 09/11/17 08:22; Admin Dose 20 MG; Start 09/10/17 at 21:00 SELINA HDZ Sep 11, 2017 15:12
[2017-09-11 19:30] VITALS: BP 109/64; RESP 20
[2017-09-11 20:00] VITALS: BP 109/64; PULSE 63; RESP 18
[2017-09-11] MEDS: NPH, HUMAN INSULIN ISOPHANE 3ML VIAL SC SCH (20:00)
[2017-09-11] MEDS: ZOLPIDEM 5 MG TAB PO PRN (23:33)
[2017-09-12] MEDS: METHADONE 5 MG TAB PO PRN ×3 (00:33→16:40)
[2017-09-12] MEDS: LORAZEPAM 0.5 MG TAB PO PRN ×3 (00:33→16:41)
[2017-09-12] MEDS: ACCU-CHEK XX SCH (02:00)
[2017-09-12 02:22] VITALS: BP 117/61; RESP 20
[2017-09-12 07:37] VITALS: BP 135/67; RESP 16
[2017-09-12] MEDS: INSULIN ASPART [NOVOLOG] 3 ML PEN SC SCH ×7 (08:15→20:23)
[2017-09-12] MEDS: INSULIN GLARGINE [LANtus] 3 ML PEN SC SCH (08:15)
[2017-09-12] MEDS: LACTOBACILLUS RHAMNOSUS CAP PO SCH ×2 (08:26→20:26)
[2017-09-12] MEDS: NICOTINE (14 MG/24 HR) PATCH TRANSDERM SCH (08:26)
[2017-09-12] MEDS: ASPIRIN 81 MG TAB PO SCH (08:26)
[2017-09-12] MEDS: CREON (12k-38k-60k) 1 CAP PO SCH ×3 (08:26→17:34)
[2017-09-12] MEDS: BUSPIRONE 10 MG TAB PO SCH ×2 (08:26→20:25)
--- NOTE | 2017-09-12 08:48 | CONS ---
Date/Time of Note Date/Time of Note DATE: 09/12/17 TIME: 08:46 Assessment/Plan Assessment/Plan Chief Complaint/Hosp Course 52-year-old male with a reported history of diabetes over the last 7 years. He presented to [facility] several years ago with gallstone pancreatitis and significant pancreatic abnormalities. He reports he underwent surgery at the [facility] with partial resection of the pancreas which rendered him diabetic at that time. He reports that he has been on insulin since then although he has missed insulin and has not gone into DKA despite having missed it for more than 48 hours. Problems: (1) Diabetes mellitus out of control Status: Chronic Comment: On his multiple daily injection regimen he has adequate control in a controlled environment. From this standpoint he is stable for discharge. We are awaiting case management to work out with the insurance company at [facility] regarding recuperative care Qualifiers: Diabetes mellitus type: due to underlying condition Diabetes mellitus complication status: without complication Diabetes mellitus assisted insulin use: with terminal press operator use Qualified Code: E08.9 - Diabetes mellitus due to underlying condition, uncontrolled, without complication, with long-term current use of insulin (2) Chronic osteomyelitis of thoracic spine Status: Chronic Comment: He remains on IV antibiotic therapy. Please note once again that the infectious disease determine at [facility] is Dr. Jamal Henry and he can be reached at area code [phone] (3) Exocrine pancreatic insufficiency Status: Chronic Comment: He remains on supplemental replacement using Creon. This is stable and effective (4) Chronic pain syndrome Status: Chronic Comment: He has adequate pain control using the methadone. Consultation Date/Type/Reason Admit Date/Time Aug 15, 2017 at 19:21 Initial Consult Date 08/23/17 Type of Consultation: Endocrinology Reason for Consultation Diabetes mellitus type 1 with poor control at the time of admission and thoracic spine osteomyelitis. Referring Provider: SALUD GARIBAY MD 24 HR Interval Summary Free Text/Dictation Patient reports his pain control is adequate. Denies fevers chills or sweats has a negative endocrine review of systems Constitutional: no complaints Detailed Summary Cardiovascular: no complaints Gastrointestinal: no complaints Endocrine: no complaints Exam/Review of Systems Vital Signs Vitals Vital Signs Date Time Temp Pulse Resp B/P Pulse Ox O2 Delivery O2 Flow Rate FiO2 09/12/17 07:37 97.7 51 16 135/67 100 09/11/17 20:00 Room Air Intake and Output 09/11/17 09/11/17 09/12/17 15:00 23:00 07:00 Intake Total 50 ml 800 ml 840 ml Output Total 600 ml Balance 50 ml 200 ml 840 ml Exam Constitutional: alert, oriented Respiratory: clear to auscultation, normal air movement Cardiovascular: nl pulses, regular rate and rhythm Gastrointestinal: nl liver, spleen, non-tender, soft Results Result Diagram: 09/11/1752509/11/17 05 Results 24 hrs Laboratory Tests Test 09/11/17 12:28 09/11/17 17:28 09/11/17 20:44 09/11/17 21:11 Bedside Glucose 92 80 53 L 91 Test 09/11/17 21:37 09/12/17 08:08 Bedside Glucose 164 138 Medications Medications Current Medications Aspirin (Aspirin) 81 mg DAILY PO Last administered on 09/12/17 08:26; Admin Dose 81 MG; Start 08/16/17 at 09:00 Ondansetron HCl (Zofran Inj) 4 mg Q6H PRN IV NAUSEA AND/OR VOMITING; Start 08/22 at 19:00 Bisacodyl (Dulcolax) 5 mg DAILY PRN PO CONSTIPATION; Start 08/15/17 at 19:00 Nicotine (Nicoderm 14 Mg/ 24hr) 1 patch DAILY TRANSDERM Last administered on 08:26; Admin Dose 1 PATCH; Start 08/16/17 at 09:00 Miscellaneous Information 1 ea NOTE XX ; Start 08/15/17 at 19:30 Glucose (Glutose) 15 gm Q15M PRN PO DECREASED GLUCOSE; Start 08/15/17 at 19:30 Glucose (Glutose) 22.5 gm Q15M PRN PO DECREASED GLUCOSE; Start 08/15/17 at 19: 30 Dextrose (D50w Syringe) 25 ml Q15M PRN IV DECREASED GLUCOSE; Start 08/15/17 at 19:30 Dextrose (D50w Syringe) 50 ml Q15M PRN IV DECREASED GLUCOSE; Start 08/15/17 at 19:30 Glucagon (Glucagen) 1 mg Q15M PRN IM DECREASED GLUCOSE; Start 08/15/17 at 19: 30 Glucose (Glutose) 15 gm Q15M PRN BUCCAL DECREASED GLUCOSE Last administered on 08/26/17 17:18; Admin Dose 15 GM; Start 08/15/17 at 19:30 Diagnostic Test (Pha) (Accu-Chek) 1 ea 02 XX Last administered on 09/11/17 00: 30; Admin Dose 1 EA; Start 08/18/17 at 02:00 Acetaminophen (Tylenol Tab) 650 mg Q6H PRN PO PAIN AND OR ELEVATED TEMP Last administered on 09/11/17 14:16; Admin Dose 650 MG; Start 08/18/17 at 15:00 Lactobacillus Acidophilus/ Rhamnosus (Culturelle) 1 cap BID PO Last administered on 09/12/17 08:26; Admin Dose 1 CAP; Start 08/21/17 at 11:30 Methadone HCl (Methadone) 5 mg Q8H PRN PO PAIN Last administered on 09/12/17 08:26; Admin Dose 5 MG; Start 08/22/17 at 17:30 Lorazepam (Ativan) 0.5 mg Q8H PRN PO ANXIETY Last administered on 09/12/17 08: 26; Admin Dose 0.5 MG; Start 08/24/17 at 16:00 Zolpidem Tartrate 5 mg 5 mg HS PRN PO INSOMNIA Last administered on 09/11/17 23:33; Admin Dose 5 MG; Start 08/24/17 at 21:30 Daptomycin 430 mg/ Sodium Chloride 100 ml @ 200 mls/hr Q24H IVPB Last administered on 09/11/17 14:52; Admin Dose 200 MLS/HR; Start 08/31/17 at 15:00 Ceftriaxone Sodium (Rocephin) 50 ml @ 100 mls/hr Q24H IVPB Last administered on 09/11/17 14:16; Admin Dose 100 MLS/HR; Start 08/31/17 at 13:30 IV Flush (NS 10 ml) 10 ml PRN PRN IV IV PROTOCOL Last administered on 20:33; Admin Dose 10 ML; Start 09/01/17 at 16:00 Insulin Glargine (Lantus) 20 unit DAILY@08 SC Last administered on 09/12/17 08 :15; Admin Dose 20 UNIT; Start 09/06/17 at 08:00 Insulin Human NPH (Humulin N) 4 unit DAILY@20 SC Last administered on 21:22; Admin Dose 4 UNIT; Start 09/10/17 at 20:00 Buspirone HCl (Buspar) 20 mg BID PO Last administered on 09/12/17 08:26; Admin Dose 20 MG; Start 09/10/17 at 21:00 MASON HANEY MD Sep 12, 2017 08:48
--- NOTE | 2017-09-12 12:06 | CONS ---
Date/Time of Note Date/Time of Note DATE: 09/12/17 TIME: 12:06 Consult Date/Type/Reason Admit Date/Time Aug 15, 2017 at 19:21 Initial Consult Date 08/29/17 Type of Consultation: ID Ordering Provider: SALUD GARIBAY MD Objective Vital Signs Date Time Temp Pulse Resp B/P Pulse Ox O2 Delivery O2 Flow Rate FiO2 09/12/17 07:37 97.7 51 16 135/67 100 09/11/17 20:00 Room Air Intake and Output 09/11/17 09/11/17 09/12/17 15:00 23:00 07:00 Intake Total 50 ml 800 ml 840 ml Output Total 600 ml Balance 50 ml 200 ml 840 ml Results/Medications Result Diagram: 09/11/1752509/11/17525 Results 24 hrs Laboratory Tests Test 09/11/17 12:28 09/11/17 17:28 09/11/17 20:44 09/11/17 21:11 Bedside Glucose 92 80 53 L 91 Test 09/11/17 21:37 09/12/17 08:08 Bedside Glucose 164 138 Medications Current Medications Aspirin (Aspirin) 81 mg DAILY PO Last administered on 09/12/17 08:26; Admin Dose 81 MG; Start 08/16/17 at 09:00 Ondansetron HCl (Zofran Inj) 4 mg Q6H PRN IV NAUSEA AND/OR VOMITING; Start 08/22 at 19:00 Bisacodyl (Dulcolax) 5 mg DAILY PRN PO CONSTIPATION; Start 08/15/17 at 19:00 Nicotine (Nicoderm 14 Mg/ 24hr) 1 patch DAILY TRANSDERM Last administered on 08:26; Admin Dose 1 PATCH; Start 08/16/17 at 09:00 Miscellaneous Information 1 ea NOTE XX ; Start 08/15/17 at 19:30 Glucose (Glutose) 15 gm Q15M PRN PO DECREASED GLUCOSE; Start 08/15/17 at 19:30 Glucose (Glutose) 22.5 gm Q15M PRN PO DECREASED GLUCOSE; Start 08/15/17 at 19: 30 Dextrose (D50w Syringe) 25 ml Q15M PRN IV DECREASED GLUCOSE; Start 08/15/17 at 19:30 Dextrose (D50w Syringe) 50 ml Q15M PRN IV DECREASED GLUCOSE; Start 08/15/17 at 19:30 Glucagon (Glucagen) 1 mg Q15M PRN IM DECREASED GLUCOSE; Start 08/15/17 at 19: 30 Glucose (Glutose) 15 gm Q15M PRN BUCCAL DECREASED GLUCOSE Last administered on 08/26/17 17:18; Admin Dose 15 GM; Start 08/15/17 at 19:30 Diagnostic Test (Pha) (Accu-Chek) 1 ea 02 XX Last administered on 09/11/17 00: 30; Admin Dose 1 EA; Start 08/18/17 at 02:00 Acetaminophen (Tylenol Tab) 650 mg Q6H PRN PO PAIN AND OR ELEVATED TEMP Last administered on 09/11/17 14:16; Admin Dose 650 MG; Start 08/18/17 at 15:00 Lactobacillus Acidophilus/ Rhamnosus (Culturelle) 1 cap BID PO Last administered on 09/12/17 08:26; Admin Dose 1 CAP; Start 08/21/17 at 11:30 Methadone HCl (Methadone) 5 mg Q8H PRN PO PAIN Last administered on 09/12/17 08:26; Admin Dose 5 MG; Start 08/22/17 at 17:30 Lorazepam (Ativan) 0.5 mg Q8H PRN PO ANXIETY Last administered on 09/12/17 08: 26; Admin Dose 0.5 MG; Start 08/24/17 at 16:00 Zolpidem Tartrate 5 mg 5 mg HS PRN PO INSOMNIA Last administered on 09/11/17 23:33; Admin Dose 5 MG; Start 08/24/17 at 21:30 Daptomycin 430 mg/ Sodium Chloride 100 ml @ 200 mls/hr Q24H IVPB Last administered on 09/11/17 14:52; Admin Dose 200 MLS/HR; Start 08/31/17 at 15:00 Ceftriaxone Sodium (Rocephin) 50 ml @ 100 mls/hr Q24H IVPB Last administered on 09/11/17 14:16; Admin Dose 100 MLS/HR; Start 08/31/17 at 13:30 IV Flush (NS 10 ml) 10 ml PRN PRN IV IV PROTOCOL Last administered on 20:33; Admin Dose 10 ML; Start 09/01/17 at 16:00 Insulin Glargine (Lantus) 20 unit DAILY@08 SC Last administered on 09/12/17 08 :15; Admin Dose 20 UNIT; Start 09/06/17 at 08:00 Insulin Human NPH (Humulin N) 4 unit DAILY@20 SC Last administered on 21:22; Admin Dose 4 UNIT; Start 09/10/17 at 20:00 Buspirone HCl (Buspar) 20 mg BID PO Last administered on 09/12/17 08:26; Admin Dose 20 MG; Start 09/10/17 at 21:00 Assessment/Plan Chief Complaint/Hosp Course SUBJECTIVE: Denies pain, looks comfortable, no fevers ANTIMICROBIALS: 1. Daptomycin. 2. Rocephin. PHYSICAL EXAMINATION: GENERAL: A well-developed, well-nourished, middle-aged man who is alert, in no distress. HEENT: Head atraumatic, normocephalic. Sclerae anicteric. Buccal mucosa dry. NECK: Supple. CHEST: Rise symmetrical. Breath sounds diminished to bases. HEART: S1, S2. ABDOMEN: Soft. Bowel tones present. EXTREMITIES: Without cyanosis. ASSESSMENT: 1. Ongoing back pain with a hx of recent spinal osteomyelitis. Patient was restarted on antibiotics for concern of partially treated osteomyelitis as per ortho note. 2. Diabetes. 3. History of psychiatric problems. PLAN: Remains unchanged. Pending discharge arrangement, recommend continue current antibiotics for 4 more weeks. The patient to follow at [facility] with ortho team for further rec-s DW staff Problems: CA BAHENA NP Sep 12, 2017 12:06
[2017-09-12] MEDS: CEFTRIAXONE 1 GM/50 ML (PMX) 50 ML IVPB SCH (13:06)
--- NOTE | 2017-09-12 14:30 | PN ---
Date/Time of Note Date/Time of Note DATE: 09/12/17 TIME: 14:29 Assessment/Plan VTE Prophylaxis VTE Prophylaxis Intervention: ambulation Lines/Catheters IV Catheter Type (from Nrsg): PICC Line Central line still needed: Yes Urinary Cath still in place: No Assessment/Plan Chief Complaint/Hosp Course Patient is a 52-year-old alcoholic and medically noncompliant diabetic who presents to [facility] and is admitted for hyperglycemia and elevated lactic acid Assessment/Plan #. Diabetes Mellitus, uncontrolled - Appears to be better controlled on new regimen - A1c 9.5. 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 Arthur, neurosurgery consulted, states non surgical at this time, however requests ID consult - ID has been consulted, recommended biopsy. however biopsy is too high risk per IR. - will treat empirically per ID, 4 weeks IV abx, picc line today - CM to arrange appt with Dr. Augustine Berry, with [facility], appt made for 09/14/17 #. Altered mental status, likely secondary to alcohol abuse- resolved - Patient is mentating well and reevaluation by tele psych cleared patient - no witnessed seizures and continuing seizure precautions. - Ativan TID prn which has been helping his mood, prn. Offered fci medications for mood control as well but refusing and states he feels lonely and depressed and anxious when on other medications - Given information for support for alcohol abuse #. Anion gap metabolic acidosis, moderate, not full DKA, secondary to medical noncompliance- resolved #. suicidal ideation - No longer experiencing SI and cleared by tele-psych - on buspar #. Lactic acidosis - resolved #. Hypernatremia, likely secondary to volume depletion given alcohol extent- resolved #. Elevated AST and ALT, resolved #. Mood Disorder - Improved - Denies any SI #. Disposition - biopsy deferred as it is too high risk - empiric abx for 4 weeks total per ID, will place PICC - will need appt with Dr. Augustine Berry, ID with [facility], patient's previous ID doctor, who has been following him. appt made for 09/14/17 - patient's friend now refuses to take in patient, repeat SS consult placed. - will need to find placement before DC, patient is very high bounce back risk. Problems: Subjective 24 Hr Interval Summary Free Text/Dictation no acute complaints Exam/Review of Systems Vital Signs Vitals Vital Signs Date Time Temp Pulse Resp B/P Pulse Ox O2 Delivery O2 Flow Rate FiO2 09/12/17 07:37 97.7 51 16 135/67 100 09/11/17 20:00 Room Air Intake and Output 09/11/17 09/11/17 09/12/17 15:00 23:00 07:00 Intake Total 50 ml 800 ml 840 ml Output Total 600 ml Balance 50 ml 200 ml 840 ml Exam General: Patient in no acute distress. awake and alert. Head: Normocephalic atraumatic Eyes: EOMI, pupils reactive to light Neck: Supple, nontender, midline Respiratory: Clear to auscultation bilaterally. no wheezes or crackles Cardiovascular: regular rate, no obvious murmurs Gastrointestinal: non-tender to palpation, bowel sounds heard. Extremities: No tenderness to palpation spine, moving all extremities Neurological: Moves all extremities spontaneously Psych: calm, flat affect, no SI/HI Results Result Diagram: 09/11/17 0509/11/17 05 Results 24 hrs Laboratory Tests Test 09/11/17 17:28 09/11/17 20:44 09/11/17 21:11 09/11/17 21:37 Bedside Glucose 80 53 L 91 164 Test 09/12/17 08:08 09/12/17 12:17 Bedside Glucose 138 100 Medications Medications Current Medications Aspirin (Aspirin) 81 mg DAILY PO Last administered on 09/12/17 08:26; Admin Dose 81 MG; Start 08/16/17 at 09:00 Ondansetron HCl (Zofran Inj) 4 mg Q6H PRN IV NAUSEA AND/OR VOMITING; Start 08/22 at 19:00 Bisacodyl (Dulcolax) 5 mg DAILY PRN PO CONSTIPATION; Start 08/15/17 at 19:00 Nicotine (Nicoderm 14 Mg/ 24hr) 1 patch DAILY TRANSDERM Last administered on 08:26; Admin Dose 1 PATCH; Start 08/16/17 at 09:00 Miscellaneous Information 1 ea NOTE XX ; Start 08/15/17 at 19:30 Glucose (Glutose) 15 gm Q15M PRN PO DECREASED GLUCOSE; Start 08/15/17 at 19:30 Glucose (Glutose) 22.5 gm Q15M PRN PO DECREASED GLUCOSE; Start 08/15/17 at 19: 30 Dextrose (D50w Syringe) 25 ml Q15M PRN IV DECREASED GLUCOSE; Start 08/15/17 at 19:30 Dextrose (D50w Syringe) 50 ml Q15M PRN IV DECREASED GLUCOSE; Start 08/15/17 at 19:30 Glucagon (Glucagen) 1 mg Q15M PRN IM DECREASED GLUCOSE; Start 08/15/17 at 19: 30 Glucose (Glutose) 15 gm Q15M PRN BUCCAL DECREASED GLUCOSE Last administered on 08/26/17 17:18; Admin Dose 15 GM; Start 08/15/17 at 19:30 Diagnostic Test (Pha) (Accu-Chek) 1 ea 02 XX Last administered on 09/11/17 00: 30; Admin Dose 1 EA; Start 08/18/17 at 02:00 Acetaminophen (Tylenol Tab) 650 mg Q6H PRN PO PAIN AND OR ELEVATED TEMP Last administered on 09/11/17 14:16; Admin Dose 650 MG; Start 08/18/17 at 15:00 Lactobacillus Acidophilus/ Rhamnosus (Culturelle) 1 cap BID PO Last administered on 09/12/17 08:26; Admin Dose 1 CAP; Start 08/21/17 at 11:30 Methadone HCl (Methadone) 5 mg Q8H PRN PO PAIN Last administered on 09/12/17 08:26; Admin Dose 5 MG; Start 08/22/17 at 17:30 Lorazepam (Ativan) 0.5 mg Q8H PRN PO ANXIETY Last administered on 09/12/17 08: 26; Admin Dose 0.5 MG; Start 08/24/17 at 16:00 Zolpidem Tartrate 5 mg 5 mg HS PRN PO INSOMNIA Last administered on 09/11/17 23:33; Admin Dose 5 MG; Start 08/24/17 at 21:30 Daptomycin 430 mg/ Sodium Chloride 100 ml @ 200 mls/hr Q24H IVPB Last administered on 09/11/17 14:52; Admin Dose 200 MLS/HR; Start 08/31/17 at 15:00 Ceftriaxone Sodium (Rocephin) 50 ml @ 100 mls/hr Q24H IVPB Last administered on 09/12/17 13:06; Admin Dose 100 MLS/HR; Start 08/31/17 at 13:30 IV Flush (NS 10 ml) 10 ml PRN PRN IV IV PROTOCOL Last administered on 20:33; Admin Dose 10 ML; Start 09/01/17 at 16:00 Insulin Glargine (Lantus) 20 unit DAILY@08 SC Last administered on 09/12/17 08 :15; Admin Dose 20 UNIT; Start 09/06/17 at 08:00 Insulin Human NPH (Humulin N) 4 unit DAILY@20 SC Last administered on 21:22; Admin Dose 4 UNIT; Start 09/10/17 at 20:00 Buspirone HCl (Buspar) 20 mg BID PO Last administered on 09/12/17 08:26; Admin Dose 20 MG; Start 09/10/17 at 21:00 SELINA HDZ Sep 12, 2017 14:30
[2017-09-12 15:10] VITALS: BP 120/70; RESP 16
[2017-09-12] MEDS: DAPTOMYCIN IVPB SCH (15:12)
[2017-09-12] MEDS: SOD CHLORIDE 0.9% IVPB SCH (15:12)
[2017-09-12 19:56] VITALS: BP 111/59; RESP 18
[2017-09-12] MEDS: NPH, HUMAN INSULIN ISOPHANE 3ML VIAL SC SCH (20:30)
[2017-09-12] MEDS: ZOLPIDEM 5 MG TAB PO PRN (20:35)
[2017-09-13] MEDS: LORAZEPAM 0.5 MG TAB PO PRN ×3 (00:27→16:29)
[2017-09-13] MEDS: METHADONE 5 MG TAB PO PRN ×3 (01:33→18:39)
[2017-09-13] MEDS: ACCU-CHEK XX SCH (02:00)
[2017-09-13 02:01] VITALS: BP 119/71; RESP 18
[2017-09-13 07:46] VITALS: BP 125/78; RESP 18
[2017-09-13] MEDS: CREON (12k-38k-60k) 1 CAP PO SCH ×3 (07:57→17:15)
[2017-09-13] MEDS: ASPIRIN 81 MG TAB PO SCH (07:57)
[2017-09-13] MEDS: LACTOBACILLUS RHAMNOSUS CAP PO SCH ×2 (07:58→20:49)
[2017-09-13] MEDS: BUSPIRONE 10 MG TAB PO SCH ×2 (07:58→20:49)
[2017-09-13] MEDS: NICOTINE (14 MG/24 HR) PATCH TRANSDERM SCH (07:59)
[2017-09-13] MEDS: INSULIN ASPART [NOVOLOG] 3 ML PEN SC SCH ×7 (08:01→21:03)
[2017-09-13] MEDS: INSULIN GLARGINE [LANtus] 3 ML PEN SC SCH (08:22)
[2017-09-13] MEDS ORDERED: BUSP10TA2 PO ×2 (12:12→12:22)
[2017-09-13] MEDS ORDERED: NPH,100I5 SQ ×2 (12:22)
[2017-09-13] MEDS ORDERED: LIPA1CAP4 PO (12:22)
[2017-09-13] MEDS ORDERED: ASPI81TA3 PO (12:22)
[2017-09-13] MEDS ORDERED: LACT1CAP28 PO (12:22)
--- NOTE | 2017-09-13 12:27 | PDOCDIS ---
Discharge Instructions CONDITION Patient Condition: Stable HOME CARE INSTRUCTIONS: Diet Instructions: CARB CONTROLLED 1800 ALEXIS ADASpecial Diet: carb control ACTIVITY: Activity Restrictions: Slowly Increase Activity Rest between Activity FOLLOW UP/APPOINTMENTS Follow-up Plan 1. Take all medications as directed 2. Follow up with Dr. Augustine Berry with [facility] on oct 05 at 8am 3. Follow up with your primary care provider as soon as possible. SELINA HDZ Sep 13, 2017 12:26
--- NOTE | 2017-09-13 13:00 | CONS ---
Date/Time of Note Date/Time of Note DATE: 09/13/17 TIME: 13:00 Consult Date/Type/Reason Admit Date/Time Aug 15, 2017 at 19:21 Initial Consult Date 08/29/17 Type of Consultation: ID Ordering Provider: SALUD GARIBAY MD Objective Vital Signs Date Time Temp Pulse Resp B/P Pulse Ox O2 Delivery O2 Flow Rate FiO2 09/13/17 07:46 97.9 60 18 125/78 100 09/11/17 20:00 Room Air Intake and Output 09/12/17 09/12/17 09/13/17 15:00 23:00 07:00 Intake Total 50 ml 2260 ml 1000 ml Output Total 8 ml Balance 50 ml 2252 ml 1000 ml Results/Medications Result Diagram: 09/11/1752509/11/17525 Results 24 hrs Laboratory Tests Test 09/12/17 17:26 09/12/17 18:31 09/12/17 19:03 09/12/17 20:22 Bedside Glucose 58 L 87 76 164 Test 09/13/17 07:54 09/13/17 12:36 Bedside Glucose 98 73 Medications Current Medications Aspirin (Aspirin) 81 mg DAILY PO Last administered on 09/13/17 07:57; Admin Dose 81 MG; Start 08/16/17 at 09:00 Ondansetron HCl (Zofran Inj) 4 mg Q6H PRN IV NAUSEA AND/OR VOMITING; Start 08/22 at 19:00 Bisacodyl (Dulcolax) 5 mg DAILY PRN PO CONSTIPATION; Start 08/15/17 at 19:00 Nicotine (Nicoderm 14 Mg/ 24hr) 1 patch DAILY TRANSDERM Last administered on 07:59; Admin Dose 1 PATCH; Start 08/16/17 at 09:00 Miscellaneous Information 1 ea NOTE XX ; Start 08/15/17 at 19:30 Glucose (Glutose) 15 gm Q15M PRN PO DECREASED GLUCOSE; Start 08/15/17 at 19:30 Glucose (Glutose) 22.5 gm Q15M PRN PO DECREASED GLUCOSE; Start 08/15/17 at 19: 30 Dextrose (D50w Syringe) 25 ml Q15M PRN IV DECREASED GLUCOSE; Start 08/15/17 at 19:30 Dextrose (D50w Syringe) 50 ml Q15M PRN IV DECREASED GLUCOSE; Start 08/15/17 at 19:30 Glucagon (Glucagen) 1 mg Q15M PRN IM DECREASED GLUCOSE; Start 08/15/17 at 19: 30 Glucose (Glutose) 15 gm Q15M PRN BUCCAL DECREASED GLUCOSE Last administered on 08/26/17 17:18; Admin Dose 15 GM; Start 08/15/17 at 19:30 Diagnostic Test (Pha) (Accu-Chek) 1 ea 02 XX Last administered on 09/11/17 00: 30; Admin Dose 1 EA; Start 08/18/17 at 02:00 Acetaminophen (Tylenol Tab) 650 mg Q6H PRN PO PAIN AND OR ELEVATED TEMP Last administered on 09/11/17 14:16; Admin Dose 650 MG; Start 08/18/17 at 15:00 Lactobacillus Acidophilus/ Rhamnosus (Culturelle) 1 cap BID PO Last administered on 09/13/17 07:58; Admin Dose 1 CAP; Start 08/21/17 at 11:30 Methadone HCl (Methadone) 5 mg Q8H PRN PO PAIN Last administered on 09/13/17 11:07; Admin Dose 5 MG; Start 08/22/17 at 17:30 Lorazepam (Ativan) 0.5 mg Q8H PRN PO ANXIETY Last administered on 09/13/17 07: 56; Admin Dose 0.5 MG; Start 08/24/17 at 16:00 Zolpidem Tartrate 5 mg 5 mg HS PRN PO INSOMNIA Last administered on 09/12/17 20:35; Admin Dose 5 MG; Start 08/24/17 at 21:30 Daptomycin 430 mg/ Sodium Chloride 100 ml @ 200 mls/hr Q24H IVPB Last administered on 09/12/17 15:12; Admin Dose 200 MLS/HR; Start 08/31/17 at 15:00 Ceftriaxone Sodium (Rocephin) 50 ml @ 100 mls/hr Q24H IVPB Last administered on 09/12/17 13:06; Admin Dose 100 MLS/HR; Start 08/31/17 at 13:30 IV Flush (NS 10 ml) 10 ml PRN PRN IV IV PROTOCOL Last administered on 20:33; Admin Dose 10 ML; Start 09/01/17 at 16:00 Insulin Glargine (Lantus) 20 unit DAILY@08 SC Last administered on 09/13/17 08 :22; Admin Dose 20 UNIT; Start 09/06/17 at 08:00 Insulin Human NPH (Humulin N) 4 unit DAILY@20 SC Last administered on 20:30; Admin Dose 4 UNIT; Start 09/10/17 at 20:00 Buspirone HCl (Buspar) 20 mg BID PO Last administered on 09/13/17 07:58; Admin Dose 20 MG; Start 09/10/17 at 21:00 Assessment/Plan Chief Complaint/Hosp Course SUBJECTIVE: No events, looks comfortable, no fevers ANTIMICROBIALS: 1. Daptomycin. 2. Rocephin. PHYSICAL EXAMINATION: GENERAL: A well-developed, well-nourished, middle-aged man who is alert, in no distress. HEENT: Head atraumatic, normocephalic. Sclerae anicteric. Buccal mucosa dry. NECK: Supple. CHEST: Rise symmetrical. Breath sounds diminished to bases. HEART: S1, S2. ABDOMEN: Soft. Bowel tones present. EXTREMITIES: Without cyanosis. ASSESSMENT: 1. Ongoing back pain with a hx of recent spinal osteomyelitis. Patient was restarted on antibiotics for concern of partially treated osteomyelitis as per ortho note. 2. Diabetes. 3. History of psychiatric problems. PLAN: Remains unchanged. Pending discharge arrangement, recommend continue current antibiotics for 4 more weeks. The patient to follow at [facility] with ortho team for further rec-s DW staff Problems: CA BAHENA NP Sep 13, 2017 13:00
[2017-09-13] MEDS: CEFTRIAXONE 1 GM/50 ML (PMX) 50 ML IVPB SCH (13:49)
--- NOTE | 2017-09-13 13:57 | DS ---
Date/Time of Note Date/Time of Note DATE: 09/13/17 TIME: 13:57 Discharge Summary Admission/Discharge Info Admit Date/Time Aug 15, 2017 at 19:21 Discharge Date/Time Patient Condition: Stable Hx of Present Illness Patient is a 52-year-old male with a past medical history significant for excessive alcoholism with repeated admissions for DKA and hyperglycemia who presents to [facility] after being found drunk and passed out by bystanders, in the ED patient is lethargic and sleepy but easily arousable and oriented. Patient appears intoxicated at this time but is able to answer simple questions. Patient states that he did not follow-up with a primary care provider after he was discharged 2 days ago. Patient acknowledges medical noncompliance. Patient states that he has no new pain from baseline and goes right back to sleep. Patient was admitted for hyperglycemia and elevated lactic acid likely secondary to uncontrolled diabetes and alcoholism PMH: Medical noncompliance, diabetes mellitus, alcoholism, chronic back pain PSH: Cholecystectomy Social: Everyday drinker, smoker, unknown drugs Meds: NPH insulin, aspirin, pain medication although opiate level is negative on admission Hospital Course Patient is a 52-year-old alcoholic and medically noncompliant diabetic patient who has a history of spinal osteomyelitis approximately 6 months ago who presented to [facility] with suicidal ideation and refusal to use insulin. Patient had an extensive course related to the suicidal ideation, please see discharge summary dated at August 17 to get more information. Ultimately patient was cleared from psych hold however required placement issues and upon routine CT screening due to chest ray x-ray findings, questionable discitis versus osteomyelitis was entertained. Neurosurgery and infectious disease became involved and it was deemed impossible to determine if it was an active infection or not given patient's previous negative biopsy with his infectious disease specialist at [facility]. Records were reviewed from [facility] and it was found out the name of his infectious disease doctor whose appointment he missed secondary to being hospitalized this past month. Patient will be treated empirically for 4 weeks of antibiotics until September 28, secondary to biopsy site being too close to the spinal cord and to high risk. Patient was also started on a new insulin regimen, however patient does not want to be on this new regimen as it is too complicated and he does not know if his insurance will cover the medication. Patient requests to be discharged with his own insulin regimen that he was on prior. Patient will be discharged with NPH insulin which she knows how to check for many years. Patient will also be discharged with a mood stabilizer, buspirone. There was difficulty finding placement for the patient given his insurance and lack of foresight into his medical condition, however recuperative care was eventually found and patient will be discharged to his own reconnaissance at the recuperative care with a prescription for medications and an appointment to see his ID doctor on October 05, 8:30 AM. IV antibiotics are to be continued by home health until at least September 28. Discharge diagnosis Spinal cord infection, osteomyelitis questionable, resolving Back pain Diabetes mellitus, insulin-dependent Medical noncompliance Suicidal ideation, resolved Anion gap metabolic acidosis, resolved Lactic acidosis, resolved Elect like derangement Mood disorder Home Meds Active Scripts NPH, Human Insulin Isophane (Humulin N Kwikpen) 100 Unit/1 Ml Insuln.pen, 20 UNIT SQ QPM, #1 EA 5 Refills Prov:SELINA HDZ 09/13/17 NPH, Human Insulin Isophane (Humulin N Kwikpen) 100 Unit/1 Ml Insuln.pen, 25 UNIT SQ QAM, #1 EA 5 Refills Prov:SELINA HDZ 09/13/17 Lactobacillus Rhamnosus GG (Culturelle) 1 Each Capsule, 1 CAP PO BID for 30 Days , #60 CAP 1 Refill Prov:SELINA HDZ 09/13/17 Osmisd-Djapxnpm-Psiolui* (Yamilet DR* 12,000) 12,000 L-38,000-60,000 Unit Capsule.dr, 2 CAP PO WITH MEALS for 30 Days, #90 1 Refill Prov:SELINA HDZ 09/13/17 Buspirone Hcl* (Buspirone Hcl*) 10 Mg Tab, 20 MG PO BID for 30 Days, #60 TAB 1 Refill Prov:SELINA HDZ 09/13/17 Aspirin (Aspirin) 81 Mg Chew, 81 MG PO DAILY for 30 Days, #30 TAB Prov:SELINA HDZ 09/13/17 Follow-up Plan 1. Take all medications as directed 2. Follow up with Dr. Augustine Berry with [facility] on oct 05 at 8am 3. Follow up with your primary care provider as soon as possible. Primary Care Provider [facility] Time spent on discharge: > 30 minutes Pending Labs Laboratory Tests Test 09/12/17 17:26 09/12/17 18:31 09/12/17 19:03 09/12/17 20:22 Bedside Glucose 58mg/dL (70-220) 87mg/dL (70-220) 76mg/dL (70-220) 164mg/dL (70-220) Test 09/13/17 07:54 09/13/17 12:36 Bedside Glucose 98mg/dL (70-220) 73mg/dL (70-220) SELINA HDZ Sep 13, 2017 13:57
[2017-09-13 15:09] VITALS: BP 123/75; RESP 18
[2017-09-13] MEDS: SOD CHLORIDE 0.9% IVPB SCH (15:55)
[2017-09-13] MEDS: DAPTOMYCIN IVPB SCH (15:55)
[2017-09-13 20:08] VITALS: BP 135/60; RESP 18
[2017-09-13] MEDS: ZOLPIDEM 5 MG TAB PO PRN (20:49)
[2017-09-13] MEDS: NPH, HUMAN INSULIN ISOPHANE 3ML VIAL SC SCH (20:55)
[2017-09-14] MEDS: LORAZEPAM 0.5 MG TAB PO PRN ×4 (00:20→23:52)
[2017-09-14] MEDS: METHADONE 5 MG TAB PO PRN ×3 (02:22→18:24)
[2017-09-14] MEDS: ACCU-CHEK XX SCH (02:23)
[2017-09-14 02:28] VITALS: BP 124/78; PULSE 63; RESP 16
[2017-09-14] MEDS: ACETAMINOPHEN 325 MG TAB PO PRN (06:25)
[2017-09-14] MEDS: CREON (12k-38k-60k) 1 CAP PO SCH ×3 (08:04→17:18)
[2017-09-14] MEDS: ASPIRIN 81 MG TAB PO SCH (08:04)
[2017-09-14] MEDS: NICOTINE (14 MG/24 HR) PATCH TRANSDERM SCH (08:04)
[2017-09-14] MEDS: LACTOBACILLUS RHAMNOSUS CAP PO SCH ×2 (08:05→20:48)
[2017-09-14] MEDS: BUSPIRONE 10 MG TAB PO SCH ×2 (08:05→20:48)
[2017-09-14] MEDS: INSULIN ASPART [NOVOLOG] 3 ML PEN SC SCH ×7 (08:07→20:54)
[2017-09-14] MEDS: INSULIN GLARGINE [LANtus] 3 ML PEN SC SCH (08:18)
[2017-09-14 08:22] VITALS: BP 120/76; RESP 18
--- NOTE | 2017-09-14 13:17 | CONS ---
Date/Time of Note Date/Time of Note DATE: 09/14/17 TIME: :17 Consult Date/Type/Reason Admit Date/Time Aug 15, 2017 at 19:21 Initial Consult Date 08/29/17 Type of Consultation: ID Ordering Provider: SALUD GARIBAY MD Objective Vital Signs Date Time Temp Pulse Resp B/P Pulse Ox O2 Delivery O2 Flow Rate FiO2 09/14/17 08:22 97.7 58 18 120/76 100 09/14/17 02:28 Room Air Intake and Output 09/13/17 09/13/17 09/14/17 15:00 23:00 07:00 Intake Total 50 ml 2380 ml 640 ml Output Total 1300 ml Balance 50 ml 1080 ml 640 ml Results/Medications Result Diagram: 09/11/1752509/11/17525 Results 24 hrs Laboratory Tests Test 09/13/17 13:56 09/13/17 17:14 09/13/17 20:51 09/14/17 02:23 Bedside Glucose 130 74 257 H 124 Test 09/14/17 08:03 09/14/17 12:00 Bedside Glucose 80 163 Medications Current Medications Aspirin (Aspirin) 81 mg DAILY PO Last administered on 09/14/17 08:04; Admin Dose 81 MG; Start 08/16/17 at 09:00 Ondansetron HCl (Zofran Inj) 4 mg Q6H PRN IV NAUSEA AND/OR VOMITING; Start 08/22 at 19:00 Bisacodyl (Dulcolax) 5 mg DAILY PRN PO CONSTIPATION; Start 08/15/17 at 19:00 Nicotine (Nicoderm 14 Mg/ 24hr) 1 patch DAILY TRANSDERM Last administered on 08:04; Admin Dose 1 PATCH; Start 08/16/17 at 09:00 Miscellaneous Information 1 ea NOTE XX ; Start 08/15/17 at 19:30 Glucose (Glutose) 15 gm Q15M PRN PO DECREASED GLUCOSE; Start 08/15/17 at 19:30 Glucose (Glutose) 22.5 gm Q15M PRN PO DECREASED GLUCOSE; Start 08/15/17 at 19: 30 Dextrose (D50w Syringe) 25 ml Q15M PRN IV DECREASED GLUCOSE; Start 08/15/17 at 19:30 Dextrose (D50w Syringe) 50 ml Q15M PRN IV DECREASED GLUCOSE; Start 08/15/17 at 19:30 Glucagon (Glucagen) 1 mg Q15M PRN IM DECREASED GLUCOSE; Start 08/15/17 at 19: 30 Glucose (Glutose) 15 gm Q15M PRN BUCCAL DECREASED GLUCOSE Last administered on 08/26/17 17:18; Admin Dose 15 GM; Start 08/15/17 at 19:30 Diagnostic Test (Pha) (Accu-Chek) 1 ea 02 XX Last administered on 09/14/17 02: 23; Admin Dose 1 EA; Start 08/18/17 at 02:00 Acetaminophen (Tylenol Tab) 650 mg Q6H PRN PO PAIN AND OR ELEVATED TEMP Last administered on 09/14/17 06:25; Admin Dose 650 MG; Start 08/18/17 at 15:00 Lactobacillus Acidophilus/ Rhamnosus (Culturelle) 1 cap BID PO Last administered on 09/14/17 08:05; Admin Dose 1 CAP; Start 08/21/17 at 11:30 Methadone HCl (Methadone) 5 mg Q8H PRN PO PAIN Last administered on 09/14/17 11:39; Admin Dose 5 MG; Start 08/22/17 at 17:30 Lorazepam (Ativan) 0.5 mg Q8H PRN PO ANXIETY Last administered on 09/14/17 08: 04; Admin Dose 0.5 MG; Start 08/24/17 at 16:00 Zolpidem Tartrate 5 mg 5 mg HS PRN PO INSOMNIA Last administered on 09/13/17 20:49; Admin Dose 5 MG; Start 08/24/17 at 21:30 Daptomycin 430 mg/ Sodium Chloride 100 ml @ 200 mls/hr Q24H IVPB Last administered on 09/13/17 15:55; Admin Dose 200 MLS/HR; Start 08/31/17 at 15:00 Ceftriaxone Sodium (Rocephin) 50 ml @ 100 mls/hr Q24H IVPB Last administered on 09/13/17 13:49; Admin Dose 100 MLS/HR; Start 08/31/17 at 13:30 IV Flush (NS 10 ml) 10 ml PRN PRN IV IV PROTOCOL Last administered on 20:33; Admin Dose 10 ML; Start 09/01/17 at 16:00 Insulin Glargine (Lantus) 20 unit DAILY@08 SC Last administered on 09/14/17 08 :18; Admin Dose 20 UNIT; Start 09/06/17 at 08:00 Insulin Human NPH (Humulin N) 4 unit DAILY@20 SC Last administered on 20:55; Admin Dose 4 UNIT; Start 09/10/17 at 20:00 Buspirone HCl (Buspar) 20 mg BID PO Last administered on 09/14/17 08:05; Admin Dose 20 MG; Start 09/10/17 at 21:00 Assessment/Plan Chief Complaint/Hosp Course SUBJECTIVE: No events, looks comfortable, no fevers ANTIMICROBIALS: 1. Daptomycin. 2. Rocephin. PHYSICAL EXAMINATION: GENERAL: A well-developed, well-nourished, middle-aged man who is alert, in no distress. HEENT: Head atraumatic, normocephalic. Sclerae anicteric. Buccal mucosa dry. NECK: Supple. CHEST: Rise symmetrical. Breath sounds diminished to bases. HEART: S1, S2. ABDOMEN: Soft. Bowel tones present. EXTREMITIES: Without cyanosis. ASSESSMENT: 1. Ongoing back pain with a hx of recent spinal osteomyelitis. Patient was restarted on antibiotics for concern of partially treated osteomyelitis as per ortho note. 2. Diabetes. 3. History of psychiatric problems. PLAN: Remains stable. Continue abx. Pending discharge arrangements, recommend continue current antibiotics for 4 more weeks. The patient to follow at [facility] with ortho team for further rec-s DW staff Problems: CA BAHENA NP Sep 14, 2017 13:17
[2017-09-14] MEDS: CEFTRIAXONE 1 GM/50 ML (PMX) 50 ML IVPB SCH (13:39)
--- NOTE | 2017-09-14 14:11 | PN ---
Date/Time of Note Date/Time of Note DATE: 09/14/17 TIME: 14:09 Assessment/Plan VTE Prophylaxis VTE Prophylaxis Intervention: ambulation Lines/Catheters IV Catheter Type (from Nrsg): PICC Line Central line still needed: Yes Urinary Cath still in place: No Assessment/Plan Chief Complaint/Hosp Course Patient is a 52-year-old alcoholic and medically noncompliant diabetic who presents to [facility] and is admitted for hyperglycemia and elevated lactic acid Assessment/Plan #. Diabetes Mellitus, uncontrolled - Appears to be better controlled on new regimen - A1c 9.5. 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 Arthur, neurosurgery consulted, states non surgical at this time, however requests ID consult - ID has been consulted, recommended biopsy. however biopsy is too high risk per IR. - will treat empirically per ID, 4 weeks IV abx, picc line today - CM to arrange appt with Dr. Augustine Berry, with asher garza, appt made for 09/14/17 #. Altered mental status, likely secondary to alcohol abuse- resolved - Patient is mentating well and reevaluation by tele psych cleared patient - no witnessed seizures and continuing seizure precautions. - Ativan TID prn which has been helping his mood, prn. Offered [facility] medications for mood control as well but refusing and states he feels lonely and depressed and anxious when on other medications - Given information for support for alcohol abuse #. Anion gap metabolic acidosis, moderate, not full DKA, secondary to medical noncompliance- resolved #. suicidal ideation - No longer experiencing SI and cleared by tele-psych - on buspar #. Lactic acidosis - resolved #. Hypernatremia, likely secondary to volume depletion given alcohol extent- resolved #. Elevated AST and ALT, resolved #. Mood Disorder - Improved - Denies any SI #. Disposition - biopsy deferred as it is too high risk - empiric abx for 4 weeks total per ID, home health IV arranged - placement found, but pending finalization, Rx in chart as well as med rec, patient will be given meds at bedside before dc. - appt for Dr. Augustine Berry made for 10/05 @ 830am, patient aware - DC placed to placement (recuperative care?), patient will be taking his own medication - no narcotics will be prescribed at discharge, patient aware Problems: Subjective 24 Hr Interval Summary Free Text/Dictation no acute complaints Exam/Review of Systems Vital Signs Vitals Vital Signs Date Time Temp Pulse Resp B/P Pulse Ox O2 Delivery O2 Flow Rate FiO2 09/14/17 08:22 97.7 58 18 120/76 100 09/14/17 02:28 Room Air Intake and Output 09/13/17 09/13/17 09/14/17 15:00 23:00 07:00 Intake Total 50 ml 2380 ml 640 ml Output Total 1300 ml Balance 50 ml 1080 ml 640 ml Exam General: Patient in no acute distress. awake and alert. Head: Normocephalic atraumatic Eyes: EOMI, pupils reactive to light Neck: Supple, nontender, midline Respiratory: Clear to auscultation bilaterally. no wheezes or crackles Cardiovascular: regular rate, no obvious murmurs Gastrointestinal: non-tender to palpation, bowel sounds heard. Extremities: No tenderness to palpation spine, moving all extremities Neurological: Moves all extremities spontaneously Psych: calm, flat affect, no SI/HI Results Result Diagram: 09/11/17 0509/11/17 05 Results 24 hrs Laboratory Tests Test 09/13/17 17:14 09/13/17 20:51 09/14/17 02:23 09/14/17 08:03 Bedside Glucose 74 257 H 124 80 Test 09/14/17 12:00 Bedside Glucose 163 Medications Medications Current Medications Aspirin (Aspirin) 81 mg DAILY PO Last administered on 09/14/17 08:04; Admin Dose 81 MG; Start 08/16/17 at 09:00 Ondansetron HCl (Zofran Inj) 4 mg Q6H PRN IV NAUSEA AND/OR VOMITING; Start 08/22 at 19:00 Bisacodyl (Dulcolax) 5 mg DAILY PRN PO CONSTIPATION; Start 08/15/17 at 19:00 Nicotine (Nicoderm 14 Mg/ 24hr) 1 patch DAILY TRANSDERM Last administered on 08:04; Admin Dose 1 PATCH; Start 08/16/17 at 09:00 Miscellaneous Information 1 ea NOTE XX ; Start 08/15/17 at 19:30 Glucose (Glutose) 15 gm Q15M PRN PO DECREASED GLUCOSE; Start 08/15/17 at 19:30 Glucose (Glutose) 22.5 gm Q15M PRN PO DECREASED GLUCOSE; Start 08/15/17 at 19: 30 Dextrose (D50w Syringe) 25 ml Q15M PRN IV DECREASED GLUCOSE; Start 08/15/17 at 19:30 Dextrose (D50w Syringe) 50 ml Q15M PRN IV DECREASED GLUCOSE; Start 08/15/17 at 19:30 Glucagon (Glucagen) 1 mg Q15M PRN IM DECREASED GLUCOSE; Start 08/15/17 at 19: 30 Glucose (Glutose) 15 gm Q15M PRN BUCCAL DECREASED GLUCOSE Last administered on 08/26/17 17:18; Admin Dose 15 GM; Start 08/15/17 at 19:30 Diagnostic Test (Pha) (Accu-Chek) 1 ea 02 XX Last administered on 09/14/17 02: 23; Admin Dose 1 EA; Start 08/18/17 at 02:00 Acetaminophen (Tylenol Tab) 650 mg Q6H PRN PO PAIN AND OR ELEVATED TEMP Last administered on 09/14/17 06:25; Admin Dose 650 MG; Start 08/18/17 at 15:00 Lactobacillus Acidophilus/ Rhamnosus (Culturelle) 1 cap BID PO Last administered on 09/14/17 08:05; Admin Dose 1 CAP; Start 08/21/17 at 11:30 Methadone HCl (Methadone) 5 mg Q8H PRN PO PAIN Last administered on 09/14/17 11:39; Admin Dose 5 MG; Start 08/22/17 at 17:30 Lorazepam (Ativan) 0.5 mg Q8H PRN PO ANXIETY Last administered on 09/14/17 08: 04; Admin Dose 0.5 MG; Start 08/24/17 at 16:00 Zolpidem Tartrate 5 mg 5 mg HS PRN PO INSOMNIA Last administered on 09/13/17 20:49; Admin Dose 5 MG; Start 08/24/17 at 21:30 Daptomycin 430 mg/ Sodium Chloride 100 ml @ 200 mls/hr Q24H IVPB Last administered on 09/13/17 15:55; Admin Dose 200 MLS/HR; Start 08/31/17 at 15:00 Ceftriaxone Sodium (Rocephin) 50 ml @ 100 mls/hr Q24H IVPB Last administered on 09/14/17 13:39; Admin Dose 100 MLS/HR; Start 08/31/17 at 13:30 IV Flush (NS 10 ml) 10 ml PRN PRN IV IV PROTOCOL Last administered on 20:33; Admin Dose 10 ML; Start 09/01/17 at 16:00 Insulin Glargine (Lantus) 20 unit DAILY@08 SC Last administered on 09/14/17 08 :18; Admin Dose 20 UNIT; Start 09/06/17 at 08:00 Insulin Human NPH (Humulin N) 4 unit DAILY@20 SC Last administered on 20:55; Admin Dose 4 UNIT; Start 09/10/17 at 20:00 Buspirone HCl (Buspar) 20 mg BID PO Last administered on 09/14/17 08:05; Admin Dose 20 MG; Start 09/10/17 at 21:00 SELINA HDZ Sep 14, 2017 14:11
[2017-09-14] MEDS: SOD CHLORIDE 0.9% IVPB SCH (15:44)
[2017-09-14] MEDS: DAPTOMYCIN IVPB SCH (15:44)
[2017-09-14 15:45] VITALS: BP 116/60; RESP 18
[2017-09-14 19:54] VITALS: BP 114/62; RESP 16
[2017-09-14] MEDS: NPH, HUMAN INSULIN ISOPHANE 3ML VIAL SC SCH (20:53)
[2017-09-14] MEDS: ZOLPIDEM 5 MG TAB PO PRN (21:00)
[2017-09-14 23:40] VITALS: BP 116/68; RESP 16
[2017-09-15] MEDS: ACCU-CHEK XX SCH (02:00)
[2017-09-15] MEDS: METHADONE 5 MG TAB PO PRN ×3 (02:15→21:02)
[2017-09-15] MEDS: INSULIN ASPART [NOVOLOG] 3 ML PEN SC SCH ×7 (08:15→20:35)
[2017-09-15] MEDS: CREON (12k-38k-60k) 1 CAP PO SCH ×3 (08:23→18:43)
[2017-09-15] MEDS: BUSPIRONE 10 MG TAB PO SCH ×2 (08:23→20:29)
[2017-09-15] MEDS: ASPIRIN 81 MG TAB PO SCH (08:23)
[2017-09-15] MEDS: LACTOBACILLUS RHAMNOSUS CAP PO SCH ×2 (08:24→20:29)
[2017-09-15] MEDS: NICOTINE (14 MG/24 HR) PATCH TRANSDERM SCH (08:25)
[2017-09-15] MEDS: INSULIN GLARGINE [LANtus] 3 ML PEN SC SCH (08:30)
[2017-09-15] MEDS: LORAZEPAM 0.5 MG TAB PO PRN ×2 (09:41→18:06)
--- NOTE | 2017-09-15 11:30 | PN ---
Date/Time of Note Date/Time of Note DATE: 09/15/17 TIME: 11:29 Assessment/Plan VTE Prophylaxis VTE Prophylaxis Intervention: ambulation Lines/Catheters IV Catheter Type (from Nrsg): PICC Line Central line still needed: Yes Urinary Cath still in place: No Assessment/Plan Chief Complaint/Hosp Course Patient is a 52-year-old alcoholic and medically noncompliant diabetic who presents to [facility] and is admitted for hyperglycemia and elevated lactic acid Assessment/Plan #. Diabetes Mellitus, uncontrolled - Appears to be better controlled on new regimen - A1c 9.5. 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 Arthur, neurosurgery consulted, states non surgical at this time, however requests ID consult - ID has been consulted, recommended biopsy. however biopsy is too high risk per IR. - will treat empirically per ID, 4 weeks IV abx, picc line today - CM to arrange appt with Dr. Augustine Berry, with asher garza, appt made for 09/14/17 #. Altered mental status, likely secondary to alcohol abuse- resolved - Patient is mentating well and reevaluation by tele psych cleared patient - no witnessed seizures and continuing seizure precautions. - Ativan TID prn which has been helping his mood, prn. 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 Anion gap metabolic acidosis, moderate, not full DKA, secondary to medical noncompliance- resolved #. suicidal ideation - No longer experiencing SI and cleared by tele-psych - on buspar #. Lactic acidosis - resolved #. Hypernatremia, likely secondary to volume depletion given alcohol extent- resolved #. Elevated AST and ALT, resolved #. Mood Disorder - Improved - Denies any SI #. Disposition - biopsy deferred as it is too high risk - empiric abx for 4 weeks total per ID, home health IV arranged - placement found, but pending finalization, Rx in chart as well as med rec, patient will be given meds at bedside before dc. - appt for Dr. Augustine Berry made for 10/05 @ 830am, patient aware - DC placed to placement (recuperative care?), patient will be taking his own medication - narcotics not prescribed Problems: Subjective 24 Hr Interval Summary Free Text/Dictation no acute overnight events Exam/Review of Systems Vital Signs Vitals Vital Signs Date Time Temp Pulse Resp B/P Pulse Ox O2 Delivery O2 Flow Rate FiO2 09/14/17 23:40 98.2 62 16 116/68 97 09/14/17 02:28 Room Air Intake and Output 09/14/17 09/14/17 09/15/17 15:00 23:00 07:00 Intake Total 50 ml 1580 ml 1990 ml Output Total 1500 ml 850 ml Balance 50 ml 80 ml 1140 ml Exam General: Patient in no acute distress. awake and alert. Head: Normocephalic atraumatic Eyes: EOMI, pupils reactive to light Neck: Supple, nontender, midline Respiratory: Clear to auscultation bilaterally. no wheezes or crackles Cardiovascular: regular rate, no obvious murmurs Gastrointestinal: non-tender to palpation, bowel sounds heard. Extremities: No tenderness to palpation spine, moving all extremities Neurological: Moves all extremities spontaneously Psych: calm, flat affect, no SI/HI Results Result Diagram: 09/11/1752509/11/17525 Results 24 hrs Laboratory Tests Test 09/14/17 12:00 09/14/17 17:21 09/14/17 20:51 09/15/17 02:14 Bedside Glucose 163 132 156 191 Test 09/15/17 05:36 09/15/17 07:47 Creatine Kinase 71 Bedside Glucose 128 Medications Medications Current Medications Aspirin (Aspirin) 81 mg DAILY PO Last administered on 09/15/17 08:23; Admin Dose 81 MG; Start 08/16/17 at 09:00 Ondansetron HCl (Zofran Inj) 4 mg Q6H PRN IV NAUSEA AND/OR VOMITING; Start 08/22 at 19:00 Bisacodyl (Dulcolax) 5 mg DAILY PRN PO CONSTIPATION; Start 08/15/17 at 19:00 Nicotine (Nicoderm 14 Mg/ 24hr) 1 patch DAILY TRANSDERM Last administered on 08:25; Admin Dose 1 PATCH; Start 08/16/17 at 09:00 Miscellaneous Information 1 ea NOTE XX ; Start 08/15/17 at 19:30 Glucose (Glutose) 15 gm Q15M PRN PO DECREASED GLUCOSE; Start 08/15/17 at 19:30 Glucose (Glutose) 22.5 gm Q15M PRN PO DECREASED GLUCOSE; Start 08/15/17 at 19: 30 Dextrose (D50w Syringe) 25 ml Q15M PRN IV DECREASED GLUCOSE; Start 08/15/17 at 19:30 Dextrose (D50w Syringe) 50 ml Q15M PRN IV DECREASED GLUCOSE; Start 08/15/17 at 19:30 Glucagon (Glucagen) 1 mg Q15M PRN IM DECREASED GLUCOSE; Start 08/15/17 at 19: 30 Glucose (Glutose) 15 gm Q15M PRN BUCCAL DECREASED GLUCOSE Last administered on 08/26/17 17:18; Admin Dose 15 GM; Start 08/15/17 at 19:30 Diagnostic Test (Pha) (Accu-Chek) 1 ea 02 XX Last administered on 09/14/17 02: 23; Admin Dose 1 EA; Start 08/18/17 at 02:00 Acetaminophen (Tylenol Tab) 650 mg Q6H PRN PO PAIN AND OR ELEVATED TEMP Last administered on 09/14/17 06:25; Admin Dose 650 MG; Start 08/18/17 at 15:00 Lactobacillus Acidophilus/ Rhamnosus (Culturelle) 1 cap BID PO Last administered on 09/15/17 08:24; Admin Dose 1 CAP; Start 08/21/17 at 11:30 Methadone HCl (Methadone) 5 mg Q8H PRN PO PAIN Last administered on 09/15/17 10:41; Admin Dose 5 MG; Start 08/22/17 at 17:30 Lorazepam (Ativan) 0.5 mg Q8H PRN PO ANXIETY Last administered on 09/15/17 09 :41; Admin Dose 0.5 MG; Start 08/24/17 at 16:00 Zolpidem Tartrate 5 mg 5 mg HS PRN PO INSOMNIA Last administered on 09/14/17 21:00; Admin Dose 5 MG; Start 08/24/17 at 21:30 Daptomycin 430 mg/ Sodium Chloride 100 ml @ 200 mls/hr Q24H IVPB Last administered on 09/14/17 15:44; Admin Dose 200 MLS/HR; Start 08/31/17 at 15:00 Ceftriaxone Sodium (Rocephin) 50 ml @ 100 mls/hr Q24H IVPB Last administered on 09/14/17 13:39; Admin Dose 100 MLS/HR; Start 08/31/17 at 13:30 IV Flush (NS 10 ml) 10 ml PRN PRN IV IV PROTOCOL Last administered on 20:33; Admin Dose 10 ML; Start 09/01/17 at 16:00 Insulin Glargine (Lantus) 20 unit DAILY@08 SC Last administered on 09/15/17 08:30; Admin Dose 20 UNIT; Start 09/06/17 at 08:00 Insulin Human NPH (Humulin N) 4 unit DAILY@20 SC Last administered on 20:53; Admin Dose 4 UNIT; Start 09/10/17 at 20:00 Buspirone HCl (Buspar) 20 mg BID PO Last administered on 09/15/17 08:23; Admin Dose 20 MG; Start 09/10/17 at 21:00 SELINA HDZ Sep 15, 2017 11:30
--- NOTE | 2017-09-15 13:02 | CONS ---
Date/Time of Note Date/Time of Note DATE: 09/15/17 TIME: 13:00 Assessment/Plan Assessment/Plan Chief Complaint/Hosp Course SUBJECTIVE: No events, looks comfortable, no fevers ANTIMICROBIALS: 1. Daptomycin. 2. Rocephin. PHYSICAL EXAMINATION: GENERAL: A well-developed, well-nourished, middle-aged man who is alert, in no distress. HEENT: Head atraumatic, normocephalic. Sclerae anicteric. Buccal mucosa dry. NECK: Supple. CHEST: Rise symmetrical. Breath sounds diminished to bases. HEART: S1, S2. ABDOMEN: Soft. Bowel tones present. EXTREMITIES: Without cyanosis. ASSESSMENT: 1. Ongoing back pain with a hx of recent spinal osteomyelitis. Patient was restarted on antibiotics for concern of partially treated osteomyelitis as per ortho note. 2. Diabetes. 3. History of psychiatric problems. PLAN: Remains stable. Completing 4 weeks abx. Pending discharge arrangements, patient to follow at [facility] with ortho team for further rec-s DW staff Problems: Consultation Date/Type/Reason Admit Date/Time Aug 15, 2017 at 19:21 Initial Consult Date 08/29/17 Type of Consultation: ID Referring Provider: SALUD GARIBAY MD Exam/Review of Systems Vital Signs Vitals Vital Signs Date Time Temp Pulse Resp B/P Pulse Ox O2 Delivery O2 Flow Rate FiO2 09/14/17 23:40 98.2 62 16 116/68 97 09/14/17 02:28 Room Air Intake and Output 09/14/17 09/14/17 09/15/17 14:59 22:59 06:59 Intake Total 50 ml 1580 ml 1990 ml Output Total 1500 ml 850 ml Balance 50 ml 80 ml 1140 ml Results Result Diagram: 09/11/1726 09/11/17 0526 Results 24 hrs Laboratory Tests Test 09/14/17 17:21 09/14/17 20:51 09/15/17 02:14 09/15/17 05:36 Bedside Glucose 132 156 191 Creatine Kinase 71 Test 09/15/17 07:47 09/15/17 11:54 09/15/17 12:30 Bedside Glucose 128 55 L 88 Medications Medications Current Medications Aspirin (Aspirin) 81 mg DAILY PO Last administered on 09/15/17t 08:23; Admin Dose 81 MG; Start 08/16/17 at 09:00 Ondansetron HCl (Zofran Inj) 4 mg Q6H PRN IV NAUSEA AND/OR VOMITING; Start 08/22 at 19:00 Bisacodyl (Dulcolax) 5 mg DAILY PRN PO CONSTIPATION; Start 08/15/17 at 19:00 Nicotine (Nicoderm 14 Mg/ 24hr) 1 patch DAILY TRANSDERM Last administered on 08:25; Admin Dose 1 PATCH; Start 08/16/17 at 09:00 Miscellaneous Information 1 ea NOTE XX ; Start 08/15/17 at 19:30 Glucose (Glutose) 15 gm Q15M PRN PO DECREASED GLUCOSE Last administered on 12:03; Admin Dose 15 GM; Start 08/15/17 at 19:30 Glucose (Glutose) 22.5 gm Q15M PRN PO DECREASED GLUCOSE; Start 08/15/17 at 19: 30 Dextrose (D50w Syringe) 25 ml Q15M PRN IV DECREASED GLUCOSE; Start 08/15/17 at 19:30 Dextrose (D50w Syringe) 50 ml Q15M PRN IV DECREASED GLUCOSE; Start 08/15/17 at 19:30 Glucagon (Glucagen) 1 mg Q15M PRN IM DECREASED GLUCOSE; Start 08/15/17 at 19: 30 Glucose (Glutose) 15 gm Q15M PRN BUCCAL DECREASED GLUCOSE Last administered on 08/26/17 17:18; Admin Dose 15 GM; Start 08/15/17 at 19:30 Diagnostic Test (Pha) (Accu-Chek) 1 ea 02 XX Last administered on 09/14/17 02: 23; Admin Dose 1 EA; Start 08/18/17 at 02:00 Acetaminophen (Tylenol Tab) 650 mg Q6H PRN PO PAIN AND OR ELEVATED TEMP Last administered on 09/14/17 06:25; Admin Dose 650 MG; Start 08/18/17 at 15:00 Lactobacillus Acidophilus/ Rhamnosus (Culturelle) 1 cap BID PO Last administered on 09/15/17 08:24; Admin Dose 1 CAP; Start 08/21/17 at 11:30 Methadone HCl (Methadone) 5 mg Q8H PRN PO PAIN Last administered on 09/15/17 10:41; Admin Dose 5 MG; Start 08/22/17 at 17:30 Lorazepam (Ativan) 0.5 mg Q8H PRN PO ANXIETY Last administered on 09/15/17 09 :41; Admin Dose 0.5 MG; Start 08/24/17 at 16:00 Zolpidem Tartrate 5 mg 5 mg HS PRN PO INSOMNIA Last administered on 09/14/17 21:00; Admin Dose 5 MG; Start 08/24/17 at 21:30 Daptomycin 430 mg/ Sodium Chloride 100 ml @ 200 mls/hr Q24H IVPB Last administered on 09/14/17 15:44; Admin Dose 200 MLS/HR; Start 08/31/17 at 15:00 Ceftriaxone Sodium (Rocephin) 50 ml @ 100 mls/hr Q24H IVPB Last administered on 09/14/17 13:39; Admin Dose 100 MLS/HR; Start 08/31/17 at 13:30 IV Flush (NS 10 ml) 10 ml PRN PRN IV IV PROTOCOL Last administered on 20:33; Admin Dose 10 ML; Start 09/01/17 at 16:00 Insulin Glargine (Lantus) 20 unit DAILY@08 SC Last administered on 09/15/17 08:30; Admin Dose 20 UNIT; Start 09/06/17 at 08:00 Insulin Human NPH (Humulin N) 4 unit DAILY@20 SC Last administered on 20:53; Admin Dose 4 UNIT; Start 09/10/17 at 20:00 Buspirone HCl (Buspar) 25 mg BID PO ; Start 09/15/17 at 21:00 CA BAHENA NP Sep 15, 2017 13:02
[2017-09-15 14:00] VITALS: BP 120/72; RESP 20
[2017-09-15] MEDS: CEFTRIAXONE 1 GM/50 ML (PMX) 50 ML IVPB SCH (14:19)
[2017-09-15] MEDS: DAPTOMYCIN IVPB SCH (15:04)
[2017-09-15] MEDS: SOD CHLORIDE 0.9% IVPB SCH (15:04)
[2017-09-15 20:07] VITALS: BP 108/58; RESP 20
[2017-09-15] MEDS: NPH, HUMAN INSULIN ISOPHANE 3ML VIAL SC SCH (20:46)
[2017-09-15] MEDS: ZOLPIDEM 5 MG TAB PO PRN (22:06)
[2017-09-16] MEDS: LORAZEPAM 0.5 MG TAB PO PRN ×3 (01:57→15:54)
[2017-09-16] MEDS: ACCU-CHEK XX SCH (01:57)
[2017-09-16 02:02] VITALS: BP 122/66; RESP 20
[2017-09-16 06:25] LABS: CREATININE 0.9 mg/dl (0.61-1.24)
[2017-09-16 08:06] VITALS: BP 147/77; RESP 16
[2017-09-16] MEDS: NICOTINE (14 MG/24 HR) PATCH TRANSDERM SCH (08:11)
[2017-09-16] MEDS: METHADONE 5 MG TAB PO PRN ×2 (08:12→15:54)
[2017-09-16] MEDS: LACTOBACILLUS RHAMNOSUS CAP PO SCH ×2 (08:12→20:15)
[2017-09-16] MEDS: INSULIN ASPART [NOVOLOG] 3 ML PEN SC SCH ×7 (08:12→21:00)
[2017-09-16] MEDS: ASPIRIN 81 MG TAB PO SCH (08:12)
[2017-09-16] MEDS: BUSPIRONE 10 MG TAB PO SCH ×2 (08:12→20:15)
[2017-09-16] MEDS: CREON (12k-38k-60k) 1 CAP PO SCH ×2 (08:12→12:05)
[2017-09-16] MEDS: INSULIN GLARGINE [LANtus] 3 ML PEN SC SCH (08:18)
--- NOTE | 2017-09-16 10:46 | PN ---
Date/Time of Note Date/Time of Note DATE: 09/16/17 TIME: 10:46 Assessment/Plan VTE Prophylaxis VTE Prophylaxis Intervention: ambulation Lines/Catheters IV Catheter Type (from Nrsg): PICC Line Central line still needed: Yes Urinary Cath still in place: No Assessment/Plan Assessment/Plan 1. Diabetes Mellitus, uncontrolled - Appears to be better controlled on new regimen - A1c 9.5. 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 Arthur, neurosurgery consulted, states non surgical at this time, however requests ID consult - ID has been consulted, recommended biopsy. however biopsy is too high risk per IR. - will treat empirically per ID, 4 weeks IV abx, picc line today - Appt with Dr. Augustine Berry, with [facility], appt made for 10/05/17 3. Altered mental status, likely secondary to alcohol abuse- resolved - Patient is mentating well and reevaluation by tele psych cleared patient - Ativan TID prn which has been helping his mood, prn. 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 Anion gap metabolic acidosis, moderate, not full DKA, secondary to medical noncompliance- resolved 5. suicidal ideation- resolved - No longer experiencing SI and cleared by tele-psych - on buspar 6. Lactic acidosis - resolved 7. Hypernatremia, likely secondary to volume depletion given alcohol extent- resolved 8. Elevated AST and ALT, resolved 9. Mood Disorder - Improved - Denies any SI - Buspar recently increased to 25 mg. If need be will increase to 30mg on Monday 10. Disposition - Awaiting placement Subjective 24 Hr Interval Summary Free Text/Dictation Patient doing well and has no new complaints. No acute overnight events. Exam/Review of Systems Vital Signs Vitals Vital Signs Date Time Temp Pulse Resp B/P Pulse Ox O2 Delivery O2 Flow Rate FiO2 09/16/17 08:06 97.7 59 16 147/77 100 09/14/17 02:28 Room Air Intake and Output 09/15/17 09/15/1709/16/17 15:00 23:00 07:00 Intake Total 50 ml 1820 ml 700 ml Output Total 1900 ml Balance 50 ml -80 ml 700 ml Exam General: Patient in no acute distress. awake and alert. Head: Normocephalic atraumatic Eyes: EOMI, pupils reactive to light Neck: Supple, nontender, midline Respiratory: Clear to auscultation bilaterally. no wheezes or crackles Cardiovascular: regular rate, no obvious murmurs Gastrointestinal: non-tender to palpation, bowel sounds heard. Extremities: No tenderness to palpation spine, moving all extremities Neurological: Moves all extremities spontaneously Psych: calm, flat affect, no SI/HI Results Result Diagram: 09/16/17 0518 Results 24 hrs Laboratory Tests Test 09/15/17 11:54 09/15/17 12:30 09/15/17 13:06 09/15/17 16:47 Bedside Glucose 55 L 88 179 126 Test 09/15/17 20:31 09/16/17 01:52 09/16/17 05:18 09/16/17 08:11 Bedside Glucose 261 H 187 121 Blood Urea Nitrogen 24 H Creatinine 0.90 Medications Medications Current Medications Aspirin (Aspirin) 81 mg DAILY PO Last administered on 09/16/17 08:12; Admin Dose 81 MG; Start 08/16/17 at 09:00 Ondansetron HCl (Zofran Inj) 4 mg Q6H PRN IV NAUSEA AND/OR VOMITING; Start 08/22 at 19:00 Bisacodyl (Dulcolax) 5 mg DAILY PRN PO CONSTIPATION; Start 08/15/17 at 19:00 Nicotine (Nicoderm 14 Mg/ 24hr) 1 patch DAILY TRANSDERM Last administered on 08:11; Admin Dose 1 PATCH; Start 08/16/17 at 09:00 Miscellaneous Information 1 ea NOTE XX ; Start 08/15/17 at 19:30 Glucose (Glutose) 15 gm Q15M PRN PO DECREASED GLUCOSE Last administered on 12:03; Admin Dose 15 GM; Start 08/15/17 at 19:30 Glucose (Glutose) 22.5 gm Q15M PRN PO DECREASED GLUCOSE; Start 08/15/17 at 19: 30 Dextrose (D50w Syringe) 25 ml Q15M PRN IV DECREASED GLUCOSE; Start 08/15/17 at 19:30 Dextrose (D50w Syringe) 50 ml Q15M PRN IV DECREASED GLUCOSE; Start 08/15/17 at 19:30 Glucagon (Glucagen) 1 mg Q15M PRN IM DECREASED GLUCOSE; Start 08/15/17 at 19: 30 Glucose (Glutose) 15 gm Q15M PRN BUCCAL DECREASED GLUCOSE Last administered on 08/26/17 17:18; Admin Dose 15 GM; Start 08/15/17 at 19:30 Diagnostic Test (Pha) (Accu-Chek) 1 ea 02 XX Last administered on 09/16/17 01 :57; Admin Dose 1 EA; Start 08/18/17 at 02:00 Acetaminophen (Tylenol Tab) 650 mg Q6H PRN PO PAIN AND OR ELEVATED TEMP Last administered on 09/14/17 06:25; Admin Dose 650 MG; Start 08/18/17 at 15:00 Lactobacillus Acidophilus/ Rhamnosus (Culturelle) 1 cap BID PO Last administered on 09/16/17 08:12; Admin Dose 1 CAP; Start 08/21/17 at 11:30 Methadone HCl (Methadone) 5 mg Q8H PRN PO PAIN Last administered on 09/16/17 08:12; Admin Dose 5 MG; Start 08/22/17 at 17:30 Lorazepam (Ativan) 0.5 mg Q8H PRN PO ANXIETY Last administered on 09/16/17 08 :12; Admin Dose 0.5 MG; Start 08/24/17 at 16:00 Zolpidem Tartrate 5 mg 5 mg HS PRN PO INSOMNIA Last administered on 09/15/17 22:06; Admin Dose 5 MG; Start 08/24/17 at 21:30 Daptomycin 430 mg/ Sodium Chloride 100 ml @ 200 mls/hr Q24H IVPB Last administered on 09/15/17 15:04; Admin Dose 200 MLS/HR; Start 08/31/17 at 15: 00 Ceftriaxone Sodium (Rocephin) 50 ml @ 100 mls/hr Q24H IVPB Last administered on 09/15/17 14:19; Admin Dose 100 MLS/HR; Start 08/31/17 at 13:30 IV Flush (NS 10 ml) 10 ml PRN PRN IV IV PROTOCOL Last administered on 20:33; Admin Dose 10 ML; Start 09/01/17 at 16:00 Insulin Glargine (Lantus) 20 unit DAILY@08 SC Last administered on 09/16/17 08:18; Admin Dose 20 UNIT; Start 09/06/17 at 08:00 Insulin Human NPH (Humulin N) 4 unit DAILY@20 SC Last administered on 20:46; Admin Dose 4 UNIT; Start 09/10/17 at 20:00 Buspirone HCl (Buspar) 25 mg BID PO Last administered on 09/16/17 08:12; Admin Dose 25 MG; Start 09/15/17 at 21:00 SALUD GARIBAY MD Sep 16, 2017 10:46
[2017-09-16] MEDS: ACETAMINOPHEN 325 MG TAB PO PRN (12:04)
[2017-09-16] MEDS: CEFTRIAXONE 1 GM/50 ML (PMX) 50 ML IVPB SCH (12:05)
[2017-09-16 13:47] VITALS: BP 130/78; RESP 20
[2017-09-16] MEDS: DAPTOMYCIN IVPB SCH (14:21)
[2017-09-16] MEDS: SOD CHLORIDE 0.9% IVPB SCH (14:21)
--- NOTE | 2017-09-16 16:20 | CONS ---
Date/Time of Note Date/Time of Note DATE: 09/16/17 TIME: 16:15 Assessment/Plan Assessment/Plan Problems: (1) Diabetes mellitus out of control Status: Chronic Comment: Overall better glycemic control. Will need to monitor carbohydrate intake versus "amount of food". Otherwise insulin doses seem appropriate. 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 Consultation Date/Type/Reason Admit Date/Time Aug 15, 2017 at 19:21 Initial Consult Date 08/29/17 Type of Consultation: Endocrine Reason for Consultation Diabetes Management Referring Provider: SALUD GARIBAY MD 24 HR Interval Summary Free Text/Dictation Patient only complaint today the amount of food receiving. States "sometimes more sometimes less". Thinks may be cause of drops in blood sugar. Exam/Review of Systems Vital Signs Vitals Vital Signs Date Time Temp Pulse Resp B/P Pulse Ox O2 Delivery O2 Flow Rate FiO2 09/16/17 13:47 98.1 60 20 130/78 100 09/14/17 02:28 Room Air Intake and Output 09/15/17 09/15/17 09/16/17 15:00 23:00 07:00 Intake Total 50 ml 1820 ml 700 ml Output Total 1900 ml Balance 50 ml -80 ml 700 ml Exam Constitutional: alert, oriented Eyes: EOMI, PERRL, nl conjunctiva Neck: supple Respiratory: clear to auscultation Cardiovascular: regular rate and rhythm Musculoskeletal: nl extremities to inspection Results POC glucose reviewed Result Diagram: 09/16/17 0518 Results 24 hrs Laboratory Tests Test 09/15/17 16:47 09/15/17 20:31 09/16/17 01:52 09/16/17 05:18 Bedside Glucose 126 261 H 187 Blood Urea Nitrogen 24 H Creatinine 0.90 Test 09/16/17 08:11 09/16/17 12:05 Bedside Glucose 121 92 Medications Medications Current Medications Aspirin (Aspirin) 81 mg DAILY PO Last administered on 09/16/17t 08:12; Admin Dose 81 MG; Start 08/16/17 at 09:00 Ondansetron HCl (Zofran Inj) 4 mg Q6H PRN IV NAUSEA AND/OR VOMITING; Start 08/22 at 19:00 Bisacodyl (Dulcolax) 5 mg DAILY PRN PO CONSTIPATION; Start 08/15/17 at 19:00 Nicotine (Nicoderm 14 Mg/ 24hr) 1 patch DAILY TRANSDERM Last administered on 08:11; Admin Dose 1 PATCH; Start 08/16/17 at 09:00 Miscellaneous Information 1 ea NOTE XX ; Start 08/15/17 at 19:30 Glucose (Glutose) 15 gm Q15M PRN PO DECREASED GLUCOSE Last administered on 12:03; Admin Dose 15 GM; Start 08/15/17 at 19:30 Glucose (Glutose) 22.5 gm Q15M PRN PO DECREASED GLUCOSE; Start 08/15/17 at 19: 30 Dextrose (D50w Syringe) 25 ml Q15M PRN IV DECREASED GLUCOSE; Start 08/15/17 at 19:30 Dextrose (D50w Syringe) 50 ml Q15M PRN IV DECREASED GLUCOSE; Start 08/15/17 at 19:30 Glucagon (Glucagen) 1 mg Q15M PRN IM DECREASED GLUCOSE; Start 08/15/17 at 19: 30 Glucose (Glutose) 15 gm Q15M PRN BUCCAL DECREASED GLUCOSE Last administered on 08/26/17 17:18; Admin Dose 15 GM; Start 08/15/17 at 19:30 Diagnostic Test (Pha) (Accu-Chek) 1 ea 02 XX Last administered on 09/16/17 01 :57; Admin Dose 1 EA; Start 08/18/17 at 02:00 Acetaminophen (Tylenol Tab) 650 mg Q6H PRN PO PAIN AND OR ELEVATED TEMP Last administered on 09/16/17 12:04; Admin Dose 650 MG; Start 08/18/17 at 15:00 Lactobacillus Acidophilus/ Rhamnosus (Culturelle) 1 cap BID PO Last administered on 09/16/17 08:12; Admin Dose 1 CAP; Start 08/21/17 at 11:30 Methadone HCl (Methadone) 5 mg Q8H PRN PO PAIN Last administered on 09/16/17 15:54; Admin Dose 5 MG; Start 08/22/17 at 17:30 Lorazepam (Ativan) 0.5 mg Q8H PRN PO ANXIETY Last administered on 09/16/17 15 :54; Admin Dose 0.5 MG; Start 08/24/17 at 16:00 Zolpidem Tartrate 5 mg 5 mg HS PRN PO INSOMNIA Last administered on 09/15/17 22:06; Admin Dose 5 MG; Start 08/24/17 at 21:30 Daptomycin 430 mg/ Sodium Chloride 100 ml @ 200 mls/hr Q24H IVPB Last administered on 09/16/17 14:21; Admin Dose 200 MLS/HR; Start 08/31/17 at 15: 00 Ceftriaxone Sodium (Rocephin) 50 ml @ 100 mls/hr Q24H IVPB Last administered on 09/16/17 12:05; Admin Dose 100 MLS/HR; Start 08/31/17 at 13:30 IV Flush (NS 10 ml) 10 ml PRN PRN IV IV PROTOCOL Last administered on 20:33; Admin Dose 10 ML; Start 09/01/17 at 16:00 Insulin Glargine (Lantus) 20 unit DAILY@08 SC Last administered on 09/16/17 08:18; Admin Dose 20 UNIT; Start 09/06/17 at 08:00 Insulin Human NPH (Humulin N) 4 unit DAILY@20 SC Last administered on 20:46; Admin Dose 4 UNIT; Start 09/10/17 at 20:00 Buspirone HCl (Buspar) 25 mg BID PO Last administered on 09/16/17 08:12; Admin Dose 25 MG; Start 09/15/17 at 21:00 ANDREW WYLIE MD Sep 16, 2017 16:20
[2017-09-16] MEDS: CREON (24K-76K-120K) 1 CAP PO SCH (18:21)
[2017-09-16 19:15] VITALS: BP 135/77; RESP 20
[2017-09-16] MEDS: NPH, HUMAN INSULIN ISOPHANE 3ML VIAL SC SCH (20:21)
[2017-09-16] MEDS: ZOLPIDEM 5 MG TAB PO PRN (22:35)
[2017-09-17] MEDS: LORAZEPAM 0.5 MG TAB PO PRN ×3 (00:05→16:07)
[2017-09-17] MEDS: METHADONE 5 MG TAB PO PRN ×3 (00:06→16:07)
[2017-09-17 01:26] VITALS: BP 126/67; RESP 20
[2017-09-17] MEDS: ACCU-CHEK XX SCH (02:00)
[2017-09-17] MEDS: ACETAMINOPHEN 325 MG TAB PO PRN ×3 (05:23→19:49)
[2017-09-17 07:22] VITALS: BP 122/70; RESP 18
[2017-09-17] MEDS: NICOTINE (14 MG/24 HR) PATCH TRANSDERM SCH (08:09)
[2017-09-17] MEDS: LACTOBACILLUS RHAMNOSUS CAP PO SCH ×2 (08:09→20:42)
[2017-09-17] MEDS: ASPIRIN 81 MG TAB PO SCH (08:09)
[2017-09-17] MEDS: CREON (24K-76K-120K) 1 CAP PO SCH ×3 (08:09→17:33)
[2017-09-17] MEDS: BUSPIRONE 10 MG TAB PO SCH ×2 (08:10→20:42)
[2017-09-17] MEDS: INSULIN ASPART [NOVOLOG] 3 ML PEN SC SCH ×7 (08:15→20:45)
[2017-09-17] MEDS: INSULIN GLARGINE [LANtus] 3 ML PEN SC SCH (08:17)
--- NOTE | 2017-09-17 12:10 | PN ---
Date/Time of Note Date/Time of Note DATE: 09/17/17 TIME: 12:08 Assessment/Plan VTE Prophylaxis VTE Prophylaxis Intervention: ambulation Lines/Catheters IV Catheter Type (from Nrsg): PICC Line Central line still needed: Yes (iv antibiotics) Urinary Cath still in place: No Assessment/Plan Assessment/Plan 1. Diabetes Mellitus, uncontrolled - Appears to be better controlled - A1c 9.5. 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 Arthur, neurosurgery consulted, states non surgical at this time, however requests ID consult - ID has been consulted, recommended biopsy. however biopsy is too high risk per IR. - will treat empirically per ID, 4 weeks IV abx, picc line today - Appt with Dr. Augustine Berry, with [facility], appt made for 10/05/17 3. Altered mental status, likely secondary to alcohol abuse- resolved - Patient is mentating well and reevaluation by tele psych cleared patient - Ativan TID prn which has been helping his mood, prn. Offered snf medications for mood control as well but refusing and states he feels lonely and depressed and anxious when on other medications - Given information for support for alcohol abuse 4. Anion gap metabolic acidosis, moderate, not full DKA, secondary to medical noncompliance- resolved 5. suicidal ideation- resolved - No longer experiencing SI and cleared by tele-psych 6. Lactic acidosis - resolved 7. Hypernatremia, likely secondary to volume depletion given alcohol extent- resolved 8. Elevated AST and ALT, resolved 9. Mood Disorder - Improved - Denies any SI - Buspar recently increased to 25 mg. If need be will increase to 30mg on Monday 10. Disposition - Awaiting placement Subjective 24 Hr Interval Summary Free Text/Dictation Patient doing well and no new complaints. No acute overnight events. awaiting placement Exam/Review of Systems Vital Signs Vitals Vital Signs Date Time Temp Pulse Resp B/P Pulse Ox O2 Delivery O2 Flow Rate FiO2 09/17/17 07:22 98.6 62 18 122/70 99 09/14/17 02:28 Room Air Intake and Output 09/16/17 09/16/1717 15:00 23:00 07:00 Intake Total 50 ml 2160 ml Output Total 650 ml Balance 50 ml 1510 ml Exam General: Patient sitting in chair by window, in no acute distress. awake and alert. Head: Normocephalic atraumatic Eyes: EOMI, pupils reactive to light Neck: Supple, nontender, midline Respiratory: Clear to auscultation bilaterally. no wheezes or crackles Cardiovascular: regular rate, no obvious murmurs Gastrointestinal: non-tender to palpation, bowel sounds heard. Extremities: No tenderness to palpation spine, moving all extremities Neurological: Moves all extremities spontaneously Psych: calm, no SI/HI Results Result Diagram: 09/16/17 0518 Results 24 hrs Laboratory Tests Test 09/16/17 17:24 09/16/17 20:13 09/17/17 05:22 09/17/17 07:55 Bedside Glucose 222 H 111 82 88 Test 09/17/17 12:01 Bedside Glucose 73 Medications Medications Current Medications Aspirin (Aspirin) 81 mg DAILY PO Last administered on 09/17/17 08:09; Admin Dose 81 MG; Start 08/16/17 at 09:00 Ondansetron HCl (Zofran Inj) 4 mg Q6H PRN IV NAUSEA AND/OR VOMITING; Start 08/22 at 19:00 Bisacodyl (Dulcolax) 5 mg DAILY PRN PO CONSTIPATION; Start 08/15/17 at 19:00 Nicotine (Nicoderm 14 Mg/ 24hr) 1 patch DAILY TRANSDERM Last administered on 08:09; Admin Dose 1 PATCH; Start 08/16/17 at 09:00 Miscellaneous Information 1 ea NOTE XX ; Start 08/15/17 at 19:30 Glucose (Glutose) 15 gm Q15M PRN PO DECREASED GLUCOSE Last administered on 12:03; Admin Dose 15 GM; Start 08/15/17 at 19:30 Glucose (Glutose) 22.5 gm Q15M PRN PO DECREASED GLUCOSE; Start 08/15/17 at 19: 30 Dextrose (D50w Syringe) 25 ml Q15M PRN IV DECREASED GLUCOSE; Start 08/15/17 at 19:30 Dextrose (D50w Syringe) 50 ml Q15M PRN IV DECREASED GLUCOSE; Start 08/15/17 at 19:30 Glucagon (Glucagen) 1 mg Q15M PRN IM DECREASED GLUCOSE; Start 08/15/17 at 19: 30 Glucose (Glutose) 15 gm Q15M PRN BUCCAL DECREASED GLUCOSE Last administered on 08/26/17 17:18; Admin Dose 15 GM; Start 08/15/17 at 19:30 Diagnostic Test (Pha) (Accu-Chek) 1 ea 02 XX Last administered on 09/16/17 01 :57; Admin Dose 1 EA; Start 08/18/17 at 02:00 Acetaminophen (Tylenol Tab) 650 mg Q6H PRN PO PAIN AND OR ELEVATED TEMP Last administered on 09/17/17 12:08; Admin Dose 650 MG; Start 08/18/17 at 15:00 Lactobacillus Acidophilus/ Rhamnosus (Culturelle) 1 cap BID PO Last administered on 09/17/17 08:09; Admin Dose 1 CAP; Start 08/21/17 at 11:30 Methadone HCl (Methadone) 5 mg Q8H PRN PO PAIN Last administered on 09/17/17 08:11; Admin Dose 5 MG; Start 08/22/17 at 17:30 Lorazepam (Ativan) 0.5 mg Q8H PRN PO ANXIETY Last administered on 09/17/17 08 :11; Admin Dose 0.5 MG; Start 08/24/17 at 16:00 Zolpidem Tartrate 5 mg 5 mg HS PRN PO INSOMNIA Last administered on 09/16/17 22:35; Admin Dose 5 MG; Start 08/24/17 at 21:30 Daptomycin 430 mg/ Sodium Chloride 100 ml @ 200 mls/hr Q24H IVPB Last administered on 09/16/17 14:21; Admin Dose 200 MLS/HR; Start 08/31/17 at 15: 00 Ceftriaxone Sodium (Rocephin) 50 ml @ 100 mls/hr Q24H IVPB Last administered on 09/16/17 12:05; Admin Dose 100 MLS/HR; Start 08/31/17 at 13:30 IV Flush (NS 10 ml) 10 ml PRN PRN IV IV PROTOCOL Last administered on 20:33; Admin Dose 10 ML; Start 09/01/17 at 16:00 Insulin Glargine (Lantus) 20 unit DAILY@08 SC Last administered on 09/17/17 08:17; Admin Dose 20 UNIT; Start 09/06/17 at 08:00 Insulin Human NPH (Humulin N) 4 unit DAILY@20 SC Last administered on 20:21; Admin Dose 4 UNIT; Start 09/10/17 at 20:00 Buspirone HCl (Buspar) 25 mg BID PO Last administered on 09/17/17 08:10; Admin Dose 25 MG; Start 09/15/17 at 21:00 SALUD GARIBAY MD Sep 17, 2017 12:10
--- NOTE | 2017-09-17 12:57 | CONS ---
Date/Time of Note Date/Time of Note DATE: 09/17/17 TIME: 12:55 Assessment/Plan Assessment/Plan Problems: (1) Diabetes mellitus out of control Status: Chronic Comment: Good glycemic control. No hypoglycemia Qualifiers: Diabetes mellitus type: due to underlying condition Diabetes mellitus complication status: without complication Diabetes mellitus mcc insulin use: with longwall foreman use Qualified Code: E08.9 - Diabetes mellitus due to underlying condition, uncontrolled, without complication, with long-term current use of insulin Additional Assessment/Plan Continue current insulin doses with mid meal snacks. Consultation Date/Type/Reason Admit Date/Time Aug 15, 2017 at 19:21 Initial Consult Date 08/29/17 Type of Consultation: Endocrine Referring Provider: SALUD GARIBAY MD 24 HR Interval Summary Free Text/Dictation No complaints today. No hypoglycemia with mid meal snack Exam/Review of Systems Vital Signs Vitals Vital Signs Date Time Temp Pulse Resp B/P Pulse Ox O2 Delivery O2 Flow Rate FiO2 09/17/17 07:22 98.6 62 18 122/70 99 09/14/17 02:28 Room Air Intake and Output 09/16/17 09/16/17 09/17/17 15:00 23:00 07:00 Intake Total 50 ml 2160 ml Output Total 650 ml Balance 50 ml 1510 ml Exam Constitutional: alert, oriented Eyes: EOMI, PERRL, nl conjunctiva Neck: supple Respiratory: clear to auscultation Cardiovascular: regular rate and rhythm Gastrointestinal: soft Musculoskeletal: nl extremities to inspection Results POC glucose reviewed Result Diagram: 09/16/17 0518 Results 24 hrs Laboratory Tests Test 09/16/17 17:24 09/16/17 20:13 09/17/17 05:22 09/17/17 07:55 Bedside Glucose 222 H 111 82 88 Test 09/17/17 12:01 Bedside Glucose 73 Medications Medications Current Medications Aspirin (Aspirin) 81 mg DAILY PO Last administered on 09/17/17t 08:09; Admin Dose 81 MG; Start 08/16/17 at 09:00 Ondansetron HCl (Zofran Inj) 4 mg Q6H PRN IV NAUSEA AND/OR VOMITING; Start 08/22 at 19:00 Bisacodyl (Dulcolax) 5 mg DAILY PRN PO CONSTIPATION; Start 08/15/17 at 19:00 Nicotine (Nicoderm 14 Mg/ 24hr) 1 patch DAILY TRANSDERM Last administered on 08:09; Admin Dose 1 PATCH; Start 08/16/17 at 09:00 Miscellaneous Information 1 ea NOTE XX ; Start 08/15/17 at 19:30 Glucose (Glutose) 15 gm Q15M PRN PO DECREASED GLUCOSE Last administered on 12:03; Admin Dose 15 GM; Start 08/15/17 at 19:30 Glucose (Glutose) 22.5 gm Q15M PRN PO DECREASED GLUCOSE; Start 08/15/17 at 19: 30 Dextrose (D50w Syringe) 25 ml Q15M PRN IV DECREASED GLUCOSE; Start 08/15/17 at 19:30 Dextrose (D50w Syringe) 50 ml Q15M PRN IV DECREASED GLUCOSE; Start 08/15/17 at 19:30 Glucagon (Glucagen) 1 mg Q15M PRN IM DECREASED GLUCOSE; Start 08/15/17 at 19: 30 Glucose (Glutose) 15 gm Q15M PRN BUCCAL DECREASED GLUCOSE Last administered on 08/26/17 17:18; Admin Dose 15 GM; Start 08/15/17 at 19:30 Diagnostic Test (Pha) (Accu-Chek) 1 ea 02 XX Last administered on 09/16/17 01 :57; Admin Dose 1 EA; Start 08/18/17 at 02:00 Acetaminophen (Tylenol Tab) 650 mg Q6H PRN PO PAIN AND OR ELEVATED TEMP Last administered on 09/17/17 12:08; Admin Dose 650 MG; Start 08/18/17 at 15:00 Lactobacillus Acidophilus/ Rhamnosus (Culturelle) 1 cap BID PO Last administered on 09/17/17 08:09; Admin Dose 1 CAP; Start 08/21/17 at 11:30 Methadone HCl (Methadone) 5 mg Q8H PRN PO PAIN Last administered on 09/17/17 08:11; Admin Dose 5 MG; Start 08/22/17 at 17:30 Lorazepam (Ativan) 0.5 mg Q8H PRN PO ANXIETY Last administered on 09/17/17 08 :11; Admin Dose 0.5 MG; Start 08/24/17 at 16:00 Zolpidem Tartrate 5 mg 5 mg HS PRN PO INSOMNIA Last administered on 09/16/17 22:35; Admin Dose 5 MG; Start 08/24/17 at 21:30 Daptomycin 430 mg/ Sodium Chloride 100 ml @ 200 mls/hr Q24H IVPB Last administered on 09/16/17 14:21; Admin Dose 200 MLS/HR; Start 08/31/17 at 15: 00 Ceftriaxone Sodium (Rocephin) 50 ml @ 100 mls/hr Q24H IVPB Last administered on 09/16/17 12:05; Admin Dose 100 MLS/HR; Start 08/31/17 at 13:30 IV Flush (NS 10 ml) 10 ml PRN PRN IV IV PROTOCOL Last administered on 20:33; Admin Dose 10 ML; Start 09/01/17 at 16:00 Insulin Glargine (Lantus) 20 unit DAILY@08 SC Last administered on 09/17/17 08:17; Admin Dose 20 UNIT; Start 09/06/17 at 08:00 Insulin Human NPH (Humulin N) 4 unit DAILY@20 SC Last administered on 20:21; Admin Dose 4 UNIT; Start 09/10/17 at 20:00 Buspirone HCl (Buspar) 25 mg BID PO Last administered on 09/17/17 08:10; Admin Dose 25 MG; Start 09/15/17 at 21:00 ANDREW WYLIE MD Sep 17, 2017 12:57
[2017-09-17] MEDS: CEFTRIAXONE 1 GM/50 ML (PMX) 50 ML IVPB SCH (13:57)
[2017-09-17] MEDS: SOD CHLORIDE 0.9% IVPB SCH (14:54)
[2017-09-17] MEDS: DAPTOMYCIN IVPB SCH (14:54)
[2017-09-17 15:38] VITALS: BP 122/68; RESP 18
[2017-09-17 19:25] VITALS: BP 119/63; RESP 20
[2017-09-17] MEDS: NPH, HUMAN INSULIN ISOPHANE 3ML VIAL SC SCH (20:46)
[2017-09-17] MEDS: ZOLPIDEM 5 MG TAB PO PRN (20:54)
[2017-09-18] MEDS: METHADONE 5 MG TAB PO PRN ×3 (00:08→16:20)
[2017-09-18] MEDS: LORAZEPAM 0.5 MG TAB PO PRN ×3 (00:08→16:20)
[2017-09-18 01:49] VITALS: BP 128/63; RESP 20
[2017-09-18] MEDS: ACCU-CHEK XX SCH ×2 (02:00→23:21)
[2017-09-18 07:59] VITALS: BP 139/84; RESP 16
[2017-09-18] MEDS: INSULIN ASPART [NOVOLOG] 3 ML PEN SC SCH ×7 (08:02→20:15)
[2017-09-18] MEDS: INSULIN GLARGINE [LANtus] 3 ML PEN SC SCH (08:03)
[2017-09-18] MEDS: CREON (24K-76K-120K) 1 CAP PO SCH ×3 (08:12→17:24)
[2017-09-18] MEDS: LACTOBACILLUS RHAMNOSUS CAP PO SCH ×2 (08:12→20:15)
[2017-09-18] MEDS: ASPIRIN 81 MG TAB PO SCH (08:13)
[2017-09-18] MEDS: BUSPIRONE 10 MG TAB PO SCH ×2 (08:15→20:15)
[2017-09-18] MEDS: NICOTINE (14 MG/24 HR) PATCH TRANSDERM SCH (08:16)
--- NOTE | 2017-09-18 10:10 | PN ---
Date/Time of Note Date/Time of Note DATE: 09/18/17 TIME: 10:10 Assessment/Plan VTE Prophylaxis VTE Prophylaxis Intervention: ambulation Lines/Catheters IV Catheter Type (from Nrsg): PICC Line Central line still needed: Yes Urinary Cath still in place: No Assessment/Plan Assessment/Plan 1. Diabetes Mellitus, uncontrolled - Appears to be better controlled with less readings in 200s - A1c 9.5. 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 Arthur, neurosurgery consulted, states non surgical at this time, however requests ID consult - ID has been consulted, recommended biopsy. however biopsy is too high risk per IR. - will treat empirically per ID, 4 weeks IV abx, picc line today - Appt with Dr. Augustine Berry, with [facility], appt made for 10/05/17 3. Altered mental status, likely secondary to alcohol abuse- resolved - Patient is mentating well and reevaluation by tele psych cleared patient - Ativan TID prn which has been helping his mood, prn. Offered termite helper medications for mood control as well but refusing and states he feels lonely and depressed and anxious when on other medications - Given information for support for alcohol abuse 4. Anion gap metabolic acidosis, moderate, not full DKA, secondary to medical noncompliance- resolved 5. suicidal ideation- resolved - No longer experiencing SI and cleared by tele-psych 6. Lactic acidosis - resolved 7. Hypernatremia, likely secondary to volume depletion given alcohol extent- resolved 8. Elevated AST and ALT, resolved 9. Mood Disorder - Improved - Denies any SI - Buspar increased to 30mg 10. Disposition - Awaiting placement Subjective 24 Hr Interval Summary Free Text/Dictation Patient doing well and has no complaints. Concerned that he is only receiving one Creon pill but explained the dose was increased. No acute overnight events. Exam/Review of Systems Vital Signs Vitals Vital Signs Date Time Temp Pulse Resp B/P Pulse Ox O2 Delivery O2 Flow Rate FiO2 09/18/17 07:59 98.5 63 16 139/84 100 Intake and Output 09/17/17 09/17/17 09/18/17 15:00 23:00 07:00 Intake Total 50 ml 1420 ml 560 ml Balance 50 ml 1420 ml 560 ml Exam General: Patient walking around room, in no acute distress. awake and alert. Head: Normocephalic atraumatic Eyes: EOMI, pupils reactive to light Neck: Supple, nontender, midline Respiratory: Clear to auscultation bilaterally. no wheezes or crackles Cardiovascular: regular rate, no obvious murmurs Gastrointestinal: non-tender to palpation, bowel sounds heard. Extremities: No tenderness to palpation spine, moving all extremities Neurological: Moves all extremities spontaneously Psych: calm, no SI/HI Results Result Diagram: 09/16/17 0518 Results 24 hrs Laboratory Tests Test 09/17/17 12:01 09/17/17 17:18 09/17/17 20:40 09/18/17 02:45 Bedside Glucose 73 109 201 186 Test 09/18/17 07:58 Bedside Glucose 146 Medications Medications Current Medications Aspirin (Aspirin) 81 mg DAILY PO Last administered on 09/18/17 08:13; Admin Dose 81 MG; Start 08/16/17 at 09:00 Ondansetron HCl (Zofran Inj) 4 mg Q6H PRN IV NAUSEA AND/OR VOMITING; Start 08/22 at 19:00 Bisacodyl (Dulcolax) 5 mg DAILY PRN PO CONSTIPATION; Start 08/15/17 at 19:00 Nicotine (Nicoderm 14 Mg/ 24hr) 1 patch DAILY TRANSDERM Last administered on 08:16; Admin Dose 1 PATCH; Start 08/16/17 at 09:00 Miscellaneous Information 1 ea NOTE XX ; Start 08/15/17 at 19:30 Glucose (Glutose) 15 gm Q15M PRN PO DECREASED GLUCOSE Last administered on 12:03; Admin Dose 15 GM; Start 08/15/17 at 19:30 Glucose (Glutose) 22.5 gm Q15M PRN PO DECREASED GLUCOSE; Start 08/15/17 at 19: 30 Dextrose (D50w Syringe) 25 ml Q15M PRN IV DECREASED GLUCOSE; Start 08/15/17 at 19:30 Dextrose (D50w Syringe) 50 ml Q15M PRN IV DECREASED GLUCOSE; Start 08/15/17 at 19:30 Glucagon (Glucagen) 1 mg Q15M PRN IM DECREASED GLUCOSE; Start 08/15/17 at 19: 30 Glucose (Glutose) 15 gm Q15M PRN BUCCAL DECREASED GLUCOSE Last administered on 08/26/17 17:18; Admin Dose 15 GM; Start 08/15/17 at 19:30 Diagnostic Test (Pha) (Accu-Chek) 1 ea 02 XX Last administered on 09/16/17 01 :57; Admin Dose 1 EA; Start 08/18/17 at 02:00 Acetaminophen (Tylenol Tab) 650 mg Q6H PRN PO PAIN AND OR ELEVATED TEMP Last administered on 09/17/17 19:49; Admin Dose 650 MG; Start 08/18/17 at 15:00 Lactobacillus Acidophilus/ Rhamnosus (Culturelle) 1 cap BID PO Last administered on 09/18/17 08:12; Admin Dose 1 CAP; Start 08/21/17 at 11:30 Methadone HCl (Methadone) 5 mg Q8H PRN PO PAIN Last administered on 09/18/17 08:13; Admin Dose 5 MG; Start 08/22/17 at 17:30 Lorazepam (Ativan) 0.5 mg Q8H PRN PO ANXIETY Last administered on 09/18/17 08 :14; Admin Dose 0.5 MG; Start 08/24/17 at 16:00 Zolpidem Tartrate 5 mg 5 mg HS PRN PO INSOMNIA Last administered on 09/17/17 20:54; Admin Dose 5 MG; Start 08/24/17 at 21:30 Daptomycin 430 mg/ Sodium Chloride 100 ml @ 200 mls/hr Q24H IVPB Last administered on 09/17/17 14:54; Admin Dose 200 MLS/HR; Start 08/31/17 at 15: 00 Ceftriaxone Sodium (Rocephin) 50 ml @ 100 mls/hr Q24H IVPB Last administered on 09/17/17 13:57; Admin Dose 100 MLS/HR; Start 08/31/17 at 13:30 IV Flush (NS 10 ml) 10 ml PRN PRN IV IV PROTOCOL Last administered on 20:33; Admin Dose 10 ML; Start 09/01/17 at 16:00 Insulin Glargine (Lantus) 20 unit DAILY@08 SC Last administered on 09/18/17 08:03; Admin Dose 20 UNIT; Start 09/06/17 at 08:00 Insulin Human NPH (Humulin N) 4 unit DAILY@20 SC Last administered on 20:46; Admin Dose 4 UNIT; Start 09/10/17 at 20:00 Buspirone HCl (Buspar) 30 mg BID PO ; Start 09/18/17 at 21:00 SALUD GARIBAY MD Sep 18, 2017 10:10
[2017-09-18] MEDS: ACETAMINOPHEN 325 MG TAB PO PRN ×2 (11:51→20:15)
[2017-09-18] MEDS: CEFTRIAXONE 1 GM/50 ML (PMX) 50 ML IVPB SCH (12:54)
[2017-09-18 14:46] VITALS: BP 119/73; RESP 16
[2017-09-18] MEDS: SOD CHLORIDE 0.9% IVPB SCH (15:00)
[2017-09-18] MEDS: DAPTOMYCIN IVPB SCH (15:00)
[2017-09-18 19:18] VITALS: BP 129/64; RESP 20
[2017-09-18] MEDS: ZOLPIDEM 5 MG TAB PO PRN (20:15)
[2017-09-18] MEDS: NPH, HUMAN INSULIN ISOPHANE 3ML VIAL SC SCH (20:24)
[2017-09-19] MEDS: LORAZEPAM 0.5 MG TAB PO PRN ×2 (00:25→07:55)
[2017-09-19] MEDS: METHADONE 5 MG TAB PO PRN ×2 (00:25→07:55)
[2017-09-19 01:34] VITALS: BP 118/60; RESP 20
[2017-09-19 06:36] LABS: CREATININE 0.84 mg/dl (0.61-1.24)
[2017-09-19 07:34] VITALS: BP 143/71; RESP 20
[2017-09-19] MEDS: ASPIRIN 81 MG TAB PO SCH (07:55)
[2017-09-19] MEDS: NICOTINE (14 MG/24 HR) PATCH TRANSDERM SCH (07:55)
[2017-09-19] MEDS: LACTOBACILLUS RHAMNOSUS CAP PO SCH (07:55)
[2017-09-19] MEDS: CREON (24K-76K-120K) 1 CAP PO SCH ×2 (07:55→12:01)
[2017-09-19] MEDS: BUSPIRONE 10 MG TAB PO SCH (07:55)
[2017-09-19] MEDS: INSULIN ASPART [NOVOLOG] 3 ML PEN SC SCH ×4 (08:07→12:08)
[2017-09-19] MEDS: INSULIN GLARGINE [LANtus] 3 ML PEN SC SCH (08:07)
--- NOTE | 2017-09-19 09:16 | PN ---
Date/Time of Note Date/Time of Note DATE: 09/19/17 TIME: 09:16 Assessment/Plan VTE Prophylaxis VTE Prophylaxis Intervention: ambulation Lines/Catheters IV Catheter Type (from Nrs): PICC Line Central line still needed: Yes Urinary Cath still in place: No Assessment/Plan Assessment/Plan 1. Diabetes Mellitus, uncontrolled - Appears to be better controlled - A1c 9.5. - Secondary to partial pancreatectomy. continu on Creon - Endocrinology consultation appreciated and adjustments made to his regimen - Diabetic counselor recommendations appreciated - Will continue monitoring 2. 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 Arthur, neurosurgery consulted, states non surgical at this time, however requests ID consult - ID has been consulted, recommended biopsy. however biopsy is too high risk per IR. - will treat empirically per ID, 4 weeks IV abx (09/28), PICC line in place with no signs of infection - Appt with Dr. Augustine Berry, with [facility], appt made for 10/05/17 3. Altered mental status, likely secondary to alcohol abuse- resolved - Patient is mentating well and reevaluation by tele psych cleared patient - Doing well on Buspar - Given information for support for alcohol abuse 4. Anion gap metabolic acidosis, moderate, not full DKA, secondary to medical noncompliance- resolved 5. suicidal ideation- resolved - No longer experiencing SI and cleared by tele-psych 6. Lactic acidosis - resolved 7. Hypernatremia, likely secondary to volume depletion given alcohol extent- resolved 8. Elevated AST and ALT, resolved 9. Mood Disorder - Improved - Denies any SI - Tolerating Buspar at 30mg BID 10. Disposition - Medically stable for discharge. Accepted to facility today since bed opened up Subjective 24 Hr Interval Summary Free Text/Dictation Patient doing well and denies any new complaints. No acute overnight events. Concerned about tablet being dropped by rehab nursing tech and nursing butter production supervisor made aware. Exam/Review of Systems Vital Signs Vitals Vital Signs Date Time Temp Pulse Resp B/P Pulse Ox O2 Delivery O2 Flow Rate FiO2 09/19/17 07:34 98.4 53 20 143/71 100 Intake and Output 09/18/17 09/18/17 09/19/17 14:59 22:59 06:59 Intake Total 50 ml 1700 ml 700 ml Balance 50 ml 1700 ml 700 ml Exam General: Patient walking around room, in no acute distress. awake and alert. Head: Normocephalic atraumatic Eyes: EOMI, pupils reactive to light Neck: Supple, nontender, midline Respiratory: Clear to auscultation bilaterally. no wheezes or crackles Cardiovascular: regular rate, no obvious murmurs Gastrointestinal: non-tender to palpation, bowel sounds heard. Extremities: No tenderness to palpation spine, moving all extremities Neurological: Moves all extremities spontaneously Psych: calm, no SI/HI Results Result Diagram: 09/19/17 0539 Results 24 hrs Laboratory Tests Test 09/18/17 12:26 09/18/17 17:25 09/18/17 20:09 09/19/17 05:39 Bedside Glucose 71 138 97 Blood Urea Nitrogen 27 H Creatinine 0.84 Test 09/19/17 07:54 Bedside Glucose 171 Medications Medications Current Medications Aspirin (Aspirin) 81 mg DAILY PO Last administered on 09/19/17 07:55; Admin Dose 81 MG; Start 08/16/17 at 09:00 Ondansetron HCl (Zofran Inj) 4 mg Q6H PRN IV NAUSEA AND/OR VOMITING; Start 08/22 at 19:00 Bisacodyl (Dulcolax) 5 mg DAILY PRN PO CONSTIPATION; Start 08/15/17 at 19:00 Nicotine (Nicoderm 14 Mg/ 24hr) 1 patch DAILY TRANSDERM Last administered on 07:55; Admin Dose 1 PATCH; Start 08/16/17 at 09:00 Miscellaneous Information 1 ea NOTE XX ; Start 08/15/17 at 19:30 Glucose (Glutose) 15 gm Q15M PRN PO DECREASED GLUCOSE Last administered on 12:03; Admin Dose 15 GM; Start 08/15/17 at 19:30 Glucose (Glutose) 22.5 gm Q15M PRN PO DECREASED GLUCOSE; Start 08/15/17 at 19: 30 Dextrose (D50w Syringe) 25 ml Q15M PRN IV DECREASED GLUCOSE; Start 08/15/17 at 19:30 Dextrose (D50w Syringe) 50 ml Q15M PRN IV DECREASED GLUCOSE; Start 08/15/17 at 19:30 Glucagon (Glucagen) 1 mg Q15M PRN IM DECREASED GLUCOSE; Start 08/15/17 at 19: 30 Glucose (Glutose) 15 gm Q15M PRN BUCCAL DECREASED GLUCOSE Last administered on 08/26/17 17:18; Admin Dose 15 GM; Start 08/15/17 at 19:30 Diagnostic Test (Pha) (Accu-Chek) 1 ea 02 XX Last administered on 09/16/17 01 :57; Admin Dose 1 EA; Start 08/18/17 at 02:00 Acetaminophen (Tylenol Tab) 650 mg Q6H PRN PO PAIN AND OR ELEVATED TEMP Last administered on 09/18/17 20:15; Admin Dose 650 MG; Start 08/18/17 at 15:00 Lactobacillus Acidophilus/ Rhamnosus (Culturelle) 1 cap BID PO Last administered on 09/19/17 07:55; Admin Dose 1 CAP; Start 08/21/17 at 11:30 Methadone HCl (Methadone) 5 mg Q8H PRN PO PAIN Last administered on 09/19/17 07:55; Admin Dose 5 MG; Start 08/22/17 at 17:30 Lorazepam (Ativan) 0.5 mg Q8H PRN PO ANXIETY Last administered on 09/19/17 07 :55; Admin Dose 0.5 MG; Start 08/24/17 at 16:00 Zolpidem Tartrate 5 mg 5 mg HS PRN PO INSOMNIA Last administered on 09/18/17 20:15; Admin Dose 5 MG; Start 08/24/17 at 21:30 Daptomycin 430 mg/ Sodium Chloride 100 ml @ 200 mls/hr Q24H IVPB Last administered on 09/18/17 15:00; Admin Dose 200 MLS/HR; Start 08/31/17 at 15: 00 Ceftriaxone Sodium (Rocephin) 50 ml @ 100 mls/hr Q24H IVPB Last administered on 09/18/17 12:54; Admin Dose 100 MLS/HR; Start 08/31/17 at 13:30 IV Flush (NS 10 ml) 10 ml PRN PRN IV IV PROTOCOL Last administered on 20:33; Admin Dose 10 ML; Start 09/01/17 at 16:00 Insulin Glargine (Lantus) 20 unit DAILY@08 SC Last administered on 09/19/17 08:07; Admin Dose 20 UNIT; Start 09/06/17 at 08:00 Insulin Human NPH (Humulin N) 4 unit DAILY@20 SC Last administered on 20:24; Admin Dose 4 UNIT; Start 09/10/17 at 20:00 Buspirone HCl (Buspar) 30 mg BID PO Last administered on 09/19/17 07:55; Admin Dose 30 MG; Start 09/18/17 at 21:00 SALUD GARIBAY MD Sep 19, 2017 09:16
[2017-09-19] MEDS: CEFTRIAXONE 1 GM/50 ML (PMX) 50 ML IVPB SCH (11:16)
--- NOTE | 2017-09-19 11:22 | PDOCDIS ---
Discharge Instructions DIAGNOSIS Discharge Diagnosis 1. Diabetes Mellitus, uncontrolled 2. Back pain secondary to diskitis vs osteomyelitis 3. Altered mental status- resolved 4. Anion gap metabolic acidosis, moderate, not full DKA, secondary to medical noncompliance- resolved 5. suicidal ideation- resolved 6. Lactic acidosis 7. Hypernatremia, likely secondary to volume depletion given alcohol extent- resolved 8. Elevated AST and ALT, resolved 9. Mood Disorder CONDITION Patient Condition: Good HOME CARE INSTRUCTIONS: Diet Instructions: CARB CONTROLLED 1800 ALEXIS ADASpecial Diet: carb controlled diet ACTIVITY: Activity Restrictions: Slowly Increase Activity Rest between Activity FOLLOW UP/APPOINTMENTS Follow-up Plan 1. Take all medications as directed 2. Follow up with Dr. Augustine Berry with [facility] on oct 05 at 8am 3. Follow up with your primary care provider as soon as possible. SALUD GARIBAY MD Sep 19, 2017 11:22
--- NOTE | 2017-09-19 11:44 | DS ---
Date/Time of Note Date/Time of Note DATE: 09/19/17 TIME: 11:42 Discharge Summary Admission/Discharge Info Admit Date/Time Aug 15, 2017 at 19:21 Discharge Date/Time Discharge Diagnosis 1. Diabetes Mellitus, uncontrolled 2. Back pain secondary to diskitis vs osteomyelitis 3. Altered mental status- resolved 4. Anion gap metabolic acidosis, moderate, not full DKA, secondary to medical noncompliance- resolved 5. suicidal ideation- resolved 6. Lactic acidosis 7. Hypernatremia, likely secondary to volume depletion given alcohol extent- resolved 8. Elevated AST and ALT, resolved 9. Mood Disorder Patient Condition: Good Consults Infectious Disease Endocrinology Neurosurgery Pain Management Procedures PROCEDURE: MR Thoracic Spine with and without contrast. CLINICAL INDICATION: 52-year-old male with thoracic spine pain, abnormal CT. Evaluate for possible diskitis. TECHNIQUE: An MRI of the thoracic spine was performed with and without contrast utilizing multiple sequences in the sagittal and axial planes. 10 cc of Magnevist was visualized without complication. Images reviewed on a high- resolution PACS system.. COMPARISON: CT thoracic spine pain. 08/23/2017. FINDINGS: There is redemonstration of exaggeration of thoracic kyphosis centered at T7, with markedly severe loss of anterior vertebral body height at T7. There is a 30 % anterior compression deformity of T8. The T7 vertebral body appears extensively heterogeneous, with mild enhancement of the anterior vertebral body in the region of the visualized comminuted fracture. There is also subtle enhancement involving the inferior T6 and superior T8 end plates. There is no significant paraspinal soft tissue swelling. There is no evidence of paraspinal phlegmon or epidural enhancement. There is severe narrowing of the T7-8 disc- space, with mild narrowing of the T6-7 disc-space. No there is a subtle, trace amount of fluid in the disc-spaces at these levels, the end plates appear intact without evidence of diskitis/osteomyelitis. There is no paraspinal phlegmon. The remaining vertebral body heights are maintained. The remaining intervertebral discs are normal in appearance. There is no significant listhesis. The thoracic spinal cord is normal in signal and caliber. No evidence of myelopathic changes at this time. The paraspinal soft tissues are unremarkable. Visualized intrathoracic contents are unremarkable. IMPRESSION: 1. Severely comminuted anterior compression deformity of the C7 vertebral body with suggestion of "Moth-eaten" appearance on CT scan and mild enhancement involving the anterior aspect of the vertebral body. This is concerning for possible pathologic fracture. There is no significant prevertebral soft tissue swelling to suggest acute fracture at this time. 2. 30% anterior compression deformity at T8 with prominent subchondral sclerosis and subtle enhancement involving the superior endplate, likely related to subacute fracture. No definite focal area of abnormal enhancement is seen to suggest metastatic disease at this time.. 3. Mild enhancement in the inferior T6 endplate, without definite evidence of T6 fracture. 4. Trace amount of fluid in the disc-space at T6-7, with intact adjacent endplates. The fellow there is a subtle amount of fluid, these findings are felt to be related to the pathologic fracture at T7, without definite evidence of diskitis/osteomyelitis at this time. 5. The thoracic spinal cord is normal in signal and caliber. 6. The remaining thoracic spine is normal in appearance. No additional areas of abnormal signal or enhancement is seen. Hx of Present Illness Patient is a 52-year-old male with a past medical history significant for excessive alcoholism with repeated admissions for DKA and hyperglycemia who presents to [facility] after being found drunk and passed out by bystanders, in the ED patient is lethargic and sleepy but easily arousable and oriented. Patient appears intoxicated at this time but is able to answer simple questions. Patient states that he did not follow-up with a primary care provider after he was discharged 2 days ago. Patient acknowledges medical noncompliance. Patient states that he has no new pain from baseline and goes right back to sleep. Patient was admitted for hyperglycemia and elevated lactic acid likely secondary to uncontrolled diabetes and alcoholism PMH: Medical noncompliance, diabetes mellitus, alcoholism, chronic back pain PSH: Cholecystectomy Social: Everyday drinker, smoker, unknown drugs Meds: NPH insulin, aspirin, pain medication although opiate level is negative on admission Hospital Course Patient is a 52-year-old alcoholic and medically noncompliant diabetic patient who has a history of spinal osteomyelitis approximately 6 months ago who presented to [facility] with suicidal ideation and refusal to use insulin. Patient had an extensive course related to the suicidal ideation, please see discharge summary dated at August 17 to get more information. Ultimately patient was cleared from psych hold however required placement issues and upon routine CT screening due to chest ray x-ray findings, questionable discitis versus osteomyelitis was entertained. Neurosurgery and infectious disease became involved and it was deemed impossible to determine if it was an active infection or not given patient's previous negative biopsy with his infectious disease specialist at [facility]. Records were reviewed from [facility] and it was found out the name of his infectious disease doctor whose appointment he missed secondary to being hospitalized this past month. Patient will be treated empirically for 4 weeks of antibiotics until September 28, secondary to biopsy site being too close to the spinal cord and to high risk. Patient was also started on a new insulin regimen, however patient does not want to be on this new regimen as it is too complicated and he does not know if his insurance will cover the medication. Patient requests to be discharged with his own insulin regimen that he was on prior. Patient will be discharged with NPH insulin which she knows how to check for many years. Patient will also be discharged with a mood stabilizer, buspirone. There was difficulty finding placement for the patient given his insurance and lack of foresight into his medical condition, however recuperative care was eventually found and patient will be discharged to his own reconnaissance at the recuperative care with a prescription for medications and an appointment to see his ID doctor on October 05, 8:30 AM. IV antibiotics are to be continued by home health until at least September 28. Home Meds Active Scripts NPH, Human Insulin Isophane (Humulin N Kwikpen) 100 Unit/1 Ml Insuln.pen, 20 UNIT SQ QPM, #1 EA 5 Refills Prov:SELINA HDZ 09/13/17 NPH, Human Insulin Isophane (Humulin N Kwikpen) 100 Unit/1 Ml Insuln.pen, 25 UNIT SQ QAM, #1 EA 5 Refills Prov:SELINA HDZ 09/13/17 Lactobacillus Rhamnosus GG (Culturelle) 1 Each Capsule, 1 CAP PO BID for 30 Days , #60 CAP 1 Refill Prov:SELINA HDZ 09/13/17 Xkbbga-Jwxtiiwv-Myruwjn* (Yamilet MARISCAL* 12,000) 12,000 L-38,000-60,000 Unit Capsule.dr, 2 CAP PO WITH MEALS for 30 Days, #90 1 Refill Prov:SELNIA HDZ 09/13/17 Buspirone Hcl* (Buspirone Hcl*) 10 Mg Tab, 20 MG PO BID for 30 Days, #60 TAB 1 Refill Prov:SELINA HDZ 09/13/17 Aspirin (Aspirin) 81 Mg Chew, 81 MG PO DAILY for 30 Days, #30 TAB Prov:SELINA HDZ 09/13/17 Follow-up Plan 1. Take all medications as directed 2. Follow up with Dr. Augustine Berry with [facility] on oct 05 at 8am 3. Follow up with your primary care provider as soon as possible. Primary Care Provider [facility] Time spent on discharge: > 30 minutes Pending Labs Laboratory Tests Test 09/18/17 12:26 09/18/17 17:25 09/18/17 20:09 09/19/17 05:39 Bedside Glucose 71mg/dL (70-220) 138mg/dL (70-220) 97mg/dL (70-220) Blood Urea Nitrogen 27mg/dl (7-20) Creatinine 0.84mg/dl (0.61-1.24) Test 09/19/17 07:54 Bedside Glucose 171mg/dL (70-220) SALUD GARIBAY MD Sep 19, 2017 11:44
[2017-09-19] MEDS: DAPTOMYCIN IVPB SCH (12:01)
[2017-09-19] MEDS: SOD CHLORIDE 0.9% IVPB SCH (12:01)
[2017-09-19] MEDS: ACETAMINOPHEN 325 MG TAB PO PRN (13:45)
== END 2017-09-19 15:00 | disposition other institution (70) | DRG 896 ==
LOC: E/R 15:07 → TEL 19:21 → MS2 08-22 21:59
PROVIDERS: ADMIT Internal Medicine; ATTEND Internal Medicine
PROC: 02HV33Z Insertion of Infusion Device into Superior Vena Cava, Percutaneous Approach (ICD-10-PCS; principal; 2017-09-01)
DX: F10.229 Alcohol dependence with intoxication, unspecified (principal); E11.10 Type 2 diabetes mellitus with ketoacidosis without coma; G93.41 Metabolic encephalopathy; E87.0 Hyperosmolality and hypernatremia; E87.2 Acidosis; R45.851 Suicidal ideations; M46.24 Osteomyelitis of vertebra, thoracic region; M84.48XA Pathological fracture, other site, initial encounter for fracture; K86.81 Exocrine pancreatic insufficiency; E05.90 Thyrotoxicosis, unspecified without thyrotoxic crisis or storm; Z72.0 Tobacco use; Z79.4 Long term (current) use of insulin; Z59.0 Homelessness; Z60.9 Problem related to social environment, unspecified; Z91.14 Patient's other noncompliance with medication regimen; F39 Unspecified mood [affective] disorder; M40.204 Unspecified kyphosis, thoracic region; M43.8X5 Other specified deforming dorsopathies, thoracolumbar region
CPT/HCPCS: 36569; 36600; 70450; 71010; 71250; 72100; 72157; 72220; 74150; 76937; 80048; 80053; 80069; 80306; 80307; 81001; 82140; 82550; 82565; 82803; 82962; 83036; 83540; 83605; 83735; 84100; 84439; 84443; 84481; 84484; 84520; 85025; 85610; 85651; 85730; 86140; 87040; 87086; 93005; 96361; 96365; 96366; 96372; 96375; 97116; 97162; 97530; C1769; J0696; J1644; J1815; J1885; J2060; J2270; J2543; J3370; J3411; J7030; J7042

== ENCOUNTER 2017-09-21 13:46 | Emergency (ER) | payer OTHER ==
[~2017-09-21] VITALS: Ht 177.8 cm; Wt 76.1 kg
[~2017-09-21 13:46] MED LIST changes: +BUSP10TA2 PO; +LACT1CAP28 PO; +LIPA1CAP4 PO; -METH-417 PO; -TRAZ50TA18 PO
[2017-09-21 13:53] VITALS: Ht 177.8 cm; Wt 76.1 kg
[2017-09-21] MEDS ORDERED: SOD CHLORIDE 0.9% 1,000 ML IV ONE (19:30)
[2017-09-21] MEDS ORDERED: KETOROLAC 15 MG INJ IV STA (19:34)
[2017-09-21 19:47] LABS: BASOPHIL # 0.1 10^3/ul (0.0-0.1); BASOPHILS % 1.2 % (0.0-2.0); EOSINOPHILS # 0.1 10^3/ul (0.0-0.5); EOSINOPHILS % 1.5 % (0.0-7.0); HEMATOCRIT 37.8 % (42.0-52.0); HEMOGLOBIN 13.1 g/dl (14.0-18.0); LYMPHOCYTES # 2.8 10^3/ul (0.8-2.9); LYMPHOCYTES % 33.3 % (15.0-51.0); MEAN CORPUSCULAR HEMOGLOBIN 32.1 pg (29.0-33.0); MEAN CORPUSCULAR HGB CONC 34.7 g/dl (32.0-37.0); MEAN CORPUSCULAR VOLUME 92.6 fl (82.0-101.0); MEAN PLATELET VOLUME 11.2 fl (7.4-10.4); MONOCYTE # 0.7 10^3/ul (0.3-0.9); MONOCYTES % 8.3 % (0.0-11.0); NEUTROPHIL # 4.7 10^3/ul (1.6-7.5); NEUTROPHILS % 55.5 % (39.0-77.0); PLATELET COUNT 208 10^3/UL (140-415); RED BLOOD COUNT 4.08 10^6/ul (4.70-6.10); RED CELL DISTRIBUTION WIDTH 13.4 % (11.5-14.5); WHITE BLOOD COUNT 8.5 10^3/ul (4.8-10.8)
[2017-09-21 20:05] LABS: CALCIUM 9.6 mg/dl (8.4-10.2); CREATININE 0.78 mg/dl (0.61-1.24)
--- NOTE | 2017-09-21 20:38 | ERD ---
ER Documentation Chief Complaint Chief Complaint pt elke self from urgent care with high blood sugar, no complaints at [facility] This is a 52-year-old male with a past medical history of diabetes mellitus on NPH and insulin, a recent diagnosis of spinal osteomyelitis status post PICC line, currently on Rocephin and daptomycin, presenting today with elevated blood sugar. The patient is reportedly at his home getting cared for by home health nurses. He had a fasting blood sugar of 218 at 630 this morning and was given his normal 25 units of NPH. At approximately 1045, the patient complained of dizziness and feeling fatigued. His blood sugar at that time was 431. He was given 8 units of Humulin and his blood sugar was rechecked at 11: 35 AM and found to be 449. The nurse at the facility reportedly held his Rocephin and daptomycin was with concerns of elevating his blood sugar. The patient does endorse a mild typical headache and upper back pain, which he says is chronic for him when he lays for long periods of time, which he did today. He does not endorse any vision changes. He is not confused. He is not currently lightheaded. His fatigue has also improved, but he is hungry. The patient denies chest pain or trouble breathing. He denies any abdominal pain or changes to bowel movements or urination. He denies any nausea or vomiting. He has had no focal deficits. He denies any weakness or numbness or tingling to the face or extremities. ROS All systems reviewed and are negative except as per history of present illness. Medications Home Meds Active Scripts NPH, Human Insulin Isophane (Humulin N Kwikpen) 100 Unit/1 Ml Insuln.pen, 20 UNIT SQ QPM, #1 EA 5 Refills Prov:SELINA HDZ 09/13/17 NPH, Human Insulin Isophane (Humulin N Kwikpen) 100 Unit/1 Ml Insuln.pen, 25 UNIT SQ QAM, #1 EA 5 Refills Prov:SELINA HDZ 09/13/17 Lactobacillus Rhamnosus GG (Culturelle) 1 Each Capsule, 1 CAP PO BID for 30 Days , #60 CAP 1 Refill Prov:SELINA HDZ 09/13/17 Quuulk-Kzugugko-Asrqvtw* (Yamilet MARISCAL* 12,000) 12,000 L-38,000-60,000 Unit Capsule.dr, 2 CAP PO WITH MEALS for 30 Days, #90 1 Refill Prov:SELINA HDZ 09/13/17 Buspirone Hcl* (Buspirone Hcl*) 10 Mg Tab, 20 MG PO BID for 30 Days, #60 TAB 1 Refill Prov:SELINA HDZ 09/13/17 Aspirin (Aspirin) 81 Mg Chew, 81 MG PO DAILY for 30 Days, #30 TAB Prov:SELINA HDZ 09/13/17 Allergies Allergies: Coded Allergies: No Known Allergy (Unverified , 08/15/17) PMhx/Soc History of Surgery: Yes (cholecystectomy 2010, pancreas removal 2010, hernia, 2016 ) Anesthesia Reaction: No Hx Neurological Disorder: No Hx Respiratory Disorders: No Hx Cardiac Disorders: No Hx Psychiatric Problems: No Hx Miscellaneous Medical Probl: Yes (See EMR) Hx Alcohol Use: Yes (every day ) Hx Substance Use: No Hx Tobacco Use: Yes Smoking Status: Current every day smoker FmHx Family History: diabetes Physical Exam Vitals Vital Signs Date Time Temp Pulse Resp B/P Pulse Ox O2 Delivery O2 Flow Rate FiO2 09/21/17 13:53 98.3 83 18 154/72 100 Physical Exam Const: No apparent distress, well-developed, well-nourished Head: Normocephalic, Atraumatic Eyes: Normal Conjunctiva. Extraocular movements intact. Pupils equal, round and reactive to light ENT: Normal External Ears, Nose and Mouth. Neck: Full range of motion. No meningismus. Resp: Clear to auscultation bilaterally. No wheezes, rales or rhonchi Cardio: Regular rate and rhythm. No murmurs, rubs or gallops Abd: Soft, non tender, non distended. Normal bowel sounds Skin: No petechiae or rashes Back: Mild thoracic spinal tenderness without step-offs or deformities. No CVA tenderness Ext: No cyanosis, or edema, right arm PICC Neur: Awake and alert, oriented 4. Cranial nerves intact. No facial droop. Normal strength, sensation and coordination. Psych: Normal Mood and Affect Result Diagram: 09/21/17192909/21/171929 Results 24 hrs Laboratory Tests Test 09/21/17 19:26 09/21/17 19:30 Bedside Glucose 234mg/dL White Blood Count 8.510^3/ul Red Blood Count 4.0810^6/ul Hemoglobin 13.1g/dl Hematocrit 37.8% Mean Corpuscular Volume 92.6fl Mean Corpuscular Hemoglobin 32.1pg Mean Corpuscular Hemoglobin Concent 34.7g/dl Red Cell Distribution Width 13.4% Platelet Count 47247^3/UL Mean Platelet Volume 11.2fl Neutrophils % 55.5% Lymphocytes % 33.3% Monocytes % 8.3% Eosinophils % 1.5% Basophils % 1.2% Nucleated Red Blood Cells % 0.0/100WBC Neutrophils # 4.710^3/ul Lymphocytes # 2.810^3/ul Monocytes # 0.710^3/ul Eosinophils # 0.110^3/ul Basophils # 0.110^3/ul Nucleated Red Blood Cells # 0.010^3/ul Sodium Level 141mmol/L Potassium Level 4.0mmol/L Chloride Level 101mmol/L Carbon Dioxide Level 30mmol/L Anion Gap 14 Blood Urea Nitrogen 18mg/dl Creatinine 0.78mg/dl Glucose Level 234mg/dl Calcium Level 9.6mg/dl Current Medications Medications (Trade) Dose Ordered Sig/Miugel Route PRN Reason Start Time Stop Time Status Last Admin Dose Admin Sodium Chloride (NS) 1,000 ml @ 1,000 mls/hr Q1H ONCE IV 09/21/17 19:30 09/21/17 20:29 09/21/17 19:32 Ketorolac Tromethamine (Toradol) 15 mg ONCE STAT IV 09/21/17 19:34 09/21/17 19:35 DC 09/21/17 20:00 Procedures/MDM MDM The patient's presentation warrants further investigation. I will evaluate for any signs of DKA. The patient will receive IV fluids in the emergency department. Consideration of insulin will be made after the blood work has returned. LABS The patient's blood work was obtained and reviewed. The patient's CBC shows no leukocytosis and no left shift. The patient is afebrile and does not appear systemically ill. I do not suspect a systemic infection. The patient is not anemic today. The patient's platelet count is unremarkable. Aside from hyperglycemia at 234, the patient's BMP shows no signs of metabolic or electrolyte emergencies. The patient does not have an anion gap, and I have low suspicion for DKA. The patient has unremarkable renal function testing. TREATMENT/DISPOSITION The patient is getting IV fluids in the emergency department. Prior to IV fluid initiation, the patient's blood sugar was 234. The patient has no anion gap. I have low suspicion for DKA. I do not feel that the patient requires admission for asymptomatic hyperglycemia. He does not require any insulin at this time. The patient is afebrile, and I do not see any signs of a systemic infection at this time. The patient may resume his antibiotics as prescribed. At this time, I feel that the patient stable for discharge. The patient will need follow-up with his primary care physician in 1-3 days. The patient will be given strict precautions with which to return to the emergency department. The patient's blood pressure was elevated at greater than 120/80 while in the emergency department. The patient was otherwise stable with no evidence of hypertensive urgency or emergency. The patient will require reevaluation of his blood pressure in 2-3 days, but this may be completed by a primary care physician as an outpatient. He does not require admission for blood pressure control. Departure Diagnosis: Primary Impression: Hyperglycemia Condition: Stable ERENDIRA REES MD Sep 21, 2017 20:37
[2017-09-21] MEDS ORDERED: FENTAnyl 50 MCG/ML VIAL IV ONE (21:30)
[2017-09-21 21:40] VITALS: BP 122/73; PULSE 65; RESP 15; TEMP 98.1
== END 2017-09-21 21:42 | disposition home or self-care (01) ==
LOC: E/R 13:46
DX: E11.65 Type 2 diabetes mellitus with hyperglycemia (principal); F17.210 Nicotine dependence, cigarettes, uncomplicated; Z79.4 Long term (current) use of insulin; Z79.82 Long term (current) use of aspirin
CPT/HCPCS: 36415; 80048; 82962; 85025; 96374; 96375; J1885; J3010; J7030; Z7502; Z7610